=== PATIENT | female | born 1990 | race Caucasian/White ===

== ENCOUNTER 2017-08-19 15:44 | Emergency (ER) | payer OTHER, SELFPAY ==
[2017-08-19 15:45] VITALS: BP 157/90; PULSE 98; RESP 16; TEMP 37; O2SAT 98; BMI 24.7
--- NOTE | 2017-08-19 15:59 | ED.VISSUMM ---
- ER Visit Summary Date of Service: 08/19/17 Chief Complaint: Fatigue History of Present Illness: The patient is a 27 F no significant past medical history other than the depression. 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 She has had URI type symptoms are about 10 days. She just feels generally weak and fatigued and now feels somewhat dehydrated. Nonproductive cough. No fever but chills. Denies nausea, vomiting or diarrhea. Denies dysuria but thought she had some mild right flank pain the other day. Just came off her period which was irregular and lasted about 3 weeks. She does have a control implant. She denies any abdominal pain or chest pain. Physical Examination: Well-appearing young female. Vital signs are stable afebrile. Pulse ox 98% on room air no signs of hypoxia. H EENT exam unremarkable. Neck nontender no lymphadenopathy. Trachea midline. Lungs dry cough but no rales, rhonchi or wheezing. Equal symmetrical. Heart regular rate and rhythm no murmur. Abdomen is soft and nontender. Normal bowel sounds no peritoneal signs. She is moving all 4 extremities. Calves are nontender without edema or cords. Back exam is nontender. Skin is unremarkable. No rashes. No petechiae or purpura. Neurologic exam is normal with normal motor strength. Actually Test Results: Repeat exam at 1700 patient is doing well. I went over all test results with both her and her mother. CBC normal. BMP normal. No signs of dehydration. UA normal. Serum test negative. Her history and exam are consistent with a viral URI. Emergency Department Course and Treatment: IV fluids and screening labs. Treatment Plan: Treated as a viral syndrome. Disposition: Discharge Impression: Fatigue Acute viral URI This note was generated with [employer] dictation software. It may contain incorrect words, spelling, and punctuation that were not noted in review of the chart prior to signing ED Disposition - Plan for ED Patient: Chief Complaint: General Illness Referrals: Eugenia Low DO [Primary Care Provider] -
[2017-08-19 16:12] LABS: Bacteria 0 SEEN /hpf (None Seen)
[2017-08-19 16:14] LABS: Color, Urine Yellow (Yellow); Glucose, Dipstick Normal (Normal); Ketone-Dipstick 15 mg/dl (Negative); Leukocyte Esterase-Dipstick 25 /ul (Negative); Nitrite-Dipstick Negative (Negative); Occult Blood-Urine 25 /ul (Negative); Protein-Dipstick 15 mg/dl (Negative); Urine Bilirubin Dipstick Negative (Negative); Urine Urobilinogen Normal (Normal)
[2017-08-19] MEDS: 0.9% Normal Saline 1,000 ML 1000 ML IV (16:18)
[2017-08-19 16:20] LABS: Red Blood Cells-Urine 0-5 SEEN /hpf (0-5); Squamous Epithelial Cells - UA 5-10 SEEN /hpf (5-10); Urine Clarity Sl Cldy (Clear); White Blood Cells 0-5 SEEN /hpf (0-5)
[2017-08-19 16:21] LABS: Mucous, Urine 2+ /hpf (<or=2+)
[2017-08-19 16:28] LABS: Absolute Lymphocyte Count 1.77 X10^3/ul (0.83-4.51); Absolute Neutrophil Count 5.3 X10^3/uL (2.0-7.7); Basophil# 0.01 X10^3/uL; Basophil% 0.1 % (0-1); Eosinophil# 0.13 X10^3/uL; Eosinophils% 1.7 % (0-5); Hematocrit 41.8 % (37-47); Lymphocyte # 1.77 X10^3/ul (4.0); Lymphocyte % 22.8 % (19-41); Mean Corp Hgb Conc 33.5 g/gl (32-36); Mean Corpuscular Hgb 29.5 pg (27.0-32.0); Mean Corpuscular Volume 88.2 fL (81-99); Mean Platelet Vol. 8.6 fl (6.2-12.0); Monocyte# 0.57 X10^3/uL; Monocyte% 7.4 % (0-10); Neutrophil # 5.26 X10^3/uL (2.7-7.7); Neutrophil % 67.9 % (47-70); Platelet Count 285 K/mm3 (150-450); RBC Distribution Width CV 12.3 % (11.6-14.6); RBC Distribution Width SD 39.7 fl (35.1-43.9); Red Blood Count 4.74 M/mm3 (4.2-5.4); White Blood Count 7.8 K/mm3 (4.4-11.0)
[2017-08-19 16:29] LABS: POSITIVE COUNT NO; POSITIVE DIFFERENTIAL NO; POSITIVE MORPHOLOGY NO
[2017-08-19 16:38] LABS: Anion Gap 7 (5-15); BUN 13 mg/dL (7-18); BUN/Creat Ratio 14.7 RATIO (10-20); Calcium,Total 8.9 mg/dL (8.5-10.1); Chloride 105 mmol/L (98-107); Creatinine, Serum 0.88 mg/dL (0.55-1.02); EST Glomerular Filtration Rate 83 mL/min (>60); Est Glom Filt Rate - Afr Amer 100 mL/min (>60); Estimated Creatinine Clearance 84.39 ml/min; Glucose 84 mg/dL (74-106); Potassium 3.8 mmol/L (3.5-5.1); Sodium Level 138 mmol/L (136-145)
[2017-08-19 16:42] LABS: Pregnancy, Serum, hCG Quali. NEGATIVE Negative (0-9 Nonpreg)
--- NOTE | 2017-08-19 17:04 | ED.DEP ---
ED Disposition - Plan for ED Patient: Disposition: Home or Assisted Living Chief Complaint: General Illness Instructions: ED URI Viral Referrals: Eugenia Low DO [Primary Care Provider] - 10-14 Days if not better Additional Instructions: Plenty of fluids and rest. Tylenol Motrin for body aches and fever as needed. Follow-up your primary care physician if not improving in another week or 2.
== END 2017-08-19 17:22 | disposition home or self-care (01) ==
PROVIDERS: Emergency Provider Emergency Medicine; Family Provider Family Medicine; PCP Family Medicine
DX: R53.83 Other fatigue (principal); J06.9 Acute upper respiratory infection, unspecified; F32.9 Major depressive disorder, single episode, unspecified
CPT/HCPCS: 80048; 81001; 84703; 85025; 99283; J7030; A4216

== ENCOUNTER → 2017-08-28 18:23 | Outpatient (CLI) | payer OTHER, SELFPAY ==
[2017-08-28 20:12] LABS: Chlamydia Trachomatis by PCR Negative (Negative); Neisserai gonorrhoeae by PCR Negative (Negative); Probe Check PASS; Sample Adequacy Control PASS; Specimen Processing Control PASS
[2017-08-31 18:27] LABS: HPV Reflexed? NOT INDICATED
== END ==
PROVIDERS: Visit Provider Obstetrics & Gynecology
DX: Z12.4 Encounter for screening for malignant neoplasm of cervix (principal); Z11.3 Encounter for screening for infections with a predominantly sexual mode of transmission
CPT/HCPCS: 87491; 87591; 88175; G0145

== ENCOUNTER → 2019-04-21 14:01 | Outpatient (CLI) | payer BC, SELFPAY ==
[2019-04-21 10:46] VITALS: BMI 25.6
== END ==
PROVIDERS: Family Provider Family Medicine; PCP Family Medicine; Referring Provider Physician Assistant; Visit Provider Physician Assistant
DX: L02.91 Cutaneous abscess, unspecified (principal)
CPT/HCPCS: 87070; 87205

== ENCOUNTER → 2020-03-25 16:35 | Outpatient (CLI) | payer OTHER, SELFPAY ==
[2020-03-25 14:14] VITALS: BMI 25.6
[2020-03-25 17:54] LABS: Amphetamine Urine VISTA NEGATIVE (<1000 ng/mL); Barbiturate Urine VISTA NEGATIVE (< 200 ng/mL); Benzodiazepine Urine VISTA NEGATIVE (< 200 ng/mL); Cocaine Urine VISTA NEGATIVE (< 300 ng/mL); Ecstacy Urine VISTA NEGATIVE (< 500 ng/mL); Methadone Urine VISTA NEGATIVE (< 300 ng/mL); PCP Urine VISTA NEGATIVE (< 25 ng/mL); THC Urine VISTA NEGATIVE (< 50 ng/mL); Vista UDS pH Range 6
[2020-03-30 07:07] LABS: Chlamydia By Nucleic Acid AMP Negative (Negative)
[2020-03-30 07:59] LABS: Gonococcus By Nucleic Acid AMP Negative (Negative)
== END ==
PROVIDERS: PCP Family Medicine; Referring Provider Obstetrics & Gynecology; Visit Provider Obstetrics & Gynecology
DX: Z34.90 Encounter for supervision of normal pregnancy, unspecified, unspecified trimester (principal); Z11.3 Encounter for screening for infections with a predominantly sexual mode of transmission
CPT/HCPCS: 80307; 87086; 87088; 87491; 87591

== ENCOUNTER → 2020-04-01 14:32 | Outpatient (CLI) | payer OTHER, SELFPAY ==
[2020-03-25 14:14] VITALS: BMI 25.6
[2020-04-01 14:58] VITALS: BP 111/70; PULSE 84; RESP 16; TEMP 36.6; O2SAT 97; BMI 28.6
[2020-04-01] MEDS: 0.9% NaCl Peripheral Flush Adult/Peds IV (15:10)
[2020-04-01] MEDS: Dextrose 5%-Lactated Ringers 1,000 ML 999 ML IV (15:11)
[2020-04-01] MEDS: Ondansetron 4 MG/2 ML Vial IV (15:13)
== END ==
PROVIDERS: PCP Family Medicine; Referring Provider Obstetrics & Gynecology; Visit Provider Obstetrics & Gynecology
DX: E86.0 Dehydration (principal)
CPT/HCPCS: 96361; 96374; A4216; J2405

== ENCOUNTER → 2020-04-02 13:59 | Outpatient (CLI) | payer OTHER, SELFPAY ==
[2020-04-01 14:58] VITALS: BMI 28.6
[2020-04-02 14:56] LABS: Absolute Lymphocyte Count 2.17 X10^3/uL (0.83-4.51); Absolute Neutrophil Count 5.1 X10^3/uL (2.0-7.7); Basophil# 0.03 X10^3/uL; Basophil% 0.4 % (0-1); Eosinophil# 0.15 X10^3/uL; Eosinophils% 1.8 % (0-5); Hematocrit 38.8 % (37-47); Hemoglobin 12.7 g/dL (12.0-15.0); Lymphocyte # 2.17 X10^3/ul (4.0); Lymphocyte % 26.6 % (19-41); Mean Corp Hgb Conc 32.7 g/dL (32-36); Mean Corpuscular Hgb 29.5 pg (27.0-32.0); Mean Platelet Vol. 9.2 fl (6.2-12.0); Monocyte# 0.62 X10^3/uL; Monocyte% 7.6 % (0-10); NRBC Flagged by Analyzer 0 % (0-5); Neutrophil # 5.14 X10^3/uL (2.7-7.7); Neutrophil % 63.1 % (47-70); Platelet Count 301 K/mm3 (150-450); RBC Distribution Width CV 12.7 % (11.6-14.6); RBC Distribution Width SD 41.6 fl (35.1-43.9); Red Blood Count 4.31 M/mm3 (4.2-5.4); White Blood Count 8.2 K/mm3 (4.4-11.0)
[2020-04-02 15:05] LABS: NATERA MAILED SPECIMEN
[2020-04-02 16:23] LABS: HIV - WCH Non-Reactive (Nonreactive); Hepatitis B Surface Antigen Non-Reactive (Nonreactive); Hepatitis C Antibody Non-Reactive (Nonreactive); Rubella IgG 134.8 IU/mL
[2020-04-08 01:46] LABS: Rapid Plasmin Reagin (RPR) NONREACTIVE (NONREACTIVE)
== END ==
PROVIDERS: PCP Family Medicine; Referring Provider Obstetrics & Gynecology; Visit Provider Obstetrics & Gynecology
DX: Z34.90 Encounter for supervision of normal pregnancy, unspecified, unspecified trimester (principal)
CPT/HCPCS: 36415; 85025; 86592; 86703; 86762; 86803; 86850; 86900; 86901; 87340

== ENCOUNTER → 2020-05-21 11:13 | Outpatient (CLI) | payer OTHER, SELFPAY ==
[2020-05-21 10:38] VITALS: BMI 29.0
== END ==
PROVIDERS: PCP Family Medicine; Referring Provider Obstetrics & Gynecology; Visit Provider Obstetrics & Gynecology
DX: O09.90 Supervision of high risk pregnancy, unspecified, unspecified trimester (principal); Z3A.00 Weeks of gestation of pregnancy not specified
CPT/HCPCS: 36415

== ENCOUNTER → 2020-07-23 14:02 | Outpatient (CLI) | payer OTHER, SELFPAY ==
[2020-07-16 14:54] VITALS: BMI 30.2
--- NOTE | 2020-07-23 14:07 | ECHOD_ITS ---
Reason For Study: DEZ-DANLOS SYNDROME Procedure This was a 2D Doppler, Color Flow transthoracic echocardiogram. Exam performed in department. Left Ventricle Normal LV size. Left ventricular systolic function is normal. The estimated ejection fraction is 60 %. Normal diastology for age. No regional wall motion abnormalities noted. Right Ventricle Normal RV size. Normal systolic function. Atria Normal left atrium. Normal right atrium. Mitral Valve Normal mitral valve. Tricuspid Valve Normal tricuspid valve. Aortic Valve Normal aortic valve. Trisinus/trileaflet aortic valve. Pulmonic Valve Normal pulmonic valve. Great Vessels Normal aortic root. The pulmonary artery is normal size. Normal inferior vena cava. Pericardium/Pleural No pericardial effusion. MMode/2D Measurements & Calculations LVIDd: 3.9 cm IVSd: 0.88 cm Ao root diam: 2.5 cm LVIDs: 2.5 cm LVPWd: 0.90 cm RVDd: 3.2 cm FS: 35.7 % LAV(MOD-bp): 47.5 ml LA A4 area: 14.4 cm2 LA dimension(2D): 2.9 cm LAV(MOD-bp) Indexed: 28.4 ml/m2 LAV(MOD-sp2): 46.4 ml LAV(MOD-sp4): 39.1 ml RA A4 area: 10.3 cm2 Time Measurements MV dec time: 0.19 sec Doppler Measurements & Calculations MV E max trent: 105.4 cm/sec Lat Peak E' Trent: 17.9 cm/sec Med Peak E' Trent: 8.2 cm/sec MV A max trent: 66.9 cm/sec E/E' lat: 5.9 E/E' med: 12.9 MV E/A: 1.6 Ao V2 max: 132.9 cm/sec LV V1 max: 112.2 cm/sec PA V2 max: 99.5 cm/sec Ao max P.1 mmHg LV V1 max P.0 mmHg Interpretation Summary Normal LV size. Left ventricular systolic function is normal. The estimated ejection fraction is 60 %. Normal diastology for age. Structurally normal valves. Ordering Physician: Annie Grady Referring Physician: Eugenia Low Performed By: Beverly Davila RDCS, RVT
== END ==
PROVIDERS: PCP Family Medicine; Referring Provider Obstetrics & Gynecology; Visit Provider Obstetrics & Gynecology
DX: Q79.60 Ehlers-Danlos syndrome, unspecified (principal)
CPT/HCPCS: 93306

== ENCOUNTER → 2020-07-29 15:33 | Outpatient (CLI) | payer OTHER, SELFPAY ==
[2020-07-16 14:54] VITALS: BMI 30.2
[2020-07-29 17:17] LABS: Absolute Lymphocyte Count 1.31 X10^3/uL (0.83-4.51); Absolute Neutrophil Count 6.9 X10^3/uL (2.0-7.7); Basophil# 0.03 X10^3/uL; Basophil% 0.3 % (0-1); Eosinophil# 0.26 X10^3/uL; Eosinophils% 2.9 % (0-5); Hematocrit 33.4 % (37-47); Hemoglobin 10.9 g/dL (12.0-15.0); Lymphocyte # 1.31 X10^3/ul (4.0); Lymphocyte % 14.6 % (19-41); Mean Corp Hgb Conc 32.6 g/dL (32-36); Mean Corpuscular Hgb 29.5 pg (27.0-32.0); Mean Corpuscular Volume 90.3 fL (81-99); Mean Platelet Vol. 9.9 fl (6.2-12.0); Monocyte# 0.38 X10^3/uL; Monocyte% 4.2 % (0-10); NRBC Flagged by Analyzer 0 % (0-5); Neutrophil # 6.89 X10^3/uL (2.7-7.7); Platelet Count 259 K/mm3 (150-450); RBC Distribution Width CV 12.9 % (11.6-14.6); RBC Distribution Width SD 42.3 fl (35.1-43.9)
[2020-07-29 17:35] LABS: Glucose Challenge Gest 1H 50g 120 mg/dL (70-140)
== END ==
PROVIDERS: PCP Family Medicine; Referring Provider Obstetrics & Gynecology; Visit Provider Obstetrics & Gynecology
DX: Z13.1 Encounter for screening for diabetes mellitus (principal); Z34.90 Encounter for supervision of normal pregnancy, unspecified, unspecified trimester
CPT/HCPCS: 36415; 82950; 85025

== ENCOUNTER → 2020-09-21 08:57 | Outpatient (CLI) | payer OTHER, SELFPAY ==
[2020-06-16 15:45] VITALS: BMI 29.7
[2020-09-17 14:30] VITALS: BMI 31.6
--- NOTE | 2020-09-21 09:00 | US_ITS ---
STUDY: SECOND AND THIRD TRIMESTER OBSTETRICAL ULTRASOUND - LIMITED REASON FOR EXAM: Female, 30 years old growth LMP: 01/19/2020. PRIOR ULTRASOUND: None. TECHNIQUE: Transabdominal TECHNICAL QUALITY: Adequate. FINDINGS: There is a single intrauterine fetus. The fetus is in a cephalic presentation. There is demonstrated cardiac activity with a heart rate of 164 bpm. There is a normal amniotic fluid volume. The largest amniotic fluid pocket measures 5.2 cm x 5.8 cm. The amniotic fluid index (KALIA) is 3.1 cm. The placenta is posterior and fundal in location and is not low lying. There are Grade 1 placental changes. The cervix was not measured due to the fact that the patient bladder was not filled. BIOMETRY: BPD: 8.57 cm: 34 weeks, 3 days HC: 31.8 cm: 35 weeks, 5 days AC: 31.13 cm: 35 weeks, 0 days FL: 6.81 cm: 34 weeks, 6 days Age by LMP: 35 weeks, 1 days. DAISY by LMP: 10/25/2020. age by current US: 35 weeks, 0 days. DAISY by current US: 10/26/2020. Estimated weight: 2588 grams, +/- 388 grams, 45.6 percentile. US/OB Limited With Biometrics IMPRESSION: Single live intrauterine gestation with a mean gestational age of 35 weeks. Electronically Signed: Porfirio Cornejo MD at 14:21 EDT , Service support ,
== END ==
PROVIDERS: PCP Family Medicine; Referring Provider Obstetrics & Gynecology; Visit Provider Obstetrics & Gynecology
DX: O26.849 Uterine size-date discrepancy, unspecified trimester (principal); Z3A.35 35 weeks gestation of pregnancy
CPT/HCPCS: 76816

== ENCOUNTER → 2020-09-28 13:30 | Outpatient (CLI) | payer OTHER, SELFPAY ==
[2020-09-28 13:20] VITALS: BMI 32.1
== END ==
PROVIDERS: PCP Family Medicine; Referring Provider Nurse Practitioner Women's Health; Visit Provider Nurse Practitioner Women's Health
DX: O09.90 Supervision of high risk pregnancy, unspecified, unspecified trimester (principal); Z3A.00 Weeks of gestation of pregnancy not specified
CPT/HCPCS: 87081

== ENCOUNTER 2020-10-02 22:13 | Emergency (ER) | payer OTHER, SELFPAY ==
[2020-09-28 13:20] VITALS: BMI 32.1
[2020-10-02 22:14] VITALS: BP 152/90; PULSE 83; RESP 18; TEMP 36.4; O2SAT 99; BMI 32.1
--- NOTE | 2020-10-02 23:00 | ED.VISSUMM ---
- ER Visit Summary Date of Service: 10/02/20 Chief Complaint: [] Rash History of Present Illness: The patient is a 30 F [presents to the emergency department with a rash that started initially 2 weeks ago. Patient states that initially it started on her abdomen and in one of her stretch zhong. Patient did some research online and thought maybe she had PUPPS related to her . Patient was seen by her [employer] office 4 days ago and confirmed that that is what they thought she had. Patient was told to take Claritin. Patient took Claritin but had no improvement therefore she was called in a Medrol Dosepak and she is on day 4. Today patient noticed increased itching and rash to the upper extremities and her legs. Patient describes the pain as a burning and itching that makes it hard to sleep. Patient is G1, P0 and she is 36 weeks and 5 days. Patient's been feeling the baby move and she is not had any vaginal bleeding. Patient denies recent illness. She is not had a fever.] Physical Examination: [HEENT-PERRLA, EOMI. Cranial nerves II through XII grossly intact. TMs clear. Mucous membranes moist. No adenopathy. Cardiovascular-regular rate and rhythm without murmur or ectopy Lungs-clear to auscultation, chest wall stable without crepitus or subcu emphysema Abdomen-normoactive bowel sounds, soft, nontender, no rebound or rigidity, no peritoneal signs. Skin exam-patient does have erythematous papules on the upper and lower extremities that are pruritic. There are no vesicles noted. No petechiae noted and no purpura noted. The rash does not involve the hands or feet. No significant rash noted on her back. The rash on her abdomen is improved dramatically from what the patient states and does not seem to be significant at this time. Extremities-intact ?4, normal range of motion, normal pulses, atraumatic] Test Results: [None indicated] Emergency Department Course and Treatment: [Case was initially discussed with patient's [employer] Dr. Alexandro Lara and I was asked to give patient IV Solu-Medrol and IV Benadryl and she is to continue with her Claritin. Patient will follow up with their office.] Treatment Plan: [Patient to continue with Claritin at home and finish her Medrol Dosepak.] Disposition: [Discharged home in stable condition] Impression: [Dermatitis-suspect PUPPS] This note was generated with Ren[employer]dai dictation software. It may contain incorrect words, spelling, and punctuation that were not noted in review of the chart prior to signing ED Disposition - Plan for ED Patient: Referrals: Eugenia Low DO [Primary Care Provider] -
--- NOTE | 2020-10-02 23:03 | ED.DEP ---
ED Disposition - Plan for ED Patient: Instructions: Self-Care for Skin Rashes Referrals: Eugenia Low DO [Primary Care Provider] - Annie Grady MD [STAFF PHYSICIAN] - 3-5 Days
[2020-10-02] MEDS: DiphenhydrAMINE 50 MG/ML Syringe IV (23:26)
[2020-10-02] MEDS: MethylPREDNISolone 125 MG/2 ML Vial IV (23:26)
[2020-10-02 23:29] VITALS: BP 135/93; PULSE 94; RESP 18; O2SAT 100
== END 2020-10-02 23:58 | disposition home or self-care (01) ==
LOC: ED 22:56
PROVIDERS: Emergency Provider Emergency Medicine; PCP Family Medicine
DX: O99.713 Diseases of the skin and subcutaneous tissue complicating pregnancy, third trimester (principal); L30.9 Dermatitis, unspecified; Z3A.36 36 weeks gestation of pregnancy
CPT/HCPCS: 96374; 96375; 99281; 99282

== ENCOUNTER 2020-10-06 09:20 | Outpatient (CLI) | payer OTHER, SELFPAY ==
[2020-10-06] VITALS (9 sets, daily range): BP systolic 121–140; BP diastolic 73–88; PULSE 78–105; TEMP 36.8–37; BMI 31.9
[2020-10-06 10:01] LABS: Hematocrit 32.7 % (37-47); Hemoglobin 10.6 g/dL (12.0-15.0); Mean Corp Hgb Conc 32.4 g/dL (32-36); Mean Corpuscular Volume 86.5 fL (81-99); Mean Platelet Vol. 9.5 fl (6.2-12.0); Platelet Count 253 K/mm3 (150-450); RBC Distribution Width CV 13.1 % (11.6-14.6); RBC Distribution Width SD 41.1 fl (35.1-43.9); Red Blood Count 3.78 M/mm3 (4.2-5.4); White Blood Count 9.4 K/mm3 (4.4-11.0)
[2020-10-06 10:19] LABS: AST(SGOT) 16 U/L (15-37); Alanine Aminotransfer ALT/SGPT 17 U/L (13-56); Creatinine, Serum 0.44 mg/dL (0.55-1.02); EST Glomerular Filtration Rate 178 mL/min (>60); Est Glom Filt Rate - Afr Amer 216 mL/min (>60); Uric Acid 3.3 mg/dL (2.6-6.0)
[2020-10-06 10:55] LABS: Protein, Urine (Random) 21.9 mg/dL (<11.9); Protein:Creat Ratio 292 mg/g CRE (0-200)
--- NOTE | 2020-10-07 13:20 | OB.TRI.PN_ITS ---
Progress Notes Date of Service: 10/06/20 Progress Note: Patient presents for triage evaluation secondary to elevated blood pressure and rash with itching on arms, legs, hands, and feet. Blood pressure is normal while in triage. Prelabs were negative. FHT: Moderate variability reactive no decelerations category I tracing [place]: No Contractions Assessment and plan: Given that symptoms are not completely characteristic of pupps, will trial Actigall to alleviate symptoms. Recommend continued use of Benadryl. Reactive NST, reassuring maternal and status patient discharged to home to follow-up on Sunday. See problem list details for additional plan information. Laboratory Studies: Laboratory Tests 10/06/20 10/06/20 10/06/20 Range/Units 10:30 09:45 09:45 WBC 9.4 (4.4-11.0) K/mm3 RBC 3.78 L (4.2-5.4) M/mm3 Hgb 10.6 L (12.0-15.0) g/dL Hct 32.7 L (37-47) % MCV 86.5 (81-99) fL MCH 28.0 (27.0-32.0) pg MCHC 32.4 (32-36) g/dL RDW Std Deviation 41.1 (35.1-43.9) fl RDW Coeff of Aaron 13.1 (11.6-14.6) % Plt Count 253 (150-450) K/mm3 MPV 9.5 (6.2-12.0) fl Creatinine 0.44 L (0.55-1.02) mg/dL Est GFR (MDRD) Af Amer 216 (>60) mL/min Est GFR (MDRD) Non-Af 178 (>60) mL/min Uric Acid 3.3 (2.6-6.0) mg/dL AST 16 (15-37) U/L ALT 17 (13-56) U/L U Random Total Protein 21.9 H (<11.9) mg/dL Urine Creatinine 75.00 (NO RANGE EST.) mg/dL Protein/Creatinin Ratio 292 H (0-200) mg/g CRE - Problem List (1) Elevated blood pressure affecting in third trimester, antepartum Status: Acute Comment: Elevated BPs in the ER over the weekend and in office. Seen in triage on 10/06. Blood pressure is normal. Prelabs normal. Patient to monitor blood pressures at home. (2) PUPP (pruritic urticarial papules and plaques of ) Status: Acute Comment: Rash did not improve with steroid course. No symptoms on abdomen, only on arms, legs, hands, and feet. Bile acids pending. We will see if symptoms improve with Actigall Multi Select Codes - Urinary/Genital Urinary/Genital CPT Codes: 88034-46 non-stress test Interp
== END 2020-10-06 11:52 | disposition home or self-care (01) ==
LOC: WPOUT 09:29 → WP 09:29
PROVIDERS: PCP Family Medicine; Referring Provider Obstetrics & Gynecology; Visit Provider Obstetrics & Gynecology
DX: O26.86 Pruritic urticarial papules and plaques of pregnancy (PUPPP) (principal); R03.0 Elevated blood-pressure reading, without diagnosis of hypertension; Z3A.00 Weeks of gestation of pregnancy not specified
CPT/HCPCS: 36415; 59025; 59050; 82565; 82570; 84156; 84450; 84460; 84550; 85027; 99218; G0378

== ENCOUNTER 2020-10-08 18:55 | Inpatient (IN) | payer OTHER, SELFPAY ==
[2020-10-08 14:27] VITALS: BMI 31.7
[2020-10-08 19:14] VITALS: BMI 31.4
[2020-10-08 20:01] VITALS: BP 131/85
[2020-10-08 20:02] VITALS: PULSE 102; TEMP 37.2; O2SAT 97
[2020-10-08 20:33] LABS: Absolute Neutrophil Count 6.2 X10^3/uL (2.0-7.7); Basophil# 0.03 X10^3/uL; Basophil% 0.4 % (0-1); Eosinophil# 0.26 X10^3/uL; Eosinophils% 3.1 % (0-5); Hematocrit 31.3 % (37-47); Hemoglobin 10.5 g/dL (12.0-15.0); Lymphocyte % 16.7 % (19-41); Mean Corp Hgb Conc 33.5 g/dL (32-36); Mean Corpuscular Hgb 29.2 pg (27.0-32.0); Mean Corpuscular Volume 87.2 fL (81-99); Mean Platelet Vol. 10.4 fl (6.2-12.0); Monocyte# 0.48 X10^3/uL; Monocyte% 5.7 % (0-10); NRBC Flagged by Analyzer 0 % (0-5); Neutrophil # 6.15 X10^3/uL (2.7-7.7); Neutrophil % 73.5 % (47-70); Platelet Count 282 K/mm3 (150-450); RBC Distribution Width SD 40.7 fl (35.1-43.9); Red Blood Count 3.59 M/mm3 (4.2-5.4); White Blood Count 8.4 K/mm3 (4.4-11.0)
[2020-10-08 20:43] VITALS: PULSE 95; O2SAT 98
[2020-10-08 20:48] VITALS: PULSE 89; O2SAT 98
[2020-10-08] MEDS: miSOPROStol 25 MCG TABLET VAGINAL (20:50)
--- NOTE | 2020-10-08 21:45 | HP.PCM_ITS ---
- Problem List (1) Encounter for induction of labor Status: Acute (2) 36 weeks gestation of Status: Acute Comment: COVID test ordered 09/29/20 (sched 10/18 1:30pm) (3) Anemia affecting Status: Acute Qualifiers: Comment: iron added (4) Cholestasis during in third trimester Status: Acute Comment: Patient with itching concerning for cholestasis of . Improved significantly with actigall. Bile acids pending. Given severity of initial symptoms and response to treatment, plan IOL for suspected cholestasis of . 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 Mota. s/p mfm consult nl maternal echo, Anesthesia consult 09/06 @ 10. delivery based on obstetric indications; NL ECG (6) Elevated blood pressure affecting in third trimester, antepartum Status: Acute Comment: Elevated BPs in the ER over the weekend and in office. Seen in triage on 10/06. Blood pressure is normal. Prelabs normal. Patient to monitor blood pressures at home. (7) GBS negative Status: Acute (8) GERD (gastroesophageal reflux disease) Status: Acute Qualifiers: (9) PUPP (pruritic urticarial papules and plaques of ) Status: Acute Comment: Rash did not improve with steroid course. No symptoms on abdomen, only on arms, legs, hands, and feet. Bile acids pending. We will see if symptoms improve with Actigall (10) Status: Acute Qualifiers: Comment: declines carrier. afp screening- negative. genetic low risk; nl anatomy. nl growth @ 35 wks (11) Supervision of high risk , antepartum Status: Acute Comment: PRR DAISY 10/25/2020, girl Gloria, Spouse: Ameya (12) Exercise-induced asthma Status: Chronic Comment: dx in high school- no issues since (13) Mixed anxiety and depressive disorder Status: Chronic Comment: Prozac 20mg QD History and Physical Date of Admission: 10/08/20 Intake Vital Signs 10/08/20 Height 5 ft 4 in 10/08/20 Weight: 185 lb 2 oz 10/08/20 BMI 31.7 10/08/20 BP 122/86 H Intake Visit Reasons: follow up triage House Calls Nurse Practitioner Required: No Is patient in pain?: No Allergies No Known Allergies Allergy (Verified 10/06/20 09:46) Medications famotidine 20 mg tablet 20 mg PO DAILY #30 tablet 05/21/20 [Rx Confirmed 10/08/20] fluoxetine 20 mg capsule 20 mg PO DAILY #30 cap 08/06/20 [Rx Confirmed 10/08/20] Vits [Prenatabs FA] 1 tablet PO DAILY 09/06/20 [History Confirmed 10/08/20] methylprednisolone 4 mg tablets in a dose pack See Rx Instructions PO PER PKG DIR #21 tablet 09/29/20 [Rx Confirmed 10/08/20] DiphenhydrAMINE [Benadryl] 25 mg PO 10/06/20 [History Confirmed 10/08/20] blood pressure monitor See Rx Instructions .ROUTE .MEDSUPPLY #1 each 10/06/20 [Rx Confirmed 10/08/20] famotidine 20 mg tablet 20 mg PO BID #60 tablet 10/06/20 [Rx Confirmed 10/08/20] ursodiol 300 mg capsule 300 mg PO BID #60 cap 10/06/20 [Rx Confirmed 10/08/20] Last Menstral Period: 01/19/20 Zika: Zika virus screening: Negative : No PFSH PFSH Medical History Kayla-Danlos syndrome (Acute) Exercise-induced asthma (Chronic) Mixed anxiety and depressive disorder (Chronic) Hx of tonsillitis (Acute) Abnormal EKG (Resolved ~2014) Surgical History History of wisdom tooth extraction (Acute) Family History Mother Thyroid disorder Grandmother Thyroid disorder Cancer Maternal grandmother - kidney cancer Social History (Updated 10/08/20 @ 15:[address] 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 OB Visit DAISY Calculator Estimated Delivery Date Method Current WG Current Estimate 10/25/20 LMP (Certain) 37w 4d Other Estimates 10/26/20 Ultrasound #1 37w 3d Expected Delivery Route/Plan Labor Preferences- CB/BF classes: planning labor support person: Ameya labor intervention preferences: open to standard interventions, open to baby meds pain management options preferred: epidural cut cord/dad catch: no - VERY SQUEAMISH, patient wants to help if able : yes PP control planned: discuss at PP visit discussed possible routes of delivery and associated risks: discussed possible delivery modalities and possible indications for each including R/B/A of , VAVD, FAVD, and CS. questions answered. special requests: [] Specific Issue/Plans flu vaccine: given tdap vaccine: given rhogam: na LARC form signed: declined movement and labor precautions reviewed. Problem list reviewed and updated with the most current plan of care details and appropriate orders placed. Relevant counseling for the gestational age provided. Continue routine care and follow up unless otherwise noted in visit notes/problem list details Initial Weight: 165 lb Date EGA Weight BP Urine Prot Glucose FHR FuHt Pres Dilation Effaced St Visit Note 03/25/20 9w 3d 167 lb (+2 lb) 112/70 SM- CRL cons with LMP 04/23/20 13w 4d 167 lb 8 oz (+2 lb 8 oz) 110/80 Negative Negative 150 GP - no cramping or bleeding. Still having nausea - discussed risks/benefits of zofran. Script sent to pharmacy. Decided on Gloria for name. 05/21/20 17w 4d 169 lb 4 oz (+4 lb 4 oz) 100/60 Negative Negative 155 Sm- no vb cramping ordered pepcid. 06/16/20 21w 2d 173 lb (+8 lb) 116/80 Negative Negative 155 GP - no ctx, LOF, VB, DFM. 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 Restarted prozac. Discussed COVID vaccine in and provided references for ACOG and sMFM 07/16/20 25w 4d 176 lb (+11 lb) 116/70 Negative Negative 155 SM- no vb lof good fm no regular ctx discussed iron rich foods. 08/06/20 28w 4d 177 lb (+12 lb) 110/74 Negative Negative 150 SM- no vb lof good fm no regular ctx 08/20/20 30w 4d 180 lb 4 oz (+15 lb 4 oz) 118/82 Negative Negative 145 30 GP - no LOF, VB, DFM, ctx. Having occasional diarrhea. LARC form signed. 09/03/20 32w 4d 180 lb (+15 lb) 116/80 Negative Negative 140 31 SM- no vb lof good fm no regular ctx co lower swelling 09/17/20 34w 4d 184 lb 6 oz (+19 lb 6 oz) 120/78 Negative Negative 155 34 GP - no LOF, VB, DFM, ctx. Discussed labor preferences and routes of delivery. 09/28/20 36w 1d 187 lb 6 oz (+22 lb 6 oz) 132/86 Negative Negative 148 36 MH-itching rash in striae of abdomen, arms. OTC hydrocortisone not helpful. Benedryl to sleep but getting worse. Raised rash abdomen, arms, thighs. Claritan, ice packs, benedryl HS. GBS. 10/06/20 37w 2d 186 lb (+21 lb) 124/90 Negative Negative 140 37 GP - no ctx, LOF, VB, DFM. Had elevated BP in ER over the weekend. Having itching on entire body that has not improved with steroids. Sent to triage to r/o PreE and check bile acids. 10/08/20 37w 4d 185 lb 2 oz (+20 lb 2 oz) 122/86 Negative Negative 140 37 Cephalic 0 50 -3 GP - no LOF, VB, DFM, ctx . Patient had significant improvement in symptoms with Actigall. Bile acids still pending. Discussed with Dr. Grady and agrees with plan for IOL for suspected cholestasis of . ACOG First Trimester First Trimester: Desire for , Alcohol, Tobacco Cessation, Ill icit/Recreational Drug/Substance Use, Intimate Partner Violence, Barriers to care, Unstable Housing, Communication Barriers, Environmental/Work Hazards, Anticipated Course of Care, Toxoplasmosis Precations, Use of Any medications, Sexual activity, Exercise, Dental Care, Sauna/Hot tub use, Seat Belt use, Childbirth classes/Hospital facilities, , Travel, Indications for US and Screening for Aneuploidy Diagnostics Diagnostics Diagnostics Glucose 1 Hr 50 gm 120 mg/dL (70-140) 07/29/20 Hgb 10.6 g/dL (12.0-15.0) L 10/06/20 Hct 32.7 % (37-47) L 10/06/20 Details: HIV: Urine Culture: Sequential Screen: NIPT Screen: ROS Const Reports system reviewed and no additional complaints, except as docu Eyes Reports system reviewed and no additional complaints, except as docu ENT Reports system reviewed and no additional complaints, except as docu Card Reports system reviewed and no additional complaints, except as docu Resp Reports system reviewed and no additional complaints, except as docu GI Reports system reviewed and no additional complaints, except as docu Reports system reviewed and no additional complaints, except as docu, Denies abnormal vaginal bleeding, Denies painful urination, Denies pelvic pain, Denies vaginal discharge, Denies vaginal odor, Denies vaginal itching Musc Reports system reviewed and no additional complaints, except as docu Skin/Breast Reports system reviewed and no additional complaints, except as docu Neuro Yes system reviewed and no additional complaints, except as docu Psych Reports system reviewed and no additional complaints, except as docu Endo Reports system reviewed and no additional complaints, except as docu Exam Const General: cooperative, healthy appearing, comfortable, no acute distress, well developed, well groomed Nutritional Appearance: average body habitus, well nourished Orientation: alert, awake, oriented x3 [facility] Head: normal to inspection, normocephalic, atraumatic Eyes Pupils: PERRL, accommodation normal Resp Effort & Inspection: normal respiratory effort, able to speak in complete sentences, symmetric chest movement Cardio Rate: regular rate GI Palpation: soft, no guarding, no masses, nontender Skin General: no rashes or lesions noted, elasticity normal, turgor normal Neuro General: alert, awake, oriented x3 Cranial Nerves: CN's II-XI intact bilaterally, sense of smell intact, PERRL, accommodation normal, EOM intact bilaterally Speech: speech normal Gait: normal gait Psych Appearance: grossly normal, well kempt Mental Status: mental status grossly normal Mood: congruent mood Affect: normal affect Speech and Movement: speech and movement normal Attitude: cooperative Thought Process: normal Thought Content: normal Judgment: judgment good Results POC Urinalysis 2 Dip (Clinic) Office Urine Glucose Negative Last Edit by Kyra Bee on 10/08/20 14:40 Office Urine Protein Negative Last Edit by Kyra Bee on 10/08/20 14:40 Assessment & Plan Problems 1. Elevated blood pressure affecting in third trimester, antepartum O16.3 Elevated BPs in the ER over the weekend and in office. Seen in triage on 10/06. Blood pressure is normal. Prelabs normal. Patient to monitor blood pressures at home. 2. GBS negative 3. 36 weeks gestation of Z3A.36 COVID test ordered 09/29/20 (sched 10/18 1:30pm) 4. PUPP (pruritic urticarial papules and plaques of ) O26.86 Rash did not improve with steroid course. No symptoms on abdomen, only on arms, legs, hands, and feet. Bile acids pending. We will see if symptoms improve with Actigall 5. Gastroesophageal reflux disease without esophagitis K21.9 6. Anemia affecting in third trimester O99.013 iron added 7. Supervision of high risk , antepartum O09.90 PRR DAISY 10/25/2020, girl Gloria, Spouse: Ameya 8. 37 weeks gestation of Z3A.37 declines carrier. afp screening- negative. genetic low risk; nl anatomy. nl growth @ 35 wks 9. 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 Mota. s/p mfm consult nl maternal echo, Anesthesia consult 09/06 @ 10. delivery based on obstetric indications; NL ECG 10. Exercise-induced asthma J45.990 dx in high school- no issues since 11. Mixed anxiety and depressive disorder F41.8 Prozac 20mg QD 12. Cholestasis during in third trimester O26.613; K83.1 Patient with itching concerning for cholestasis of . Improved significantly with actigall. Bile acids pending. Given severity of initial symptoms and response to treatment, plan IOL for suspected cholestasis of . Patient presents IOL, plan management for with cytotec. Pain management: plans epidural. GBS negative. Management of any complications: Cholestasis of I have reviewed the [facility] and made any clinically relevant updates. UPDATE- I have seen the patient and performed any clinically relevant updates to the history and physical exam. Sana Molina MD
[2020-10-08] MEDS: Ursodiol 250 MG Tablet PO (22:27)
[2020-10-09] VITALS (84 sets, daily range): BP systolic 86–138; BP diastolic 49–87; PULSE 71–133; TEMP 36.7–37.3; O2SAT 96–100
[2020-10-09] MEDS: miSOPROStol 25 MCG TABLET VAGINAL (00:54)
[2020-10-09] MEDS: Lactated Ringers 1,000 ML 50 ML IV (03:25)
[2020-10-09] MEDS: Ondansetron 4 MG/2 ML Vial IV ×2 (05:01→09:24)
[2020-10-09] MEDS: Acetaminophen 500 MG Tablet PO (05:06)
[2020-10-09] MEDS: Lactated Ringers 500 ML 999 ML IV ×3 (05:14→10:33)
[2020-10-09] MEDS: 0.9% Normal Saline Single 100 ML IV.SOLN. INTRA-UTER (08:32)
--- NOTE | 2020-10-09 08:55 | PCM.PN.BLA ---
Progress Note Patient seen and examined this morning. Cervix 1cm. Tari q1-2 after 1am dose of cytotec. FHT Cat I aside from rare variable decel. Patel bulb placed. SROM occured during patel bulb placement. As long as continues to contract, no need to start further augmentation other than patel bulb at this time. Plan reviewed with patient and RN STROKE Vital Signs/Narrative: Vital Signs Temp Pulse BP Pulse Ox 10/09/20 07:21 99.1 F 75 132/77 H 97 10/09/20 06:45 83 98 10/09/20 06:15 74 98 10/09/20 05:15 84 98
[2020-10-09] MEDS: fentaNYL-bupivacaine (epidural) 100 ML BAG EPIDURAL ×3 (10:00→19:37)
[2020-10-09] MEDS: proCHLORPERazine 10 MG/2 ML Vial IV (10:33)
[2020-10-09] MEDS: Ursodiol 250 MG Tablet PO ×2 (11:54→21:55)
[2020-10-09] MEDS: Oxytocin 30 units/NS 500 ml 30 UNITS/500 ML IV.SOLN IV (13:30)
[2020-10-09] MEDS: Lactated Ringers 1,000 ML 200 ML IV ×2 (13:48→18:49)
[2020-10-09] MEDS: Methylergonovine 0.2 MG/ML Ampul IM (23:21)
[2020-10-09] MEDS: Oxytocin 30 units/NS 500 ml 30 UNITS/500 ML IV.SOLN 334 UNITS IV (23:31)
--- NOTE | 2020-10-09 23:52 | OP.PCM_ITS ---
Problem List (1) Encounter for induction of labor Status: Acute (2) 36 weeks gestation of Status: Acute Comment: COVID test ordered 09/29/20 (sched 10/18 1:30pm) (3) Anemia affecting Status: Acute Qualifiers: Comment: iron added (4) Cholestasis during in third trimester Status: Acute Comment: Patient with itching concerning for cholestasis of . Improved significantly with actigall. Bile acids pending. Given severity of initial symptoms and response to treatment, plan IOL for suspected cholestasis of . 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 Mota. s/p mfm consult nl maternal echo, Anesthesia consult 09/06 @ 10. delivery based on obstetric indications; NL ECG (6) Elevated blood pressure affecting in third trimester, antepartum Status: Acute Comment: Elevated BPs in the ER over the weekend and in office. Seen in triage on 10/06. Blood pressure is normal. Prelabs normal. Patient to monitor blood pressures at home. (7) GBS negative Status: Acute (8) GERD (gastroesophageal reflux disease) Status: Acute Qualifiers: (9) PUPP (pruritic urticarial papules and plaques of ) Status: Acute Comment: Rash did not improve with steroid course. No symptoms on abdomen, only on arms, legs, hands, and feet. Bile acids pending. We will see if symptoms improve with Actigall (10) Status: Acute Qualifiers: Comment: declines carrier. afp screening- negative. genetic low risk; nl anatomy. nl growth @ 35 wks (11) Supervision of high risk , antepartum Status: Acute Comment: PRR DAISY 10/25/2020, girl Gloria, Spouse: Ameya (12) Exercise-induced asthma Status: Chronic Comment: dx in high school- no issues since (13) Mixed anxiety and depressive disorder Status: Chronic Comment: Prozac 20mg QD Vaginal Delivery Maternal Presentation: Medically Indicated Induction 30-year-old G1, P0 at 37 weeks gestation admitted for induction of labor for suspected cholestasis of . Patient was induced with Cytotec and Carreon bulb followed by Pitocin. Medical Reason for Induction: Maternal Medical Condition: list: - Suspected cholestasis of Amniotic Membrane Rupture Type: Spontaneous Amniotic Fluid Description: Clear Final DAISY: 10/25/20 Gestational age: 37 Weeks and 5 Days Date of Procedure: 10/09/20 Pre-Operative Diagnosis: Term , suspected cholestasis Post-Operative Diagnosis: Same Surgery/ Procedure Performed: Spontaneous Vaginal Delivery Type of Anesthesia: Epidural Description of Procedure: Patient began pushing and delivered the head in the ESA presentation. The head was delivered atraumatically and no nuchal cord was noted. The anterior and posterior shoulders delivered without complication followed by the rest of the i nfant and the was placed on the maternal abdomen. Delayed cord clamping was employed for approximately 60 seconds. Cord was clamped and cut and gentle traction was applied to the cord and the placenta delivered spontaneously immediately following it was noted to be intact with three-vessel cord. The perineum and vagina were inspected and a midline second-degree laceration was noted and repaired in the standard fashion using 3-0 Vicryl repeat suture. EBL was 300 cc. Patient and infant tolerated delivery well. Presentation: Vertex, ESA Placental Delivery Description: Spontaneous Placenta Disposition: [facility] Cord Vessel Description: 3 Vessels Cord Entanglement: None Estimated Blood Loss: 300 Infant A gender: Female (1 minute): 8 (5 minute): 9 Episiotomy Description: None Laceration: Midline, Perineal Extension/lac, 2nd degree Medications given after delivery: IV Pitocin, IM Methergin Complications: None Multi Select Codes - Urinary/Genital Urinary/Genital CPT Codes: 05234 Vaginal Delivery [facility]
--- NOTE | 2020-10-09 23:55 | DCINST_ITS ---
Discharge Diet: No Restrictions Discharge Activity: Return to Normal Activity, May not drive while taking narcotic pain medications., May Shower May resume sexual activity in: 4-6 weeks Additional Activity Instructions:: Nothing in the vagina for 4-6 weeks. You may return to work/school in 6 weeks. Call your doctor if your incision/area has: Continuous Slow Oozing, Sudden Increased Bleeding, Increased Pain/ Swelling, Increased Redness, Foul Smelling Discharge Additional Instructions: If you experience any of the following, contact your healthcare provider. * Bleeding that soaks a pad every hour for 2 hours * Fever 100.4 or higher * Unrelieved incision or abdominal pain * Swelling, redness, discharge or bleeding from your incision or episiotomy site * Your incision begins to separate * Problems urinating (including inability to urinate or burning while urinating). * Visual changes * Severe headache * Flu-like symptoms * Pain or redness in one of both of your breasts * Pain, warmth, tenderness or swelling in your legs, especially the calf area * Frequent nausea and vomiting * Symptoms of depression or anxiety If you experience any of the following, call 911 or go to the nearest Emergency Room. * Chest pain * Problems breathing * Seizure activity * Partial or complete paralysis of a body part, slurred speech, weakness or drooping of the face, or a sudden inability to walk or hold your balance Allergies/Adverse Reactions: Allergies No Known Allergies Allergy (Verified 10/08/20 20:41) Medications to take at Discharge Vits [Prenatabs FA] 1 tablet PO DAILY 09/06/20 DiphenhydrAMINE [Benadryl] 25 mg PO PRN PRN 10/06/20 Blood Pressure Test Kit [Blood Pressure Monitor Manual] See Rx Instructions .ROUTE .MEDSUPPLY 10/08/20 Famotidine 20 mg PO BID 10/08/20 Fluoxetine HCl 20 mg PO DAILY 10/08/20 Loratadine/Pseudo 240/10 [Claritin-D 24 Hr] 1 tablet PO DAILY 10/08/20 Ursodiol 300 mg PO BID 10/08/20 When: Call to make an appointment with your doctor in 6 weeks. If you had elevated Blood Pressure or 4th degree laceration you will need to be seen in 2 weeks. Primary Care Physician: Eugenia Low DO [Primary Care Provider] - Test Results: Test results from this visit will be discussed in further detail at your follow- up appointment, if applicable.
[2020-10-10] VITALS (14 sets, daily range): BP systolic 114–136; BP diastolic 72–90; PULSE 63–113; RESP 16–20; TEMP 36.1–37.1; O2SAT 98–99
[2020-10-10] MEDS: Naproxen 250 MG Tablet 500 MG PO ×3 (02:22→18:55)
[2020-10-10] MEDS: Acetaminophen 500 MG Tablet 1000 MG PO ×2 (05:09→15:54)
--- NOTE | 2020-10-10 09:31 | PCM.PN.OB ---
Patient Problems: Active and Suspected Problems (Last Reviewed 10/08/20 @ 14:26 by Kyra Bee) Encounter for induction of labor (Acute) Cholestasis during in third trimester (Acute) Patient with itching concerning for cholestasis of . Improved significantly with actigall. Bile acids pending. Given severity of initial symptoms and response to treatment, plan IOL for suspected cholestasis of . Elevated blood pressure affecting in third trimester, antepartum (Acute) Elevated BPs in the ER over the weekend and in office. Seen in triage on 10/06. Blood pressure is normal. Prelabs normal. Patient to monitor blood pressures at home. GBS negative (Acute) 36 weeks gestation of (Acute) COVID test ordered 09/29/20 (sched 10/18 1:30pm) PUPP (pruritic urticarial papules and plaques of ) (Acute) Rash did not improve with steroid course. No symptoms on abdomen, only on arms, legs, hands, and feet. Bile acids pending. We will see if symptoms improve with Actigall GERD (gastroesophageal reflux disease) (Acute) Anemia affecting (Acute) iron added Supervision of high risk , antepartum (Acute) PRR DAISY 10/25/2020, girl Gloria, Spouse: Ameya (Acute) declines carrier. afp screening- negative. genetic low risk; nl anatomy. 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 Mota. s/p mfm consult nl maternal echo, Anesthesia consult 09/06 @ 10. delivery based on obstetric indications; NL ECG Subjective: Patient doing well without complaints. Tolerating PO. Ambulating and voiding without difficulty. Breast feeding well. Denies chest pain, shortness of breath, calf pain/swelling, fevers, chills, lightheadedness. - Physical Exam Vitals/I&O's: Vital Signs Temp Pulse Resp BP Pulse Ox 97.6 F L 88 17 121/77 H 98 10/10/20 04:37 10/10/20 04:37 10/10/20 04:37 10/10/20 04:37 10/10/20 01:34 Oxygen Delivery Method Room Air Weight: 183 lb 3.2 oz Body Mass Index (BMI) 31.4 Intake and Output for Last 24 Hours 10/08/20 10/09/20 10/10/20 23:59 23:59 23:59 Intake Total 5297.80 / 5297.80 500.00 / 500.00 Output Total 1350 / 1350 1750 / 1750 Balance 3947.80 / 3947.80 -1250.00 / -1250.00 General: Alert, Oriented x3, Cooperative, No apparent distress, Well developed, Well nourished HEENT: Atraumatic, PERRLA, EOMI, Normocephalic Neck: Supple, No JVD Lungs: Normal air movement Cardiovascular: Regular rate Abdomen: Soft, Non Tender, Non-Distended Extremities: No edema, No Calf Tenderness Neurological: Cranial nerves II-XII grossly intact, Neuro grossly intact Psych/Mental Status: Normal Affect, Appropriate Microbiology Past 72 Hours 10/08/20 20:05 Mucosa - Nose SARS-CoV-2 Antigen (Rapid) - Final Current Medications Acetaminophen (Acetaminophen 500 Mg Tablet) 1,000 mg PO Q8H PRN PRN PRN Reason: Pain Score 1-3 Last Admin: 10/10/20 05:09 Dose: 1,000 mg Documented by: Bisacodyl (Bisacodyl 10 Mg Suppository) 10 mg RC UD PRN PRN Reason: If no BM Dibucaine (Dibucaine 30 Gm Tube) 1 applic TOPICAL TID PRN PRN; Protocol PRN Reason: Discomfort Famotidine (Famotidine 20 Mg Tablet) 20 mg PO BID VINNIE Fluoxetine HCl (Fluoxetine 20 Mg Capsule) 20 mg PO DAILY VINNIE Hydrocortisone (Hydrocortisone 2.5% Crm) 1 applic TOPICAL TID PRN PRN; Protocol PRN Reason: Discomfort Loratadine (Loratadine 10 Mg Tablet) 10 mg PO DAILY VINNIE Methylergonovine Maleate (Methylergonovine 0.2 Mg/Ml Ampul) 0.2 mg IM X1 PRN PRN Reason: Excess bleeding/uterine atony Last Admin: 10/09/20 23:21 Dose: 0.2 mg Documented by: Naproxen (Naproxen 250 Mg Tablet) 500 mg PO Q8H PRN PRN PRN Reason: Pain Score 1-3 Last Admin: 10/10/20 02:22 Dose: 500 mg Documented by: Ondansetron HCl (Ondansetron 4 Mg/2 Ml Vial) 4 mg IV Q4H PRN PRN PRN Reason: Nausea Oxycodone HCl (Oxycodone 5 Mg Tablet) 5 - 10 mg PO Q4H PRN PRN PRN Reason: Pain Score 4-10 Pseudoephedrine HCl (Pseudoephedrine 60 Mg Tablet) 60 mg PO 4X/DAY VINNIE Senna/Docusate Sodium (Senna/Docusate Sodium 1 Tablet) 1 - 2 tablet PO DAILY PRN PRN PRN Reason: Constipation Simethicone (Simethicone 80 Mg Tablet) 80 mg PO PCHS PRN PRN Reason: Indigestion/Stomach pain Sodium Chloride (0.9% Saline Lock 10 Ml Syringe) 5 - 15 ml IV UD PRN PRN Reason: SALINE FLUSH Medical Necessity - Tobacco Use Smoking Status: Never smoker Assessment/Plan All Active Problems (Last Reviewed 10/08/20 @ 14:26 by Kyra Bee) Encounter for induction of labor (Acute) Cholestasis during in third trimester (Acute) Elevated blood pressure affecting in third trimester, antepartum (Acute) GBS negative (Acute) 36 weeks gestation of (Acute) PUPP (pruritic urticarial papules and plaques of ) (Acute) GERD (gastroesophageal reflux disease) (Acute) Anemia affecting (Acute) Supervision of high risk , antepartum (Acute) (Acute) Kayla-Danlos syndrome (Acute) Abnormal EKG (Resolved ~2014) Acute infective tonsillitis (Resolved) Breakthrough bleeding on Nexplanon (Resolved) Dysphagia (Resolved) Insomnia (Resolved) Supraventricular tachycardia (Resolved ~2014) s/p PPD #1 1. routine post delivery care 2. breast feeding- support given 3. rh positive 4. rubella immune
[2020-10-10] MEDS: Famotidine 20 MG Tablet PO ×2 (10:43→21:07)
[2020-10-10] MEDS: FLUoxetine 20 MG Capsule PO (10:43)
[2020-10-10] MEDS: Senna/Docusate Sodium 1 Tablet PO (10:44)
[2020-10-11] MEDS: Acetaminophen 500 MG Tablet 1000 MG PO (00:10)
[2020-10-11 04:05] VITALS: BP 125/82; PULSE 79; RESP 16; TEMP 36.6
[2020-10-11] MEDS: Naproxen 250 MG Tablet 500 MG PO (04:05)
[2020-10-11 08:00] VITALS: BP 123/79; PULSE 75; RESP 16; TEMP 36.4; O2SAT 99
--- NOTE | 2020-10-11 08:20 | PN.OBGYN_ITS ---
Patient Problems: Active and Suspected Problems (Last Reviewed 10/08/20 @ 14:26 by Kyra Bee) Encounter for induction of labor (Acute) Cholestasis during in third trimester (Acute) Patient with itching concerning for cholestasis of . Improved significantly with actigall. Bile acids pending. Given severity of initial symptoms and response to treatment, plan IOL for suspected cholestasis of . Elevated blood pressure affecting in third trimester, antepartum (Acute) Elevated BPs in the ER over the weekend and in office. Seen in triage on 10/06. Blood pressure is normal. Prelabs normal. Patient to monitor blood pressures at home. GBS negative (Acute) 36 weeks gestation of (Acute) COVID test ordered 09/29/20 (sched 10/18 1:30pm) PUPP (pruritic urticarial papules and plaques of ) (Acute) Rash did not improve with steroid course. No symptoms on abdomen, only on arms, legs, hands, and feet. Bile acids pending. We will see if symptoms improve with Actigall GERD (gastroesophageal reflux disease) (Acute) Anemia affecting (Acute) iron added Supervision of high risk , antepartum (Acute) PRR DAISY 10/25/2020, girl Gloria, Spouse: Ameya (Acute) declines carrier. afp screening- negative. genetic low risk; nl anatomy. 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 Mota. s/p mfm consult nl maternal echo, Anesthesia consult 09/06 @ 10. delivery based on obstetric indications; NL ECG Subjective: Patient doing well without complaints. Tolerating PO. Ambulating and voiding without difficulty. Breast feeding well. Denies chest pain, shortness of breath, calf pain/swelling, fevers, chills, lightheadedness. - Physical Exam Vitals/I&O's: Vital Signs Temp Pulse Resp BP Pulse Ox 97.8 F 79 16 125/82 H 98 10/11/20 04:05 10/11/20 04:05 10/11/20 04:05 10/11/20 04:05 10/10/20 20:14 Oxygen Delivery Method Room Air Weight: 183 lb 3.2 oz Body Mass Index (BMI) 31.4 Intake and Output for Last 24 Hours 10/09/20 10/10/20 10/11/20 23:59 23:59 23:59 Intake Total 5297.80 / 5297.80 500.00 / 500.00 Output Total 1350 / 1350 1750 / 1750 Balance 3947.80 / 3947.80 -1250.00 / -1250.00 General: Alert, Oriented x3, Cooperative, No apparent distress, Well developed, Well nourished HEENT: Atraumatic, PERRLA, EOMI, Normocephalic Oral: Moist Mucosa Neck: Supple, No JVD Lungs: Normal air movement Cardiovascular: Regular rate Abdomen: Soft, Non Tender, Non-Distended, - - fundus firm Extremities: No edema, No Calf Tenderness Neurological: Cranial nerves II-XII grossly intact, Neuro grossly intact Psych/Mental Status: Normal Affect, Appropriate Microbiology Past 72 Hours 10/08/20 20:05 Mucosa - Nose SARS-CoV-2 Antigen (Rapid) - Final Current Medications Acetaminophen (Acetaminophen 500 Mg Tablet) 1,000 mg PO Q8H PRN PRN PRN Reason: Pain Score 1-3 Last Admin: 10/11/20 00:10 Dose: 1,000 mg Documented by: Bisacodyl (Bisacodyl 10 Mg Suppository) 10 mg RC UD PRN PRN Reason: If no BM Dibucaine (Dibucaine 30 Gm Tube) 1 applic TOPICAL TID PRN PRN; Protocol PRN Reason: Discomfort Famotidine (Famotidine 20 Mg Tablet) 20 mg PO BID [facility] Last Admin: 10/10/20 21:07 Dose: 20 mg Documented by: Fluoxetine HCl (Fluoxetine 20 Mg Capsule) 20 mg PO DAILY [facility] Last Admin: 10/10/20 10:43 Dose: 20 mg Documented by: Hydrocortisone (Hydrocortisone 2.5% Crm) 1 applic TOPICAL TID PRN PRN; Protocol PRN Reason: Discomfort Loratadine (Loratadine 10 Mg Tablet) 10 mg PO DAILY [facility] Last Admin: 10/10/20 10:51 Dose: Not Given Documented by: Methylergonovine Maleate (Methylergonovine 0.2 Mg/Ml Ampul) 0.2 mg IM X1 PRN PRN Reason: Excess bleeding/uterine atony Last Admin: 10/09/20 23:21 Dose: 0.2 mg Documented by: Naproxen (Naproxen 250 Mg Tablet) 500 mg PO Q8H PRN PRN PRN Reason: Pain Score 1-3 Last Admin: 10/11/20 04:05 Dose: 500 mg Documented by: Ondansetron HCl (Ondansetron 4 Mg/2 Ml Vial) 4 mg IV Q4H PRN PRN PRN Reason: Nausea Oxycodone HCl (Oxycodone 5 Mg Tablet) 5 - 10 mg PO Q4H PRN PRN PRN Reason: Pain Score 4-10 Senna/Docusate Sodium (Senna/Docusate Sodium 1 Tablet) 1 - 2 tablet PO DAILY PRN PRN PRN Reason: Constipation Last Admin: 10/10/20 10:44 Dose: 2 tablet Documented by: Simethicone (Simethicone 80 Mg Tablet) 80 mg PO PCHS PRN PRN Reason: Indigestion/Stomach pain Sodium Chloride (0.9% Saline Lock 10 Ml Syringe) 5 - 15 ml IV UD PRN PRN Reason: SALINE FLUSH Medical Necessity - Tobacco Use Smoking Status: Never smoker Assessment/Plan All Active Problems (Last Reviewed 10/08/20 @ 14:26 by Kyra Bee) Encounter for induction of labor (Acute) Cholestasis during in third trimester (Acute) Elevated blood pressure affecting in third trimester, antepartum (Acute) GBS negative (Acute) 36 weeks gestation of (Acute) PUPP (pruritic urticarial papules and plaques of ) (Acute) GERD (gastroesophageal reflux disease) (Acute) Anemia affecting (Acute) Supervision of high risk , antepartum (Acute) (Acute) Kayla-Danlos syndrome (Acute) Abnormal EKG (Resolved ~2014) Acute infective tonsillitis (Resolved) Breakthrough bleeding on Nexplanon (Resolved) Dysphagia (Resolved) Insomnia (Resolved) Supraventricular tachycardia (Resolved ~2014) s/p PPD # 2 1. routine post delivery care 2. breast feeding- support given 3. rh positive 4. rubella immune
[2020-10-11] MEDS: Famotidine 20 MG Tablet PO (09:58)
[2020-10-11] MEDS: FLUoxetine 20 MG Capsule PO (09:58)
[2020-10-11] MEDS: Loratadine 10 MG Tablet PO (09:58)
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
== END 2020-10-11 12:20 | disposition home or self-care (01) | DRG 805 ==
PROVIDERS: Obstetrics & Gynecology; Admitting Provider Obstetrics & Gynecology; PCP Family Medicine; Visit Provider Obstetrics & Gynecology
DX: O26.86 Pruritic urticarial papules and plaques of pregnancy (PUPPP) (principal); K83.1 Obstruction of bile duct; Z37.0 Single live birth; Q79.60 Ehlers-Danlos syndrome, unspecified; O26.62 Liver and biliary tract disorders in childbirth; O76 Abnormality in fetal heart rate and rhythm complicating labor and delivery; O70.1 Second degree perineal laceration during delivery; Z3A.37 37 weeks gestation of pregnancy; F41.8 Other specified anxiety disorders; D64.9 Anemia, unspecified; O99.02 Anemia complicating childbirth; O99.344 Other mental disorders complicating childbirth
CPT/HCPCS: 59025; 59050; 85025; 86850; 86900; 86901; 87426; 99218; J7120; G0378; J2405

== ENCOUNTER → 2020-11-15 16:44 | Outpatient (CLI) | payer OTHER, SELFPAY ==
[2020-11-15 14:06] VITALS: BMI 31.4
[2020-11-18 16:30] LABS: HPV Reflexed? NOT INDICATED
== END ==
PROVIDERS: PCP Family Medicine; Visit Provider Obstetrics & Gynecology
DX: Z12.4 Encounter for screening for malignant neoplasm of cervix (principal)
CPT/HCPCS: 88175; G0145

== ENCOUNTER 2020-12-01 13:51 | Outpatient (RCR) | payer OTHER, SELFPAY ==
[2020-11-15 14:06] VITALS: BMI 31.4
== END 2021-01-14 23:59 ==
LOC: IMMUN 13:51
PROVIDERS: PCP Family Medicine; Visit Provider Family Medicine
DX: Z23 Encounter for immunization (principal)
CPT/HCPCS: 0001A; 91300

== ENCOUNTER → 2020-12-22 10:36 | Outpatient (CLI) | payer OTHER, SELFPAY ==
[2020-11-15 14:06] VITALS: BMI 31.4
--- NOTE | 2020-12-22 10:39 | US_ITS ---
STUDY: ABDOMINAL ULTRASOUND - RIGHT UPPER QUADRANT REASON FOR VISIT: Female, 30 years old RUQ PAIN, HX OF CHOLESTASIS IN TECHNIQUE: Ultrasound evaluation of the right upper quadrant was performed with real-time and static schafer-scale imaging. TECHNICAL QUALITY: Adequate. COMPARISON: None. FINDINGS: Liver: The liver is slightly enlarged and measures 18.7 cm. There is normal echogenicity of the liver. The bile ducts are within normal limits. There is hepatic color flow. The direction of portal flow is hepatopetal. There is no demonstrated mass lesion. Gallbladder: Normal distended gallbladder. The gallbladder wall measures 2 mm. There is a negative sonographic Harrison''s sign. There is no pericholecystic fluid. There are no gallstones. Common Bile Duct (C.B.D.): The common bile duct measures 4 mm. Pancreas: Normal size of the head, body and tail of the pancreas. There is normal echogenicity of the pancreas. There is no demonstrated pancreatic mass or cyst. Right Kidney: Normal size of the right kidney. The right kidney measures 10.3 cm x 5.6 cm x 4.2 cm. Normal renal cortex. The right cortex measures 1.1 cm. There is no demonstrated renal mass or cyst. There is no right hydronephrosis. US/Abdomen Limited IMPRESSION: Normal right upper quadrant ultrasound examination. Electronically Signed: Porfirio Cornejo MD at 15:50 EDT , Service support ,
== END ==
PROVIDERS: PCP Family Medicine; Referring Provider Family Medicine; Visit Provider Family Medicine
DX: R10.9 Unspecified abdominal pain (principal)
CPT/HCPCS: 76705

== ENCOUNTER 2021-03-26 06:19 | Emergency (ER) | payer OTHER, SELFPAY ==
[2021-03-26 06:22] VITALS: BP 119/94; PULSE 107; RESP 22; TEMP 35.7; O2SAT 96; BMI 29.9
[2021-03-26 06:25] VITALS: BP 119/94; PULSE 100; RESP 20; TEMP 35.7; O2SAT 97
--- NOTE | 2021-03-26 07:11 | RAD_ITS ---
STUDY: X-RAY CHEST REASON FOR EXAM: Female, 30 years old. cough TECHNIQUE: Single AP portable view of the chest. COMPARISON: None. FINDINGS: The lungs are clear and expanded. There is no demonstrated pleural abnormality. Normal size heart. Normal mediastinum and tanya. Normal visualized pulmonary arteries. Normal visualized aortic arch and descending thoracic aorta. Normal visualized thoracic spine. Normal visualized ribs, clavicles, and shoulders. There is no demonstrated abnormality of the visualized soft tissue structures of the upper abdomen. RAD/Chest 1 View (Portable) IMPRESSION: Normal x-ray examination of the chest. Electronically Signed: Shine Ramos MD at 8:03 EDT Tel , Service support ,
--- NOTE | 2021-03-26 07:12 | EDS_ITS ---
HPI History of Present Illness Chief Complaint: General Illness Detail of Chief Complaint: Cough and runny nose for about 2 weeks Informant: patient Narrative Narrative: Patient states that she was seen and diagnosed with a sinus infection 2 weeks ago. Patient was on Augmentin for 10 days. Patient thinks that maybe she got a little bit better but continues to cough and now her cough is become more productive. She denies any fevers. She had decreased sense of smell and taste but she is not sure if it is because she is having a hard time breathing through her nose. 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 Patient has had 2 - Covid tests when she was initially evaluated. She denies any chest pain. Prior similar symptoms: No PFSH PFS Medical History (Updated 03/26/21 @ 07:[address] Ondina Espino, DO) Abnormal EKG (~2014) Kayla-Danlos syndrome Exercise-induced asthma Hx of tonsillitis Mixed anxiety and depressive disorder Home Medications fluoxetine 40 mg PO DAILY 10/08/20 [History Last Taken 10/08/20] norelgestromin 150 mcg-e.estradiol 35 mcg/24 hr weekly transderm patch 1 patch TRANSDERMAL Q7D #3 ea 01/26/21 [Rx Last Taken Unknown] dextroamphetamine-amphetamine [Adderall XR] 10 mg PO DAILY 03/26/21 [History Last Taken Unknown] doxycycline monohydrate 100 mg PO BID #20 capsule 03/26/21 [Rx Last Taken Unknown] famotidine 40 mg PO DAILY 03/26/21 [History Last Taken Unknown] Allergy/AdvReac Type Severity Reaction Status Date / Time No Known Allergies Allergy Verified 03/26/21 06:20 Family History Mother Thyroid disorder Grandmother Thyroid disorder Cancer Maternal grandmother - kidney cancer Surgical History History of wisdom tooth extraction Social History 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[employer]) ROS ROS ED Constitutional Constitutional ED: Reports systems reviewed and no addt'l complaints, except as documented; Denies body ache(s), change in weight, chills or fever(s) Eyes Eyes: Denies acute decrease in peripheral vision, change in vision, double vis ion or loss of vision ENT ENT ED: Reports none and rhinorrhea; Denies ear pain, lip swelling, loss tast e/smell, neck pain, otalgia or sore throat Cardiovascular Cardiovascular: Reports none; Denies abdominal pain, chest pain with activity, leg edema, lightheadedness, palpitations, rapid heart rate or syncope Respiratory/Chest Respiratory/Chest: Reports none, cough and sputum; Denies change in mental status, dry cough, dyspnea, hemoptysis, shortness of breath at rest or shortness of breath with exertion Gastrointestinal Gastrointestinal: Reports none; Denies abdominal pain, change in stool character, diarrhea, hematemesis, hematochezia, melena, rectal bleeding or vomiting Genitourinary Genitourinary ED: Reports none; Denies abdominal discomfort, anuria, dysuria, genital pain or polyuria Musculoskeletal Musculoskeletal: Reports none; Denies arthralgias, back pain, difficulty walking, extremity pain, muscle weakness or myalgias Integumentary Reports none; Denies abscess or rash Neurologic Neurologic: Reports none; Denies abnormal gait, confusion, focal weakness, frequent falls, headache(s), loss of vision, numbness, paresthesias, radicular pain, vertigo or weakness Psychiatric Psychiatric: Reports systems reviewed and no addt'l complaints, except as documented and none; Denies behavioral changes, confusion, difficulty concentrating, hallucinations, suicidal ideation, tactile hallucinations or visual hallucinations Endocrine Endocrinology: Denies none, cold intolerance, excessive sweating, fatigue or heat intolerance Hematologic/Lymphatic Hematologic/Lymphatic: Reports none; Denies anemia, easy bleeding or easy bruising Allergic/Immunologic Allergic/Immunologic ED: Denies as per HPI, none, lip swelling, mouth swelling, throat swelling, tongue swelling or hives EXAM Physical Exam Const Vital Signs: 03/26/21 06:22 03/26/21 06:25 Temperature 96.3 F L 96.3 F L Temperature Source Temporal Temporal Pulse Rate 107 H 100 Respiratory Rate 22 H 20 H Respiratory Effort Normal Respiratory Pattern Normal Blood Pressure 119/94 H 119/94 H Blood Pressure Mean 102 102 Pulse Ox 96 97 Oxygen Delivery Method Room Air Room Air Positive well nourished and well developed General Appearance ED: well developed and NAD HEENT Reports TM's clear and moist mucous membranes normocephalic and atraumatic; Negative for trauma or tenderness Tympanic Membrane ED: Yes TM's clear Eyes PERRL and EOMs intact bilaterally General Eye ED: Negative for pale conjunctiva or scleral icterus Neck no lymphadenopathy, supple and no JVD General: Negative for tenderness Chest Wall inspection of chest normal and palpation of chest normal Chest: Negative for tenderness Resp normal respiratory effort and clear to auscultation bilaterally Effort and Inspection: Negative for respiratory distress or pain with movement Auscultation: Negative for rhonchi, wheezes or diminished lung sounds Cardio regular rate, regular rhythm, S1 normal heart sound, S2 normal heart sound and no murmurs Peripheral Pulses: pulses 2+ throughout GI normal to inspection, nondistended, normoactive bowel sounds, soft to palpation, non-tender, non-distended and no masses Back/Spine no CVA tenderness and no thoracic nor lumbar tenderness Extremity normal to inspection General Extremety ED: Negative for edema General Extremity: Negative for edema Neuro oriented x3, CN's II-XII intact bilaterally, no sensory deficits noted and gait normal Sensorium / Orientation: awake, alert, oriented to person, oriented to place and oriented to time Motor Exam: strength 5/5 throughout and strength abnormal Psych mental status grossly normal Skin no rashes or lesions noted and no wounds MDM MDM MDM Narrative Medical decision making narrative: Patient had a PCR Covid test ordered. Chest x-ray obtained was unremarkable. At this point will treat her with doxycycline for 10 days given that she has had increased sputum production. Patient to follow-up with her primary care physician 3 to 5 days. She is to return if increasing shortness of breath or condition should worsen anyway. Lab Data Attestation: I reviewed the patient's lab results. Radiography Chest X-Ray - ED: 1 View Diagnostic Testin view chest x-ray obtained interpreted by myself as no acute disease process. There is no evidence of infiltrate. Official report from radiology pending. Discharge Plan Triage Chief Complaint: General Illness ED Provider: Ondina Espino Dx/Rx/DC Orders Clinical Impression: Acute upper respiratory infection Instructions: ED Upper Resp Infec Abx Tx Prescriptions: New doxycycline monohydrate 100 MG capsule 100 mg PO BID Qty: 20 RF: 0 No Action fluoxetine 20 MG capsule 40 mg PO DAILY RF: 0 famotidine 20 mg tablet 40 mg PO DAILY RF: 0 dextroamphetamine-amphetamine [Adderall XR] 10 mg capsule,extended release 24hr 10 mg PO DAILY RF: 0 Xulane 150-35 mcg/24 hr patch weekly 1 patch transdermal Q7D Qty: 3 RF: 12 Primary Care Provider: Eugenia Low Referrals: Eugenia Low DO [Primary Care Provider] - Disposition Disposition: Home, Self Care
[2021-03-26 07:39] VITALS: BP 123/94; O2SAT 95
[2021-03-26 10:45] LABS: Probe Check PASS; Specimen Processing Control PASS
== END 2021-03-26 07:40 | disposition home or self-care (01) ==
PROVIDERS: Emergency Provider Emergency Medicine; PCP Family Medicine
DX: J06.9 Acute upper respiratory infection, unspecified (principal); F32.A Depression, unspecified; Z79.899 Other long term (current) drug therapy
CPT/HCPCS: 71045; 87635; 99282; U0005; U0003

== ENCOUNTER 2021-09-19 12:09 | Outpatient (CLI) | payer OTHER, SELFPAY ==
[2021-09-19 12:52] LABS: Absolute Lymphocyte Count 1.62 X10^3/uL (0.83-4.51); Absolute Neutrophil Count 3.6 X10^3/uL (2.0-7.7); Basophil# 0.03 X10^3/uL; Basophil% 0.5 % (0-1); Eosinophil# 0.34 X10^3/uL; Eosinophils% 5.9 % (0-5); Hematocrit 41.7 % (37-47); Hemoglobin 14.3 g/dL (12.0-15.0); Lymphocyte # 1.62 X10^3/ul (0.83-4.51); Lymphocyte % 27.9 % (19-41); Mean Corp Hgb Conc 34.3 g/dL (32-36); Mean Corpuscular Hgb 28.5 pg (27.0-32.0); Mean Corpuscular Volume 83.1 fL (81-99); Mean Platelet Vol. 9.2 fl (6.2-12.0); Monocyte# 0.25 X10^3/uL; Monocyte% 4.3 % (0-10); NRBC Flagged by Analyzer 0 % (0-5); Neutrophil # 3.55 X10^3/uL (2.7-7.7); Neutrophil % 61.1 % (47-70); POSITIVE MORPHOLOGY YES; Platelet Count 318 K/mm3 (150-450); RBC Distribution Width CV 13.1 % (11.6-14.6); RBC Distribution Width SD 39.5 fl (35.1-43.9); Red Blood Count 5.02 M/mm3 (4.2-5.4); White Blood Count 5.8 K/mm3 (4.4-11.0)
[2021-09-19 12:59] LABS: Differential Indicated SCAN CRITERIA MET
[2021-09-19 13:23] LABS: Platelet Estimate ADEQUATE (ADEQ); Reactive Lymphocyte 1+; Red Cell Morphology NORM C+C NORMAL (NORM C&C)
[2021-09-19 13:39] LABS: Vitamin B12 295 pg/mL (211-911); Vitamin D,25 Hydroxy 23.4 ng/mL
[2021-09-19 13:51] LABS: ALB/GLOB Ratio 0.8 RATIO (0.9-2.4); AST(SGOT) 21 U/L (15-37); Alanine Aminotransfer ALT/SGPT 25 U/L (13-56); Albumin, Serum 3.4 g/dL (3.2-5.0); Alkaline Phosphatase 88 U/L (45-117); Anion Gap 7 (5-15); BUN 7 mg/dL (7-18); BUN/Creat Ratio 9.4 RATIO (10-20); Calcium,Total 8.5 mg/dL (8.5-10.1); Chloride 101 mmol/L (98-107); Creatinine, Serum 0.74 mg/dL (0.55-1.02); EST Glomerular Filtration Rate 98 mL/min (>60); Est Glom Filt Rate - Afr Amer 118 mL/min (>60); Glucose 90 mg/dL (74-106); Potassium 3.5 mmol/L (3.5-5.1); Protein, Total 7.4 g/dL (6.4-8.2); Sodium Level 137 mmol/L (136-145); Thyroid Stim Hormone (TSH) 1.36 uIU/mL (0.358-3.74)
== END 2021-09-19 23:59 | disposition home or self-care (01) ==
LOC: LAB 12:12
PROVIDERS: PCP Family Medicine; Visit Provider Family Medicine
DX: R53.83 Other fatigue (principal)
CPT/HCPCS: 36415; 80053; 82306; 82607; 84443; 85025

== ENCOUNTER 2022-01-11 14:45 | Outpatient (RCR) | payer OTHER, SELFPAY | END 2022-01-22 23:59 | LOC: NS 14:45 | PROVIDERS: PCP Family Medicine; Visit Provider Family Medicine | DX: Z71.3 Dietary counseling and surveillance (principal); E66.9 Obesity, unspecified; Z68.30 Body mass index [BMI] 30.0-30.9, adult | CPT/HCPCS: 97802 ==

== ENCOUNTER 2022-01-26 22:28 | Emergency (ER) | payer OTHER, SELFPAY ==
[2022-01-26 22:28] VITALS: BP 135/95; PULSE 78; RESP 16; TEMP 36.4; O2SAT 98; BMI 30.9
--- NOTE | 2022-01-26 22:41 | ED.VIS.GI ---
HPI HPI - GI History of Present Illness Chief Complaint: Abd Pain Detail of Chief Complaint: Abdominal pain that started 5:45 PM Informant: patient Narrative Narrative: Present to the emergency department complaint of abdominal pain that started proximately 5:45 PM. Patient states the pain is epigastric and has been continuous since that time. She feels some discomfort into the right upper quadrant. She describes a lot of pressure. Patient took her famotidine at home without relief. Patient took 2 Tums and did not have any relief. Patient states that she has had pain like this intermittently over the last year or so. Patient states that when she was 6 weeks about 15 months ago she had a visit with her primary care physician for the same type pain and at that time had a gallbladder ultrasound that was normal and lab work that was normal. Patient states that this pain is the longest that is ever lasted at about 5 hours now. Prior similar symptoms: Yes [facility] Medical History (Updated 01/27/22 @ 00:[address] Ondina Espino, DO) Abnormal EKG (~2014) Kayla-Danlos syndrome Exercise-induced asthma Hx of tonsillitis Mixed anxiety and depressive disorder Home Medications fluoxetine 20 mg capsule 40 mg PO DAILY ANXIETY 10/08/20 [History Last Taken 10/08/20] norelgestromin 150 mcg-e.estradiol 35 mcg/24 hr weekly transderm patch (Xulane) 1 patch transdermal Q7D #3 ea 01/26/21 [Rx Last Taken Unknown] dextroamphetamine-amphetamine ER 10 mg 24hr capsule,extend release (Adderall XR) 10 mg PO DAILY 03/26/21 [History Last Taken Unknown] famotidine 20 mg tablet 40 mg PO DAILY 03/26/21 [History Last Taken Unknown] hydrocodone-acetaminophen 5-325mg 5mg-325mg 1 tab PO Q4H PRN PRN Pain 2 days #10 TABLETS 01/27/22 [Rx Last Taken Unknown] ondansetron 4 mg disintegrating tablet 4 mg PO Q8H PRN PRN Nausea #10 tabs 01/27/22 [Rx Last Taken Unknown] sucralfate 1 gram tablet (Carafate) 1 g PO BID PRN reflux #10 tabs 01/27/22 [Rx Last Taken Unknown] Allergy/AdvReac Type Severity Reaction Status Date / Time No Known Allergies Allergy Verified 01/26/22 22:30 Family History Mother Thyroid disorder Grandmother Thyroid disorder Cancer Maternal grandmother - kidney cancer Surgical History History of wisdom tooth extraction Social History 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) ROS ROS ED Review of Systems ROS Unobtainable: other Constitutional Constitutional ED: Reports systems reviewed and no addt'l complaints, except as documented; Denies body ache(s), change in weight, chills or fever(s) Eyes Eyes: Denies acute decrease in peripheral vision, change in vision, double vision or loss of vision ENT ENT ED: Reports none and rhinorrhea; Denies ear pain, lip swelling, loss taste/smell, neck pain, otalgia or sore throat Cardiovascular Cardiovascular: Reports none; Denies abdominal pain, chest pain with activity, leg edema, lightheadedness, palpitations, rapid heart rate or syncope Respiratory/Chest Respiratory/Chest: Reports none, cough and sputum; Denies change in mental status, dry cough, dyspnea, hemoptysis, shortness of breath at rest or shortness of breath with exertion Gastrointestinal Gastrointestinal: Reports none and abdominal pain; Denies change in stool character, diarrhea, hematemesis, hematochezia, melena, rectal bleeding or vomiting Genitourinary Genitourinary ED: Reports none; Denies abdominal discomfort, anuria, dysuria, genital pain or polyuria Musculoskeletal Musculoskeletal: Reports none; Denies arthralgias, back pain, difficulty walking, extremity pain, muscle weakness or myalgias Integumentary Reports none; Denies abscess or rash Neurologic Neurologic: Reports none; Denies abnormal gait, confusion, focal weakness, frequent falls, headache(s), loss of vision, numbness, paresthesias, radicular pain, vertigo or weakness Psychiatric Psychiatric: Reports systems reviewed and no addt'l complaints, except as documented and none; Denies behavioral changes, confusion, difficulty concentrating, hallucinations, suicidal ideation, tactile hallucinations or visual hallucinations Endocrine Endocrinology: Denies none, cold intolerance, excessive sweating, fatigue or heat intolerance Hematologic/Lymphatic Hematologic/Lymphatic: Reports none; Denies anemia, easy bleeding or easy bruising Allergic/Immunologic Allergic/Immunologic ED: Denies as per HPI, none, lip swelling, mouth swelling, throat swelling, tongue swelling or hives EXAM Physical Exam Const Vital Signs: 01/26/22 22:28 01/27/22 00:05 Temperature 97.6 F L Temperature Source Temporal Pulse Rate 78 71 Respiratory Rate 16 16 Blood Pressure 135/95 H 120/86 H Blood Pressure Mean 108 97 Pulse Ox 98 99 Oxygen Delivery Method Room Air Room Air Positive well nourished and well developed General Appearance ED: well developed and NAD HEENT Reports TM's clear and moist mucous membranes normocephalic and atraumatic; Negative for trauma or tenderness Tympanic Membrane ED: Yes TM's clear Eyes PERRL and EOMs intact bilaterally General Eye ED: Negative for pale conjunctiva or scleral icterus Neck no lymphadenopathy, supple and no JVD General: Negative for tenderness Chest Wall inspection of chest normal and palpation of chest normal Chest: Negative for tenderness Resp normal respiratory effort and clear to auscultation bilaterally Effort and Inspection: Negative for respiratory distress or pain with movement Auscultation: Negative for rhonchi, wheezes or diminished lung sounds Cardio regular rate, regular rhythm, S1 normal heart sound, S2 normal heart sound and no murmurs Peripheral Pulses: pulses 2+ throughout GI normal to inspection, nondistended, normoactive bowel sounds, soft to palpation, non-distended and no masses GI Narrative: Patient has tenderness palpation over the epigastric region and some mild discomfort over the right upper quadrant. There is no rebound, rigidity, or peritoneal signs. Back/Spine no CVA tenderness and no thoracic nor lumbar tenderness Extremity normal to inspection General Extremety ED: Negative for edema General Extremity: Negative for edema Neuro oriented x3, CN's II-XII intact bilaterally, no sensory deficits noted and gait normal Sensorium / Orientation: awake, alert, oriented to person, oriented to place and oriented to time Motor Exam: strength 5/5 throughout and strength abnormal Psych mental status grossly normal Skin no rashes or lesions noted and no wounds MDM MDM MDM Narrative Medical decision making narrative: IV line established on arrival. Lab work-up was unremarkable. Patient received a GI cocktail and had some pain relief with that. Patient had a CT scan of the abdomen pelvis with IV contrast that was normal. At this point etiology of her pain is unclear although I suspect possibly gastritis or peptic ulcer disease. Patient to continue with her Prevacid. I will write her prescription for a few [place] for pain. I will also write her for Carafate as needed. Patient will be given referral to GI for follow-up. I suspect she may require an EGD to evaluate further. Patient also describes at times feeling like food gets stuck in her throat. Lab Data Attestation: I reviewed the patient's lab results. Labs: Laboratory Results - last 24 hr 01/26/22 01/26/22 01/26/22 22:45 22:45 22:45 WBC 11.8 H RBC 4.82 Hgb 13.9 Hct 41.8 MCV 86.7 MCH 28.8 MCHC 33.3 RDW Std Deviation 39.5 RDW Coeff of Aaron 12.6 Plt Count 386 MPV 9.1 Immature Gran % (Auto) 0.300 Neut % (Auto) 64.5 Lymph % (Auto) 21.8 [place] % (Auto) 5.7 Eos % (Auto) 7.4 H Baso % (Auto) 0.3 Absolute Neuts (auto) 7.6 Absolute Lymphs (auto) 2.57 Nucleated RBC % 0 Sodium 137 Potassium 4.2 Chloride 104 Carbon Dioxide 27.0 Anion Gap 6 BUN 13 Creatinine 0.76 Estim Creat Clear Calc 90.35 Est GFR (MDRD) Af Amer 116 Est GFR (MDRD) Non-Af 96 BUN/Creatinine Ratio 17.2 Glucose 89 Lactic Acid Calcium 9.5 Total Bilirubin 0.40 AST 27 ALT 41 Alkaline Phosphatase 94 Total Protein 7.3 Albumin 3.7 Globulin 3.6 Albumin/Globulin Ratio 1.0 Lipase 118 Serum , Qual NEGATIVE 01/26/22 22:52 WBC RBC Hgb Hct MCV MCH MCHC RDW Std Deviation RDW Coeff of Aaron Plt Count MPV Immature Gran % (Auto) Neut % (Auto) Lymph % (Auto) [place] % (Auto) Eos % (Auto) Baso % (Auto) Absolute Neuts (auto) Absolute Lymphs (auto) Nucleated RBC % Sodium Potassium Chloride Carbon Dioxide Anion Gap BUN Creatinine Estim Creat Clear Calc Est GFR (MDRD) Af Amer Est GFR (MDRD) Non-Af BUN/Creatinine Ratio Glucose Lactic Acid 0.8 Calcium Total Bilirubin AST ALT Alkaline Phosphatase Total Protein Albumin Globulin Albumin/Globulin Ratio Lipase Serum , Qual Radiography Diagnostic Testing: Clinical Impression(s) from Imaging Studies Abdomen/Pelvis CT 01/26/22 22:47 IMPRESSION: Normal enhanced CT of the abdomen and pelvis. Electronically Signed: Dale Jansen DO at 23:49 EDT Reading Location ID and State: [facility] / [place] Tel , Service support , Discharge Plan Triage Chief Complaint: Abd Pain ED Provider: Ondina Espino Dx/Rx/DC Orders Clinical Impression: Abdominal pain, Gastritis Instructions: ED Abdominal Pain Unkn Cause Fem, ED Gastritis (Adult) Prescriptions: New hydrocodone-acetaminophen [hydrocodone-acetaminophen] 5-325 mg tablet 1 tab PO Q4H PRN PRN (Reason: Pain) 2 Days Qty: 10 0RF sucralfate [Carafate] 1 gram tablet 1 g PO BID PRN (Reason: reflux) Qty: 10 0RF ondansetron [ondansetron] 4 mg tablet,disintegrating 4 mg PO Q8H PRN PRN (Reason: Nausea) Qty: 10 0RF No Action fluoxetine 20 MG capsule 40 mg PO DAILY famotidine 20 mg tablet 40 mg PO DAILY Label Comments: TAKE 1 TABLET BY MOUTH EVERY DAY dextroamphetamine-amphetamine [Adderall XR] 10 mg capsule,extended release 24hr 10 mg PO DAILY Label Comments: TAKE 1 CAPSULE BY MOUTH ONCE DAILY IN THE MORNING Xulane 150-35 mcg/24 hr patch weekly 1 patch transdermal Q7D Qty: 3 12RF Rx Instructions: apply once weekly for 3 weeks of a 4-week cycle Primary Care Provider: Eugenia Low Referrals: Eugenia oLw DO [Primary Care Provider] - Friend,DO Tonio [Med Staff - Active Staff] - 3-5 Days Disposition Disposition: Home, Self Care
[2022-01-26] MEDS: Mag Hydrox/Al Hydrox/Simeth 30 ML UDC PO (22:45)
--- NOTE | 2022-01-26 22:47 | CT_ITS ---
STUDY: CT ABDOMEN AND PELVIS WITH CONTRAST REASON FOR EXAM: Female, 31 years old. abdominal pain RADIATION DOSAGE (If Supplied By Facility): CTDIvol = ( 15.29 ) mGy, DLP = ( 998.02 ) mGycm TECHNIQUE: Transaxial images were obtained from the dome of the diaphragm to the symphysis pubis without oral contrast. IV 100mL Isovue-300 was administered. Sagittal and coronal images were reconstructed. Individualized dose optimization techniques were used for this CT. COMPARISON: None. FINDINGS: The visualized lung bases are unremarkable. The visualized portions of the heart are within normal limits. Normal liver. Normal gallbladder and extrahepatic biliary system. There are multiple benign calcified granulomata of the spleen. Normal pancreas. Normal bilateral adrenal glands. Normal right kidney. Normal left kidney. Normal visualized stomach. Normal small intestine. There are multiple colonic diverticula consistent with diverticulosis. The appendix is visualized and appears normal. Normal abdominal aorta. Normal inferior vena cava. Normal retroperitoneum. Normal urinary bladder. Retroverted uterus. Normal abdominal wall. Normal osseous structures. CT/Abdomen/Pelvis W IV Cont ONLY IMPRESSION: Normal enhanced CT of the abdomen and pelvis. Electronically Signed: Dale Jansen DO at 23:49 EDT ,
[2022-01-26 22:52] LABS: Absolute Lymphocyte Count 2.57 X10^3/uL (0.83-4.51); Absolute Neutrophil Count 7.6 X10^3/uL (2.0-7.7); Basophil# 0.04 X10^3/uL; Basophil% 0.3 % (0-1); Eosinophil# 0.87 X10^3/uL; Eosinophils% 7.4 % (0-5); Hematocrit 41.8 % (37-47); Hemoglobin 13.9 g/dL (12.0-15.0); Lymphocyte # 2.57 X10^3/ul (0.83-4.51); Lymphocyte % 21.8 % (19-41); Mean Corp Hgb Conc 33.3 g/dL (32-36); Mean Corpuscular Hgb 28.8 pg (27.0-32.0); Mean Corpuscular Volume 86.7 fL (81-99); Mean Platelet Vol. 9.1 fl (6.2-12.0); Monocyte# 0.67 X10^3/uL; Monocyte% 5.7 % (0-10); NRBC Flagged by Analyzer 0 % (0-5); Neutrophil # 7.62 X10^3/uL (2.7-7.7); Neutrophil % 64.5 % (47-70); Platelet Count 386 K/mm3 (150-450); RBC Distribution Width CV 12.6 % (11.6-14.6); RBC Distribution Width SD 39.5 fl (35.1-43.9); Red Blood Count 4.82 M/mm3 (4.2-5.4); White Blood Count 11.8 K/mm3 (4.4-11.0)
[2022-01-26] MEDS: 0.9% Normal Saline 1,000 ML 125 ML IV (23:03)
[2022-01-26 23:04] LABS: Internal QC Validated? YES +Cl - CLEAR BKGD; Pregnancy, Serum, hCG Quali. NEGATIVE Negative
[2022-01-26 23:08] LABS: AST(SGOT) 27 U/L (15-37); Alanine Aminotransfer ALT/SGPT 41 U/L (13-56); Albumin, Serum 3.7 g/dL (3.2-5.0); Alkaline Phosphatase 94 U/L (45-117); Anion Gap 6 (5-15); BUN 13 mg/dL (7-18); BUN/Creat Ratio 17.2 RATIO (10-20); Calcium,Total 9.5 mg/dL (8.5-10.1); Chloride 104 mmol/L (98-107); Creatinine, Serum 0.76 mg/dL (0.55-1.02); EST Glomerular Filtration Rate 96 mL/min (>60); Est Glom Filt Rate - Afr Amer 116 mL/min (>60); Estimated Creatinine Clearance 90.35 ml/min; Globulin 3.6 g/dL (2.2-4.2); Glucose 89 mg/dL (74-106); Lipase 118 U/L (73-393); Potassium 4.2 mmol/L (3.5-5.1); Protein, Total 7.3 g/dL (6.4-8.2); Sodium Level 137 mmol/L (136-145)
[2022-01-26 23:28] LABS: Lactic Acid 0.8 mmol/L (0.4-1.9)
[2022-01-27 00:05] VITALS: BP 120/86; PULSE 71; RESP 16; O2SAT 99
== END 2022-01-27 00:28 | disposition home or self-care (01) ==
PROVIDERS: Emergency Provider Emergency Medicine; PCP Family Medicine; Visit Provider Emergency Medicine
DX: K29.70 Gastritis, unspecified, without bleeding (principal)
CPT/HCPCS: 74177; 80053; 83605; 83690; 84703; 85025; 96360; 96361; 99283; J7030; Q9967; A4216

== ENCOUNTER 2022-02-08 14:30 | Outpatient (RCR) | payer OTHER, SELFPAY | END 2022-02-22 23:59 | LOC: NS 14:30 | PROVIDERS: PCP Family Medicine; Referring Provider Family Medicine; Visit Provider Family Medicine | DX: Z71.3 Dietary counseling and surveillance (principal); E66.9 Obesity, unspecified; Z68.30 Body mass index [BMI] 30.0-30.9, adult | CPT/HCPCS: 97803 ==

== ENCOUNTER 2022-03-23 11:07 | Day surgery (SDC) | payer OTHER, SELFPAY ==
[2022-03-23] VITALS (7 sets, daily range): BP systolic 103–117; BP diastolic 69–87; PULSE 56–91; RESP 16–18; TEMP 36.3–36.7; O2SAT 98–100; BMI 31.5
[2022-03-23 11:48] LABS: Internal QC Validated? YES +Cl - CLEAR BKGD; Pregnancy, Urine Negative Negative
--- NOTE | 2022-03-23 12:00 | EGD_PTH ---
PATIENT: VALENTE BROWN LOC: EN U#:[id number] AGE/SX: 31/F ROOM: RE03/23/[address]: Dr. Tonio Hernandez DO : 1990 BED: DIS: 03/23/2022 SPEC #: [id number] RECD: 03/23/22 15:03 STATUS: YEIMI RELnea #: [id number] ANTHONY: 03/23/22 12:[address]: Tonio Hernandez DEPT: SURGICAL PATHOLOGY RECD BY: Melany Reardon ENTERED: 03/24/22 09:49 SP TYPE: EGD BIOPSY OT DR: Dr. Eugenia Low DO Tissues: A - Duodenum, NOS B - Gastric mucous membrane C - Esophagus, NOS Procedures: Special Stain Group II Surgery Specimen Level IV Alcian Blue/PAS (control) HEADER OPERATION: EGD ([facility]) PRE-OP DIAGNOSIS: Abdominal pain, dysphagia TISSUE SUBMITTED: A ? Duodenal biopsy, B ? Gastric antrum biopsy, C ? Distal esophagus biopsy MICROSCOPIC DIAGNOSIS A. Duodenal biopsy: Fragments of duodenal mucosa, no pathologic diagnosis. B. Gastric antrum, biopsy: Moderate gastritis. See microscopic description and comment. C. Distal esophagus, biopsy: Fragments of gastroesophageal mucosa with chronic inflammation. Intestinal metaplasia (goblet cell metaplasia) not identified. See comment. SJ:patricia 03/27/2022 COMMENT B. The results of immunohistochemistry for Helicobacter pylori will be reported separately ([id number]). C. Alcian blue/PAS stain with matched control is used in the evaluation of the specimen. Increased number of eosinophils (>20 per high power field) are also noted suggestive of eosinophilic esophagitis. MICROSCOPIC DESCRIPTION Slides are reviewed. B. The specimen shows fragments of gastric mucosa with chronic inflammatory cell infiltrates in the lamina propria consisting of lymphocytes and plasma cells, consistent with moderate chronic gastritis. GROSS DESCRIPTION A - Received in fixative is one container labeled with the patient's name and designated duodenal biopsy. The specimen consists of multiple irregular fragments of light goldstein soft tissue that in aggregate measure 1.2 x 0.4 x 0.1 cm. The specimen is totally submitted in one cassette. B - Received in fixative is one container labeled with the patient's name and designated gastric antrum biopsy. The specimen consists of two irregular fragments of light goldstein soft tissue that in aggregate measure 0.6 x 0.4 x 0.1 cm. The specimen is totally submitted in one cassette. C - Received in fixative is one container labeled with the patient's name and designated distal esophagus biopsy. The specimen consists of multiple irregular fragments of light goldstein soft tissue that in aggregate measure 0.6 x 0.6 x 0.1 cm. The specimen is totally submitted in one cassette. / SJ:rg 03/24/2022 TC:3 CPT: 47113 x3, 85076
--- NOTE | 2022-03-23 12:00 | IMM_PTH ---
PATIENT: VALENTE BROWN LOC: EN U#:[id number] AGE/SX: 31/F ROOM: RE03/23/[address]: Dr. Tonio Hernandez DO : 1990 BED: DIS: 03/23/2022 SPEC #: [id number] RECD: 03/24/22 12:38 STATUS: YEIMI REQ #: [id number] ANTHONY: 03/23/22 12:[address]: Tonio Hernandez DEPT: IMMUNOHISTOCHEMISTRY RECD BY: Tiny Michaels ENTERED: 03/24/22 12:39 SP TYPE: IMMUNO OTHR DR: Dr. Eugenia Low DO Tissues: B - Stomach, NOS Procedures: H Pylori (initial) PHYSICIAN & INSTITUTION [place] [id number] SPECIMEN INFORMATION: Tissue Source: B - Gastric antrum biopsy Clinical Info: Abdominal pain, dysphagia Specimen Number: [id number] CPT code: 55727 METHODOLOGY: Deparaffinized sections of prefer/formalin-fixed tissue or PAP/DQ stained slides are incubated with monoclonal/polyclonal antibodies/oligonucleotide probes. Localization is made via biotin free immunoperoxidase method. Appropriate controls are performed and reacted as expected. Results on target cell population are indicated in the following table: RESULTS: ANTIBODY / CLONE RESULT Block B H Pylori (polyclonal) negative These tests were developed and their performance characteristics determined by [facility]. They may not have been cleared or approved by the [place]. Food and Drug Administration. The FDA has determined that such clearance or approval is not necessary. The above immunohistochemical/dualISH markers are ordered and reviewed by the Pathologist. INTERPRETATION: B. Gastric antrum, biopsy: Negative for Helicobacter pylori organisms. AMANDO:patricia 03/27/2022
[2022-03-23] MEDS: Lactated Ringers 1,000 ML 15 ML IV (12:04)
--- NOTE | 2022-03-23 12:28 | HP.PCM_ITS ---
History and Physical Date of Admission: 03/23/22 NANCY BROWN, is a 31 F who presents to the office today for Initial consult. Nancy established with this clinic 02.01.22 following [facility] ED presentation 01.26.22. For the last 16 months (since of daughter) she has been having difficulty with abdominal and epigastric pain/pressure/squeezing, dysphagia and hiccups that present 1-2 times a month with no identifiable trigger. Presented to ED because pain presented and lasted up to 5 hours. ED discharged her with orders to continue prevacid, start norco (she did not take as opioids cause emesis) and Carafate (with some relief). ED performed biochemical workup and imaging without cause for alarm and she was given GI cocktail and discharged. Previously saw PCP for similar pain with reported normal biochemical workup and US. PCP increased prevacid which was helpful initially. No history of EGD. US RUQ 6.30.21 for pain found hepatomegaly 18.7 with normal echogenicity. No additional abnormality noted. Biochemical workup ED CBC (elevated Eosinophils 7.4), CMP, lipase, preg rajesh screen without pertinent abnormality. CT abd/pel ED 01.26.22 noting colonic diverticulosis; granulomata of the spleen; retroverted uterus. ROS Const Constitutional: Positive for other (6 system ROS) Exam Const General: cooperative, no acute distress and ill appearing acutely Nutritional Appearance: average body habitus Orientation: alert, awake and oriented x3 HENMT Head: normal to inspection and atraumatic Ears: hearing grossly normal bilaterally and TM's normal bilaterally Nose: external nose normal and nasal discharge clear Face and sinus: normal facial exam Mouth: oral mucosae normal Throat: posterior oropharynx abnormal erythema Eyes General: appearance normal, both eyes and all related structures Resp Effort & Inspection: normal respiratory effort Auscultation: Bilateral: Clear to Auscultation Cardio Palpation: normal PMI Rate: regular rate Rhythm: regular rhythm Heart Sounds: S1 normal, S2 normal, no gallops, no murmurs and no rubs GI Inspection: normal to inspection Auscultation: normal bowel sounds Palpation: soft, no hepatosplenomegaly and nontender Neuro General: patient alert, patient awake, patient oriented x3 and CN's II-XI intact bilaterally Quality Reporting Tobacco Screening (CMS 138) Smoking Status: Never smoker Assessment and Plan Assessment and Plan (1) Abdominal pain: ?Status:?Acute ?Plan: The differential diagnosis for her abdominal pain does include hiatal hernia, gastroparesis associated with Kayla-Danlos syndrome and chronic migraines, gastritis secondary to H. pylori, NSAIDs.? Also the differential diagnosis would be bile induced gastritis causing bile induced esophagitis.? She should undergo an upper endoscopy to evaluate upper GI tract.? Recommended for her to continue on current medical therapy with H2 receptor blockers.? She was explained altern atives, risk, benefits including understanding bleeding, infection, sepsis, perforation, need for urgent .? Have an ASA 1. (2) Dysphagia: ?Status:?Acute ?Plan: The diagnosis for esophageal dysphagia does include eosinophilic esophagitis, ineffective esophageal dysmotility, erosive esophagitis, hiatal hernia.? We will evaluate her upper GI tract and perform biopsies along with possible dilation of the esophagus.? She was explained alternatives, risk, benefits including outstanding bleeding, infection, sepsis, perforation, need for emergent .? Have an ASA of 1. I have re-examined the patient. There are no clinical changes since date of exam.
--- NOTE | 2022-03-23 13:21 | OP.CCLET_ITS ---
03/23/2022 Eugenia Low [address] [place] [address] Re : Upper GI endoscopy procedure for Nancy Rodriguez Dear Dr. Low This procedure was performed on February. My impressions and recommendations are as follows: Impressions : - LA Grade B reflux esophagitis. Biopsied. - Gastritis. Biopsied. - Duodenitis. Biopsied. Recommendations : - Discharge patient to home. - Resume previous diet. - Repeat upper endoscopy for surveillance based on pathology results. - Gastric emptying study and lab work for autoimmune disease that may be affecting upper GI tract along with Kayla-Danlos. - Continue present medications. My findings are described in the full procedure note, which is enclosed. If I can be of further assistance, please feel free to contact me at . Sincerely, Tonio Hernandez, 03/23/2022 1:21:04 PM This report has been signed electronically.
--- NOTE | 2022-03-23 13:21 | OP.EGD_ITS ---
Patient Name: Nancy Rodriguez Procedure Date: 03/23/2022 12:59 PM Date of : 1990 Age: 31 Procedure: Upper GI endoscopy Indications: Epigastric abdominal pain, Functional Dyspepsia, Heartburn Providers: Tonio Hernandez DO Medicines: Monitored Anesthesia Care Patient Profile: This is a 31 year old female. Refer to note in patient chart for documentation of history and physical. Patient has symptoms of chronic abdominal cramping and chronic abdominal distention. Complications: No immediate complications. Procedure: Pre-Anesthesia Assessment: - Prior to the procedure, a History and Physical was performed, and patient medications and allergies were reviewed. The risks and benefits of the procedure and the sedation options and risks were discussed with the patient. All questions were answered and informed consent was obtained. Patient identification and proposed procedure were verified by the physician in the pre-procedure area. Mental Status Examination: alert and oriented. Airway Examination: normal oropharyngeal airway and neck mobility. Respiratory Examination: clear to auscultation. CV Examination: normal. Prophylactic Antibiotics: The patient does not require prophylactic antibiotics. Prior Anticoagulants: The patient has taken no previous anticoagulant or antiplatelet agents. After reviewing the risks and benefits, the patient was deemed in satisfactory condition to undergo the procedure. The anesthesia plan was to use moderate sedation / analgesia (conscious sedation). Immediately prior to administration of medications, the patient was re-assessed for adequacy to receive sedatives. The heart rate, respiratory rate, oxygen saturations, blood pressure, adequacy of pulmonary ventilation, and response to care were monitored throughout the procedure. The physical status of the patient was re-assessed after the procedure. After obtaining informed consent, the endoscope was passed under direct vision. Throughout the procedure, the patient's blood pressure, pulse, and oxygen saturations were monitored continuously. The gastroscope was introduced through the mouth, and advanced to the second part of duodenum. The upper GI endoscopy was accomplished without difficulty. The patient tolerated the procedure well. Scope In: 1:07:22 PM Scope Out: 1:14:28 PM Total Procedure Duration Time 0 hours 7 minutes 6 seconds Findings: LA Grade B (one or more mucosal breaks greater than 5 mm, not extending between the tops of two mucosal folds) esophagitis with no bleeding was found 36 to 38 cm from the incisors. Biopsies were taken with a cold forceps for histology. Verification of patient identification for the specimen was done. Estimated blood loss was minimal. Localized moderate inflammation characterized by erosions and erythema was found in the gastric antrum. Biopsies were taken with a cold forceps for histology. Verification of patient identification for the specimen was done. Estimated blood loss was minimal. Patchy moderate inflammation characterized by granularity was found in the duodenal bulb, in the first portion of the duodenum, in the second portion of the duodenum and in the third portion of the duodenum. Biopsies were taken with a cold forceps for histology. Verification of patient identification for the specimen was done. Estimated blood loss was minimal. Impression: - LA Grade B reflux esophagitis. Biopsied. - Gastritis. Biopsied. - Duodenitis. Biopsied. Recommendation: - Discharge patient to home. - Resume previous diet. - Repeat upper endoscopy for surveillance based on pathology results. - Gastric emptying study and lab work for autoimmune disease that may be affecting upper GI tract along with Kayla-Danlos. - Continue present medications. Procedure Code(s): --- Professional --- 06547, Esophagogastroduodenoscopy, flexible, transoral; with biopsy, single or multiple CPT copyright 2017 [employer]. All rights reserved. The codes documented in this report are preliminary and upon pulmonary physical therapist review may be revised to meet current compliance requirements. Tonio Hernandez DO 03/23/2022 1:21:04 PM This report has been signed electronically. Number of Addenda: 0 Note Initiated On: 03/23/2022 12:59 PM
[2022-03-23 14:43] LABS: Erythrocyte Sedimentation Rate 5 mm/hr (0-30)
[2022-03-23 15:09] LABS: Hemoglobin A1c 5.2 % (3.8-5.6)
[2022-03-23 15:31] LABS: CRP < 2.90 mg/L (0.0-3.0); LDH 192 U/L (84-246); T4 Free Direct 0.75 ng/dL (0.76-1.46); Thyroid Stim Hormone (TSH) 2.27 uIU/mL (0.358-3.74)
[2022-03-25 18:07] LABS: Endomysial Antibody IgA Negative (Negative); Immunoglobulin A 71 mg/dL (87-352)
[2022-03-26 09:36] LABS: t-Transglutaminase IgA <2 U/mL (0-3)
[2022-03-27 13:07] LABS: Anti-Centromere B Ab <0.2 AI (0.0-0.9); Anti-Chromatin <0.2 AI (0.0-0.9); Anti-Jo <0.2 AI (0.0-0.9); Anti-Scleroderma-70 AB <0.2 AI (0.0-0.9); RNP Ab <0.2 AI (0.0-0.9); SJOGREN'S Anti-SS-A test < 0.2 AI (0.0-0.9); SJOGREN'S Anti-SS-B test < 0.2 AI (0.0-0.9); Smith Ab <0.2 AI (0.0-0.9)
[2022-03-27 14:44] LABS: Anti-dsDNA Ab 1 IU/mL (0-9)
[2022-03-30 10:37] LABS: Calprotectin, Stool <16 ug/g (0-120)
[2022-03-31 08:10] LABS: Albumin 3.6 g/dL (2.9-4.4); Alpha-1-Globulins 0.2 g/dL (0.0-0.4); Alpha-2-Globulins 0.9 g/dL (0.4-1.0); Cytoplasmic Ab (C-ANCA) <1:20 titer (Neg:<1:20); Gamma Globulin 0.9 g/dL (0.4-1.8); Immunoglobulin A 71 mg/dL (87-352); Immunoglobulin G 932 mg/dL (586-1602); Immunoglobulin M 88 mg/dL (26-217); PROEL- TOTAL PROTEIN 6.4 g/dL (6.0-8.5)
[2022-03-31 13:36] LABS: Gastrin, Serum 24 pg/mL (0-115); Immunoglobulin E 14 IU/mL (6-495); Perinuclear Ab (P-ANCA) <1:20 titer (Neg:<1:20)
== END 2022-03-23 14:24 | disposition home or self-care (01) ==
LOC: EN 11:08 → AC 11:18
PROVIDERS: Anesthesiology; PCP Family Medicine; Referring Provider Family Medicine; Visit Provider Internal Medicine Gastroenterology
PROC: 0DJ08ZZ Inspection of Upper Intestinal Tract, Via Natural or Artificial Opening Endoscopic (ICD-10-PCS; CPT 43235; principal; 2022-03-23 11:55)
DX: K21.00 Gastro-esophageal reflux disease with esophagitis, without bleeding (principal); K29.70 Gastritis, unspecified, without bleeding; K29.80 Duodenitis without bleeding; K30 Functional dyspepsia; Q79.60 Ehlers-Danlos syndrome, unspecified; Z79.899 Other long term (current) drug therapy; Z86.16 Personal history of COVID-19
CPT/HCPCS: 43239; 36415; 81025; 82784; 82785; 82941; 83036; 83516; 83615; 83993; 84165; 84439; 84443; 84481; 85652; 86140; 86225; 86235; 86255; 86256; 86334; 88305; 88313; 88342; J7120

== ENCOUNTER → 2022-04-19 | Outpatient (CLI) | payer OTHER, SELFPAY ==
[2022-04-27 15:08] LABS: Beef <0.10 kU/L (Class 0); Corn <0.10 kU/L (Class 0); Egg, Whole 0.25 kU/L (Class 0/I); Milk (Cow) 0.12 kU/L (Class 0/I); Peanut <0.10 kU/L (Class 0); Pork <0.10 kU/L (Class 0); Soybean <0.10 kU/L (Class 0); Wheat 0.85 kU/L (Class II)
[2022-04-27 15:59] LABS: Chocolate <0.10 kU/L (Class 0)
== END | disposition home or self-care (01) ==
LOC: LAB 11:23
PROVIDERS: PCP Family Medicine; Referring Provider Internal Medicine Gastroenterology; Visit Provider Internal Medicine Gastroenterology
DX: K21.9 Gastro-esophageal reflux disease without esophagitis (principal)
CPT/HCPCS: 36415; 86003; 86005

== ENCOUNTER → 2022-04-25 | Outpatient (CLI) | payer OTHER, SELFPAY ==
--- NOTE | 2022-04-25 12:03 | NM_ITS ---
CLINICAL: 28-year-old female with history of clinical gastroparesis. SEMI-SOLID PHASE 99m Tc SULFUR COLLOID GASTRIC EMPTYING STUDY COMPARISON: CT of the abdomen-pelvis report 01/26/2022 FINDINGS: The patient was administered 1.0 mCi of 99m Tc sulfur colloid mixed with oatmeal and consumed per os. Image acquisitions in the anterior-posterior projections were obtained for 60 minutes. There is prompt visualization of the stomach. There is no gastroesophageal reflux identified. First order kinetics are maintained throughout the duration of the acquisitions. The T ? emptying was extrapolated to be 83.35 minutes, (Normal: 12-56 minutes). NM/Gastric Emptying Study IMPRESSION: 1. ABNORMAL 99m Tc sulfur colloid semi-solid phase (oatmeal) gastric emptying imaging examination. A. There is delayed semi-solid phase gastric emptying compared to normal controls with maintained first order kinetics throughout all components of the examination. (Tahir et al, J Nucl Med Tech 38: 186, 2010). Electronically Signed: Shine Green, at 21:51 EDT ,
== END | disposition home or self-care (01) ==
LOC: NM 12:02
PROVIDERS: PCP Family Medicine; Referring Provider Internal Medicine Gastroenterology; Visit Provider Internal Medicine Gastroenterology
DX: K21.9 Gastro-esophageal reflux disease without esophagitis (principal); Q79.60 Ehlers-Danlos syndrome, unspecified
CPT/HCPCS: 78264; A9541

== ENCOUNTER → 2022-07-18 | Outpatient (CLI) | payer OTHER, SELFPAY | END | disposition home or self-care (01) | PROVIDERS: PCP Family Medicine; Referring Provider Internal Medicine Gastroenterology; Visit Provider Internal Medicine Gastroenterology | DX: I77.82 Antineutrophilic cytoplasmic antibody [ANCA] vasculitis (principal) | CPT/HCPCS: 36415 ==

== ENCOUNTER → 2022-08-24 | Outpatient (CLI) | payer OTHER, SELFPAY ==
[2022-08-28 21:07] LABS: Chlamydia By Nucleic Acid AMP Negative (Negative)
[2022-08-28 21:24] LABS: Gonococcus By Nucleic Acid AMP Negative (Negative)
== END | disposition home or self-care (01) ==
LOC: LABSPEC 16:05
PROVIDERS: PCP Family Medicine; Referring Provider Obstetrics & Gynecology; Visit Provider Obstetrics & Gynecology
DX: O09.90 Supervision of high risk pregnancy, unspecified, unspecified trimester (principal)
CPT/HCPCS: 87086; 87088; 87491; 87591

== ENCOUNTER → 2022-09-11 | Outpatient (CLI) | payer OTHER, SELFPAY ==
[2022-09-11 15:09] LABS: NATERA MAILED SPECIMEN
[2022-09-11 15:51] LABS: Absolute Lymphocyte Count 1.39 X10^3/uL (0.83-4.51); Absolute Neutrophil Count 4.9 X10^3/uL (2.0-7.7); Basophil# 0.02 X10^3/uL; Basophil% 0.3 % (0-1); Eosinophil# 0.05 X10^3/uL; Eosinophils% 0.7 % (0-5); Hematocrit 42.6 % (37-47); Lymphocyte # 1.39 X10^3/ul (0.83-4.51); Lymphocyte % 20.6 % (19-41); Mean Corp Hgb Conc 32.9 g/dL (32-36); Mean Corpuscular Hgb 28.7 pg (27.0-32.0); Mean Corpuscular Volume 87.3 fL (81-99); Mean Platelet Vol. 9.8 fl (6.2-12.0); Monocyte# 0.38 X10^3/uL; Monocyte% 5.6 % (0-10); NRBC Flagged by Analyzer 0 % (0-5); Neutrophil % 72.5 % (47-70); Platelet Count 305 K/mm3 (150-450); RBC Distribution Width CV 13.2 % (11.6-14.6); RBC Distribution Width SD 41.9 fl (35.1-43.9); Red Blood Count 4.88 M/mm3 (4.2-5.4); White Blood Count 6.8 K/mm3 (4.4-11.0)
[2022-09-11 16:07] LABS: Glucose Challenge Gest 1H 50g 130 mg/dL (70-140)
[2022-09-11 16:44] LABS: HIV - WCH Non-Reactive (Nonreactive); Rubella IgG Reactive (Nonreactive); Syphilis Antibodies Non-reactive
== END | disposition home or self-care (01) ==
LOC: LAB 14:06
PROVIDERS: PCP Family Medicine; Visit Provider Obstetrics & Gynecology
DX: O09.90 Supervision of high risk pregnancy, unspecified, unspecified trimester (principal); Z3A.00 Weeks of gestation of pregnancy not specified; Z13.1 Encounter for screening for diabetes mellitus
CPT/HCPCS: 82950; 85025; 86703; 86762; 86780; 86850; 86900; 86901

== ENCOUNTER → 2022-10-10 | Outpatient (CLI) | payer OTHER, SELFPAY ==
[2022-10-10 14:29] VITALS: BP 103/42; PULSE 80; RESP 16; TEMP 35.9; O2SAT 100
[2022-10-10] MEDS: 0.9% NaCl Peripheral Flush Adult/Peds IV (14:31)
[2022-10-10] MEDS: Ondansetron 4 MG/2 ML Vial IV (14:35)
[2022-10-10] MEDS: Dextrose 5%-Lactated Ringers 1,000 ML 999 ML IV (14:39)
[2022-10-10 15:49] VITALS: BP 108/70; PULSE 66; RESP 14; TEMP 36.2; O2SAT 98
== END | disposition home or self-care (01) ==
LOC: MEDOUTP 14:04
PROVIDERS: PCP Family Medicine; Referring Provider Nurse Practitioner Women's Health; Visit Provider Nurse Practitioner Women's Health
DX: E86.0 Dehydration (principal)
CPT/HCPCS: 96374; 96361; A4216; J2405

== ENCOUNTER → 2022-11-15 | Outpatient (CLI) | payer OTHER, SELFPAY ==
[2022-11-15 14:02] LABS: ALB/GLOB Ratio 0.8 RATIO (0.9-2.4); AST(SGOT) 14 U/L (15-37); Alanine Aminotransfer ALT/SGPT 12 U/L (13-56); Albumin, Serum 2.8 g/dL (3.2-5.0); Alkaline Phosphatase 81 U/L (45-117); Amylase 53 U/L (25-115); Anion Gap 8 (5-15); BUN 3 mg/dL (7-18); BUN/Creat Ratio 5.9 RATIO (10-20); Calcium,Total 8.6 mg/dL (8.5-10.1); Chloride 107 mmol/L (98-107); Creatinine, Serum 0.51 mg/dL (0.55-1.02); EST Glomerular Filtration Rate 151 mL/min (>60); Est Glom Filt Rate - Afr Amer 183 mL/min (>60); Globulin 3.6 g/dL (2.2-4.2); Glucose 91 mg/dL (74-106); Lipase 33 U/L (13-75); Potassium 3.5 mmol/L (3.5-5.1); Protein, Total 6.4 g/dL (6.4-8.2); Sodium Level 138 mmol/L (136-145)
== END | disposition home or self-care (01) ==
LOC: LAB 12:41
PROVIDERS: PCP Family Medicine; Referring Provider Internal Medicine Gastroenterology; Visit Provider Internal Medicine Gastroenterology
DX: K90.0 Celiac disease (principal); K21.9 Gastro-esophageal reflux disease without esophagitis
CPT/HCPCS: 36415; 80053; 82150; 83690

== ENCOUNTER 2022-12-14 16:46 | Emergency (ER) | payer OTHER, SELFPAY ==
[2022-12-14 16:47] VITALS: BP 125/71; PULSE 87; RESP 16; TEMP 35.7; O2SAT 100
--- NOTE | 2022-12-14 16:58 | EDS_ITS ---
HPI History of Present Illness Chief Complaint: Syncope [facility] Medical History (Updated 12/14/22 @ 21:[address] Earl Somers, DO) Abnormal EKG (~2014) Acute pharyngitis Celiac disease COVID-19 Difficulty swallowing Easy bruising Kayla-Danlos syndrome Exercise-induced asthma Gastric reflux History of echocardiogram Hyperemesis arising during Migraine headache Mixed anxiety and depressive disorder Non-smoker Wears glasses Home Medications linaclotide 145 mcg capsule (Linzess) 145 mcg PO DAILY #30 caps 04/19/22 [Rx Last Taken Unknown] ondansetron HCl 4 mg tablet 4 mg PO Q8H PRN nausea and vomiting #30 tabs 08/18 [Rx Last Taken Unknown] prenat.vits,anh,qpw-wdno-wohil 1 tab PO DAILY 08/18/22 [History Last Taken Unknown] metoclopramide HCl 5 mg tablet (Reglan) 5 mg PO .q 8 hrs PRN nausea and vomiting #60 tabs 09/20/22 [Rx Last Taken Unknown] pantoprazole 40 mg tablet,delayed release 40 mg PO DAILY #90 tabs 11/15/22 [Rx Last Taken Unknown] Allergy/AdvReac Type Severity Reaction Status Date / Time No Known Allergies Allergy Verified 12/14/22 16:47 Family History Mother Thyroid disorder Grandmother Thyroid disorder Cancer Maternal grandmother - kidney cancer Grandfather Cancer Bladder Surgical History History of wisdom tooth extraction Social History adopted: No household members: spouse, children and other details: brother in law housing: house number of children: 1 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 pets and animals: dog(s) history of recent travel: No sexually active: Yes Smoking Status: Never smoker Electronic Cigarette Use: not used second hand exposure: No alcohol intake: current alcohol intake frequency: holidays/special occasions only Alcohol type: wine details: not while substance use type: does not use diet: gluten free and lactose free well-balanced diet: daily or most days caffeine: Yes Type: carbonated beverages Number of servings: 1 what type of physical activity do you participate in: other details: cardio kickboxing frequency: 1-2 times per week duration: 45-60 minutes/day seatbelt use: always do you feel safe at home: Yes additional social history: Ameya- ([employer]) EXAM Physical Exam Const Vital Signs: 12/14/22 16:47 12/14/22 18:07 12/14/22 18:14 Temperature 96.3 F L Temperature Source Temporal Pulse Rate 87 81 Pulse Rate [Lying] Pulse Rate [Sitting (for 1 minute prior to obtaining)] Pulse Rate [Standing (for 1 minute prior to obtaining)] Respiratory Rate 16 16 Respiratory Effort Normal Non-Labored Respiratory Pattern Normal Blood Pressure 125/71 H 125/76 H Blood Pressure [Lying] Blood Pressure [Sitting (for 1 minute prior to obtaining)] Blood Pressure [Standing (for 1 minute prior to obtaining)] Blood Pressure Mean 89 92 Blood Pressure Mean [Lying] Blood Pressure Mean [Sitting (for 1 minute prior to obtaining)] Blood Pressure Mean [Standing (for 1 minute prior to obtaining)] Pulse Ox 100 100 Oxygen Delivery Method Room Air Room Air 12/14/22 19:36 12/14/22 19:37 12/14/22 21:00 Temperature Temperature Source Pulse Rate 93 78 Pulse Rate [Lying] 74 Pulse Rate [Sitting (for 1 minute prior to obtaining)] 70 Pulse Rate [Standing (for 1 minute prior to obtaining)] 76 Respiratory Rate 19 H 16 Respiratory Effort Respiratory Pattern Blood Pressure 104/70 113/85 H Blood Pressure [Lying] 111/70 Blood Pressure [Sitting (for 1 minute prior to obtaining)] 115/81 H Blood Pressure [Standing (for 1 minute prior to obtaining)] 120/73 Blood Pressure Mean 81 94 Blood Pressure Mean [Lying] 83 Blood Pressure Mean [Sitting (for 1 minute prior to obtaining)] 92 Blood Pressure Mean [Standing (for 1 minute prior to obtaining)] 88 Pulse Ox 100 98 Oxygen Delivery Method Room Air Room Air 12/14/22 21:54 Temperature Temperature Source Pulse Rate 80 Pulse Rate [Lying] Pulse Rate [Sitting (for 1 minute prior to obtaining)] Pulse Rate [Standing (for 1 minute prior to obtaining)] Respiratory Rate 16 Respiratory Effort Respiratory Pattern Blood Pressure 120/77 Blood Pressure [Lying] Blood Pressure [Sitting (for 1 minute prior to obtaining)] Blood Pressure [Standing (for 1 minute prior to obtaining)] Blood Pressure Mean Blood Pressure Mean [Lying] Blood Pressure Mean [Sitting (for 1 minute prior to obtaining)] Blood Pressure Mean [Standing (for 1 minute prior to obtaining)] Pulse Ox 99 Oxygen Delivery Method MDM MDM MDM Narrative Medical decision making narrative: HISTORY OF PRESENT ILLNESS: 32-year-old female here for feeling dizzy and nearly passing out. Patient further states this is happened approximate 4 times since being . She notes vomiting 2 weeks ago. Denies any symptoms currently. Denies any chest pain, focal weakness, numbness. States symptoms are worse when she rises from a seated position. Denies any family history of early cardiac . Denies any excessive urination or hematuria. Denies any bleeding diathesis. Patient denies sudden onset of pain, no tearing sensation, no migratory symptoms, no new numbness, weakness or loss of sensation. Patient denies family history or personal history of Marfan syndrome. The patient denies recent surgery in the last 4 weeks or immobilization in the last 3 days, denies previous diagnosis of DVT or PE, hemoptysis, unilateral leg swelling or malignancy with treatment the last 6 months. No estrogen use noted. She denies headache. She does endorse family history of POTS. She states she was told by her PRESS OPERATOR APPRENTICE to come to the ED to get a cardiac work-up REVIEW OF SYSTEMS: Pertinent positives: Dizziness, near syncope Pertinent negatives: focal weakness PHYSICAL EXAM: Nursing triage notes reviewed, Vital signs reviewed Constitutional: please see mdm HENT: MMM Eyes: Pupils equal round and reactive to light, Extraocular muscles intact Neck: No stridor, no JVD, full neck ROM Lungs: Clear to auscultation, No wheezing or rales. No increased work of breathing, no conversational dyspnea, no accessory muscle use, no nasal flaring. No respiratory distress noted Heart: Regular rate and rhythm, No murmurs, No rubs and No gallops, 2+ distal pulses (radial, femoral, posterior tibial) in all extremities Abdomen: Soft, there is no tenderness, rigidity, rebound or guarding, no obvious peritoneal signs, no palpable pulsatile abdominal masses, no auscultated abdominal bruit : No CVAT Extremities: No edema Neuro: No focal neurological deficits, cranial nerves II through XII intact, 5/5 strength in all extremities. Intact sensation to light touch in all extremities, 2+ reflexes bilateral patella tendons. Normal gait. No ataxia. Skin: No rash or lesions noted MEDICAL DECISION MAKING: Chief Complaint: near syncope External records reviewed: Ultrasound from 12/11/2022 shows heart rate 141. Noted at that time was 24 weeks and 1 day Factors affecting care: 24 weeks pregnanct Social determinants of health: none History obtained from others: none Consults: Cardiology (Dr. Brown) ALL IMAGES (IF OBTAINED) HAVE BEEN PERSONALLY REVIEWED AND INTERPRETED BY MYSELF. MDM Narrative: The patient was hemodynamically stable, afebrile, nontoxic-appearing. Initial exam had no murmurs, no pulse deficits, no focal neurodeficits. No stigmata of VTE. I considered the following differential diagnosis: Dehydration, hemodynamic changes associated , anemia, electrolyte maladies, arrhythmia, ACS, pneumonia, pneumothorax, PE, aortic dissection. I considered obtaining a CT scan of the patient's chest rule out PE or dissection however thought this was not indicated at this time given lack of risk factors for both PE and dissection. There is no stigmata on physical exam of either of these concerning diagnoses. I did obtain an EKG and place patient on telemetry gave her a liter of fluids and obtain blood work to rule out other differentials. Labs images were remarkable for no evidence of pneumonia, pneumothorax, significant dehydration, arrhythmia, anemia, loss. Etiology unclear likely secondary to hemodynamic changes associated with . Urine did show evidence of inflammation will send culture to further evaluate for asymptomatic bacteriuria. heart tones are reassuring. Ordered Holter monitor. Did consult cardiology to follow-up with the patient's Holter monitor report. The patient and/or family, caregivers express understanding. The patient and/or family, caregivers agrees with the plan. Total critical care time today provided was at least 0 minutes. This excludes separately billable procedures. Critical care time (if documented) is secondary to the patient having high probability of clinically significant/life threatening deterioration in the patient's condition which required my urgent intervention. Shared decision making: I will have a discussion with the patient and or visitors regarding risk/benefits of further testing or admission. They will be made aware of of the risk/benefits inherent in this decision they will be given the opportunity to voice understanding. Lab Data Attestation: I reviewed the patient's lab results. Lab results narrative: EKG is normal sinus rhythm, normal intervals, no STEMI Urine with evidence of inflammation will send for culture BMP without evidence of significant electrolyte abnormalities, no anion gap, no acute kidney injury. BNP within the limits LFTs show no evidence of hepatobiliary pathology. Troponin is negative, no evidence of myocardial ischemia heart rate reassured Labs: Laboratory Results - last 24 hr 12/14/22 12/14/22 12/14/22 18:00 18:00 18:00 WBC RBC Hgb Hct MCV MCH MCHC RDW Std Deviation RDW Coeff of Aaron Plt Count MPV Immature Gran % (Auto) Neut % (Auto) Lymph % (Auto) [place] % (Auto) Eos % (Auto) Baso % (Auto) Absolute Neuts (auto) Absolute Lymphs (auto) Nucleated RBC % Sodium 138 Potassium 3.8 Chloride 107 Carbon Dioxide 25.0 Anion Gap 6 BUN 5 L Creatinine 0.51 L Est GFR (MDRD) Af Amer 182 Est GFR (MDRD) Non-Af 150 BUN/Creatinine Ratio 9.8 L Glucose 81 Calcium 8.5 Total Bilirubin 0.20 AST 12 L ALT 12 L Alkaline Phosphatase 99 Troponin I High Sens B-Natriuretic Peptide 14.5 Total Protein 6.6 Albumin 2.8 L Globulin 3.8 Albumin/Globulin Ratio 0.7 L Urine Color Yellow Urine Clarity Sl. Cloudy Urine pH 6.5 Ur Specific [place] 1.010 Urine Protein 15 H Urine Glucose (UA) Normal Urine Ketones Negative Urine Occult Blood 10 H Urine Nitrite Negative Urine Bilirubin Negative Urine Urobilinogen Normal Ur Leukocyte Esterase 500 H Urine RBC 0 SEEN Urine WBC 5-10 SEEN Ur Squamous Epith Cells 0-5 SEEN Urine Bacteria RARE Urine Mucus 0 SEEN 12/14/22 12/14/22 18:00 19:55 WBC 11.1 H RBC 4.20 Hgb 11.3 L Hct 35.6 L MCV 84.8 MCH 26.9 L MCHC 31.7 L RDW Std Deviation 40.6 RDW Coeff of Aaron 13.2 Plt Count 260 MPV 9.8 Immature Gran % (Auto) 1.000 H Neut % (Auto) 73.9 H Lymph % (Auto) 20.0 [place] % (Auto) 4.6 Eos % (Auto) 0.3 Baso % (Auto) 0.2 Absolute Neuts (auto) 8.2 H Absolute Lymphs (auto) 2.22 Nucleated RBC % 0 Sodium Potassium Chloride Carbon Dioxide Anion Gap BUN Creatinine Est GFR (MDRD) Af Amer Est GFR (MDRD) Non-Af BUN/Creatinine Ratio Glucose Calcium Total Bilirubin AST ALT Alkaline Phosphatase Troponin I High Sens 6 B-Natriuretic Peptide Total Protein Albumin Globulin Albumin/Globulin Ratio Urine Color Urine Clarity Urine pH Ur Specific [place] Urine Protein Urine Glucose (UA) Urine Ketones Urine Occult Blood Urine Nitrite Urine Bilirubin Urine Urobilinogen Ur Leukocyte Esterase Urine RBC Urine WBC Ur Squamous Epith Cells Urine Bacteria Urine Mucus Radiography Diagnostic Testing: Clinical Impression(s) from Imaging Studies Chest X-Ray 12/14/22 17:30 IMPRESSION: Normal x-ray examination of the chest. Electronically Signed: Warren Redding MD at 17:47 EDT , I have personally reviewed the patient's chest x-ray. Chest x-ray is unremarkable for pulmonary edema, pneumothorax, pneumonia or focal cardiopulmonary abnormality. Discharge Plan Triage Chief Complaint: Syncope ED Provider: Earl Somers Dx/Rx/DC Orders Clinical Impression: Near syncope, Second trimester Instructions: ED Near-Fainting, Uncertain Cause Prescriptions: No Action Linzess 145 mcg capsule 145 mcg PO DAILY Qty: 30 2RF prenat.vits,anh,qjf-vnzr-nuyog Tablet 1 tab PO DAILY metoclopramide HCl [Reglan] 5 mg tablet 5 mg PO .q 8 hrs PRN (Reason: nausea and vomiting) Qty: 60 3RF ondansetron HCl 4 mg tablet 4 mg PO Q8H PRN (Reason: nausea and vomiting) Qty: 30 3RF pantoprazole 40 mg tablet,delayed release (DR/EC) 40 mg PO DAILY Qty: 90 0RF Primary Care Provider: Eugenia Low Referrals: Merecdes Brown MD [Med Staff - Active Staff] - Eugenia Low DO [Primary Care Provider] - Activity Restrictions/Additional Instructions: Thank you for trusting us with your care today! Please take Tylenol (2 pills, 650 mg) every 6 hours as needed for pain and fever control. Please drink plenty of fluids. Please follow with sound effects supervisor Dr. Brown hand for Holter monitor results Please return to the emergency department if your symptoms change or worsen. Please follow with your primary care physician for further outpatient evaluation and management. Disposition Disposition: Home, Self Care Discharge Date/Time: 12/14/22 22:14
--- NOTE | 2022-12-14 17:30 | RAD_ITS ---
STUDY: X-RAY CHEST REASON FOR EXAM: Female, 32 years old. syncope TECHNIQUE: Single AP portable view of the chest. COMPARISON: 03/26/2021. FINDINGS: The lungs are clear and expanded. There is no demonstrated pleural abnormality. Normal size heart. Normal mediastinum and tanya. Normal visualized pulmonary arteries. Normal visualized aortic arch and descending thoracic aorta. Normal visualized thoracic spine. Normal visualized ribs, clavicles, and shoulders. There is no demonstrated abnormality of the visualized soft tissue structures of the upper abdomen. RAD/Chest 1 View (Portable) IMPRESSION: Normal x-ray examination of the chest. Electronically Signed: Warren Redding MD at 17:47 EDT ,
[2022-12-14] MEDS: 0.9% Normal Saline 1,000 ML 1000 ML IV (17:58)
[2022-12-14 18:06] LABS: Mucous, Urine 0 SEEN /hpf (<or=2+); Red Blood Cells-Urine 0 SEEN /hpf (0-5)
[2022-12-14 18:14] VITALS: BP 125/76; PULSE 81; RESP 16; O2SAT 100
[2022-12-14 18:19] LABS: Color, Urine Yellow (Yellow); Glucose, Dipstick Normal (Normal); Ketone-Dipstick Negative (Negative); Leukocyte Esterase-Dipstick 500 /ul (Negative); Nitrite-Dipstick Negative (Negative); Occult Blood-Urine 10 /ul (Negative); Protein-Dipstick 15 mg/dl (Negative); Urine Bilirubin Dipstick Negative (Negative); Urine Clarity Sl. Cloudy (Clear); Urine Urobilinogen Normal (Normal); Urine pH 6.5 (5.0 - 8.0)
[2022-12-14 18:34] LABS: BNP,B-Type NATRIURETIC PEPTIDE 14.5 pg/mL (0-100); Bacteria RARE /hpf (None Seen); Squamous Epithelial Cells - UA 0-5 SEEN /hpf (5-10); White Blood Cells 5-10 SEEN /hpf (0-5)
[2022-12-14 18:37] LABS: ALB/GLOB Ratio 0.7 RATIO (0.9-2.4); AST(SGOT) 12 U/L (15-37); Alanine Aminotransfer ALT/SGPT 12 U/L (13-56); Albumin, Serum 2.8 g/dL (3.2-5.0); Alkaline Phosphatase 99 U/L (45-117); Anion Gap 6 (5-15); BUN 5 mg/dL (7-18); BUN/Creat Ratio 9.8 RATIO (10-20); Calcium,Total 8.5 mg/dL (8.5-10.1); Chloride 107 mmol/L (98-107); Creatinine, Serum 0.51 mg/dL (0.55-1.02); EST Glomerular Filtration Rate 150 mL/min (>60); Est Glom Filt Rate - Afr Amer 182 mL/min (>60); Globulin 3.8 g/dL (2.2-4.2); Glucose 81 mg/dL (74-106); Potassium 3.8 mmol/L (3.5-5.1); Protein, Total 6.6 g/dL (6.4-8.2); Sodium Level 138 mmol/L (136-145)
[2022-12-14 19:36] VITALS: BP 104/70; PULSE 93; RESP 19; O2SAT 100; BMI 33.3
[2022-12-14 19:37] VITALS: BP 111/70; BP 115/81; BP 120/73; PULSE 70; PULSE 74; PULSE 76
[2022-12-14 20:07] LABS: Troponin-I HS 6 pg/mL (3.0-54.0)
[2022-12-14 20:15] LABS: Absolute Lymphocyte Count 2.22 X10^3/uL (0.83-4.51); Absolute Neutrophil Count 8.2 X10^3/uL (2.0-7.7); Basophil# 0.02 X10^3/uL; Basophil% 0.2 % (0-1); Eosinophil# 0.03 X10^3/uL; Eosinophils% 0.3 % (0-5); Hematocrit 35.6 % (37-47); Hemoglobin 11.3 g/dL (12.0-15.0); Lymphocyte # 2.22 X10^3/ul (0.83-4.51); Mean Corp Hgb Conc 31.7 g/dL (32-36); Mean Corpuscular Hgb 26.9 pg (27.0-32.0); Mean Corpuscular Volume 84.8 fL (81-99); Mean Platelet Vol. 9.8 fl (6.2-12.0); Monocyte# 0.51 X10^3/uL; Monocyte% 4.6 % (0-10); NRBC Flagged by Analyzer 0 % (0-5); Neutrophil # 8.21 X10^3/uL (2.7-7.7); Neutrophil % 73.9 % (47-70); Platelet Count 260 K/mm3 (150-450); RBC Distribution Width CV 13.2 % (11.6-14.6); RBC Distribution Width SD 40.6 fl (35.1-43.9); White Blood Count 11.1 K/mm3 (4.4-11.0)
[2022-12-14 21:00] VITALS: BP 113/85; PULSE 78; RESP 16; O2SAT 98
[2022-12-14 21:54] VITALS: BP 120/77; PULSE 80; RESP 16; O2SAT 99
== END 2022-12-14 22:14 | disposition home or self-care (01) ==
PROVIDERS: Emergency Provider Emergency Medicine; PCP Family Medicine; Visit Provider Emergency Medicine
DX: O99.891 Other specified diseases and conditions complicating pregnancy (principal); R55 Syncope and collapse; Z3A.24 24 weeks gestation of pregnancy; O99.612 Diseases of the digestive system complicating pregnancy, second trimester; K21.9 Gastro-esophageal reflux disease without esophagitis; Z79.899 Other long term (current) drug therapy; Z86.16 Personal history of COVID-19
CPT/HCPCS: 71045; 80048; 80053; 81001; 83880; 84484; 85025; 87086; 87088; 93005; 96360; 96361; 99285; J7030; A4216

== ENCOUNTER → 2022-12-14 | Outpatient (CLI) | payer OTHER, SELFPAY | END | disposition home or self-care (01) | LOC: CVS 20:49 | PROVIDERS: PCP Family Medicine; Referring Provider Internal Medicine Cardiovascular Disease; Visit Provider Internal Medicine Cardiovascular Disease | DX: R55 Syncope and collapse (principal) | CPT/HCPCS: 93225; 93226 ==

== ENCOUNTER 2022-12-27 01:04 | Outpatient (CLI) | payer OTHER, SELFPAY ==
[2022-12-27] VITALS (12 sets, daily range): BP systolic 110–134; BP diastolic 62–84; PULSE 77–92; RESP 16–17; TEMP 36.7–37.1; O2SAT 84–98; BMI 32.4
--- NOTE | 2022-12-27 01:27 | US_ITS ---
INDICATION: Bilateral flank pain, greater on the left, 26 weeks EXAMINATION: US Kidney(s) complete (eg, kidneys and bladder) TECHNIQUE: Henry scale and color doppler images were obtained of the kidneys. COMPARISON: Contrast-enhanced CT abdomen and pelvis from 01/26/2022 FINDINGS: RIGHT KIDNEY: Right kidney measures 11.8 x 5.4 x 5.2 cm with cortical thickness measuring up to 2.1 cm. Slight prominence of right renal collecting system. No shadowing calculus, focal lesion or perinephric collection is demonstrated. LEFT KIDNEY: Left kidney measures 11.5 x 6.2 x 6.5 cm with cortical thickness up to 3 cm. Mildly dilated left renal collecting system. No shadowing calculus, focal lesion or perinephric collection is demonstrated. URINARY BLADDER: Under distended urinary bladder with volume of 20 mL. Ureteral jets are not visualized. OTHER: Gravid uterus partially imaged with intrauterine in vertex presentation. US/Kidney and Bladder IMPRESSION: Mild left hydronephrosis and minimal right hydronephrosis. Suspect secondary to enlarged gravid uterus. Electronically Signed: Alexandro Christiansen MD at 3:08 EDT ,
[2022-12-27] MEDS: Morphine 4 MG/ML Syringe IV ×2 (01:57→03:54)
[2022-12-27] MEDS: Lactated Ringers 1,000 ML 999 ML IV (01:57)
[2022-12-27] MEDS: Ondansetron 4 MG/2 ML Vial IV ×3 (01:57→18:15)
[2022-12-27 02:14] LABS: Hematocrit 33.6 % (37-47); Hemoglobin 10.5 g/dL (12.0-15.0); Mean Corp Hgb Conc 31.3 g/dL (32-36); Mean Corpuscular Hgb 26.3 pg (27.0-32.0); Mean Platelet Vol. 9.7 fl (6.2-12.0); Platelet Count 270 K/mm3 (150-450); RBC Distribution Width CV 13.3 % (11.6-14.6); White Blood Count 11.7 K/mm3 (4.4-11.0)
[2022-12-27 02:15] LABS: Color, Urine Yellow (Yellow); Glucose, Dipstick Normal (Normal); Ketone-Dipstick 5 mg/dl (Negative); Leukocyte Esterase-Dipstick 500 /ul (Negative); Nitrite-Dipstick Negative (Negative); Occult Blood-Urine 50 /ul (Negative); Protein-Dipstick 30 mg/dl (Negative); Specific Gravity, Urine 1.025 (1.002-1.030); Urine Bilirubin Dipstick Negative (Negative); Urine Clarity Sl. Cloudy (Clear); Urine Urobilinogen 1 mg/dl (Normal)
[2022-12-27 02:41] LABS: White Blood Cells 25-50 SEEN /hpf (0-5)
[2022-12-27 02:42] LABS: Bacteria 3+ /hpf (None Seen); Mucous, Urine 2+ /hpf (<or=2+); Red Blood Cells-Urine 0-5 SEEN /hpf (0-5); Squamous Epithelial Cells - UA 10-25 SEEN /hpf (5-10)
[2022-12-27 02:43] LABS: Calcium Oxalate Crystals Ur 1+ /hpf (<or=2+)
[2022-12-27] MEDS: 0.9% Normal Saline 1,000 ML 250 ML IV ×5 (03:53→21:54)
[2022-12-27] MEDS: proMETHazine 25 MG/ML Syringe 12.5 MG IM (04:01)
[2022-12-27] MEDS: Ceftriaxone 1 GM/50 ML BAG IV (04:21)
--- NOTE | 2022-12-27 08:01 | CT_ITS ---
STUDY: CT ABDOMEN AND PELVIS WITHOUT CONTRAST REASON FOR EXAM: Female, 32 years old. R/O kidney stones, 26 wks . Left flank pain. RADIATION DOSAGE (If Supplied By Facility): CTDIvol = ( 14.95 ) mGy, DLP = ( 743.46 ) mGycm TECHNIQUE: Transaxial images were obtained from the dome of the diaphragm to the symphysis pubis without oral contrast, and without intravenous contrast. Sagittal and coronal images were reconstructed. Individualized dose optimization techniques were used for this CT. COMPARISON: Comparison is made with prior examination January 26, 2022. FINDINGS: The visualized lung bases are unremarkable. The visualized portions of the heart are within normal limits. Normal liver. Normal gallbladder and extrahepatic biliary system. Normal spleen. Normal pancreas. Normal bilateral adrenal glands. Normal right kidney. Mild degree of left hydronephrosis and left hydroureter due to a 4 mm calculus at the left ureterovesical junction. Normal visualized stomach. Normal small intestine. Normal colon. The appendix is visualized and appears normal. Normal abdominal aorta. Normal inferior vena cava. Normal retroperitoneum. Normal urinary bladder. Fetus is seen within the uterus. Normal abdominal wall. There is straightening of the normal lumbar lordosis. CT/Abdomen/Pelvis without Cont IMPRESSION: Mild left hydronephrosis and left hydroureter due to a 4 mm calculus at the left ureterovesical junction. Electronically Signed: Porfirio Cornejo MD at 8:51 EDT ,
--- NOTE | 2022-12-27 09:56 | HP.PCM.OB_ITS ---
HPI - General HPI Narrative VALENTE BROWN, is a 32 y/o who presented to L&D late last night with the complaint of nausea, vomiting, and left lower quadrant and back pain and the sensation that she was not emptying bladder completely. She was started on IV fluids, antibiotics, and given morphine and zofran for support. Ultrasound showed mild left hydronephrosis without stones in the ureters or kidneys. She is currently laying in bed uncomfortably and states that pain is somewhat better than last night but still quite unbearable. Maternal Data Information DAISY Calculator Estimated Delivery Date Method Current WG Current Estimate 04/01/23 Ultrasound #1 26w 3d Other Estimates 03/26/23 LMP (Certain) 27w 2d PFSH PFSH Medical History Abnormal EKG (~2014) Acute pharyngitis Celiac disease COVID-19 Difficulty swallowing Easy bruising Kayla-Danlos syndrome Exercise-induced asthma Gastric reflux History of echocardiogram Hyperemesis arising during Migraine headache Mixed anxiety and depressive disorder Non-smoker Wears glasses Home Medications ondansetron HCl 4 mg tablet 4 mg PO Q8H PRN nausea and vomiting #30 tabs 08/18/22 [Rx Last Taken 12/26/22] prenat.vits,anh,uju-door-xezhc 1 tab PO DAILY 08/18/22 [History Last Taken 0 12/26/22] metoclopramide HCl 5 mg tablet (Reglan) 5 mg PO .q 8 hrs PRN nausea and vomiting #60 tabs 09/20/22 [Rx Last Taken 12/26/22] pantoprazole 40 mg tablet,delayed release 40 mg PO DAILY #90 tabs 11/15/22 [Rx Last Taken 12/26/22] linaclotide 145 mcg capsule (Linzess) 145 mcg PO Q OTHER DAY 12/25/22 [History Last Taken 12/26/22] Allergy/AdvReac Type Severity Reaction Status Date / Time No Known Allergies Allergy Verified 12/27/22 01:46 Family History Mother Thyroid disorder Grandmother Thyroid disorder Cancer Maternal grandmother - kidney cancer Grandfather Cancer Bladder Surgical History History of wisdom tooth extraction Social History adopted: No household members: spouse, children and other details: brother in law housing: house number of children: 1 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 pets and animals: dog(s) history of recent travel: No sexually active: Yes Smoking Status: Never smoker Electronic Cigarette Use: not used second hand exposure: No alcohol intake: current alcohol intake frequency: holidays/special occasions only Alcohol type: wine details: not while substance use type: does not use diet: gluten free and lactose free well-balanced diet: daily or most days caffeine: Yes Type: carbonated beverages Number of servings: 1 what type of physical activity do you participate in: other details: cardio kickboxing frequency: 1-2 times per week duration: 45-60 minutes/day seatbelt use: always do you feel safe at home: Yes additional social history: 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 Date Name GA/Weeks Outcome Route Bth Weight Infant Gen Labor Lgth Anesthesia Del Locatn Provider FOB 10/09/20 Gloria 38 live - full term 6lbs 5oz Female [facility] [place] Delivery Date: 10/09/20 Last Updated by: Antoinette Rubalcava IOl for cholestasis, uncomplicated delivery Visit Details Expected Delivery Route/Plan Labor Preferences- CB/BF classes: [] labor support person: [] labor intervention preferences: [] pain management options preferred: [] cut cord/dad catch: [] : [] PP control planned: [] discussed possible routes of delivery and associated risks: [] special requests: [] Plans Covid status: [] Flu vaccine: [] Tdap vaccine: [] Rhogam: [] LARC form signed: [] Problem list reviewed and updated with the most current plan of care details and appropriate orders placed. Relevant counseling for the gestational age provided. Continue routine care and follow up unless otherwise noted in visit notes/problem list details OB Flowsheet Initial Weight: Not Recorded Date -?-?-?-?-?-?-?-?-?-?-?-?- EGA Weight BP Urine Prot -?-?-?-?-?-?-?-?-?-?-?-?- Glucose FHR FuHt Pres Dilation -?-?-?-?-?-?-?-?-?-?-?-?- Effaced St Visit Note 08/24/22 -?-?-?-?-?-?-?-?-?-?-?-?- 8w 4d 183 lb 4 oz 183 lb 4 oz 102/71 -?-?-?-?-?-?-?-?-?-?-?-?- 170 -?-?-?-?-?-?-?-?-?-?-?-?- SM- CRL NOT cons with LMP 1.8 cm 09/20/22 -?-?-?-?-?-?-?-?-?-?-?-?- 12w 3d 177 lb 126/84 Negative -?-?-?-?-?-?-?-?-?-?-?-?- Negative 153 -?-?-?-?-?-?-?-?-?-?-?-?- JV- pt states th at she is still having nausea daily and vomiting occasionally. She has been treated with reglan in the past for gastroparesis and felt great. will try reglan again. rx sent to pharmacy. 10/18/22 -?-?-?-?-?-?-?-?-?-?-?-?- 16w 3d 174 lb 6 oz 121/80 Trac e -?-?-?-?-?-?-?-?-?-?-?-?- Negative 150 -?-?-?-?-?-?-?-?-?-?-?-?- KW-possible flut ters. no cramping. feeling more anxiety today. she is still vomiting 2-8 times a day. encouraged zofran use with the reglan. if not feeling better by early next week will call for home health visit/zofran pump. encouraged intake of whatever food she can tolerate. 11/15/22 -?-?-?-?-?-?-?-?-?-?-?-?- 20w 3d 179 lb 4 oz 101/65 Nega tive -?-?-?-?-?-?-?-?-?-?-?-?- Negative 147 -?-?-?-?-?-?-?-?-?-?-?-?- JV- feeling bett er with zofran and wants to continue for now. Getting CL q 2 weeks until 26 weeks due to EDS. 12/13/22 -?-?-?-?-?-?-?-?-?-?-?-?- 24w 3d 182 lb 6 oz 111/75 Nega tive -?-?-?-?-?-?-?-?-?-?-?-?- Negative 145 24 -?-?-?-?-?-?-?-?-?-?-?-?- KW- + FM, no vb/ lof/ctx. reports 4 episodes of palpitations and syncope-worse with heat and exacerbation. KW- + FM, no vb/lof/ctx. rep orts 4 episodes of palpitations and syncope-worse with heat and exacerbation. cardiology consult. discussed with STACY BARBOSA FHR Rate Baby A Baseline: 140 ROS Constitutional Constitutional: Denies change in weight, fatigue, fever(s), headache(s), poor appetite or weakness Cardiovascular Cardiovascular: Denies chest pain, dizziness, dyspnea, irregular heart rhythm, leg edema, palpitations or vomiting Respiratory/Chest Respiratory/Chest: Denies chest tightness, cough, dyspnea or breast pain Gastrointestinal Gastrointestinal: Denies abdominal pain, anorexia, constipation, cramping, diarrhea, hemorrhoids, vomiting or weight changes Genitourinary Genitourinary: Reports flank pain, low back pain and urinary urgency; Denies dysuria, genital lesions or urinary incontinence Musculoskeletal Musculoskeletal: Denies back pain, difficulty walking, joint pain, limited range of motion, muscle cramps or numbness Integumentary Integumentary: Denies lesions or unusual bruising Neurologic Neurologic: Denies abnormal movements, abnormal speech, dizziness, numbness or seizure-like activity Vital Signs Vital Signs Vital Signs: 12/27/22 01:12 12/27/22 01:12 12/27/22 01:12 Temperature Temperature Source Pulse Rate 92 Blood Pressure 131/77 H BP Systolic 131 BP Diastolic 77 Pulse Ox 98 12/27/22 01:19 12/27/22 01:19 12/27/22 01:12 Temperature Temperature Source Temporal Pulse Rate 85 Blood Pressure 128/84 H BP Systolic 128 BP Diastolic 84 Pulse Ox 12/27/22 01:12 12/27/22 02:55 12/27/22 02:55 Temperature 98.8 F Temperature Source Pulse Rate 85 Blood Pressure 118/79 BP Systolic 118 BP Diastolic 79 Pulse Ox 12/27/22 03:37 12/27/22 03:37 12/27/22 01:13 Temperature Temperature Source Temporal Pulse Rate 89 Blood Pressure BP Systolic BP Diastolic Pulse Ox 84 12/27/22 01:13 12/27/22 07:56 12/27/22 07:56 Temperature 98.8 F Temperature Source Pulse Rate 92 Blood Pressure 134/81 H BP Systolic 134 BP Diastolic 81 Pulse Ox 12/27/22 07:55 12/27/22 07:47 12/27/22 07:47 Temperature 98.8 F Temperature Source Temporal Pulse Rate Blood Pressure BP Systolic BP Diastolic Pulse Ox 97 Weight Weight: 183 lb Body Mass Index (BMI) 32.4 Physical Exam Const alert, oriented x3, no apparent distress and healthy appearing General Appearance: cooperative; Negative for anxious HEENT normocephalic Face and Sinus: normal facial exam Eyes EOMs intact bilaterally and no scleral icterus General Eye: normal appearance of both eyes Neck full ROM and supple Lymph Lymphatic: no lymphadenopathy noted Chest Chest: abnormal inspection of the chest Resp normal respiratory effort Effort and Inspection: able to speak in complete sentences Cardio regular rate GI soft to palpation and non-tender Inspection: gravid Palpation: soft; Negative for tender external exam normal Narrative: + CVA tenderness on left Amniotic Fluid: ROM+plus Back/Spine no CVA tenderness Extremity normal to inspection, full ROM and no clubbing, cyanosis or edema General Extremity: Negative for calf tenderness or edema Skin Lesions: no lesions Rashes: no rashes Psych mental status grossly normal Labs Labs Labs: Blood Type O POSITIVE Antibody Screen NEGATIVE Hct 33.6 % (37-47) L Hgb 10.5 g/dL (12.0-15.0) L Obstetrics US Syphilis Total Ab Non-reactive VZV IgG Antibody 2076 index (Immune >165) Rubella IgG Antibody Reactive (Nonreactive) Hep Bs Antigen Non-Reactive (Nonreactive) Chlamydia DNA (JUSTIN) Negative (Negative) Neisseria gonorrhoeae DNA (JUSTIN) Negative (Negative) HIV 1&2 Antibody Non-Reactive (Nonreactive) Glucose 1 Hr 50 gm 130 mg/dL (70-140) Rhogam given: No Miscellaneous Test Assessment & Plan (1) Syncope: QUALIFIERS: Syncope type: vasovagal syncope Qualified Code(s): R55 - Syncope and collapse COMMENT: Tunnel vision, things started to go black, ears ringing, then vomited. 5 episodes in 1 months time, Gets tachycardic with episode (2) Heart palpitations: (3) Hyperemesis affecting , antepartum: COMMENT: reglan and zofran. encouraged q 4 hour rotating dosing. if no better next week-referral for zofran pump (4) Obesity affecting : COMMENT: 1 TM GCT encouraged healthy weight gain (5) Needle stick injury: COMMENT: was stuck with needle. Hep + patient. 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 Mota. s/p mfm consult nl maternal echo, Anesthesia consult 09/06 @ 10. delivery based on obstetric indications; NL ECG CL q 2 weeks to 26 weeks -44.2mm. no further CL needed (13) Kidney stone complicating : COMMENT: left UVJ, Dr. Cárdenas consulted. Charges/Coding Visit Charges Inpatient E&M: 18255 Init Hosp L3
[2022-12-27] MEDS: Oxycodone/Apap 5/325 Tablet PO ×4 (10:09→22:39)
[2022-12-27] MEDS: Pantoprazole Sodium 40 MG Tablet PO (10:09)
--- NOTE | 2022-12-27 10:14 | NURSING ---
Dr. Julio consulted with Dr. Navarro with urology about results of CT scan. The POC is for Dr. Navarro to come after office hours today and talk with patient about stone removal tomorrow.
--- NOTE | 2022-12-27 22:58 | CON.PCM_ITS ---
Assessment & Plan Assessment/Plan (1) Kidney stone complicating : QUALIFIERS: Trimester: second trimester Qualified Code(s): O26.832 - related renal disease, second trimester; N20.0 - Calculus of kidney (2) Left ureteral stone: (3) Hydronephrosis: QUALIFIERS: Hydronephrosis type: with ureteral calculous obstruction Qualified Code(s): N13.2 - Hydronephrosis with renal and ureteral calculous obstruction (4) Bacteriuria: PLAN: Plan continue hydration and supportive care continue antibiotics and await culture results if stone has not passed and pain remains, will plan fo surgical intervention Sunday plan discussed with patient and HPI Consult Data Date of Consult: 12/27/22 HPI Narrative Reason for Consultation: left ureteral calculus HPI Narrative: VALENTE BROWN, is a 32 F who developed acute onset left flank pain that felt like a knife. She has never had a stone before, and was worried about the baby, so was evaluated. Blood was found in the urine along with left hydronephrosis and the decision was made to proceed with CT scan. This showed distal left ureteral calculus measured at 4mm. She is feeling more comfortable now with medications on board, but worried will not be able to handle this same pain at home. She has a toddler and cannot care for them while in this condition. [facility] Medical History (Updated 12/27/22 @ 23:[address] Prerna Cárdenas MD) Abnormal EKG (~2014) Acute pharyngitis Celiac disease COVID-19 Difficulty swallowing Easy bruising Kayla-Danlos syndrome Exercise-induced asthma Gastric reflux History of echocardiogram Hyperemesis arising during Left ureteral stone Migraine headache Mixed anxiety and depressive disorder Non-smoker Wears glasses Home Medications ondansetron HCl 4 mg tablet 4 mg PO Q8H PRN nausea and vomiting #30 tabs 08/18/22 [Rx Last Taken 12/26/22] prenat.vits,anh,mdd-sgpz-txccr 1 tab PO DAILY 08/18/22 [History Last Taken 12/26/22] metoclopramide HCl 5 mg tablet (Reglan) 5 mg PO .q 8 hrs PRN nausea and vomiting #60 tabs 09/20/22 [Rx Last Taken 12/26/22] pantoprazole 40 mg tablet,delayed release 40 mg PO DAILY #90 tabs 11/15/22 [Rx Last Taken 12/26/22] linaclotide 145 mcg capsule (Linzess) 145 mcg PO Q OTHER DAY 12/25/22 [History Last Taken 12/26/22] Allergy/AdvReac Type Severity Reaction Status Date / Time No Known Allergies Allergy Verified 12/27/22 01:46 Family History Mother Thyroid disorder Grandmother Thyroid disorder Cancer Maternal grandmother - kidney cancer Grandfather Cancer Bladder Surgical History History of wisdom tooth extraction Social History adopted: No household members: spouse, children and other details: brother in law housing: house number of children: 1 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 pets and animals: dog(s) history of recent travel: No sexually active: Yes Smoking Status: Never smoker Electronic Cigarette Use: not used second hand exposure: No alcohol intake: current alcohol intake frequency: holidays/special occasions only Alcohol type: wine details: not while substance use type: does not use diet: gluten free and lactose free well-balanced diet: daily or most days caffeine: Yes Type: carbonated beverages Number of servings: 1 what type of physical activity do you participate in: other details: cardio kickboxing frequency: 1-2 times per week duration: 45-60 minutes/day seatbelt use: always do you feel safe at home: Yes 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[employer]) ROS Constitutional Constitutional: Denies anorexia, chills, fever(s) or malaise Eyes Eyes: Reports systems reviewed and no addt'l complaints, except as documented ENT HEENT: Reports systems reviewed and no addt'l complaints, except as documented Cardiovascular Cardiovascular: Reports systems reviewed and no addt'l complaints, except as documented Respiratory/Chest Respiratory/Chest: Reports systems reviewed and no addt'l complaints, except as documented Gastrointestinal Gastrointestinal: Reports abdominal pain and nausea; Denies vomiting Genitourinary Genitourinary: Reports abdominal discomfort, flank pain, low back pain, polyuria and other Details: bladder pain at end of stream ; Denies burning urination or dysuria Musculoskeletal Musculoskeletal: Reports back pain Integumentary Integumentary: Reports systems reviewed and no addt'l complaints, except as documented Neurologic Neurologic: Reports systems reviewed and no addt'l complaints, except as documented Psychiatric Psychiatric: Reports systems reviewed and no addt'l complaints, except as documented Endocrine Endocrinology: Reports systems reviewed and no addt'l complaints, except as documented Hematologic/Lymphatic Hematologic/Lymphatic: Reports systems reviewed and no addt'l complaints, except as documented Allergic/Immunologic Allergic/Immunologic: Reports systems reviewed and no addt'l complaints, except as documented Physical Exam Const alert, oriented x3 and no apparent distress HEENT normocephalic, head/scalp atraumatic, hearing grossly normal bilaterally, external nose normal and moist oral mucous membranes Eyes General Eye: normal appearance of both eyes Neck supple General: trachea midline Chest inspection of chest normal Resp normal respiratory effort and normal air movement Cardio regular rate GI GI Narrative: gravid Bladder / Kidney Exam: No catheter in place and CVA tenderness left Extremity normal to inspection Skin no rashes or lesions noted Neuro oriented x3, CN's II-XII intact bilaterally and moves all extremities Psych mental status grossly normal Lab / Micro Data 12/27/22 01:55 Labs: Laboratory Results - last 24 hr 12/27/22 01:55: WBC 11.7 H, RBC 4.00 L, Hgb 10.5 L, Hct 33.6 L, MCV 84.0, MCH 26.3 L, MCHC 31.3 L, RDW Std Deviation 41.0, RDW Coeff of Aaron 13.3, Plt Count 270, MPV 9.7, Urine Color Yellow, Urine Clarity Sl. Cloudy, Urine pH 6.0, Ur Specific [place] 1.025, Urine Protein 30 H, Urine Glucose (UA) Normal, Urine Ketones 5 H, Urine Occult Blood 50 H, Urine Nitrite Negative, Urine Bilirubin Negative, Urine Urobilinogen 1 H, Ur Leukocyte Esterase 500 H, Urine RBC 0-5 SEEN, Urine WBC 25-50 SEEN, Ur Squamous Epith Cells 10-25 SEEN, Calcium Oxalate Crystal 1+, Urine Bacteria 3+, Urine Mucus 2+ Radiology Impression Renal Ultrasound 12/27/22 01:27 IMPRESSION: Mild left hydronephrosis and minimal right hydronephrosis. Suspect secondary to enlarged gravid uterus. Electronically Signed: Alexandro Christiansen MD at 3:08 EDT , Abdomen/Pelvis CT 12/27/22 08:01 IMPRESSION: Mild left hydronephrosis and left hydroureter due to a 4 mm calculus at the left ureterovesical junction. Electronically Signed: Porfirio Cornejo MD at 8:51 EDT ,
--- NOTE | 2022-12-28 01:17 | NURSING ---
Addendum entered by Melnaie Lea 12/28/22 02:22: Patient denies contractions or cramping. Abdomen palpates soft. No contractions noted. Original Note: FHT 140-150s with good movement reported by patient. Patient now pain free, urine strained, no stones noted.
[2022-12-28] MEDS: 0.9% Normal Saline 1,000 ML 250 ML IV ×4 (02:07→14:40)
--- NOTE | 2022-12-28 04:32 | NURSING ---
FHR 138 with good movement per patient report. Abdomen palpates soft. Patient denies contractions or cramping. Intermittent pressure to lower back. Patient utilizing kpad denies need for pain medication at this time.
[2022-12-28] MEDS: Oxycodone/Apap 5/325 Tablet PO (06:46)
[2022-12-28 07:33] VITALS: BP 99/58; PULSE 81
--- NOTE | 2022-12-28 07:55 | OB.TRI.NOTE ---
HPI - General General Date of Service: 12/28/22 HPI Narrative VALENTE BROWN, is a 32 F who presented to L&D 12/26/22 with the complaint of nausea, vomiting, and left lower quadrant and back pain and the sensation that she was not emptying bladder completely. She was started on IV fluids, antibiotics, and given morphine and zofran for support. She has a Mild degree of left hydronephrosis and left hydroureter due to a 4 mm calculus at the left ureterovesical junction per MRI. She is currently laying in bed doing better than the day prior. She is still using Percocet for pain control but now only using q 6-8 hours. Straining urine but has not yet passed the stone. Maternal Data Information DAISY Calculator Estimated Delivery Date Method Current WG Current Estimate 04/01/23 Ultrasound #1 26w 4d Other Estimates 03/26/23 LMP (Certain) 27w 3d Final DAISY: 04/01/23 Final DAISY Source: US >20 weeks Gestational age: 26.4 weeks [facility] Medical History (Updated 12/27/22 @ 23:[address] Prerna Cárdenas MD) Abnormal EKG (~2014) Acute pharyngitis Celiac disease COVID-19 Difficulty swallowing Easy bruising Kayla-Danlos syndrome Exercise-induced asthma Gastric reflux History of echocardiogram Hyperemesis arising during Left ureteral stone Migraine headache Mixed anxiety and depressive disorder Non-smoker Wears glasses Home Medications ondansetron HCl 4 mg tablet 4 mg PO Q8H PRN nausea and vomiting #30 tabs 08/18/22 [Rx Last Taken 12/26/22] prenat.vits,anh,xap-ilzx-tnsck 1 tab PO DAILY 08/18/22 [History Last Taken 12/26/22] metoclopramide HCl 5 mg tablet (Reglan) 5 mg PO .q 8 hrs PRN nausea and vomiting #60 tabs 09/20/22 [Rx Last Taken 12/26/22] pantoprazole 40 mg tablet,delayed release 40 mg PO DAILY #90 tabs 11/15/22 [Rx Last Taken 12/26/22] linaclotide 145 mcg capsule (Linzess) 145 mcg PO Q OTHER DAY 12/25/22 [History Last Taken 12/26/22] Allergy/AdvReac Type Severity Reaction Status Date / Time No Known Allergies Allergy Verified 12/27/22 01:46 Family History Mother Thyroid disorder Grandmother Thyroid disorder Cancer Maternal grandmother - kidney cancer Grandfather Cancer Bladder Surgical History History of wisdom tooth extraction Social History adopted: No household members: spouse, children and other details: brother in law housing: house number of children: 1 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 pets and animals: dog(s) history of recent travel: No sexually active: Yes Smoking Status: Never smoker Electronic Cigarette Use: not used second hand exposure: No alcohol intake: current alcohol intake frequency: holidays/special occasions only Alcohol type: wine details: not while substance use type: does not use diet: gluten free and lactose free well-balanced diet: daily or most days caffeine: Yes Type: carbonated beverages Number of servings: 1 what type of physical activity do you participate in: other details: cardio kickboxing frequency: 1-2 times per week duration: 45-60 minutes/day seatbelt use: always do you feel safe at home: Yes additional social history: Ameya- (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 Date Name GA/Weeks Outcome Route Bth Weight Gen Labor Lgth Anesthesia Del Locatn Provider FOB 10/09/20 Gloria 38 live - full term 6lbs 5oz Female [facility] [place] Delivery Date: 10/09/20 Last Updated by: Antoinette Beyer for cholestasis, uncomplicated delivery Visit Details Expected Delivery Route/Plan Labor Preferences- CB/BF classes: [] labor support person: [] labor intervention preferences: [] pain management options preferred: [] cut cord/dad catch: [] : [] PP control planned: [] discussed possible routes of delivery and associated risks: [] special requests: [] Plans Covid status: [] Flu vaccine: [] Tdap vaccine: [] Rhogam: [] LARC form signed: [] Problem list reviewed and updated with the most current plan of care details and appropriate orders placed. Relevant counseling for the gestational age provided. Continue routine care and follow up unless otherwise noted in visit notes/problem list details OB Flowsheet Initial Weight: Not Recorded Date <del>?</del> EGA Weight BP Urine Prot <del>?</del> Glucose FHR FuHt Pres Dilation <del>?</del> Effaced St Visit Note 08/24/22 <del>?</del> 8w 4d 183 lb 4 oz 183 lb 4 oz 102/71 <del>?</del> 170 <del>?</del> SM- CRL NOT cons with LMP 1.8 cm 09/20/22 <del>?</del> 12w 3d 177 lb 126/84 Negative <del>?</del> Negative 153 <del>?</del> JV- pt states that she is still having nausea daily and vomiting occasionally. She has been treated with reglan in the past for gastroparesis and felt great. will try reglan again. rx sent to pharmacy. 10/18/22 <del>?</del> 16w 3d 174 lb 6 oz 121/80 Trace <del>?</del> Negative 150 <del>?</del> KW-possible flutters. no cramping. feeling more anxiety today. she is still vomiting 2-8 times a day. encouraged zofran use with the reglan. if not feeling better by early next week will call for home health visit/zofran pump. encouraged intake of whatever food she can tolerate. 11/15/22 <del>?</del> 20w 3d 179 lb 4 oz 101/65 Negative <del>?</del> Negative 147 <del>?</del> JV- feeling better with zofran and wants to continue for now. Getting CL q 2 weeks until 26 weeks due to EDS. 12/13/22 <del>?</del> 24w 3d 182 lb 6 oz 111/75 Negative <del>?</del> Negative 145 24 <del>?</del> KW- + FM, no vb/lof/ctx. reports 4 episodes of palpitations and syncope-worse with heat and exacerbation. KW- + FM, no vb/lof/ctx. reports 4 episodes of palpitations and syncope-worse with heat and exacerbation. cardiology consult. discussed with STACY GONZALES Constitutional Constitutional: Reports systems reviewed and no addt'l complaints, except as documented Cardiovascular Cardiovascular: Reports systems reviewed and no addt'l complaints, except as documented Respiratory/Chest Respiratory/Chest: Reports systems reviewed and no addt'l complaints, except as documented Gastrointestinal Gastrointestinal: Reports systems reviewed and no addt'l complaints, except as documented Genitourinary Genitourinary: Reports systems reviewed and no addt'l complaints, except as documented, movement and flank pain Musculoskeletal Musculoskeletal: Reports systems reviewed and no addt'l complaints, except as documented Integumentary Integumentary: Reports systems reviewed and no addt'l complaints, except as documented Neurologic Neurologic: Reports systems reviewed and no addt'l complaints, except as documented Psychiatric Psychiatric: Reports systems reviewed and no addt'l complaints, except as documented Endocrine Endocrinology: Reports systems reviewed and no addt'l complaints, except as documented Physical Exam Const alert and oriented x3 Neck full ROM Resp normal respiratory effort, no retractions and no use of accessory muscles GI normal to inspection, nondistended, normoactive bowel sounds Inspection: gravid Back/Spine General Back: CVA tenderness bilateral Extremity normal to inspection and full ROM Neuro moves all extremities NST FHR Rate Baby B Baseline: 140 Variability:: Moderate Accelerations:: 10 x 10 Decelerations:: None NST Reactive:: Appropriate for gestational age Uterine Activity:: none Assessment & Plan (1) Bacteriuria: (2) Hydronephrosis: QUALIFIERS: Hydronephrosis type: with ureteral calculous obstruction Qualified Code(s): N13.2 - Hydronephrosis with renal and ureteral calculous obstruction (3) Left ureteral stone: PLAN: continue current plan of care of IV fluids, Percocet for pain control and atb as ordered. continue to strain urine Plan for surgical intervention with Dr Cárdenas tomorrow consulted with JV on plan of care. (4) Kidney stone complicating : QUALIFIERS: Trimester: second trimester Qualified Code(s): O26.832 - related renal disease, second trimester; N20.0 - Calculus of kidney COMMENT: left UVJ, Dr. Cárdenas consulted. (5) Hyperemesis affecting , antepartum: COMMENT: reglan and zofran. encouraged q 4 hour rotating dosing. 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 Mota. s/p mfm consult nl maternal echo, Anesthesia consult 09/06 @ 10. delivery based on obstetric indications; NL ECG CL q 2 weeks to 26 weeks -44.2mm. no further CL needed Charges/Coding Visit Charges Office Visits / Consults: [id number] OV L3 Est
[2022-12-28] MEDS: Senna/Docusate Sodium 1 Tablet PO (08:11)
[2022-12-28] MEDS: Pantoprazole Sodium 40 MG Tablet PO (10:51)
[2022-12-28 14:18] VITALS: BP 108/63; PULSE 96
[2022-12-28 14:22] VITALS: BP 108/63; PULSE 86; RESP 16; TEMP 37.2
[2022-12-28] MEDS: Acetaminophen 500 MG Tablet 1000 MG PO (15:09)
--- NOTE | 2022-12-28 16:33 | OB.TRI.PN ---
Progress Notes Date of Service: 12/28/22 Progress Note: Patient presents for triage evaluation secondary to back pain. FHT: 140 Moderate variability reactive no decelerations category I tracing [place]: none Contractions Assessment and plan: Per STACY/Melia, Plan for D/C, Keflex x 3 days and follow up US next week. See problem list and previous note for additional plan information. Laboratory Studies: Laboratory Tests 12/27/22 Range/Units 01:55 WBC 11.7 H (4.4-11.0) K/mm3 RBC 4.00 L (4.2-5.4) M/mm3 Hgb 10.5 L (12.0-15.0) g/dL Hct 33.6 L (37-47) % MCV 84.0 (81-99) fL MCH 26.3 L (27.0-32.0) pg MCHC 31.3 L (32-36) g/dL RDW Std Deviation 41.0 (35.1-43.9) fl RDW Coeff of Aaron 13.3 (11.6-14.6) % Plt Count 270 (150-450) K/mm3 MPV 9.7 (6.2-12.0) fl Urine Color Yellow (Yellow) Urine Clarity Sl. Cloudy (Clear) Urine pH 6.0 (5.0 - 8.0) Ur Specific Energy 1.025 (1.002-1.030) Urine Protein 30 H (Negative) mg/dl Urine Glucose (UA) Normal (Normal) mg/dl Urine Ketones 5 H (Negative) mg/dl Urine Occult Blood 50 H (Negative) /ul Urine Nitrite Negative (Negative) Urine Bilirubin Negative (Negative) mg/dL Urine Urobilinogen 1 H (Normal) mg/dl Ur Leukocyte Esterase 500 H (Negative) /ul Urine RBC 0-5 SEEN (0-5) /hpf Urine WBC 25-50 SEEN (0-5) /hpf Ur Squamous Epith Cells 10-25 SEEN (5-10) /hpf Calcium Oxalate Crystal 1+ (<or=2+) /hpf Urine Bacteria 3+ (None Seen) /hpf Urine Mucus 2+ (<or=2+) /hpf Assessment & Plan (1) Kidney stone complicating : QUALIFIERS: Trimester: second trimester Qualified Code(s): O26.832 - related renal disease, second trimester; N20.0 - Calculus of kidney COMMENT: left UVJ, Dr. Cárdenas consulted. 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 Mota. s/p mfm consult nl maternal echo, Anesthesia consult 09/06 @ 10. delivery based on obstetric indications; NL ECG CL q 2 weeks to 26 weeks -44.2mm. no further CL needed (6) Depression affecting : COMMENT: stable on Prozac 40mg, counseling encouraged (7) Hyperemesis affecting , antepartum: COMMENT: reglan and zofran. encouraged q 4 hour rotating dosing. if no better next week-referral for zofran pump (8) Left ureteral stone: (9) Hydronephrosis: QUALIFIERS: Hydronephrosis type: with ureteral calculous obstruction Qualified Code(s): N13.2 - Hydronephrosis with renal and ureteral calculous obstruction (10) Bacteriuria:
== END 2022-12-28 18:00 | disposition home or self-care (01) ==
LOC: WPOUT 01:11 → WP 01:12
PROVIDERS: PCP Family Medicine; Referring Provider Obstetrics & Gynecology; Visit Provider Obstetrics & Gynecology
DX: O99.891 Other specified diseases and conditions complicating pregnancy (principal); O99.212 Obesity complicating pregnancy, second trimester; O99.342 Other mental disorders complicating pregnancy, second trimester; Q79.60 Ehlers-Danlos syndrome, unspecified; F32.A Depression, unspecified; N13.2 Hydronephrosis with renal and ureteral calculous obstruction; R82.71 Bacteriuria; Z79.899 Other long term (current) drug therapy; Z3A.24 24 weeks gestation of pregnancy
CPT/HCPCS: 96365; 96366; 96376; 96372 ×2; 96375 ×2; 96367; 36415; 59025; 59050; 74176; 76770; 81001; 85027; 99221; J7030; J7120; G0378; J2405; J3490

== ENCOUNTER → 2023-01-01 | Outpatient (CLI) | payer OTHER, SELFPAY ==
--- NOTE | 2023-01-01 15:47 | US_ITS ---
EXAM: US RETROPERITONEAL LIMITED, RENAL CLINICAL INDICATION: follow up for known stone in left UVJ TECHNIQUE: Limited grayscale and color Doppler sonographic evaluation of the retroperitoneum was performed. COMPARISON: CT scan of the abdomen and pelvis 12/27/2022. FINDINGS: RIGHT KIDNEY: Unremarkable. No hydronephrosis. No shadowing calculus. No perinephric collection is demonstrated. The right kidney measures 12.7 cm in length. LEFT KIDNEY: Unremarkable. No hydronephrosis. No shadowing calculus. No perinephric collection is demonstrated. The left kidney measures 12.5 cm in length. BLADDER: Bladder is normal. US/Kidney and Bladder IMPRESSION: Normal kidneys. No hydronephrosis. Electronically Signed: King Spear MD at 0:11 EDT ,
== END | disposition home or self-care (01) ==
LOC: US 15:47
PROVIDERS: PCP Family Medicine; Referring Provider Advanced Practice Midwife; Visit Provider Advanced Practice Midwife
DX: O26.832 Pregnancy related renal disease, second trimester (principal); R82.71 Bacteriuria; N13.2 Hydronephrosis with renal and ureteral calculous obstruction; Z3A.00 Weeks of gestation of pregnancy not specified
CPT/HCPCS: 76770

== ENCOUNTER → 2023-01-05 | Outpatient (CLI) | payer OTHER, SELFPAY ==
[2023-01-05 17:15] LABS: Absolute Lymphocyte Count 1.43 X10^3/uL (0.83-4.51); Absolute Neutrophil Count 6.5 X10^3/uL (2.0-7.7); Basophil# 0.02 X10^3/uL; Basophil% 0.2 % (0-1); Eosinophil# 0.06 X10^3/uL; Eosinophils% 0.7 % (0-5); Hematocrit 30.5 % (37-47); Hemoglobin 9.6 g/dL (12.0-15.0); Lymphocyte # 1.43 X10^3/ul (0.83-4.51); Lymphocyte % 16.8 % (19-41); Mean Corp Hgb Conc 31.5 g/dL (32-36); Mean Corpuscular Hgb 25.8 pg (27.0-32.0); Mean Platelet Vol. 9.7 fl (6.2-12.0); Monocyte# 0.39 X10^3/uL; Monocyte% 4.6 % (0-10); NRBC Flagged by Analyzer 0 % (0-5); Neutrophil # 6.53 X10^3/uL (2.7-7.7); Neutrophil % 76.6 % (47-70); Platelet Count 282 K/mm3 (150-450); RBC Distribution Width CV 13.5 % (11.6-14.6); RBC Distribution Width SD 39.9 fl (35.1-43.9); Red Blood Count 3.72 M/mm3 (4.2-5.4); White Blood Count 8.5 K/mm3 (4.4-11.0)
[2023-01-05 18:11] LABS: Glucose Challenge Gest 1H 50g 151 mg/dL (70-140)
[2023-01-05 18:41] LABS: HIV - WCH Non-Reactive (Nonreactive); Syphilis Antibodies Non-reactive
== END | disposition home or self-care (01) ==
LOC: LAB 16:06
PROVIDERS: PCP Family Medicine; Referring Provider Advanced Practice Midwife; Visit Provider Advanced Practice Midwife
DX: O09.90 Supervision of high risk pregnancy, unspecified, unspecified trimester (principal); Z13.1 Encounter for screening for diabetes mellitus; Z3A.00 Weeks of gestation of pregnancy not specified
CPT/HCPCS: 36415; 82950; 85025; 86703; 86780

== ENCOUNTER → 2023-01-08 | Outpatient (CLI) | payer OTHER, SELFPAY ==
--- NOTE | 2023-01-08 14:02 | ECHOD_ITS ---
Reason For Study: Syncope Procedure This was a 2D Doppler, Color Flow transthoracic echocardiogram. Exam performed in department. Left Ventricle Normal LV size. Left ventricular systolic function is normal. The left ventricular ejection fraction is 55 %. Normal diastology for age. No regional wall motion abnormalities noted. Right Ventricle Normal RV size. Normal systolic function. Atria Normal left atrium. Normal right atrium. Mitral Valve Normal mitral valve. Tricuspid Valve Normal tricuspid valve. Aortic Valve Normal aortic valve. Trisinus/trileaflet aortic valve. Pulmonic Valve The pulmonic valve is not well visualized. Great Vessels Normal aortic root. The pulmonary artery is normal size. Normal inferior vena cava. Pericardium/Pleural No pericardial effusion. MMode/2D Measurements & Calculations LVIDd: 4.4 cm IVSd: 0.93 cm Ao root diam: 2.6 cm LVIDs: 2.6 cm LVPWd: 0.89 cm LA dimension: 3.5 cm RVDd: 3.0 cm FS: 39.6 % LAV(MOD-bp): 40.0 ml LA A4 area: 15.0 cm2 RA A4 area: 12.7 cm2 LAV(MOD-bp) Indexed: 21.5 ml/m2 LAV(MOD-sp2): 40.6 ml LAV(MOD-sp4): 33.2 ml Time Measurements MV dec time: 0.29 sec Doppler Measurements & Calculations MV E max trent: 84.6 cm/sec Lat Peak E' Trent: 21.0 cm/sec Med Peak E' Trent: 14.5 cm/sec MV A max trent: 64.3 cm/sec E/E' lat: 4.0 E/E' med: 5.8 MV E/A: 1.3 MV V2 max: 108.3 cm/sec MV P1/2t max trent: 108.3 cm/sec Ao V2 max: 117.3 cm/sec MV max P.7 mmHg MV P1/2t: 65.8 msec Ao max P.5 mmHg MV V2 mean: 64.2 cm/sec MV dec slope: 482.1 cm/sec2 Ao V2 mean: 72.1 cm/sec MV mean P.9 mmHg MVA(P1/2t): 3.3 cm2 Ao mean P.5 mmHg MV V2 VTI: 25.8 cm Ao V2 VTI: 19.3 cm AV (velocity ratio): 0.77 LV V1 max: 79.6 cm/sec PA V2 max: 95.3 cm/sec LV V1 max P.5 mmHg LV V1 mean P.3 mmHg LV V1 mean: 52.6 cm/sec LV V1 VTI: 14.8 cm ECHO/Echo Complete Interpretation Summary Normal LV size. Left ventricular systolic function is normal. The left ventricular ejection fraction is 55 %. Structurally normal valves. Ordering Physician: Kaleb Mcmahan Referring Physician: Eugenia Low Performed By: Fausto Carroll and Student
== END | disposition home or self-care (01) ==
LOC: CVS 14:00
PROVIDERS: PCP Family Medicine; Referring Provider Internal Medicine Cardiovascular Disease; Visit Provider Internal Medicine Cardiovascular Disease
DX: R55 Syncope and collapse (principal)
CPT/HCPCS: 93306

== ENCOUNTER → 2023-01-17 | Outpatient (CLI) | payer OTHER, SELFPAY ==
[2023-01-17 07:46] LABS: Glucose GTT-Gestation. Fasting 79 mg/dL (<105)
[2023-01-17 09:02] LABS: Glucose GTT-Gestational 1 Hr 139 mg/dL (<190)
[2023-01-17 10:14] LABS: Glucose GTT-Gestational 2 Hr 124 mg/dL (<165)
[2023-01-17 12:19] LABS: Glucose GTT-Gestational 3 Hr 99 L (<145)
== END | disposition home or self-care (01) ==
PROVIDERS: PCP Family Medicine; Referring Provider Advanced Practice Midwife; Visit Provider Advanced Practice Midwife
DX: Z13.1 Encounter for screening for diabetes mellitus (principal)
CPT/HCPCS: 36415; 82951; 82952

== ENCOUNTER → 2023-02-01 | Outpatient (CLI) | payer OTHER, SELFPAY ==
[2023-02-01 12:36] LABS: Erythrocyte Sedimentation Rate 17 mm/hr (0-30)
[2023-02-01 13:08] LABS: CRP 8.51 mg/L (0.0-3.0); Ferritin 3 ng/mL (8-252)
[2023-02-08 12:09] LABS: Albumin 2.9 g/dL (2.9-4.4); Alpha-1-Globulins 0.4 g/dL (0.0-0.4); Alpha-2-Globulins 0.8 g/dL (0.4-1.0); Gamma Globulin 0.7 g/dL (0.4-1.8); HLA B27 Negative (.); Immunoglobulin A 57 mg/dL (87-352); Immunoglobulin G 745 mg/dL (586-1602); Immunoglobulin M 73 mg/dL (26-217); PROEL- TOTAL PROTEIN 5.9 g/dL (6.0-8.5)
== END | disposition home or self-care (01) ==
LOC: LAB 11:32
PROVIDERS: PCP Family Medicine; Referring Provider Internal Medicine Gastroenterology; Visit Provider Internal Medicine Gastroenterology
DX: O99.419 Diseases of the circulatory system complicating pregnancy, unspecified trimester (principal); I77.82 Antineutrophilic cytoplasmic antibody [ANCA] vasculitis; O99.340 Other mental disorders complicating pregnancy, unspecified trimester; F32.A Depression, unspecified; O99.619 Diseases of the digestive system complicating pregnancy, unspecified trimester; K90.0 Celiac disease; Z3A.00 Weeks of gestation of pregnancy not specified
CPT/HCPCS: 36415; 81374; 82728; 82784; 84165; 85652; 86140; 86334

== ENCOUNTER → 2023-02-16 | Outpatient (CLI) | payer OTHER, SELFPAY ==
[2023-02-16 13:34] LABS: Absolute Lymphocyte Count 1.23 X10^3/uL (0.83-4.51); Absolute Neutrophil Count 6.1 X10^3/uL (2.0-7.7); Basophil# 0.02 X10^3/uL; Basophil% 0.2 % (0-1); Eosinophil# 0.15 X10^3/uL; Eosinophils% 1.9 % (0-5); Hematocrit 30.2 % (37-47); Hemoglobin 9.4 g/dL (12.0-15.0); Lymphocyte # 1.23 X10^3/ul (0.83-4.51); Lymphocyte % 15.3 % (19-41); Mean Corp Hgb Conc 31.1 g/dL (32-36); Mean Corpuscular Hgb 24.3 pg (27.0-32.0); Mean Platelet Vol. 9.8 fl (6.2-12.0); Monocyte# 0.49 X10^3/uL; Monocyte% 6.1 % (0-10); NRBC Flagged by Analyzer 0 % (0-5); Neutrophil # 6.09 X10^3/uL (2.7-7.7); Neutrophil % 75.5 % (47-70); Platelet Count 235 K/mm3 (150-450); RBC Distribution Width CV 14.8 % (11.6-14.6); RBC Distribution Width SD 41.4 fl (35.1-43.9); Red Blood Count 3.87 M/mm3 (4.2-5.4); White Blood Count 8.1 K/mm3 (4.4-11.0)
== END | disposition home or self-care (01) ==
LOC: LAB 12:40
PROVIDERS: PCP Family Medicine; Referring Provider Advanced Practice Midwife; Visit Provider Advanced Practice Midwife
DX: O99.019 Anemia complicating pregnancy, unspecified trimester (principal); Z3A.00 Weeks of gestation of pregnancy not specified
CPT/HCPCS: 36415; 85025

== ENCOUNTER → 2023-02-28 | Outpatient (CLI) | payer OTHER, SELFPAY ==
[2023-02-28 16:47] LABS: ROM Internal Control Test YES-OK TO RESULT pt. (Internal QC); ROM Patient Test Negative (Negative); Record Kit Lot#, ROM+ K1374
== END | disposition home or self-care (01) ==
LOC: LABSPEC 16:03
PROVIDERS: PCP Family Medicine; Referring Provider Obstetrics & Gynecology; Visit Provider Obstetrics & Gynecology
DX: O99.891 Other specified diseases and conditions complicating pregnancy (principal); N89.8 Other specified noninflammatory disorders of vagina; Z3A.00 Weeks of gestation of pregnancy not specified
CPT/HCPCS: 84112

== ENCOUNTER 2023-03-02 12:26 | Outpatient (CLI) | payer OTHER, SELFPAY ==
[2023-03-02] MEDS: 0.9% NaCl Peripheral Flush Adult/Peds IV (12:42)
[2023-03-02] MEDS: 0.9% NaCl IVPB Med Flush (250 mL) 15 ML IV (12:42)
[2023-03-02] MEDS: Iron Sucrose Complex 300 MG in 0.9% Normal Saline (250mL Bag) 250 ML 177 MG IV (12:50)
[2023-03-02 12:52] VITALS: BP 107/66; PULSE 86; RESP 16; TEMP 35.9; O2SAT 97; BMI 33.3
[2023-03-02 14:40] VITALS: BP 106/61; PULSE 82; RESP 16; TEMP 36.1; O2SAT 97
== END 2023-03-02 12:27 | disposition home or self-care (01) ==
LOC: MEDOUTP 12:26
PROVIDERS: PCP Family Medicine; Referring Provider Obstetrics & Gynecology; Visit Provider Obstetrics & Gynecology
DX: D64.9 Anemia, unspecified (principal)
CPT/HCPCS: 96365; 96366; J1756; J7050; A4216

== ENCOUNTER 2023-03-08 16:23 | Outpatient (CLI) | payer OTHER, SELFPAY ==
[2023-03-08] VITALS (9 sets, daily range): BP systolic 116–120; BP diastolic 67–71; PULSE 74–111; TEMP 36.9; O2SAT 98–99; BMI 33.0
[2023-03-08] MEDS: Lactated Ringers 1,000 ML 999 ML IV (17:49)
[2023-03-08 18:01] LABS: Absolute Neutrophil Count 7.6 X10^3/uL (2.0-7.7); Basophil# 0.05 X10^3/uL; Basophil% 0.5 % (0-1); Eosinophil# 0.07 X10^3/uL; Eosinophils% 0.7 % (0-5); Hematocrit 33.6 % (37-47); Hemoglobin 10.4 g/dL (12.0-15.0); Lymphocyte % 14.3 % (19-41); Mean Corpuscular Hgb 23.9 pg (27.0-32.0); Mean Corpuscular Volume 77.1 fL (81-99); Mean Platelet Vol. 9.9 fl (6.2-12.0); Monocyte% 5.1 % (0-10); NRBC Flagged by Analyzer 0 % (0-5); Neutrophil # 7.62 X10^3/uL (2.7-7.7); Neutrophil % 78.2 % (47-70); Platelet Count 249 K/mm3 (150-450); RBC Distribution Width CV 18.4 % (11.6-14.6); RBC Distribution Width SD 42.3 fl (35.1-43.9); Red Blood Count 4.36 M/mm3 (4.2-5.4); White Blood Count 9.8 K/mm3 (4.4-11.0)
[2023-03-08 18:12] LABS: Fibrinogen 530 mg/dl (203-444)
[2023-03-08 18:30] LABS: ALB/GLOB Ratio 0.7 RATIO (0.9-2.4); AST(SGOT) 14 U/L (15-37); Alanine Aminotransfer ALT/SGPT 13 U/L (13-56); Albumin, Serum 2.7 g/dL (3.2-5.0); Alkaline Phosphatase 147 U/L (45-117); Anion Gap 7 (5-15); BUN 4 mg/dL (7-18); BUN/Creat Ratio 7.2 RATIO (10-20); Calcium,Total 8.6 mg/dL (8.5-10.1); Chloride 105 mmol/L (98-107); Creatinine, Serum 0.55 mg/dL (0.55-1.02); EST Glomerular Filtration Rate 137 mL/min (>60); Est Glom Filt Rate - Afr Amer 165 mL/min (>60); Estimated Creatinine Clearance 123.72 ml/min; Glucose 87 mg/dL (74-106); Potassium 3.6 mmol/L (3.5-5.1); Protein, Total 6.7 g/dL (6.4-8.2); Sodium Level 135 mmol/L (136-145)
[2023-03-08 20:11] LABS: Group B Strep DNA By PCR Negative (Negative); Internal Control PASS; Probe Check PASS; Specimen Processing Control PASS
--- NOTE | 2023-03-10 00:52 | OB.TRI.PN_ITS ---
Progress Notes Date of Service: 03/08/23 Progress Note: Patient presents for triage evaluation secondary to tachycardia, materanl tchycardic episode FHT: intiial 170 now 140-150 Moderate variability reactive no decelerations category I tracing [place]: no regular Contractions Assessment and plan: tachycardia resolved after fluids, maternal hr WNL Reactive NST, reassuring maternal and status patient discharged to home to follow-up as scheduled. See problem list details for additional plan inf ormation. Laboratory Studies: Laboratory Tests 03/08/23 03/08/23 Range/Units 17:45 17:20 WBC 9.8 (4.4-11.0) K/mm3 RBC 4.36 (4.2-5.4) M/mm3 Hgb 10.4 L (12.0-15.0) g/dL Hct 33.6 L (37-47) % MCV 77.1 L (81-99) fL MCH 23.9 L (27.0-32.0) pg MCHC 31.0 L (32-36) g/dL RDW Std Deviation 42.3 (35.1-43.9) fl RDW Coeff of Aaron 18.4 H (11.6-14.6) % Plt Count 249 (150-450) K/mm3 MPV 9.9 (6.2-12.0) fl Immature Gran % (Auto) 1.200 H (0.0-0.9) % Neut % (Auto) 78.2 H (47-70) % Lymph % (Auto) 14.3 L (19-41) % [place] % (Auto) 5.1 (0-10) % Eos % (Auto) 0.7 (0-5) % Baso % (Auto) 0.5 (0-1) % Absolute Neuts (auto) 7.6 (2.0-7.7) X10^3/uL Absolute Lymphs (auto) 1.40 (0.83-4.51) X10^3/uL Nucleated RBC % 0 (0-5) % Fibrinogen 530 H (203-444) mg/dl Sodium 135 L (136-145) mmol/L Potassium 3.6 (3.5-5.1) mmol/L Chloride 105 (98-107) mmol/L Carbon Dioxide 23.0 (21.0-32.0) mmol/L Anion Gap 7 (5-15) BUN 4 L (7-18) mg/dL Creatinine 0.55 (0.55-1.02) mg/dL Estim Creat Clear Calc 123.72 ml/min Est GFR (MDRD) Af Amer 165 (>60) mL/min Est GFR (MDRD) Non-Af 137 (>60) mL/min BUN/Creatinine Ratio 7.2 L (10-20) RATIO Glucose 87 (74-106) mg/dL Calcium 8.6 (8.5-10.1) mg/dL Total Bilirubin 0.30 (0.20-1.00) mg/dL AST 14 L (15-37) U/L ALT 13 (13-56) U/L Alkaline Phosphatase 147 H (45-117) U/L Total Protein 6.7 (6.4-8.2) g/dL Albumin 2.7 L (3.2-5.0) g/dL Globulin 4.0 (2.2-4.2) g/dL Albumin/Globulin Ratio 0.7 L (0.9-2.4) RATIO Group B Strep DNA Negative (Negative) Specimen Comment Not Reportable Blood Type O POSITIVE Antibody Screen NEGATIVE Charges/Coding Procedures Urinary/Genital [id number]: [id number] non-stress test Interp
== END 2023-03-08 19:05 | disposition home or self-care (01) ==
LOC: WPOUT 16:29 → WP 16:30
PROVIDERS: Advanced Practice Midwife; PCP Family Medicine; Referring Provider Obstetrics & Gynecology; Visit Provider Obstetrics & Gynecology
DX: O36.8330 Maternal care for abnormalities of the fetal heart rate or rhythm, third trimester, not applicable or unspecified (principal); Z3A.37 37 weeks gestation of pregnancy; Z86.16 Personal history of COVID-19
CPT/HCPCS: 96365; 59025; 59050; 80053; 85025; 85384; 86850; 86900; 86901; 87081; 87653; 99221; J7120; G0378

== ENCOUNTER 2023-03-09 12:38 | Outpatient (CLI) | payer OTHER, SELFPAY ==
[2023-03-09 13:03] VITALS: BP 109/63; PULSE 85; RESP 16; TEMP 35.9; O2SAT 97
[2023-03-09] MEDS: 0.9% NaCl Peripheral Flush Adult/Peds IV (13:13)
[2023-03-09] MEDS: Iron Sucrose Complex 300 MG in 0.9% Normal Saline (250mL Bag) 250 ML 177 MG IV (13:14)
[2023-03-09] MEDS: 0.9% NaCl IVPB Med Flush (250 mL) 15 ML IV (13:14)
[2023-03-09 15:22] VITALS: BP 101/64; PULSE 73; RESP 16
== END 2023-03-09 12:39 | disposition home or self-care (01) ==
LOC: MEDOUTP 12:38
PROVIDERS: PCP Family Medicine; Referring Provider Obstetrics & Gynecology; Visit Provider Obstetrics & Gynecology
DX: D64.9 Anemia, unspecified (principal)
CPT/HCPCS: 96365; 96366; J1756; J7050; A4216

== ENCOUNTER 2023-03-16 12:30 | Outpatient (CLI) | payer OTHER, SELFPAY ==
[2023-03-16 12:48] VITALS: BP 110/67; PULSE 76; RESP 16; TEMP 36.1; O2SAT 97
[2023-03-16] MEDS: 0.9% NaCl Peripheral Flush Adult/Peds IV (12:53)
[2023-03-16] MEDS: 0.9% NaCl IVPB Med Flush (250 mL) 15 ML IV (12:58)
[2023-03-16] MEDS: Iron Sucrose Complex 300 MG in 0.9% Normal Saline (250mL Bag) 250 ML 177 MG IV (12:58)
[2023-03-16 15:07] VITALS: BP 108/66; PULSE 72; RESP 16; O2SAT 96
== END 2023-03-16 12:31 | disposition home or self-care (01) ==
LOC: MEDOUTP 12:30
PROVIDERS: PCP Family Medicine; Referring Provider Obstetrics & Gynecology; Visit Provider Obstetrics & Gynecology
DX: D64.9 Anemia, unspecified (principal)
CPT/HCPCS: 96365; 96366; J1756; J7050; A4216

== ENCOUNTER 2023-03-22 22:35 | Outpatient (CLI) | payer OTHER, SELFPAY ==
[2023-03-22 22:55] VITALS: TEMP 36.7
[2023-03-22 22:58] VITALS: BMI 33.5
[2023-03-22 23:07] VITALS: BP 122/74; PULSE 82
[2023-03-22 23:08] VITALS: PULSE 90; O2SAT 99
--- NOTE | 2023-04-01 10:00 | OB.TRI.PN_ITS ---
Progress Notes Date of Service: 03/22/23 Progress Note: Patient presents for triage evaluation secondary to contractions FHT: 150-170 moderate variability reactive no decelerations category I tracing [place]: Irregular contractions Assessment and plan: False labor, initial tachycardia which resolved reactive NST, reassuring maternal and status patient discharged to home to follow- up as scheduled. See problem list details for additional plan information. Charges/Coding Procedures Urinary/Genital 52xxx-59xxx: [id number] non-stress test Interp
== END 2023-03-23 02:25 | disposition home or self-care (01) ==
LOC: WPOUT 22:37 → WP 22:39
PROVIDERS: PCP Family Medicine; Visit Provider Obstetrics & Gynecology
DX: O47.9 False labor, unspecified (principal); Z3A.00 Weeks of gestation of pregnancy not specified; Z79.899 Other long term (current) drug therapy
CPT/HCPCS: 59025; 59050; 99221; G0378

== ENCOUNTER 2023-03-28 07:05 | Inpatient (IN) | payer OTHER, SELFPAY ==
[2023-03-28] VITALS (62 sets, daily range): BP systolic 99–144; BP diastolic 52–79; PULSE 64–104; TEMP 36.5–37.3; O2SAT 90–100; BMI 34.1
[2023-03-28] MEDS: LACTATED RINGERS 500 ML 999 ML IV ×2 (08:24→12:59)
[2023-03-28 08:41] LABS: Absolute Lymphocyte Count 1.43 X10^3/uL (0.83-4.51); Absolute Neutrophil Count 5.4 X10^3/uL (2.0-7.7); Basophil# 0.02 X10^3/uL; Basophil% 0.3 % (0-1); Eosinophil# 0.05 X10^3/uL; Eosinophils% 0.7 % (0-5); Hematocrit 35.2 % (37-47); Hemoglobin 11.4 g/dL (12.0-15.0); Lymphocyte # 1.43 X10^3/ul (0.83-4.51); Lymphocyte % 19.5 % (19-41); Mean Corp Hgb Conc 32.4 g/dL (32-36); Mean Corpuscular Volume 80.4 fL (81-99); Mean Platelet Vol. 9.2 fl (6.2-12.0); Monocyte% 5.5 % (0-10); NRBC Flagged by Analyzer 0 % (0-5); Neutrophil # 5.38 X10^3/uL (2.7-7.7); Neutrophil % 73.3 % (47-70); POSITIVE MORPHOLOGY YES; Platelet Count 221 K/mm3 (150-450); RBC Distribution Width CV 24.6 % (11.6-14.6); Red Blood Count 4.38 M/mm3 (4.2-5.4); White Blood Count 7.3 K/mm3 (4.4-11.0)
[2023-03-28] MEDS: 0.9% Normal Saline Single 100 ML IV.SOLN. INTRA-UTER (08:42)
[2023-03-28 08:45] LABS: Differential Indicated SCAN CRITERIA MET
[2023-03-28] MEDS: Lactated Ringers 1,000 ML 50 ML IV (08:54)
[2023-03-28 09:21] LABS: Anisocytosis 2+; Differential Comment SCANNED; Macrocytosis 1+; Microcytosis 1+
[2023-03-28 09:26] LABS: Syphilis Antibodies Non-reactive
--- NOTE | 2023-03-28 09:33 | HP.PCM.OB_ITS ---
HPI - General General Date of Admission: 03/28/23 HPI Narrative VALENTE BROWN, is a 32 F who presents for IOL elective but upon presentation there is was a late decel. not the tracing is cat I reassuring. Maternal Data Information DAISY Calculator Estimated Delivery Date Method Current WG Current Estimate 04/01/23 Ultrasound #1 39w 3d Other Estimates 03/26/23 LMP (Certain) 40w 2d PFSH PFSH Medical History (Updated 03/28/23 @ 09:03 by Elly Gregorio) Abnormal EKG (~2014) Acute pharyngitis Anxiety Celiac disease COVID-19 Depression Difficulty swallowing Easy bruising Kayla-Danlos syndrome Exercise-induced asthma Gastric reflux Headache Headache History of echocardiogram Hyperemesis arising during Left ureteral stone Migraine headache Mixed anxiety and depressive disorder Non-smoker Wears glasses Home Medications prenat.vits,anh,ndz-uziu-spmab 1 tab PO DAILY 08/18/22 [History Last Taken 03/27/23] linaclotide 145 mcg capsule (Linzess) 145 mcg PO Q OTHER DAY 12/25/22 [History Last Taken 12/26/22] fluoxetine 20 mg capsule (Prozac) 20 mg PO DAILY #30 caps 03/09/23 [Rx Last Taken 03/28/23 06:20] pantoprazole 40 mg tablet,delayed release 40 mg PO DAILY #90 tabs 03/16/23 [Rx Last Taken 03/28/23 06:20] Allergy/AdvReac Type Severity Reaction Status Date / Time No Known Allergies Allergy Verified 03/28/23 07:37 Family History Mother Thyroid disorder Grandmother Thyroid disorder Cancer Maternal grandmother - kidney cancer Grandfather Cancer Bladder Surgical History (Updated 03/28/23 @ 09:03 by Elly Gregorio) History of wisdom tooth extraction Social History adopted: No household members: spouse, children and other details: brother in law housing: house number of children: 1 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 pets and animals: dog(s) history of recent travel: No sexually active: Yes Smoking Status: Never smoker Electronic Cigarette Use: not used second hand exposure: No alcohol intake: current alcohol intake frequency: holidays/special occasions only Alcohol type: wine details: not while substance use type: does not use diet: gluten free and lactose free well-balanced diet: daily or most days caffeine: Yes Type: carbonated beverages Number of servings: 1 what type of physical activity do you participate in: other details: cardio kickboxing frequency: 1-2 times per week duration: 45-60 minutes/day seatbelt use: always do you feel safe at home: Yes additional social history: 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 Date Name GA/Weeks Outcome Route Bth Weight Gen Labor Lgth Anesthesia Del Locatn Provider FOB 10/09/20 Gloria 38 live - full term 6lbs 5oz Female [facility] [place] Delivery Date: 10/09/20 Last Updated by: Antoinette Rubalcava IOl for cholestasis, uncomplicated delivery Visit Details Expected Delivery Route/Plan Labor Preferences- CB/BF classes: no labor support person: Ameya labor intervention preferences: [] pain management options preferred: epidural cut cord/dad catch: no : yes PP control planned: discussed discussed possible routes of delivery and associated risks: [] special requests: [] Plans Covid status: 2 vaccines. Flu vaccine: yes Tdap vaccine: given Rhogam: NA LARC form signed: yes Problem list reviewed and updated with the most current plan of care details and appropriate orders placed. Relevant counseling for the gestational age provided. Continue routine care and follow up unless otherwise noted in visit notes/problem list details OB Flowsheet Initial Weight: 183 lb Date -?-?-?-?-?-?-?-?-?-?-?-?- EGA Weight BP Urine Prot -?-?-?-?-?-?-?-?-?--?-?-?- Glucose FHR FuHt Pres Dilation -?-?-?-?-?-?-?-?-?-?-?-?- Effaced St Visit Note 08/24/22 -?-?-?-?-?-?-?-?-?-?-?-?- 8w 4d 183 lb 4 oz (+4 oz) 183 lb 4 oz (+4 oz) 102/71 -?-?-?-?-?-?-?-?-?-?-?-?- 170 -?-?-?-?-?-?-?-?-?-?-?-?- SM- CRL NOT cons with LMP 1.8 cm 09/20/22 -?-?-?-?-?-?-?-?-?-?-?-?- 12w 3d 177 lb (-6 lb) 126/84 Negative -?-?-?-?-?-?-?-?-?-?-?-?- Negative 153 -?-?-?-?-?-?-?-?-?-?-?-?- JV- pt states th at she is still having nausea daily and vomiting occasionally. She has been treated with reglan in the past for gastroparesis and felt great. will try reglan again. rx sent to pharmacy. 10/18/22 -?-?-?-?-?-?-?-?-?-?-?-?- 16w 3d 174 lb 6 oz (-8 lb 10 oz) 121/80 Trace -?-?-?-?-?-?-?-?-?-?-?-?- Negative 150 -?-?-?-?-?-?-?-?-?-?-?-?- KW-possible flut ters. no cramping. feeling more anxiety today. she is still vomiting 2-8 times a day. encouraged zofran use with the reglan. if not feeling better by early next week will call for home health visit/zofran pump. encouraged intake of whatever food she can tolerate. 11/15/22 -?-?-?-?-?-?-?-?-?-?-?-?- 20w 3d 179 lb 4 oz (-3 lb 12 oz) 101/65 Negative -?-?-?-?-?-?-?-?-?-?-?-?- Negative 147 -?-?--?-?-?-?-?-?-?-?-?-?- JV- feeling bett er with zofran and wants to continue for now. Getting CL q 2 weeks until 26 weeks due to EDS. 12/13/22 -?-?-?-?-?-?-?-?-?-?-?-?- 24w 3d 182 lb 6 oz (-10 oz) 111/75 Negative -?-?-?-?-?-?-?-?-?-?-?-?- Negative 145 24 -?-?-?-?-?-?-?-?-?-?-?-?- KW- + FM, no vb/ lof/ctx. reports 4 episodes of palpitations and syncope-worse with heat and exacerbation. KW- + FM, no vb/lof/ctx. rep orts 4 episodes of palpitations and syncope-worse with heat and exacerbation. cardiology consult. discussed with JV 01/10/23 -?-?-?-?-?-?-?-?-?-?-?-?- 28w 3d 185 lb (+2 lb) 104/68 Negative -?-?-?-?-?-?-?-?-?-?-?-?- Negative 154 28 -?-?-?-?-?-?-?-?-?-?-?-?- -No VB, LOF. G ood FM. Nausea better, still taking reglan once a day. Has 3 hr GTT tomorrow. Larc 01/19/23 -?-?-?-?-?-?-?-?-?-?-?-?- 29w 5d 186 lb (+3 lb) 112/80 Negative -?-?-?-?-?-?-?-?-?-?-?-?- Negative 145 30 -?-?-?-?-?-?-?-?-?--?-?-?- KW-+ fm. no lof/ vb/ctx. passed 3 hour glucose. no concerns. 02/01/23 -?-?-?-?-?-?-?-?-?-?-?-?- 31w 4d 189 lb 2 oz (+6 lb 2 oz) 106/72 Negative -?-?-?-?-?-?-?-?-?-?-?-?- Negative 135 32 -?-?-?-?-?-?-?-?-?-?-?-?- JV- no lof, vagi nal bleeding, or dec fm. has some right round ligament pain. due for rpt cbc before her next visit. 02/16/23 -?-?-?-?-?-?-?-?-?-?-?-?- 33w 5d 188 lb 5 oz (+5 lb 5 oz) 93/64 Negative -?-?-?-?-?-?-?-?-?-?-?-?- Negative 140 34 -?-?-?-?-?-?-?-?-?-?-?-?- JV- pt's hg is t rending down [place]. She is requesting an iron infusion . ok to set this tup for next week. no lof, vaginal bleeding, or dec fm. 02/28/23 -?-?-?-?-?-?-?-?-?-?-?-?- 35w 3d 188 lb (+5 lb) 119/88 Negative -?-?-?-?-?-?-?-?-?-?-?-?- Negative 142 35 Cephalic 1 -?-?-?-?-?-?-?-?-?-?-?-?- 0 -4 JV- pt com [place] of leaking fluid but unsure just urinated or if mucous. amnisure collected however the q-tip scratched the vaginal mucosa and caused a slight amount of blood. will call with results. will get getting iron infusion soon. 03/08/23 -?-?-?-?-?-?-?-?-?-?-?-?- 36w 4d 189 lb (+6 lb) 127/79 Negative -?-?-?-?-?-?-?-?-?-?-?-?- Negative 170 36 Cephalic 1 -?-?-?-?-?-?-?-?-?-?-?-?- 10 -3 KW-no vb/l of. GBS today. not feeling well today. Had tachycardic episode while in office. sent to for evaluation 03/15/23 -?-?-?-?-?-?-?-?-?-?-?-?- 37w 4d 190 lb 6 oz (+7 lb 6 oz) 126/84 Negative -?-?-?-?-?-?-?-?-?-?-?-?- Negative 155 37 Cephalic 2 -?-?-?-?-?-?-?-?-?-?-?-?- 60 -2 KW- no vb/ lof/reg ctx. good fm. very uncomfortable today-requesting 39 week IOL. GBS neg. 03/21/23 -?-?-?-?-?-?-?-?-?-?-?-?- 38w 3d 191 lb 4 oz (+8 lb 4 oz) 118/79 Negative -?-?-?-?-?-?-?-?-?-?-?-?- Negative 150 38 Cephalic 0 -?-?-?-?-?-?-?-?-?-?-?-?- 30 -3 LC- no vb/ lof/ctx. good fm. very uncomfortable. not favorable for IOL, external os 2 cm, internal os closed. plan to reeval next week. NST FHR Rate Baby A Baseline: 130 Variability:: Moderate Accelerations:: 15 x 15 Decelerations:: None NST Reactive:: Yes FHR Category:: Category I Uterine Activity:: irregular ROS Constitutional Constitutional: Reports systems reviewed and no addt'l complaints, except as documented Eyes Eyes: Denies change in vision ENT HEENT: Reports systems reviewed and no addt'l complaints, except as documented; Denies headache(s) Cardiovascular Cardiovascular: Reports systems reviewed and no addt'l complaints, except as documented; Denies chest pain or dyspnea Respiratory/Chest Respiratory/Chest: Reports systems reviewed and no addt'l complaints, except as documented Gastrointestinal Gastrointestinal: Reports systems reviewed and no addt'l complaints, except as documented; Denies abdominal pain Genitourinary Genitourinary: Reports systems reviewed and no addt'l complaints, except as documented, contractions Details: present (irregular) and movement Details: present; Denies dysuria or genital lesions Musculoskeletal Musculoskeletal: Reports systems reviewed and no addt'l complaints, except as documented Neurologic Neurologic: Reports systems reviewed and no addt'l complaints, except as documented Endocrine Endocrinology: Reports systems reviewed and no addt'l complaints, except as documented Vital Signs Vital Signs Vital Signs: 03/28/23 08:29 03/28/23 08:29 03/28/23 08:29 Temperature Temperature Source Pulse Rate 81 Blood Pressure 117/71 BP Systolic 117 BP Diastolic 71 Pulse Ox 97 03/28/23 08:29 03/28/23 08:29 Temperature 98.6 F Temperature Source Temporal Pulse Rate Blood Pressure BP Systolic BP Diastolic Pulse Ox Weight Weight: 192 lb 12.8 oz Body Mass Index (BMI) 34.1 Physical Exam Const alert, oriented x3, no apparent distress and healthy appearing HEENT normocephalic and moist oral mucous membranes Head and Scalp: atraumatic Neck full ROM, no lymphadenopathy, supple and thyroid normal General: trachea midline Lymph Lymphatic: no lymphadenopathy noted Chest inspection of chest normal Resp normal respiratory effort Cardio regular rate GI normal to inspection, nondistended, normoactive bowel sounds, soft to palpation and non-tender Inspection: gravid external exam normal Manual OB Exam: estimated gestational size appropriate, presentation cephalic, dilated, effaced and station Extremity normal to inspection General Extremity: Negative for edema Skin no rashes or lesions noted Neuro no focal motor deficits and deep tendon reflexes 2+ bilaterally Motor Exam: strength 5/5 throughout and clonus absent Psych mental status grossly normal Labs Labs Labs: Blood Type O POSITIVE Antibody Screen NEGATIVE Hct 35.2 % (37-47) L Hgb 11.4 g/dL (12.0-15.0) L Obstetrics US Syphilis Total Ab Non-reactive VZV IgG Antibody 2075 index (Immune >165) Rubella IgG Antibody Reactive (Nonreactive) Hep Bs Antigen Non-Reactive (Nonreactive) Chlamydia DNA (JUSTIN) Negative (Negative) Neisseria gonorrhoeae DNA (JUSTIN) Negative (Negative) HIV 1&2 Antibody Non-Reactive (Nonreactive) Glucose 1 Hr 50 gm 151 mg/dL (70-140) H Group B Strep DNA Negative (Negative) Rhogam given: No Miscellaneous Test Assessment & Plan (1) Kidney stone complicating : QUALIFIERS: Trimester: second trimester Qualified Code(s): O26.832 - related renal disease, second trimester; N20.0 - Calculus of kidney COMMENT: left UVJ, Dr. Cárdenas consulted. D/C home with ATB, F/U US next week (2) Anemia affecting : QUALIFIERS: Trimester: third trimester Qualified Code(s): O99.013 - Anemia complicating , third trimester COMMENT: redraw in 4 weeks (3) Abnormal glucose affecting : COMMENT: 3 hour ordered (4) Syncope: QUALIFIERS: Syncope type: vasovagal syncope Qualified Code(s): R55 - Syncope and collapse COMMENT: Tunnel vision, things started to go black, ears ringing, then vomited. 5 episodes in 1 months time, Gets tachycardic with episode (5) Hyperemesis affecting , antepartum: COMMENT: reglan and zofran. encouraged q 4 hour rotating dosing. Taking reglan about once a day, improving (6) Obesity affecting : QUALIFIERS: Trimester: third trimester Obesity type affecting : unspecified obesity Qualified Code(s): O99.213 - Obesity complicating , third trimester COMMENT: 1 TM GCT encouraged healthy weight gain (7) Depression affecting : COMMENT: stopped Prozac 40mg since on reglan, counseling encouraged (8) Needle stick injury: COMMENT: was stuck with needle. Hep + patient. 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 Mota. s/p mfm consult nl maternal echo, Anesthesia consult 09/06 @ 10. delivery based on obstetric indications; NL ECG CL q 2 weeks to 26 weeks -44.2mm. no further CL needed (10) : QUALIFIERS: Weeks of gestation: 38 weeks Qualified Code(s): Z3A.38 - 38 weeks gestation of COMMENT: GBS neg, NIPT low risk, nl growth (11) Supervision of high risk , antepartum: COMMENT: PRR DAISY 04/01/23, PC Gloria, Spouse: Ameya PLAN: Plan Patient presents IOL, plan management for with pitocin/AROM. and fb Pain management: plans epidural. GBS negative. Management of any complications: palpitations- monitor FHT. late decel- IVFs given, ct I prior to IOL start I have reviewed the PFSH and made any clinically relevant updates.
[2023-03-28] MEDS: Oxytocin 15 Units/NS 250ml 15 UNITS/250 ML IV.SOLN 2 UNITS IV (09:52)
[2023-03-28 11:48] LABS: Hepatitis B Surface Antigen Non-Reactive (Nonreactive)
[2023-03-28 12:12] LABS: Hepatitis B Surface Antibody Reactive; Hepatitis C Antibody Non-Reactive (Nonreactive)
[2023-03-28] MEDS: fentaNYL-bupivacaine (epidural) 100 ML BAG EPIDURAL ×2 (13:57→19:40)
[2023-03-28] MEDS: Ondansetron 4 MG/2 ML Vial IV (15:10)
[2023-03-28] MEDS: Lactated Ringers 1,000 ML 200 ML IV (17:50)
--- NOTE | 2023-03-28 20:26 | OP.PCM_ITS ---
Assessment & Plan (1) Abnormal glucose affecting : COMMENT: 3 hour ordered (2) Kidney stone complicating : QUALIFIERS: Trimester: second trimester Qualified Code(s): O26.832 - related renal disease, second trimester; N20.0 - Calculus of kidney COMMENT: left UVJ, Dr. Cárdenas consulted. D/C home with ATB, F/U US next week (3) Supervision of high risk , antepartum: COMMENT: PRR DAISY 04/01/23, PC Gloria, Spouse: Ameya (4) GERD (gastroesophageal reflux disease): QUALIFIERS: Esophagitis presence: without esophagitis Qualified Code(s): K21.9 - Gastro-esophageal reflux disease without esophagitis (5) : QUALIFIERS: Weeks of gestation: 38 weeks Qualified Code(s): Z3A.38 - 38 weeks gestation of COMMENT: GBS neg, NIPT low risk, nl growth (6) Vaginal delivery: COMMENT: SM IOL girl [place] Maternal Data Information DAISY Calculator Estimated Delivery Date Method Current WG Current Estimate 04/01/23 Ultrasound #1 39w 3d Other Estimates 03/26/23 LMP (Certain) 40w 2d Vaginal Delivery Operative Information Date of Procedure: 03/28/23 Pre-Operative Diagnosis: see a/p diagnoses Post-Operative Diagnosis: same Surgery / Procedure Performed: Spontaneous Vaginal Delivery Type of Anesthesia: Epidural Special Medications: none Estimated Blood Loss: 200 Fluids Replaced: crystalloid Findings Description of Procedure: Patient began pushing and delivered the head in the ESA presentation. The head was delivered atraumatically and a loose nuchal cord ?1 was identified and the delivered through without complication. The anterior and posterior shoulders delivered without complication followed by the rest of the infant and the infant was placed on the maternal abdomen. Delayed cord clamping was employed for approximately 60 seconds. Cord was clamped and cut and gentle traction was applied to the cord and the placenta delivered spontaneously immediately following it was noted to be intact with three-vessel cord. The perineum and vagina were inspected and noted to have a first degree perineal laceration which was repaired in the usual fashion with 3-0 vicryl rapide. . EB L was 200 cc. Patient and infant tolerated delivery well. Amniotic Fluid Description: Clear Placental Delivery Description: Spontaneous Placenta Disposition: [facility] Cord Vessel Description: 3 Vessels Cord Entanglement: None Delayed Cord Clamping: Yes Post Vaginal Delivery Medications Given After Delivery: IV Pitocin Episiotomy Description: None Complication Complications: None Procedures Urinary/Genital [id number]: [id number] Vaginal Delivery [facility]
--- NOTE | 2023-03-28 20:28 | DCINST_ITS ---
Discharge Instructions Diet Discharge Diet: No restrictions Activity Discharge Activity: Return to Normal Activity, May Not Drive (while taking narcotic pain medications.) and May Shower May resume sexual activity in: 4-6 weeks Dressing / Incision Call your doctor if your incision/area has: Continuous Slow Oozing, Sudden Increased Bleeding, Increased Pain/ Swelling, Increased Redness and Foul Smelling Discharge Follow Up Care Please Follow Up With: Annie Grady MD When: Call [phone] to make an appointment with your doctor in 6 weeks. If you had elevated blood pressure or 4th degree laceration, you will need to be seen in 2 weeks. Test Results: Test results from this visit will be discussed in further detail at your follow- up appointment, if applicable. Discharge Plan Admission Admit Date/Time: 03/28/23 07:05 Attending Provider: Annie Grady Primary Care Provider: Eugenia Low Discharge Orders/Prescriptions Prescriptions: No Action prenat.vits,anh,xlx-fwha-jwxui Tablet 1 tab PO DAILY Linzess 145 mcg capsule 145 mcg PO Q OTHER DAY Hold Instructions: Order Changed fluoxetine [Prozac] 20 mg capsule 20 mg PO DAILY Qty: 30 12RF pantoprazole 40 mg tablet,delayed release (DR/EC) 40 mg PO DAILY Qty: 90 3RF Referrals / Follow Up: Eugenia Low DO [Primary Care Provider] - Disposition Disposition (needs filled in before D/C Order can be placed): Home, Self Care
[2023-03-28] MEDS: Oxytocin 15 Units/NS 250ml 15 UNITS/250 ML IV.SOLN 83 UNITS IV (20:38)
[2023-03-29] MEDS: Acetaminophen 500 MG Tablet 1000 MG PO ×3 (00:48→18:01)
[2023-03-29 00:54] VITALS: BP 116/60; PULSE 78; RESP 16; TEMP 36.2
[2023-03-29 04:15] VITALS: BP 109/68; PULSE 69; RESP 15; TEMP 36.6; O2SAT 97
[2023-03-29 08:00] VITALS: BP 108/66; PULSE 74; RESP 18; TEMP 36.6; O2SAT 96
[2023-03-29] MEDS: FLUoxetine 20 MG Capsule PO (11:18)
[2023-03-29] MEDS: Pantoprazole Sodium 40 MG Tablet PO (11:18)
[2023-03-29] MEDS: Prenatal Vits Tablet 1 TABLET PO (11:18)
[2023-03-29 11:21] VITALS: BP 113/61; PULSE 84; RESP 16; TEMP 36.7; O2SAT 97
[2023-03-29] MEDS: Naproxen 500 MG Tablet PO ×2 (13:30→21:11)
--- NOTE | 2023-03-29 13:30 | PCM.PN.OB ---
Subjective Subjective Patient doing well without complaints. Tolerating PO. Ambulating and voiding without difficulty. feeding well. Denies chest pain, shortness of breath, calf pain/swelling, fevers, chills, lightheadedness. Objective Data Objective Data Vital Signs: Vital Signs Temp Pulse Resp BP Pulse Ox O2 Del Method 98.1 F 84 16 113/61 97 Room Air 03/29/23 11:21 03/29/23 11:21 03/29/23 11:21 03/29/23 11:21 03/29/23 11:21 03/29/23 11:21 Oxygen Delivery Method Room Air Weight: 192 lb 12.8 oz Body Mass Index (BMI) 34.1 Intake & Output: Intake and Output for Last 24 Hours 03/27/23 03/28/23 03/29/23 23:59 23:59 23:59 Intake Total 2960.00 / 2960.00 Output Total 1000 / 1000 600 / 600 Balance 1960.00 / 1960.00 -600 / -600 Lab / Micro Data 03/28/23 08:20 ROS Constitutional Constitutional: Reports systems reviewed and no addt'l complaints, except as documented Cardiovascular Cardiovascular: Reports systems reviewed and no addt'l complaints, except as documented Respiratory/Chest Respiratory/Chest: Reports systems reviewed and no addt'l complaints, except as documented Gastrointestinal Gastrointestinal: Reports systems reviewed and no addt'l complaints, except as documented Physical Exam Const alert, oriented x3 and no apparent distress HEENT Head and Scalp: atraumatic Resp normal respiratory effort GI soft to palpation and non-tender Bimanual Exam - Vag & Uterus: uterus non-tender Uterus Palpation: uterus fundus firm (below Umbilicus) Assessment & Plan (1) Vaginal delivery: COMMENT: SM IOL girl Blanca (2) Depression affecting : COMMENT: stopped Prozac 40mg since on reglan, counseling encouraged (3) Heart palpitations: PLAN: Plan s/p PPD # 1 1. routine post delivery care 2. breast feeding- support given 3. rh positive 4. rubella immune
--- NOTE | 2023-03-29 14:50 | CASEMGMT ---
Social Work Assessment Labor and Delivery Unit Patient Address: [address] [place] [address] [place] [address] Phone number: [phone] Date of Referral: 03/29/23 Time of Referral:? 425 Referred By: Annie Grady Date of Intervention: ??03/29/23 Time of Intervention:? 1400 Reason for Referral:? History of anxiety and depression Sw completed chart review and acknowledges social work consult due to maternal history of depression and anxiety. Sw presented to bedside and introduced self to mother of baby (ROSA- Nancy) and father of baby (FOSrinivas- Ameya). Sw explained reason for sw involvement, completed assessment, provided support and information regarding local resources. History obtained from: medical records, MOB and FOB Household composition: Currently residing in the home is DEEP LEE, their first daughter (Gloria, 2 years old) and now baby girl. Patient's parent/guardian status:? ?Parents are , they have been together since 2015. No concerns of domestic violence or intimate partner violence. Medical History: ?ROSA is 4, para 1- now 2. ROSA received routine care during with [facility]. ROSA struggled throughout her with a lot of different health ailments. ROSA got admited for an induction of labor on 03/28/23, and delivered baby girl via vaginal delivery at 39 weeks gestation. Baby girl named, Blanca Rudd, was born weighing 7lb 11oz and had apgars of 7 and 9 at one and five minutes of life respectfully. ROSA states that she is breast feeding and it is going well. Baby will follow with Dr. Burkett for pediatrics. Educational Status:? Both parents graduated from high school and have college degrees. ROSA graduated from college with a degree in respiratory therapy. DEEP graduated from college and obtained a degree in general science. Parents deny any concerns with reading, learning or comprehension. Financial Status: Both parents are employed outside of the home. 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 ROSA is able to take 12 weeks off of work DEEP is able to take 5 weeks off of work. Infant Supplies:?? Parents report they have everything they need for baby including: car seat, safe sleep space, clothes, diapers, wipes and a breast pump. Childcare/Caregiver(s):? ROSA states that she works part time receptionist and tries to schedule her work days for days that DEEP may be off of work because he works 10's . When both parents are at work maternal grandma helps provide childcare. Transportation:?Both parents drive and have reliable transportation. No transportation barriers at this time. ? Programs/Agencies Involved: ???None at this time. DEEP states that he was in counseling in the past, but did not feel a connection to the counselor so he stopped going. DEEP stated that he feels as though he should get connected to another therapist. Sw provided parents with list of [facility] resources including counseling. Children Services/Legal Issues:??? No prior involvement, no issues or concerns warranting referral at this time. No legal history Behavioral Health Issues: ??Mental Health History:??FOSrinivas states that when he was in counseling he was diagnosed with anxiety and depression. DEEP states that he thinks he may also have PTSD due to experiencing a traumatic call at work. ROSA stated that she has been diagnosed with anxiety and depression. Both parents are prescribed medication to help manage symptoms. ROSA states that she feels as though she really struggled mentally during this due to the medical issues that were nonstop since November. ROSA stated that she is aware of signs and symptoms of baby blues and to look for. Substance Use History:?ROSA denies substance prior to and during . ? Family History: DEEP states that his mom may have been diagnosed with anxiety, parents deny any other mental health diagnoses in their family? Drug Screens: ??No urine screens observed in chart review. Family/Social Stressors:? No family stressors or concerns identified at this time. Support Systems: Parents state that they have a lot of family and friends who are supportive. Depression/Shaken Baby/Safe Sleeping: Sw provided education and literature on baby blues and depression. Parents expressed understanding. Sw educated parents on shaken baby prevention and ABCs of safe sleep. Parents expressed understanding and agreed to educate their 2 year old daughter as well on safe sleep. ? ASSESSMENT:? ROSA is currently admitted following the delivery of her baby. MOB and FOB observed to provide hands on care to baby in loving and tender way. Parents were talkative during assessment and talked freely. Parents were receptive to sw involvement and support. PLAN:? MOB and baby to be discharged when medically ready. ?No other services requested or indicated. Constance Miller, SOUND EFFECTS SUPERVISOR, SPECIAL POPULATION PARAPROFESSIONAL
[2023-03-29 15:19] VITALS: BP 114/89; PULSE 79; RESP 18; TEMP 36.8
[2023-03-29 20:45] VITALS: BP 112/61; PULSE 71; RESP 16; TEMP 36.6
[2023-03-30] MEDS: Acetaminophen 500 MG Tablet 1000 MG PO (00:07)
[2023-03-30 01:17] VITALS: BP 116/61; PULSE 70; RESP 16; TEMP 36.6
[2023-03-30] MEDS: Naproxen 500 MG Tablet PO (06:12)
[2023-03-30 08:27] VITALS: BP 111/70; PULSE 62; RESP 18; TEMP 36.1
--- NOTE | 2023-03-30 09:37 | PCM.PN.OB ---
Subjective Subjective Patient doing well without complaints. Tolerating PO. Ambulating and voiding without difficulty. Feeding well. Denies chest pain, shortness of breath, calf pain/swelling, fevers, chills, lightheadedness. Objective Data Objective Data Vital Signs: Vital Signs Temp Pulse Resp BP Pulse Ox O2 Del Method 97.0 F L 62 18 111/70 97 Room Air 03/30/23 08:27 03/30/23 08:27 03/30/23 08:27 03/30/23 08:27 03/29/23 11:21 03/30/23 01:17 Oxygen Delivery Method Room Air Weight: 192 lb 12.8 oz Body Mass Index (BMI) 34.1 Intake & Output: Intake and Output for Last 24 Hours 03/28/23 03/29/23 03/30/23 23:59 23:59 23:59 Intake Total 2960.00 / 2960.00 Output Total 1000 / 1000 600 / 600 Balance 1960.00 / 1960.00 -600 / -600 Lab / Micro Data 03/28/23 08:20 Physical Exam Const alert, oriented x3 and no apparent distress HEENT Head and Scalp: atraumatic Resp normal respiratory effort GI soft to palpation and non-tender Bimanual Exam - Vag & Uterus: uterus non-tender Uterus Palpation: uterus fundus firm (below Umbilicus) Assessment & Plan (1) Vaginal delivery: COMMENT: SM IOL girl [place] PLAN: s/p PPD # 1 1. routine post delivery care 2. breast feeding- support given 3. rh positive 4. rubella immune 5. d/c home today
[2023-03-30] MEDS: Influenza Virus Vac Quad 23-24 60 MCG/0.5 ML SYRINGE IM (11:01)
== END 2023-03-30 12:15 | disposition home or self-care (01) | DRG 806 ==
PROVIDERS: Admitting Provider Obstetrics & Gynecology; PCP Family Medicine; Referring Provider Obstetrics & Gynecology; Visit Provider Obstetrics & Gynecology
DX: O76 Abnormality in fetal heart rate and rhythm complicating labor and delivery (principal); Z37.0 Single live birth; Q79.60 Ehlers-Danlos syndrome, unspecified; N20.1 Calculus of ureter; F32.A Depression, unspecified; O99.214 Obesity complicating childbirth; O99.344 Other mental disorders complicating childbirth; O99.814 Abnormal glucose complicating childbirth; O69.81X0 Labor and delivery complicated by cord around neck, without compression, not applicable or unspecified; O70.0 First degree perineal laceration during delivery; O99.02 Anemia complicating childbirth; O99.892 Other specified diseases and conditions complicating childbirth; Z3A.38 38 weeks gestation of pregnancy; Z79.899 Other long term (current) drug therapy; Z86.16 Personal history of COVID-19; Z87.59 Personal history of other complications of pregnancy, childbirth and the puerperium; Z23 Encounter for immunization
CPT/HCPCS: 59025; 59050; 85025; 86706; 86780; 86803; 86850; 86900; 86901; 87340; 99221; J7120; 90686; G0378; J2405

== ENCOUNTER → 2023-07-30 | Outpatient (CLI) | payer OTHER, SELFPAY ==
[2023-07-30 12:17] LABS: Erythrocyte Sedimentation Rate 7 mm/hr (0-30)
[2023-07-30 12:59] LABS: Vitamin B12 364 pg/mL (211-911); Vitamin D,25 Hydroxy 24.6 ng/mL
[2023-07-30 13:09] LABS: Amylase 38 U/L (25-115); CRP < 2.90 mg/L (0.0-3.0); Lipase 32 U/L (13-75)
[2023-08-01 14:09] LABS: Vitamin D 1,25-Dihydroxy 56.5 pg/mL (24.8-81.5)
[2023-08-01 16:10] LABS: Anti-Parietal Cell AB, QN 25.8 Units (0.0-20.0); Gastrin, Serum 169 pg/mL (0-115); Intrinsic Factor Ab 1.1 AU/mL (0.0-1.1)
== END | disposition home or self-care (01) ==
LOC: LAB 11:09
PROVIDERS: PCP Family Medicine; Referring Provider Internal Medicine Gastroenterology; Visit Provider Internal Medicine Gastroenterology
DX: R13.10 Dysphagia, unspecified (principal); K90.41 Non-celiac gluten sensitivity
CPT/HCPCS: 36415; 82150; 82306; 82607; 82652; 82746; 82941; 83516; 83690; 85652; 86140; 86340

== ENCOUNTER 2023-09-11 13:32 | Day surgery (SDC) | payer OTHER, SELFPAY ==
[2023-09-11 13:55] VITALS: BP 117/79; PULSE 86; RESP 18; TEMP 36.9; O2SAT 98; BMI 29.5
[2023-09-11] MEDS: Lactated Ringers 1,000 ML 15 ML IV (14:05)
[2023-09-11 14:15] LABS: Internal QC Validated? YES +Cl - CLEAR BKGD; Pregnancy, Urine Negative Negative
--- NOTE | 2023-09-11 14:30 | IMM_PTH ---
PATIENT: VALENTE BROWN LOC: EN U#:[id number] AGE/SX: 33/F ROOM: RE09/11/[address]: Dr. Tonio Hernandez DO : 1990 BED: DIS: 09/11/2023 SPEC #: [id number] RECD: 09/12/23 13:35 STATUS: YEIMI REQ #: [id number] ANTHONY: 09/11/23 14:[address]: Tonio Hernandez DEPT: IMMUNOHISTOCHEMISTRY RECD BY: Daniel Hou ENTERED: 09/12/23 13:36 SP TYPE: IMMUNO OTHR DR: Dr. Eugenia Low DO Tissues: B - Stomach, NOS Procedures: H Pylori (initial) PHYSICIAN & INSTITUTION [place] [id number] SPECIMEN INFORMATION: Tissue Source: B. Gastric antrum, biopsy Clinical Info: Non-celiac gluten sensitivity, Difficulty swallowing, ANCA-positive vasculitis, GERD, Gastroparesis, Lower GI bleeding Specimen Number: [id number] CPT code: 20398 METHODOLOGY: Deparaffinized sections of prefer/formalin-fixed tissue or PAP/DQ stained slides are incubated with monoclonal/polyclonal antibodies/oligonucleotide probes. Localization is made via biotin free immunoperoxidase method. Appropriate controls are performed and reacted as expected. Results on target cell population are indicated in the following table: RESULTS: ANTIBODY / CLONE RESULT Block B H Pylori (polyclonal) negative These tests were developed and their performance characteristics determined by [facility]. They may not have been cleared or approved by the U.S. Food and Drug Administration. The FDA has determined that such clearance or approval is not necessary. The above immunohistochemical/dualISH markers are ordered and reviewed by the Pathologist. INTERPRETATION: B. Gastric antrum, biopsy: Negative for Helicobacter pylori organisms. AM:patricia 09/13/2023
--- NOTE | 2023-09-11 14:30 | EGD_PTH ---
PATIENT: VALENTE BROWN LOC: EN U#:[id number] AGE/SX: 33/F ROOM: RE09/11/[address]: Dr. Tonio Hernandez DO : 1990 BED: DIS: 09/11/2023 SPEC #: [id number] RECD: 09/12/23 08:40 STATUS: YEIMI POPPY #: [id number] ANTHONY: 09/11/23 14:[address]: Tonio Hernandez DEPT: SURGICAL PATHOLOGY RECD BY: Melany Reardon ENTERED: 09/12/23 10:01 SP TYPE: EGD BIOPSY OT DR: Dr. Eugenia Low DO Tissues: A - Duodenum, NOS B - Gastric mucous membrane C - Ileum, NOS D - COLON BIOPSY Procedures: Surgery Specimen Level IV HEADER OPERATION: Colonoscopy, EGD with biopsies PRE-OP DIAGNOSIS: Non-celiac gluten sensitivity, Difficulty swallowing, ANCA- positive vasculitis, GERD, Gastroparesis TISSUE SUBMITTED: A- Duodenum biopsy, B- Gastric antrum biopsy, C- Terminal ileum biopsy, D- Splenic flexure polyp biopsy MICROSCOPIC DIAGNOSIS A. Duodenum, biopsy; No pathologic change. B. Gastric antrum, biopsy; Minimal chronic inflammation. C. Terminal Ileum, biopsy; No pathologic change. D. Colonic polyp at splenic flexure, biopsy; Hyperplastic polyp. AM/ 09/13/2023 COMMENT B. The results of immunohistochemistry for Helicobacter pylori will be reported separately ([id number]). MICROSCOPIC DESCRIPTION Slides are reviewed. GROSS DESCRIPTION A. Received in fixative is one container labeled with the patient's name and designated Duodenum biopsy. The specimen consists of multiple irregular fragments of light goldstein soft tissue that in aggregate measure 1.0 x 0.4 x 0.1 cm. The specimen is totally submitted in one cassette. B. Received in fixative is one container labeled with the patient's name and designated Gastric antrum biopsy. The specimen consists of multiple irregular fragments of light goldstein soft tissue that in aggregate measure 0.6 x 0.4 x 0.1 cm. The specimen is totally submitted in one cassette. C. Received in fixative is one container labeled with the patient's name and designated Terminal Ileum biopsy. The specimen consists of multiple irregular fragments of light goldstein soft tissue that in aggregate measure 1.0 x 0.3 x 0.1 cm. The specimen is totally submitted in one cassette. D. Received in fixative is one container labeled with the patient's name and designated Splenic flexure polyp biopsy. The specimen consists of one irregular fragment of light goldstein soft tissue that measures 0.4 x 0.2 x 0.1 cm. The specimen is totally submitted in one cassette. AMANDO/ 09/12/2023 TC:5 CPT:
--- NOTE | 2023-09-11 16:26 | PCM.HP.BLA ---
History and Physical Date of Admission: 09/11/23 VALENTE BROWN, is a 33 F who presents to the office today for PCP OV with similar symptoms as ED presentation with reported normal biochemical workup and US. PCP increased prevacid which was helpful initially. [facility] [place] ED presentation 01.26.22 with abdominal and epigastric pain/pressure/squeezing, dysphagia and hiccups that present 1-2 times a month with no identifiable trigger. Onset since of daughter 16 months prior. Presented r/t increased pain. ED performed biochemical workup and imaging without cause for alarm and she was given GI cocktail and discharged with prevacid, start norco and Carafate (with some relief). Biochemical CBC (elevated Eosinophils 7.4), CMP, lipase, screen without pertinent abnormality. CT abd/pel noting colonic diverticulosis; granulomata of the spleen; retroverted uterus. *BGI established 02.01.[address] [facility] [place] ED. ED No history of EGD. ? Biochemical ESR, a1C, LDH, CRP, TSH, T3, ALLI comp, gastrin, IgGA(L71)ME, CHEL without pertinent abnormality. Thyroxine L0.75; p-ANCA H1:20. Celiac testing inconclusive r/t IgA level. Stool testing calprotectin WNL. ? EGD 03.23.22 LA Grade B reflux esophagitis; gastritis; duodenitis; villous atrophy of small bowel head. H.Pylori negative. OV 04.19.22 with ongoing heartburn despite Pepcid use; dysphagia and nausea. BM every three days. Stop famotidine, start protonix BIDx 1 month then QDx 1 month. Linzess 145mcg Biochemical IBD profile without pertinent abnormality.? RAST: cow?s milk equivocal 0.12; whole egg low 0.25; wheat Moderate 0.85 ? GET 11.1.22 prolonged at 83.35 minutes (12-56). Start reglan 5mg TID OV 07.18.22 with continued nausea/bloating. Reglan stopped r/t nightmares and fatigue; reglan helpful with appetite increase. Linzess QOD prompting QD BM with complete evacuation. Biochemical IBD profile without pertinent abnormality OV 4.13.23 Currently 15 weeks with worsening N/V and heartburn and some new onset constipation. Fluoxetine stopped and reglan, PPI continue. Biochemical 5. CMP, amylase, lipase without pertinent abnormality. OV 8.10.23 with ongoing occasional nausea that she feels is r/t to her . Linzess continues and is having regular movements. ? Biochemical ESR, GA(L57)M, CHEL, HLA B27 without pertinent abnormality. ? Ferritin L3, CRP H8.51 OV 2.5.24 feeling well without nausea and having regular BM, has not needed Linzess since of child 4 months ago. Had dental work with numbing medications that caused a sensation that made her feel that food was stuck; she has had similar episodes approximately four times in the last 18 months. ROS Const Constitutional: Positive for fatigue and weight change; No fever(s), frequent falls or headache(s) ENT ENT: No headache(s) or difficulty swallowing Cardio Cardiology: No leg pain with exertion Gastro GI: Positive for bloating, constipation, heartburn, nausea/dyspepsia and vomiting; No abdominal pain, change in bowel habits, diarrhea, difficulty swallowing, Vomiting blood/hematemesis or Blood in stool Musc Musculoskeletal: No abnormal gait, joint pain, back pain, joint swelling, muscle cramps, muscle weakness, numbness, stiffness, tingling, Arthritis, sciatica, leg pain at night or leg pain with exertion Skin Skin: No dry skin, lesions, itchy eyes or rash Neuro Neurology: No abnormal gait, dizziness, frequent falls, headache(s), numbness, tingling, tremor(s), Increased tone in limbs, paralysis or seizures Psych Psychiatric: Positive for anxiety, No depression, No paranoia, No Behavioral Problems, No Compulsive Behavior, No hyperactivity, No inattentiveness, No obsessions/compulsions, No Temper Tantrums and No suicidal ideation Endo Endocrine: Positive for fatigue and weight change Aller/Imm Allergy/Immunologic: No itchy eyes Danny/Lymp Hematologic/Lymphatic: Positive for easy bruising; No easy bleeding Exam Const General: cooperative, healthy appearing and no acute distress Orientation: alert, awake and oriented x3 [facility] Head: normal to inspection Ears: hearing grossly normal bilaterally, external ears normal, TM's normal bilaterally and EAC's normal Nose: external nose normal, nares normal, septum normal and no nasal discharge Face and sinus: normal facial exam, sinuses nontender and face symmetric Mouth: oral mucosae normal, lip normal, tongue normal and oropharynx normal Throat: posterior oropharynx normal, uvula midline, abnormal tonsil bilaterally erythema; no exudates and no hypertrophy and postnasal drainage (clear) Eyes General: appearance normal, both eyes and all related structures Neck Neck: normal visual inspection, full ROM, no lymphadenopathy, no meningeal signs and supple Neck mass: No Thyroid: thyroid normal Lymphatic: no lymphadenopathy noted Chest Chest palpation & inspection: normal inspection of the chest Resp Effort & Inspection: normal respiratory effort and able to speak in complete sentences Auscultation: Bilateral: Clear to Auscultation Cardio Palpation: normal PMI Rate: regular rate Rhythm: regular rhythm Heart Sounds: S1 normal, S2 normal, no gallops, no murmurs and no rubs Pulses: radial pulses present GI Inspection: normal to inspection Palpation: soft and no hepatosplenomegaly Skin General: no rashes or lesions noted Neuro General: patient alert, patient awake and patient oriented x3 Cognition: normal cognition Speech: speech normal Psych Appearance: grossly normal Mental Status: mental status grossly normal Mood: congruent mood Affect: normal affect Speech and Movement: speech and movement normal Attitude: cooperative Thought Process: normal Thought Content: normal Judgment: judgment good Quality Reporting Tobacco Screening ([facility]) Smoking Status: Never smoker Assessment and Plan Assessment and Plan (1) Non-celiac gluten sensitivity: Status: Chronic (2) Difficulty swallowing: Status: Chronic (3) ANCA-positive vasculitis: Status: Resolved Plan: She was brought as having low titer of ANCA. She is not exhibiting signs of ulcerative colitis, autoimmune hepatitis or microscopic polyangiitis. These are all associated with ANCA associated disease. This is something she will note. (4) Celiac disease: Status: Resolved Plan: Her friend show some inflammation in the esophagus stomach and small bowel. The biopsies of the small bowel head showed inflammation consistent with villous atrophy. She is IgA negative and therefore she can IgA believes antibody test for celiac disease. I will put her on a gluten-free diet for control of a lot of her symptoms. I think she does have celiac disease and is resulting in chronic idiopathic constipation. We will continue her on Linzess, 45 mcg once a day for constipation. (5) GERD (gastroesophageal reflux disease): Status: Resolved Qualifiers: Esophagitis presence: without esophagitis Qualified Code(s): K21.9 - Gastro-esophageal reflux disease without esophagitis Plan: Her gastroesophageal reflux disease is not controlled on famotidine based therapy. She is finished with PPI therapy twice a day for a month and is now on once a day for a month. It had gotten a little worse with her but now that she is coming out of first trimester she is doing a lot better. I suggested that she use peppermint gum and always try to keep some type of peppermint in her mouth. She has been doing carbonation as a way to belch. Her nausea is a lot better now that she is off of fluoxetine and only on Reglan therapy. She is taking scheduled as per her pit hand. I am okay with her doing that. I told her if it gets worse we can put a temporary Dobbhoff tube in the office for decompression. Also we encouraged fiber and other agents to help her constipation as that can indirectly help her gastroparesis. Continue protonix 40mg once a day. (6) Gastroparesis: Status: Acute Plan: We will do some blood for autoimmune gastritis and repeat gastric emptying study in the future. (7) Lower GI bleeding: Status: Acute Plan: She did have episodes of lower GI bleeding. Since she did have episodes she has not had any more lower GI bleeding contributed to hemorrhoidal bleeding. She also has a history of diverticular disease. We talked about doing a colonoscopy and upper endoscopy to see how her was looking because she does have nonsevere gluten sensitivity along looking for the etiology of her lower GI bleeding. Differential diagnosis does include anal fissure, hemorrhoidal bleeding, diverticular bleeding, ischemic colitis and less likely ulcerative colitis or malignancy. Orders: Orders Gastrin, Serum Today K90.41 - Non-celiac gluten sensitivity, R13.10 - Dysphagia, unspecified Intrinsic Factor Ab Today K90.41 - Non-celiac gluten sensitivity, R13.10 - Dysphagia, unspecified Anti-Parietal Cell AB, QN Today K90.41 - Non-celiac gluten sensitivity, R13.10 - Dysphagia, unspecified Vitamin B12 Today K90.41 - Non-celiac gluten sensitivity, R13.10 - Dysphagia, unspecified Folates, (Folic Acid) Today K90.41 - Non-celiac gluten sensitivity, R13.10 - Dysphagia, unspecified Vitamin D,25 Hydroxy Today K90.41 - Non-celiac gluten sensitivity, R13.10 - Dysphagia, unspecified Vitamin D 1,25-Dihydroxy Today K90.41 - Non-celiac gluten sensitivity, R13.10 - Dysphagia, unspecified Amylase Today K90.41 - Non-celiac gluten sensitivity, R13.10 - Dysphagia, unspecified Lipase Today K90.41 - Non-celiac gluten sensitivity, R13.10 - Dysphagia, unspecified CRP Today K90.41 - Non-celiac gluten sensitivity, R13.10 - Dysphagia, unspecified Erythrocyte Sed Rate Today K90.41 - Non-celiac gluten sensitivity, R13.10 - Dysphagia, unspecified Medications: Refilled pantoprazole 40 mg PO DAILY 90 tabs 6RF I have examined the patient and the H&P has been reviewed. There are no clinical changes since date of exam.
[2023-09-11 16:55] VITALS: BP 117/79; BP 90/66; PULSE 84; RESP 16; TEMP 37.8; O2SAT 100
--- NOTE | 2023-09-11 16:58 | OP.CCLET_ITS ---
09/11/2023 Eugenia Low [address] [place] [address] Re : Upper GI endoscopy procedure for Nancy Rodriguez Dear Dr. Low This procedure was performed on Monday, September 11, 2023. My impressions and recommendations are as follows: Impressions : - Normal esophagus. - Erythematous mucosa in the stomach. Biopsied. - Erythematous duodenopathy. Biopsied. Recommendations : - Discharge patient to home. - Resume previous diet. - Continue present medications. - Await pathology results. My findings are described in the full procedure note, which is enclosed. If I can be of further assistance, please feel free to contact me at . Sincerely, Tonio Hernandez, 09/11/2023 4:57:59 PM This report has been signed electronically.
--- NOTE | 2023-09-11 16:58 | OP.EGD_ITS ---
Patient Name: Nancy Rodriguez Procedure Date: 09/11/2023 4:23 PM Date of : 1990 Age: 33 Procedure: Upper GI endoscopy Indications: Epigastric abdominal pain Providers: Tonio Hernandez DO Medicines: Monitored Anesthesia Care Patient Profile: This is a 33 year old female. Refer to note in patient chart for documentation of history and physical. Patient has symptoms of chronic epigastric abdominal pain. Complications: No immediate complications. Procedure: Pre-Anesthesia Assessment: - Prior to the procedure, a History and Physical was performed, and patient medications and allergies were reviewed. The patient is competent. The risks and benefits of the procedure and the sedation options and risks were discussed with the patient. All questions were answered and informed consent was obtained. Patient identification and proposed procedure were verified by the physician in the pre-procedure area. Mental Status Examination: alert and oriented. Airway Examination: normal oropharyngeal airway and neck mobility. Prophylactic Antibiotics: The patient does not require prophylactic antibiotics. Prior Anticoagulants: The patient has taken no anticoagulant or antiplatelet agents. ASA Grade Assessment: II - A patient with mild systemic disease. After reviewing the risks and benefits, the patient was deemed in satisfactory condition to undergo the procedure. The anesthesia plan was to use monitored anesthesia care (MAC). Immediately prior to administration of medications, the patient was re-assessed for adequacy to receive sedatives. The heart rate, respiratory rate, oxygen saturations, blood pressure, adequacy of pulmonary ventilation, and response to care were monitored throughout the procedure. The physical status of the patient was re-assessed after the procedure. After obtaining informed consent, the endoscope was passed under direct vision. Throughout the procedure, the patient's blood pressure, pulse, and oxygen saturations were monitored continuously. The Colonoscope was introduced through the mouth, and advanced to the second part of duodenum. The upper GI endoscopy was accomplished without difficulty. The patient tolerated the procedure well. Scope In: 4:33:31 PM Scope Out: 4:36:51 PM Total Procedure Duration Time 0 hours 3 minutes 20 seconds Findings: The examined esophagus was normal. Patchy mildly erythematous mucosa without bleeding was found in the stomach. Biopsies were taken with a cold forceps for histology. Verification of patient identification for the specimen was done. Estimated blood loss was minimal. Biopsies were taken with a cold forceps for Helicobacter pylori testing. Verification of patient identification for the specimen was done. Estimated blood loss was minimal. Patchy mildly erythematous mucosa without active bleeding and with no stigmata of bleeding was found in the duodenal bulb, in the first portion of the duodenum and in the second portion of the duodenum. Biopsies for histology were taken with a cold forceps for evaluation of celiac disease. Verification of patient identification for the specimen was done. Estimated blood loss was minimal. Impression: - Normal esophagus. - Erythematous mucosa in the stomach. Biopsied. - Erythematous duodenopathy. Biopsied. Recommendation: - Discharge patient to home. - Resume previous diet. - Continue present medications. - Await pathology results. Procedure Code(s): --- Professional --- 16742, Esophagogastroduodenoscopy, flexible, transoral; with biopsy, single or multiple CPT copyright 2021 [employer]. All rights reserved. The codes documented in this report are preliminary and upon special certificate dictator review may be revised to meet current compliance requirements. Tonio Hernandez DO 09/11/2023 4:57:59 PM This report has been signed electronically. Number of Addenda: 0 Note Initiated On: 09/11/2023 4:23 PM
[2023-09-11 17:00] VITALS: BP 117/79; BP 93/78; PULSE 74; RESP 16; O2SAT 98
--- NOTE | 2023-09-11 17:01 | OP.COLON_ITS ---
Patient Name: Nancy Rodriguez Procedure Date: 09/11/2023 4:37 PM Date of : 1990 Age: 33 Procedure: Colonoscopy Indications: Hematochezia Providers: Tonio Hernandez DO Medicines: Monitored Anesthesia Care Patient Profile: This is a 33 year old female. Refer to note in patient chart for documentation of history and physical. Patient has symptoms of chronic epigastric abdominal pain. Last Colonoscopy: none. The patient's first colonoscopy is today. Complications: No immediate complications. Procedure: Pre-Anesthesia Assessment: - Prior to the procedure, a History and Physical was performed, and patient medications and allergies were reviewed. The patient is competent. The risks and benefits of the procedure and the sedation options and risks were discussed with the patient. All questions were answered and informed consent was obtained. Patient identification and proposed procedure were verified by the physician in the pre-procedure area. Mental Status Examination: alert and oriented. Airway Examination: normal oropharyngeal airway and neck mobility. Prophylactic Antibiotics: The patient does not require prophylactic antibiotics. Prior Anticoagulants: The patient has taken no anticoagulant or antiplatelet agents. ASA Grade Assessment: II - A patient with mild systemic disease. After reviewing the risks and benefits, the patient was deemed in satisfactory condition to undergo the procedure. The anesthesia plan was to use monitored anesthesia care (MAC). Immediately prior to administration of medications, the patient was re-assessed for adequacy to receive sedatives. The heart rate, respiratory rate, oxygen saturations, blood pressure, adequacy of pulmonary ventilation, and response to care were monitored throughout the procedure. The physical status of the patient was re-assessed after the procedure. After I obtained informed consent, the scope was passed under direct vision. Throughout the procedure, the patient's blood pressure, pulse, and oxygen saturations were monitored continuously. The Colonoscope was introduced through the anus and advanced to the terminal ileum. The colonoscopy was performed without difficulty. The patient tolerated the procedure well. The quality of the bowel preparation was adequate. The terminal ileum, ileocecal valve, appendiceal orifice, and rectum were photographed. Scope In: 4:38:56 PM Scope Withdrawal Time 0 hours 7 minutes 47 seconds Scope Out: 4:48:25 PM Total Procedure Duration Time 0 hours 9 minutes 29 seconds Findings: The perianal and digital rectal examinations were normal. A 6 mm polyp was found in the splenic flexure. The polyp was sessile. The polyp was removed with a cold snare. Resection and retrieval were complete. Verification of patient identification for the specimen was done. Estimated blood loss was minimal. Estimated blood loss was minimal. A 5 mm anal fissure was found in the anal canal. The exam was otherwise without abnormality. Patchy mild inflammation characterized by erythema, friability and granularity was found in the terminal ileum and in the ileocecal valve. Biopsies were taken with a cold forceps for histology. Verification of patient identification for the specimen was done. Estimated blood loss was minimal. Impression: - One 6 mm polyp at the splenic flexure, removed with a cold snare. Resected and retrieved. - Anal fissure. - The examination was otherwise normal. - Mild inflammation was found in the ileum secondary to ileitis. Biopsied. Recommendation: - Discharge patient to home. - Resume regular diet. - Continue present medications. - Await pathology results. - Repeat colonoscopy in 5 years for surveillance. Procedure Code(s): --- Professional --- 11443, Colonoscopy, flexible; with removal of tumor(s), polyp(s), or other lesion(s) by snare technique 96785, 59, Colonoscopy, flexible; with biopsy, single or multiple CPT copyright 2021 [employer]. All rights reserved. The codes documented in this report are preliminary and upon projection printer review may be revised to meet current compliance requirements. Tonio Hernandez DO 09/11/2023 5:01:13 PM This report has been signed electronically. Number of Addenda: 0 Note Initiated On: 09/11/2023 4:37 PM
--- NOTE | 2023-09-11 17:01 | OP.CCLET_ITS ---
09/11/2023 Eugenia Low [address] [place] [address] Re : Colonoscopy procedure for Nancy Rodriguez Dear Dr. Low This procedure was performed on Monday, September 11, 2023. My impressions and recommendations are as follows: Impressions : - One 6 mm polyp at the splenic flexure, removed with a cold snare. Resected and retrieved. - Anal fissure. - The examination was otherwise normal. - Mild inflammation was found in the ileum secondary to ileitis. Biopsied. Recommendations : - Discharge patient to home. - Resume regular diet. - Continue present medications. - Await pathology results. - Repeat colonoscopy in 5 years for surveillance. My findings are described in the full procedure note, which is enclosed. If I can be of further assistance, please feel free to contact me at . Sincerely, Tonio Friend, 09/11/2023 5:01:13 PM This report has been signed electronically.
[2023-09-11 17:05] VITALS: BP 117/79; BP 93/61; PULSE 75; RESP 16; O2SAT 97
[2023-09-11 17:10] VITALS: BP 117/79; BP 95/59; PULSE 84; RESP 16; TEMP 37; O2SAT 98
[2023-09-11 17:23] VITALS: BP 117/79
== END 2023-09-11 17:36 | disposition home or self-care (01) ==
LOC: EN 13:33 → AC 13:34
PROVIDERS: Anesthesiology; PCP Family Medicine; Referring Provider Family Medicine; Visit Provider Internal Medicine Gastroenterology
PROC: 0DJD8ZZ Inspection of Lower Intestinal Tract, Via Natural or Artificial Opening Endoscopic (ICD-10-PCS; CPT 45378; principal; 2023-09-11 14:25)
DX: K92.1 Melena (principal); K63.5 Polyp of colon; K60.2 Anal fissure, unspecified; K31.89 Other diseases of stomach and duodenum; K59.04 Chronic idiopathic constipation; K31.84 Gastroparesis; R13.10 Dysphagia, unspecified; Z79.899 Other long term (current) drug therapy
CPT/HCPCS: 45385; 45380; 43239; 81025; 88305; 88342; J7120; J2405

== ENCOUNTER → 2023-12-21 | Outpatient (CLI) | payer OTHER, SELFPAY ==
[2023-12-21 10:58] LABS: hCG Titer Quant., Serum < 1 mIU/mL (1-3)
== END | disposition home or self-care (01) ==
LOC: LAB 09:52
PROVIDERS: Obstetrics & Gynecology; PCP Family Medicine; Referring Provider Advanced Practice Midwife; Visit Provider Advanced Practice Midwife
DX: N91.2 Amenorrhea, unspecified (principal)
CPT/HCPCS: 36415; 84702

== ENCOUNTER 2023-12-30 05:11 | Emergency (ER) | payer OTHER, SELFPAY ==
[2023-12-30 05:11] VITALS: BP 129/95; PULSE 91; RESP 18; TEMP 36.3; O2SAT 99; BMI 29.8
--- NOTE | 2023-12-30 05:13 | EX.ED.DYSGE1 ---
HPI History of Present Illness Chief Complaint: Foreign Body [facility] Medical History (Updated 12/30/23 @ 06:[address] Earl Somers, DO) PONV (postoperative nausea and vomiting) History of Holter monitoring Cardiology follow-up encounter Headache Depression Anxiety Left ureteral stone Hyperemesis arising during Heart palpitations Wears glasses Easy bruising Migraine headache Gastric reflux Non-smoker History of echocardiogram COVID-19 Acute pharyngitis Kayla-Danlos syndrome Exercise-induced asthma Abnormal EKG (~2014) Mixed anxiety and depressive disorder Home Medications ?Medication ?Instructions ?Recorded ?Last Taken ?Type fluoxetine 20 mg capsule (Prozac) 20 mg PO DAILY #30 caps 03/09/23 09/11/23 Rx dextroamphetamine-amphetamine ER 5 1 cap PO BID 09/10/23 Unknown History mg 24hr capsule,extend release pantoprazole 20 mg tablet,delayed 20 mg PO DAILY #30 tabs 10/11/23 Unknown Rx release doxycycline hyclate 50 mg capsule 50 mg PO BID 14 days #28 caps 10/25/23 Unknown Rx baclofen 5 mg tablet 5 mg PO TID PRN esophageal spasm 3 12/30/23 Unknown Rx days #9 tabs Allergy/AdvReac Type Severity Reaction Status Date / Time No Known Allergies Allergy Verified 09/11/23 13:54 Family History Mother Thyroid disorder Grandmother Thyroid disorder Cancer Maternal grandmother - kidney cancer Grandfather Cancer Bladder Surgical History History of wisdom tooth extraction Social History adopted: No household members: spouse, children and other details: brother in law housing: house number of children: 1 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 pets and animals: dog(s) history of recent travel: No sexually active: Yes Smoking Status: Never smoker Electronic Cigarette Use: not used second hand exposure: No alcohol intake: current alcohol intake frequency: holidays/special occasions only Alcohol type: wine details: not while substance use type: does not use diet: gluten free and lactose free well-balanced diet: daily or most days caffeine: Yes Type: carbonated beverages Number of servings: 1 what type of physical activity do you participate in: other details: cardio kickboxing frequency: 1-2 times per week duration: 45-60 minutes/day seatbelt use: always do you feel safe at home: Yes 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 The patient was eating or swallowing any meats such as chicken or steak prior to this event. She notes last 5 hours she has had a spasm sensation along her posterior oropharynx going into her right neck. She states she has history of Kayla-Danlos as well as her mother and her mother had esophageal spasms. States typically she takes pantoprazole with improvement in symptoms. States he took an extra pantoprazole with no improvement. She denies chest pain, shortness of breath. Denies vomiting but notes she is nauseous. REVIEW OF SYSTEMS: Pertinent positives: Difficulty swallowing, esophageal spasm Pertinent negatives: Chest pain, shortness of breath PHYSICAL EXAM: Nursing triage notes reviewed, Vital signs reviewed Constitutional: please see mdm HENT: MMM, no trismus, posterior pharynx patent, no erythema Eyes: Pupils equal round and reactive to light, Extraocular muscles intact Neck: No stridor, no JVD, full neck ROM Lungs: Clear to auscultation, No wheezing or rales. No increased work of breathing, no conversational dyspnea, no accessory muscle use, no nasal flaring. No respiratory distress noted Heart: Regular rate and rhythm, No murmurs, No rubs and No gallops, 2+ distal pulses (radial, femoral, posterior tibial) in all extremities Abdomen: Soft, there is no tenderness, rigidity, rebound or guarding, no obvious peritoneal signs, no palpable pulsatile abdominal masses, no auscultated abdominal bruit : No CVAT Extremities: No edema Neuro: No focal neurological deficits, cranial nerves II through XII intact, 5/5 strength in all extremities. Intact sensation to light touch in all extremities, 2+ reflexes bilateral patella tendons. Normal gait. No ataxia. Skin: No rash or lesions noted MEDICAL DECISION MAKING: Chief Complaint: Esophageal spasm External records reviewed: Reviewed prior ED records Factors affecting care: GERD, anxiety Social determinants of health: none History obtained from others: none Consults: none MDM Narrative: The patient was initially hemodynamically stable, afebrile and nontoxic-appearing. Patient present here airway, controlling secretions. She is in no acute distress. There is no drooling. Lungs are clear. Posterior oropharynx patent. I considered the following differential diagnosis: Esophageal spasm, reflux, esophageal foreign body I attempted several therapeutic interventions to improve the patient's symptoms including nitroglycerin, pantoprazole, and Zofran. Upon reassessment patient was still symptomatic so we tried oral baclofen as well as GI cocktail. Patient was discharged stable condition with prescription for baclofen and close GI follow-up. The patient and/or family, caregivers express understanding. The patient and/or family, caregivers agrees with the plan. Shared decision making: I will have a discussion with the patient and or visitors regarding risk/benefits of further testing or admission. They will be made aware of of the risk/benefits inherent in this decision they will be given the opportunity to voice understanding. Total critical care time today provided was at least 0 minutes. This excludes separately billable procedures. Critical care time (if documented) is secondary to the patient having high probability of clinically significant/life threatening deterioration in the patient's condition which required my urgent intervention. Impression: 1. Esophageal spasm 2. Globus sensation Dispo: Discharge home This note was generated with [employer] dictation software. It may contain incorrect words, spelling, and punctuation that were not noted in review of the chart prior to signing. Discharge Plan Triage Chief Complaint: Foreign Body ED Provider: Earl Somers Dx/Rx/DC Orders Clinical Impression: Esophageal spasm Instructions: ED Esophageal Spasm Prescriptions: New baclofen 5 mg tablet 5 mg PO TID PRN (Reason: esophageal spasm) 3 Days Qty: 9 0RF No Action doxycycline hyclate 50 mg capsule 50 mg PO BID 14 Days Qty: 28 1RF dextroamphetamine-amphetamine 5 mg capsule,extended release 24hr 1 cap PO BID fluoxetine [Prozac] 20 mg capsule 20 mg PO DAILY Qty: 30 12RF pantoprazole 20 mg tablet,delayed release (DR/EC) 20 mg PO DAILY Qty: 30 6RF Primary Care Provider: Eugenia Low Referrals: Eugenia Low DO [Primary Care Provider] - Friend,DO Tonio [Med Staff - Active Staff] - Activity Restrictions/Additional Instructions: Thank you for trusting us with your care today! Please continue take pantoprazole. Take baclofen as needed Please return to the emergency department if your symptoms change or worsen. Specifically if you start drooling, cannot tolerate food or drink by mouth. Please follow with your primary care physician for further outpatient evaluation and management. Print Language: Congolese Disposition Disposition: Home, Self Care
[2023-12-30] MEDS: Pantoprazole Sodium 40 MG in 0.9% Normal Saline (100mL MB+) 100 ML 330 MG IV (05:50)
[2023-12-30] MEDS: Ondansetron 4 MG/2 ML Vial IV (05:50)
[2023-12-30] MEDS: 0.9% Normal Saline (1000mL) 1,000 ML 999 ML IV (05:50)
[2023-12-30 06:11] VITALS: BP 133/92; PULSE 91
[2023-12-30] MEDS: Nitroglycerin (INPATIENT USE) 0.4 MG TAB.SUBL SL (06:11)
[2023-12-30] MEDS: Lidocaine 2% Viscous15 ML UDC 15 ML PO (06:47)
[2023-12-30] MEDS: Mag Hydrox/Al Hydrox/Simeth 30 ML UDC PO (06:47)
[2023-12-30 07:11] VITALS: BP 122/80; PULSE 91; RESP 18; TEMP 36.1; O2SAT 98
[2023-12-30] MEDS: Baclofen 10 MG Tablet 5 MG PO (07:14)
== END 2023-12-30 07:22 | disposition home or self-care (01) ==
PROVIDERS: Emergency Provider Emergency Medicine; PCP Family Medicine; Visit Provider Emergency Medicine
DX: K22.4 Dyskinesia of esophagus (principal); F41.8 Other specified anxiety disorders; K21.9 Gastro-esophageal reflux disease without esophagitis; Z79.899 Other long term (current) drug therapy; F45.8 Other somatoform disorders
CPT/HCPCS: 96365; 96375; 99283; J7030; J2405

== ENCOUNTER → 2024-05-13 | Outpatient (CLI) | payer OTHER, SELFPAY ==
[2024-05-21 09:09] LABS: HPV APTIMA, High Risk Negative (Negative)
== END | disposition home or self-care (01) ==
LOC: LABSPEC 16:41
PROVIDERS: PCP Family Medicine; Referring Provider Nurse Practitioner Women's Health; Visit Provider Nurse Practitioner Women's Health
DX: N93.0 Postcoital and contact bleeding (principal); Z12.4 Encounter for screening for malignant neoplasm of cervix
CPT/HCPCS: 87070; 87205; 87624; 88175; G0145

== ENCOUNTER → 2024-05-27 | Outpatient (CLI) | payer OTHER, SELFPAY ==
--- NOTE | 2024-05-27 15:25 | US_ITS ---
STUDY: ULTRASOUND OF THE FEMALE PELVIS - COMPLETE REASON FOR EXAM: Female, 33 years old. Pain LMP: May 26, 2024. TECHNIQUE: Transabdominal and Transvaginal TECHNICAL QUALITY: Adequate. COMPARISON: Comparison is made with prior study dated August 07, 2016. FINDINGS: The uterus is retroflexed and is in a midline position. The uterus measures 7.4 cm x 6.6 cm x 5.6 cm. Normal uterine cervix. The endometrium measures 11 mm in thickness, and is hyperechoic. There is no demonstrated endometrial mass. There is no demonstrated myometrial mass. I.U.D. - The patient does not have an I.U.D. The right ovary is visualized. The right ovary measures 4.7 cm x 2.8 cm x 3.6 cm. There is a 2.1 cm x 2.2 cm by 2 cm right ovarian cyst. There is no visualized right adnexal mass or complex lesion. There is normal arterial and normal venous vascularity. The left ovary is visualized. The left ovary measures 3.1 cm x 2.3 cm x 1.8 cm. There is no left ovarian cyst or ovarian mass. There is no visualized left adnexal mass or complex lesion. There is normal arterial and normal venous vascularity. There is no fluid in the cul-de-sac. The pre void volume of the bladder was 207 ml. US/Pelvic w/ Transvaginal IMPRESSION: 2.1 cm x 2.2 cm x 2 cm right ovarian cyst. Electronically Signed: Porfirio Cornejo MD at 15:25 EST ,
== END | disposition home or self-care (01) ==
LOC: US 15:24
PROVIDERS: PCP Family Medicine; Referring Provider Nurse Practitioner Women's Health; Visit Provider Nurse Practitioner Women's Health
DX: R10.2 Pelvic and perineal pain (principal); N88.8 Other specified noninflammatory disorders of cervix uteri; N93.0 Postcoital and contact bleeding
CPT/HCPCS: 76830; 76856

== ENCOUNTER → 2024-07-10 | Outpatient (CLI) | payer OTHER, SELFPAY | END | disposition home or self-care (01) | LOC: PSN 06:23 | PROVIDERS: PCP Family Medicine; Referring Provider Obstetrics & Gynecology; Visit Provider Obstetrics & Gynecology | DX: R00.2 Palpitations (principal) | CPT/HCPCS: 93005 ==

== ENCOUNTER 2024-08-12 09:48 | Day surgery (SDC) | payer OTHER, SELFPAY ==
--- NOTE | 2024-07-29 18:02 | PAT.ANESEVAL ---
Pre-Assessment Diagnosis/Proposed Procedure Planned Operative Procedure(s): Dilation and Curettage, LEEP Anesthesia History Anesthesia History - inbound sales consultant: Anesthesia History - inbound sales consultant Hx Hospitalization No 07/29/24 14:05 Any Problems With Anesthesia No 07/29/24 14:05 Cholinesterase deficiency No 07/29/24 14:05 You/Your Family Experience No 07/29/24 14:05 fever (hyperthermia) with Relationship Recent Exposure to Contagious No 05/18/24 08:24 Disease Does patient have nerve No 07/29/24 14:05 stimulator Patient instructed to have device shut off --Does patient have Pacemaker or ICD? When Was Last Pacemaker Check QUESTION #4 FULL TEXT: You/Your Family Experience fever (hyperthermia) with Anesthesia Last Oral Intake Last Oral intake: Last Oral Intake NPO since Meds taken in AM with sips of water? Meds patient instructed to take am of surgery PONV PONV - inbound sales consultant: PONV - inbound sales consultant Female Yes 07/29/24 14:05 HX of Motion Sickness Yes 07/29/24 14:05 HX of N/V After Surgery No 07/29/24 14:05 Non-Smoker Yes 07/29/24 14:05 Duration of Surgery greater No 07/29/24 14:05 than 60 minutes Number of Risk Factors 3 07/29/24 14:05 PONV Score Moderate Risk 07/29/24 14:05 Height & Weight Height & Weight: Anesthesia: Height & Weight Height 5 ft 4 in 07/04/24 14:30 Respiratory Assessment Respiratory Assessment - inbound sales consultant: Respiratory Tract Infection Hx - inbound sales consultant Hx Respiratory Tract Infection No 07/29/24 14:05 STOP Sleep Apnea STOP Sleep Apnea - inbound sales consultant: STOP Sleep Apnea - inbound sales consultant Hx Hypertension No 07/29/24 14:05 Hx Sleep Apnea No 07/29/24 14:05 CPAP BIPAP Do you snore loudly (louder No 07/29/24 14:05 than talking or can be heard Do you often feel tired/ No 07/29/24 14:05 fatigued/ sleepy during daytime? Has anyone observed you stop No 07/29/24 14:05 breathing during sleep? STOP Results Negative 07/29/24 14:05 QUESTION #5 FULL TEXT : Do you snore loudly (louder than talking or can be heard through closed doors)? 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 Specify any problems Hx of Preganancy in last 3 N/A 07/29/24 14:05 Months Nurse Filling Out Transfusion NBUCHER 07/29/24 14:05 & Questions: Date: 07/29/24 07/29/24 14:05 Time: 14:06 07/29/24 14:05 Patient unable to answer at this time (ie. confused, unrespo /Reproduction History /Reproductive History - inbound sales consultant: /Reproductive Hx- inbound sales consultant Hx Now No 07/29/24 14:05 Gestational Age (in weeks): EDC: Hx Hx Para Hx Section SAB No 07/29/24 14:05 PFSH Medical History (Updated 07/29/24 @ 14:12 by Silvina Villalobos) ADHD Anemia Shortness of breath on exertion PONV (postoperative nausea and vomiting) History of Holter monitoring Cardiology follow-up encounter Vaginal delivery Headache Depression Anxiety Left ureteral stone Hyperemesis arising during Heart palpitations Wears glasses Easy bruising Migraine headache Gastric reflux Non-smoker History of echocardiogram COVID-19 Acute pharyngitis Kayla-Danlos syndrome Exercise-induced asthma Abnormal EKG (~2014) Mixed anxiety and depressive disorder Home Medications ?Medication ?Instructions ?Recorded ?Last Taken ?Type fluoxetine 20 mg capsule (Prozac) 20 mg PO DAILY #30 caps 03/09/23 09/11/23 Rx dextroamphetamine-amphetamine ER 5 1 cap PO BID 09/10/23 Unknown History mg 24hr capsule,extend release hyoscyamine sulfate 0.125 mg 0.125 mg sublingual BID-QID PRN 02/12/24 Unknown Rx sublingual tablet dyspepsia #30 tabs pantoprazole 20 mg tablet,delayed 20 mg PO DAILY #30 tabs 06/12/24 Unknown Rx release cholecalciferol (vitamin D3) 1,250 1,250 mcg PO MO 07/29/24 Unknown History mcg (50,000 unit) capsule Allergy/AdvReac Type Severity Reaction Status Date / Time No Known Allergies Allergy Verified 07/29/24 14:02 Family History Mother Thyroid disorder Grandmother Thyroid disorder Cancer Maternal grandmother - kidney cancer Grandfather Cancer Bladder Surgical History (Updated 07/29/24 @ 14:12 by Silvina Villalobos) History of esophagogastroduodenoscopy (EGD) History of colonoscopy History of wisdom tooth extraction Social History adopted: No household members: spouse, children and other details: brother in law housing: house number of children: 1 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 pets and animals: dog(s) history of recent travel: No sexually active: Yes Smoking Status: Never smoker Electronic Cigarette Use: not used second hand exposure: No alcohol intake: current alcohol intake frequency: holidays/special occasions only Alcohol type: wine details: not while substance use type: does not use diet: gluten free and lactose free well-balanced diet: daily or most days caffeine: Yes Type: carbonated beverages Number of servings: 1 what type of physical activity do you participate in: other details: cardio kickboxing frequency: 1-2 times per week duration: 45-60 minutes/day seatbelt use: always do you feel safe at home: Yes 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 Sinus rhythm with sinus arrhythmia and short OR interval. Nonspecific ST and T wave abnormality. Prolonged QT. Echo (EF%) pertinent findings: January 08, 2023. Ejection fraction is 55%. No aortic stenosis is noted. Consult pertinent findings: December 25, 2022. Dr. Mcmahan. 1. Syncope-patient has had 5 episodes in the past month. Gets tachycardic with each episode. She appears to have vasodepressor syncope. Patient is to keep up with her fluid intake. No medication at this time. 2. Because of her history of Kayla-Danlos we will get a echocardiogram. See above. Additional pertinent findings: Holter monitor. December 14, 2022. Normal sinus rhythm. No ventricular ectopic beats noted. No atrial fibrillation noted. Patient's diary noted tachycardia, fatigue, heart pounding, palpitations and dizziness which correlated with normal sinus rhythm and sinus tachycardia. Recommendation Anesthesia Recommendation Anesthesia recommendation: OPTIMIZED for anesthesia
[2024-07-31 07:09] LABS: Hematocrit 37.9 % (37-47); Hemoglobin 12.2 g/dL (12.0-15.0); Mean Corp Hgb Conc 32.2 g/dL (32-36); Mean Corpuscular Hgb 26.6 pg (27.0-32.0); Mean Corpuscular Volume 82.8 fL (81-99); Mean Platelet Vol. 9.1 fl (6.2-12.0); Platelet Count 365 K/mm3 (150-450); RBC Distribution Width CV 14.1 % (11.6-14.6); RBC Distribution Width SD 42.6 fl (35.1-43.9); Red Blood Count 4.58 M/mm3 (4.2-5.4); White Blood Count 10.2 K/mm3 (4.4-11.0)
--- NOTE | 2024-08-11 17:28 | PCM.HP.BLA ---
History and Physical Date of Admission: 08/12/[address] Annie Grady MD on 07/06/24 at 1221 Assessment and Plan Assessment and Plan (1) Friable cervix: Status: Acute Comment: long history. Neg pap, hpv and culture. recommend d and c hysteroscopy leep (2) Postcoital bleeding: Status: Acute (3) Heart palpitations: Status: Acute Comment: ekg ordered (4) UTI (urinary tract infection): Status: Acute Qualifiers: Urinary tract infection type: acute cystitis Hematuria presence: without hematuria Qualified Code(s): N30.00 - Acute cystitis without hematuria Orders: Orders 12 Lead EKG 07/04/24 R00.2 - Palpitations Plan After discussing the patient's diagnosis and treatment plan options, patient wishes to proceed with surgical management. I have discussed with the patient the risks, benefits, and alternatives of the procedure which include but are not limited to risks of anesthesia, bleeding, infection, possible damage to bowel, bladder, or surrounding vasculature which could lead to additional surgery to evaluate any complications. Patient agrees to procedure and wishes to proceed. ACOG/uptodate references given for additional information regarding procedure. 07/06/24 1221 <Electronically signed by Annie Grady MD> Date Annie Grady MD cc: ~* Signed Intake Vital Signs 05/18/2409:00 07/04/2513:30 Height 5 ft 4 in 5 ft 4 in Weight: 178 lb 4 oz 174 lb 8 oz BMI 30.6 29.9 BP 120/78 118/82 H Blood Pressure Location Lt brachial Position Sitting Respiration 12 Pulse 81 Pulse Source NIBP Temp 98.3 F Pulse Oximetry (%) 99 Oxygen Delivery Method room air Intake Visit Reasons: consultation friable cervix Publicity Agent Required: No Is patient in pain?: No Allergies No Known Allergies Allergy (Verified 07/04/24 14:31) Medications ?Medication ?Instructions ?Recorded ?Confirmed ?Type fluoxetine 20 mg capsule (Prozac) 20 mg PO DAILY #30 caps 03/09/23 07/04/24 Rx dextroamphetamine-amphetamine ER 5 1 cap PO BID 03/18/24 01/10/25 History mg 24hr capsule,extend release hyoscyamine sulfate 0.125 mg 0.125 mg sublingual BID-QID PRN 02/12/24 07/04/24 Rx sublingual tablet dyspepsia #30 tabs phenazopyridine 100 mg tablet 100 mg PO TID PRN pain #7 tabs 05/18/24 07/04/24 Rx (Pyridium) pantoprazole 20 mg tablet,delayed 20 mg PO DAILY #30 tabs 06/12/24 07/04/24 Rx release Is last menstrual period known: Yes Last Menstrual Period: 06/21/24 Post menopausal: No Patient : No : No PFSH Medical History (Updated 07/06/24 @ 12:[address] Annie Grady MD) Heart palpitations Vaginal delivery PONV (postoperative nausea and vomiting) History of Holter monitoring Cardiology follow-up encounter Headache Depression Anxiety Left ureteral stone Hyperemesis arising during Wears glasses Easy bruising Migraine headache Gastric reflux Non-smoker History of echocardiogram COVID-19 Acute pharyngitis Kayla-Danlos syndrome Exercise-induced asthma Abnormal EKG (~2014) Mixed anxiety and depressive disorder Surgical History History of wisdom tooth extraction Family History Mother Thyroid disorderGrandmother Thyroid disorder Cancer Maternal grandmother - kidney cancerGrandfather Cancer Bladder Social History adopted: No household members: spouse, children and other details: brother in law housing: house number of children: 1 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 pets and animals: dog(s) history of recent travel: No sexually active: Yes Smoking Status: Never smoker Electronic Cigarette Use: not used second hand exposure: No alcohol intake: current alcohol intake frequency: holidays/special occasions only Alcohol type: wine details: not while substance use type: does not use diet: gluten free and lactose free well-balanced diet: daily or most days caffeine: Yes Type: carbonated beverages Number of servings: 1 what type of physical activity do you participate in: other details: cardio kickboxing frequency: 1-2 times per week duration: 45-60 minutes/day seatbelt use: always do you feel safe at home: Yes 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 Patient has a history of a friable cervix, has had negative cultures and negative Pap smear and HPV. Normal pelvic ultrasound. Patient states that for the last year most the time after intercourse she will have bleeding either immediately or within a day that lasts and interferes with quality of life. She has been treated with silver nitrate for the areas of friability on the cervix but this did not change her symptoms. She is ready for intervention. Female Reproductive History Last Menstrual Period: 06/21/24 Menopausal Symptoms: No night sweats History 2 Elective abortions Hx Para 2 Spontaneous abortions Hx # Term Pregnancies Ectopic pregnancies Hx # Pregnancies Multiple births # of living children 2 Past Pregnancies Del. Date Name GA/Weeks Outcome Route Bth Weight Infant Gen Labor Lgth Anesthesia Del Locatn Provider FOB 10/09/20 [place] 38 live - full term 6lbs 5oz Female [facility] Tracy 03/28/23 [place] 39 live - full term Female [facility] Dr. Grady Delivery Date: 10/09/20 Last Updated by: Antoinette Rubalcava IOl for cholestasis, uncomplicated delivery Delivery Date: 03/28/23 Last Updated by: Kyra Bee IOL elective ROS Const Constitutional: Denies fatigue, night sweats, weight gain or weight loss ENT ENT: Reports system reviewed and no additional complaints, except as documented Cardio Card: Reports other (palpitations); Denies chest pain Resp Resp: Denies cough or dyspnea GI GI: Reports as per HPI; Denies abdominal pain, constipation, nausea or vomiting : Denies nipple discharge, urinary frequency, urinary incontinence, urinary hesitancy, urinary urgency, vaginal discharge, vaginal dryness, vaginal odor or vaginal pruritus Musc Musc: Denies arthralgias, back pain or muscle weakness Skin Skin/Breast: Denies alopecia, change in hair, dry skin, breast mass, breast pain, breast skin changes or nipple discharge Neuro Neuro: Reports system reviewed and no additional complaints, except as documented Psych Psych: Reports system reviewed and no additional complaints, except as documented Endo Endo: Denies cold intolerance, excessive sweating, heat intolerance or polydipsia Danny/Lymph Hematologic/Lymphatic: Denies easy bleeding, Denies easy bruising and Denies lymphadenopathy Exam Const General: cooperative, healthy appearing, comfortable, no acute distress and well developed Orientation: alert [facility] Head: normal to inspection and normocephalic Ears: hearing grossly normal bilaterally and external ears normal Nose: external nose normal and nares normal Face and sinus: normal facial exam Neck Neck: normal visual inspection and no lymphadenopathy Thyroid: thyroid normal Chest Chest palpation & inspection: normal inspection of the chest Resp Effort & Inspection: normal respiratory effort Auscultation: clear to auscultation bilaterally Cardio Rate: regular rate Rhythm: regular rhythm Heart Sounds: S1 normal and S2 normal GI Inspection: normal to inspection and non-distended Palpation: soft and no hepatosplenomegaly General: bladder normal to palpation External Female Exam: normal external appearance and normal appearance of the urethra Urethra: normal appearance of the urethra, normal palpation and no discharge Speculum Exam - Vagina: normal appearance of the vagina and normal vaginal discharge Speculum Exam - Cervix: normal appearance of the cervix and nontender Bimanual Exam- Vagina & Uterus: normal bimanual exam, uterine size normal, bladder normal to palpation, uterine shape normal, No tender, uterine mobility normal, consistency normal, normal palpation and non-tender Bimanual Exam- Adnexa, other: normal adnexae, adnexae mobile, no masses and normal Pelvic Support: normal Musc Other: gross motor intact no deficits, full bilateral strength Skin General: no rashes or lesions noted Neuro General: patient alert, patient awake, moves all extremities and no focal motor deficits Motor: muscle tone normal throughout Extrem General: normal to inspection and no pedal edema Psych Appearance: grossly normal Mental Status: mental status grossly normal Affect: normal affect Speech and Movement: speech and movement normal Coding Level of Care Code Off vis,est,level 4 Diagnoses Friable cervix N88.8 Postcoital bleeding N93.0 Heart palpitations R00.2 Acute cystitis without hematuria N30.00 Hematuria presence: without hematuria Urinary tract infection type: acute cystitis Assessment and Plan Assessment and Plan (1) Friable cervix: Status: Acute Comment: long history. Neg pap, hpv and culture. recommend d and c hysteroscopy leep (2) Postcoital bleeding: Status: Acute (3) Heart palpitations: Status: Acute Comment: ekg ordered (4) UTI (urinary tract infection): Status: Acute Qualifiers: Hematuria presence: without hematuria Urinary tract infection type: acute cystitis Qualified Code(s): N30.00 - Acute cystitis without hematuria Orders: Orders 12 Lead EKG 07/04/24 R00.2 - Palpitations
[2024-08-12] VITALS (7 sets, daily range): BP systolic 110–118; BP diastolic 67–88; PULSE 68–87; RESP 16–18; TEMP 36.3–36.6; O2SAT 96–100; BMI 30.9
[2024-08-12 10:13] LABS: Internal QC Validated? YES +Cl - CLEAR BKGD; Pregnancy, Urine Negative Negative
--- NOTE | 2024-08-12 11:00 | PRE.ANES_ITS ---
ASA Classification* ASA Classification ASA Classification: 3 Assessment & Plan Anesthesia* Anesthesia Assessment Anesthesia Assessment: Discussed sedation and/or anesthesia options, risks, benefits, and alternatives with patient/parents/legal guardian/POA. Questions invited. The patient/parents/legal guardian/POA seems to understand and agrees to proceed with anesthesia plan. Reviewed the physical assessment, medical history, allergy history and patient home medications list prior to surgery/procedure/anesthetic and documented any changes. Performed airway and anesthesia risk assessments. Anesthesia Type Anesthesia Type: MAC History Source History Obtained from:: Patient and Chart Anesthesia Focused Assessment* Temperature: 97.8 F Pulse Rate: 69 Blood Pressure: 115/67 Respiratory Rate: 16 Pulse Ox: 100 Oxygen Delivery Method: Room Air Airway Assessment Mouth opens: >3 cm Mallampati Score: I Teeth Condition: Caps/Crowns (Patient has a crown. It is tight.) Neck Range of motion (ROM): Full ROM Focused Labs Anesthesia Preop lab: CBC WBC 10.2 K/mm3 (4.4-11.0) 07/31/24 06:53 07/31/24 RBC 4.58 M/mm3 (4.2-5.4) 07/31/24 06:53 07/31/24 Hgb 12.2 g/dL (12.0-15.0) 07/31/24 06:53 07/31/24 Hct 37.9 % (37-47) 07/31/24 06:53 07/31/24 Plt Count 365 K/mm3 (150-450) 07/31/24 06:53 07/31/24 CHEMISTRY Potassium 3.6 mmol/L (3.5-5.1) 03/08/23 17:45 03/08/23 Sodium 135 mmol/L (136-145) L 03/08/23 17:45 03/08/23 Magnesium 2.2 mg/dL (1.8-2.4) 06/10/15 13:34 06/10/15 BUN 4 mg/dL (7-18) L 03/08/23 17:45 03/08/23 Creatinine 0.55 mg/dL (0.55-1.02) 03/08/23 17:45 03/08/23 Glucose 87 mg/dL (74-106) 03/08/23 17:45 03/08/23 TSH 2.27 uIU/mL (0.358-3.74) 03/23/22 14:23 COAG HCG, Quant < 1 mIU/mL (1-3) 12/21/23 09:59 12/21/23 Urine Test Negative Negative 08/12/24 10:00 08/12/24 Pre-Assessment Diagnosis/Proposed Procedure Planned Operative Procedure(s): Dilation and Curettage, LEEP Anesthesia History 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 When Was Last Pacemaker Check QUESTION #4 FULL TEXT: You/Your Family Experience fever (hyperthermia) with Anesthesia Last Oral Intake Last Oral intake: Last Oral Intake NPO since 02:00 08/12/24 10:18 Meds taken in AM with sips of water? Meds patient instructed to take am of surgery PONV PONV - casing running machine tender: PONV - casing running machine tender Female Yes 07/29/24 14:05 HX of Motion Sickness Yes 07/29/24 14:05 HX of N/V After Surgery No 07/29/24 14:05 Non-Smoker Yes 07/29/24 14:05 Duration of Surgery greater No 07/29/24 14:05 than 60 minutes Number of Risk Factors 3 07/29/24 14:05 PONV Score Moderate Risk 07/29/24 14:05 Height & Weight Height & Weight: Anesthesia: Height & Weight Height 5 ft 4 in 08/12/24 10:18 Weight: 81.7 kg 08/12/24 10:18 Body Mass Index (BMI) 30.9 08/12/24 10:18 Respiratory Assessment Respiratory Assessment - casing running machine tender: Respiratory Tract Infection Hx - casing running machine tender Hx Respiratory Tract Infection No 07/29/24 14:05 STOP Sleep Apnea STOP Sleep Apnea - casing running machine tender: STOP Sleep Apnea - casing running machine tender Hx Hypertension No 07/29/24 14:05 Hx Sleep Apnea No 07/29/24 14:05 CPAP BIPAP Do you snore loudly (louder No 07/29/24 14:05 than talking or can be heard Do you often feel tired/ No 07/29/24 14:05 fatigued/ sleepy during daytime? Has anyone observed you stop No 07/29/24 14:05 breathing during sleep? STOP Results Negative 07/29/24 14:05 QUESTION #5 FULL TEXT : Do you snore loudly (louder than talking or can be heard through closed doors)? Tobacco Use History Tobacco Use History - casing running machine tender: Tobacco Use History - casing running machine tender Tobacco Use Smoking Status Never smoker 07/29/24 14:05 Hx Tobacco Use No 07/29/24 14:05 Years Smoking Packs Smoked per Day Smoking Cessation Date was within the last 15 years Hx Smoking Cessation Date Hx Smoking Cessation Counseling Hematologic Medial History Hematologic Hx - casing running machine tender: Hematologic Medical Hx - documentation spec Hx of Blood Transfusion No 07/29/24 14:05 Hx of Transfusion in last 3 No 07/29/24 14:05 Months Date of Last Transfusion (if within last 3 months) Ever experience any problems No 07/29/24 14:05 with transfusion(s)? Specify any problems Hx of Preganancy in last 3 N/A 07/29/24 14:05 Months Nurse Filling Out Transfusion NBUCHER 07/29/24 14:05 & Questions: Date: 07/29/24 07/29/24 14:05 Time: 14:06 07/29/24 14:05 Patient unable to answer at this time (ie. confused, unrespo /Reproduction History /Reproductive History - casing running machine tender: /Reproductive Hx- casing running machine tender Hx Now No 07/29/24 14:05 Gestational Age (in weeks): EDC: Hx Hx Para Hx Section SAB No 07/29/24 14:05 PFSH Medical History (Updated 07/29/24 @ 14:12 by Silvina Villalobos) ADHD Anemia Shortness of breath on exertion PONV (postoperative nausea and vomiting) History of Holter monitoring Cardiology follow-up encounter Vaginal delivery Headache Depression Anxiety Left ureteral stone Hyperemesis arising during Heart palpitations Wears glasses Easy bruising Migraine headache Gastric reflux Non-smoker History of echocardiogram COVID-19 Acute pharyngitis Kayla-Danlos syndrome Exercise-induced asthma Abnormal EKG (~2014) Mixed anxiety and depressive disorder Home Medications ?Medication ?Instructions ?Recorded ?Last Taken ?Type fluoxetine 20 mg capsule (Prozac) 20 mg PO DAILY pregn helena #30 caps 03/09/23 08/11/24 Rx dextroamphetamine-amphetamine ER 5 1 cap PO BID Unknown History mg 24hr capsule,extend release hyoscyamine sulfate 0.125 mg 0.125 mg sublingual BID-Q ID PRN 02/12/24 Unknown Rx sublingual tablet dyspepsia #30 tabs pantoprazole 20 mg tablet,delayed 20 mg PO DAILY #30 t abs 06/12/24 08/11/24 Rx release cholecalciferol (vitamin D3) 1,250 1,250 mcg PO MO 10/17 Unknown History mcg (50,000 unit) capsule Allergy/AdvReac Type Severity Reaction Status Date / Time No Known Allergies Allergy Verified 08/12/24 10:16 Family History Mother Thyroid disorder Grandmother Thyroid disorder Cancer Maternal grandmother - kidney cancer Grandfather Cancer Bladder Surgical History (Updated 07/29/24 @ 14:12 by Silvina Villalobos) History of esophagogastroduodenoscopy (EGD) History of colonoscopy History of wisdom tooth extraction Social History adopted: No household members: spouse, children and other details: brother in law housing: house number of children: 1 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 pets and animals: dog(s) history of recent travel: No sexually active: Yes Smoking Status: Never smoker Electronic Cigarette Use: not used second hand exposure: No alcohol intake: current alcohol intake frequency: holidays/special occasions only Alcohol type: wine details: not while substance use type: does not use diet: gluten free and lactose free well-balanced diet: daily or most days caffeine: Yes Type: carbonated beverages Number of servings: 1 what type of physical activity do you participate in: other details: cardio kickboxing frequency: 1-2 times per week duration: 45-60 minutes/day seatbelt use: always do you feel safe at home: Yes 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
--- NOTE | 2024-08-12 11:10 | CONE_PTH ---
PATIENT: VALENTE BROWN LOC: [facility] [place] U#:[id number] AGE/SX: 34/F ROOM: RE08/12/[address]: Dr. Annie Grady MD : 1990 BED: DIS: 08/12/2024 SPEC #: [id number] RECD: 08/12/24 13:05 STATUS: YEIMI RELena #: [id number] ANTHONY: 08/12/24 11:[address]: Annie Grady DEPT: SURGICAL PATHOLOGY RECD BY: Melany Reardon ENTERED: 08/12/24 13:30 SP TYPE: Leep Cone DORETHA DR: Dr. Eugenia Low DO Tissues: A - Endometrium, NOS B - UTERINE CERVIX LEEP Procedures: Surgery Specimen Level IV HEADER OPERATION: D&C, LEEP, hysteroscopy PRE-OP DIAGNOSIS: Friable cervix, postcoital bleeding TISSUE SUBMITTED: A- Endometrial curettings, B- Leep of cervix MICROSCOPIC DIAGNOSIS A. Endometrial curettings: Secretory endometrium. B. Cervix, leep colonization: Chronic inflammation. Negative for dysplasia. See comment. 08/13/2024 COMMENT Clinical correlation and appropriate follow up are necessary. MICROSCOPIC DESCRIPTION Slides are reviewed. GROSS DESCRIPTION A. Received in fixative is one container labeled with the patient's name and designated Endometrial curettings. The specimen consists of multiple irregular fragments of goldstein-pink soft tissue mixed with polypoid tissue and blood clot that in aggregate measure 5 x 3 x 0.2 cm. The specimen is totally submitted in two cassettes. B. Received in fixative is one container labeled with the patient's name and designated Leep of cervix. The specimen consists of three variable size pieces of goldstein indurated tissue measuring 2 x 1 x 0.7cm, 1.2 x 0.5 x 0.2cm and 1.2 x 0.5 x 0.3cm. No mucosal lesion is identified. Non-mucosal surface of the largest piece is inked black. The entire specimen is submitted in three cassettes as follows: 1- two smaller pieces, 2&3- largest piece. 08/12/2024 TC:3 CPT:14329,37598
[2024-08-12] MEDS: Iodine/Potassium Iodide 14ML Bottle 1 DRP TOPICAL (11:23)
[2024-08-12] MEDS: Lidocaine 1% (20 ml mdv) 20 ML Vial (11:23)
[2024-08-12] MEDS: FERRIC SUBSULFATE 8 GM SOLN (11:34)
--- NOTE | 2024-08-12 12:32 | PCM.OPRPT ---
Problems Associated Problem List Diagnoses (1) Friable cervix: (2) Postcoital bleeding: Operative Report (Standard) Operative Information Date of Procedure: 08/12/24 Pre-Operative Diagnosis: see problem list Post-Operative Diagnosis: same Surgery/Procedure Performed: d and c hysterosocpy leep corporate meeting planner: No Type of Anesthesia: Local and MAC RN Documented Start/Stop Times: Operation Date: 08/12/24 11:10 Case Time Into Pre-Op 08/12/24 09:54 Out of Pre-Op 08/12/24 11:08 Anesthesia Start 08/12/24 11:11 Into Room 08/12/24 11:11 Procedure Start 08/12/24 11:27 Procedure End 08/12/24 11:42 Anesthesia End 08/12/24 11:47 Out of Room 08/12/24 11:47 Into Recovery 08/12/24 11:50 Into Phase II Recovery 08/12/24 12:01 Out of Recovery 08/12/24 12:01 Out of Phase II 08/12/24 12:59 Procedure Start Time: 11:27 Procedure Stop Time: 11:42 Select all DRAINS/GRAFTS/IMPLANTS that apply: None Estimated Blood Loss: 50 Specimen collected: Yes Description of specimen(s) removed: [facility] [place] cervix Description of surgery: Patient was taken to the operating room and placed under IV anesthesia.. Patient was prepped and draped in normal sterile fashion in the dorsolithotomy position. Cervix was dilated to allow passage of a 5 mm hysteroscope uterine lining was well-visualized and noted within normal limits without any lesions. Curettage was performed and tissue sent to pathology for analysis. Cervix was evaluated and loop electrode was used to remove the outer portion of the friable area without complication and the base was cauterized for excellent hemostasis. Monsel's paste applied Surgical Findings: friable cervix Complications Complications: No
--- NOTE | 2024-08-12 12:32 | PCM.DC ---
Discharge Instructions Diet Discharge Diet: No restrictions DC O2, CPAP, BIPAP needs Home O2 Discharge instructions: No Dressing / Incision Discharge Activity: Return to Normal Activity and May Not Drive (while taking narcotic pain medications.) May resume sexual activity in: 4 weeks (Nothing in the vagina for 4 weeks.) Dressing / Incision Call your doctor if you observe: Fever of 101 or Higher and Using more than 1 pad per hour Follow Up Care Please Follow Up With: Annie Grady MD When: Call [phone] for follow-up appointment. Test Results: Test results from this visit will be discussed in further detail at your follow-up appointment, if applicable. Discharge Plan Admission Attending Provider: Annie Grady Primary Care Provider: Eugenia Low Instructions Print Language: [place] Discharge Orders/Prescriptions Prescriptions: No Action hyoscyamine sulfate 0.125 mg tablet, sublingual 0.125 mg sublingual BID-QID PRN (Reason: dyspepsia) Qty: 30 1RF dextroamphetamine-amphetamine 5 mg capsule,extended release 24hr 1 cap PO BID cholecalciferol (vitamin D3) 1,250 mcg (50,000 unit) capsule 1,250 mcg PO MO fluoxetine [Prozac] 20 mg capsule 20 mg PO DAILY Qty: 30 12RF pantoprazole 20 mg tablet,delayed release (DR/EC) 20 mg PO DAILY Qty: 30 6RF Referrals / Follow Up: Eugenia Low DO [Primary Care Provider] - Disposition Disposition (needs filled in before D/C Order can be placed): Home, Self Care
--- NOTE | 2024-08-12 12:59 | PCM.POST.ANE ---
Anesthesia: Postop Eval I Current Vital Signs Temperature: 97.4 F Pulse Rate: 68 Blood Pressure: 110/74 Respiratory Rate: 16 Pulse Ox: 96 Oxygen Delivery Method: Room Air Assessment Airway patent: Yes Spontaneous unlabored respirations: Yes Mental status: Awake and Calm nausea: No Vomiting: No Anesthesia Complication: No Fluid Hydration Crystalloid volume administer (ml): 10 Total IV fluid infused: 10 Progress Note Anesthesia document: Postop Eval 1 completed: Yes
--- NOTE | 2024-08-12 18:19 | POSTOPAN2_ITS ---
Anesthesia Postop Eval I Sum Postop Eval Completion status Anesthesia document: Postop Eval 1 completed: Yes Anesthesia Postop Eval I Summary Anesthesia Postop Eval I Summary: Anesthesia Postop Eval I: Assessment Summary Airway patent Yes 08/12/24 13:00 KETTLE OPERATOR [email or web address] Spontaneous unlabored Yes 08/12/24 13:00 KETTLE OPERATOR [email or web address] respirations Mental status Awake,Calm 08/12/24 13:00 KETTLE OPERATOR [email or web address] nausea No 08/12/24 13:00 KETTLE OPERATOR [email or web address] Vomiting No 08/12/24 13:00 KETTLE OPERATOR [email or web address] Anesthesia Postop Eval I: Fluid Summary Crystalloid volume administer 10 08/12/24 13:00 KETTLE OPERATOR [email or web address] (ml) Colloids volume administered ( ml) Blood Product volume administered (ml) Total IV fluid infused 10 08/12/24 13:00 KETTLE OPERATOR [email or web address] Anesthesia Postop Eval I: Summary Notes Anesthesia Complication No 08/12/24 13:00 KETTLE OPERATOR [email or web address] Anesthesia Complication Comment: Post-operative progress note Anesthesia: Postop Eval II Evaluation Mental status: Awake and Calm Pain Level: 1 nausea: No Vomiting: No Complications Anesthesia Complication: No
--- NOTE | 2024-08-12 18:19 | PCM.POSTANE2 ---
Anesthesia Postop Eval I Sum Postop Eval Completion status Anesthesia document: Postop Eval 1 completed: Yes Anesthesia Postop Eval I Summary Anesthesia Postop Eval I Summary: Anesthesia Postop Eval I: Assessment Summary Airway patent Yes 08/12/24 13:00 [email or web address] Spontaneous unlabored Yes 08/12/24 13:00 [email or web address] respirations Mental status Awake,Calm 08/12/24 13:00 [email or web address] nausea No 08/12/24 13:00 [email or web address] Vomiting No 08/12/24 13:00 [email or web address] Anesthesia Postop Eval I: Fluid Summary Crystalloid volume administer 10 08/12/24 13:00 [email or web address] (ml) Colloids volume administered ( ml) Blood Product volume administered (ml) Total IV fluid infused 10 08/12/24 13:00 [email or web address] Anesthesia Postop Eval I: Summary Notes Anesthesia Complication No 08/12/24 13:00 [email or web address] Anesthesia Complication Comment: Post-operative progress note Anesthesia: Postop Eval II Evaluation Mental status: Awake and Calm Pain Level: 1 nausea: No Vomiting: No Complications Anesthesia Complication: No
== END 2024-08-12 12:59 | disposition home or self-care (01) ==
LOC: SDC 09:49 → AC 09:50
PROVIDERS: PCP Family Medicine; Referring Provider Obstetrics & Gynecology; Visit Provider Obstetrics & Gynecology
PROC: (CPT 58120; principal; 2024-08-12 10:55)
PROC: 0UBC7ZZ Excision of Cervix, Via Natural or Artificial Opening (ICD-10-PCS; CPT 57522; 2024-08-12 10:55)
DX: N72 Inflammatory disease of cervix uteri (principal); N30.00 Acute cystitis without hematuria; Z79.899 Other long term (current) drug therapy; Z86.16 Personal history of COVID-19
CPT/HCPCS: 58558; 57522; 00952; 36415; 81025; 85027; 86850; 86900; 86901; 88305; A4216; J2405

== ENCOUNTER → 2025-05-19 | Outpatient (CLI) | payer OTHER, SELFPAY ==
[2025-05-19 18:12] LABS: Free T3 2.8 pg/mL (2.18-3.98); T4 Total, Thyroxin 6.3 ug/dL (4.8-13.9)
--- OUTSIDE RECORDS SUMMARY | 2025-05-19 18:44 | XMS RPT_ITS | CCD ---
Author Organization [facility] Care Team Providers Care Reimbursement Consultant Name Role Phone Eugenia Low Unavailable Unavailable Dr. Eugenia Low Primary Care Provider Dr. Eugenia Low Referring Provider BRIDGER Rodriguez Attending Provider Dr. Eugenia Low Primary Care Provider Dr. Eugenia Low Referring Provider Friend, Dr. Elizalde Attending Provider BRIDGER Bruno Attending Provider [phone] [address] Elizalde Other Provider Dr. Eugenia Low Primary Care Provider [phone] Dr. Eugenia Low Referring Provider Dr. Tonio Hernandez Attending Provider BRIDGER Bruno Attending Provider FriendDr. Elizalde Other Provider Unavailable Primary Care Provider Dr. Eugenia Elise Primary Care Provider Dr. Eugenia Low Referring Provider [phone] Tonio Hernandez Attending Provider Dr. Eugenia Low Primary Care Provider Dr. Eugenia Low Referring Provider FriendDr. Elizalde Attending Provider [phone] Dr. Annie Grady Attending Provider [phone] Maranda, Dr. Bello Primary Care Provider [phone] Maranda, Dr. Bello Referring Provider Mary, Dr. Elizalde Attending Provider [phone] Dr. Annie Grady Attending Provider [phone] Maranda, Dr. Bello Primary Care Provider Maranda, Dr. Bello Referring Provider [phone] Suyapa Israel Attending Provider [phone] Mary, Dr. Elizalde Attending Provider [phone] BRIDGER Lozada Attending Provider BRIAN Thomas Attending Provider [phone] SUYAPA JULIO Referring Unavailab WILFRED Jorge Attending Unavailable MARANDA, EUGENIA A Primary Care Unavailable SUYAPA JULIO Referring Unavailab WILFRED Jorge Attending Unavailable MALLILIANE, EUGENIA A Primary Care Unavailable SUYAPA JULIO Referring Unavailab YUSRA Roberts Attending Unavailable MARANDA, EUGENIA A Primary Care Unavailable VANDSUYAPA GRAY Referring Unavailab YUSAR Roberts Attending Unavailable MALYS, EUGENIA A Primary Care Unavailable MARANDA, EUGENIA A Primary Care Unavailable SUYAPA JULIO Referring Unavailab SONAL Davis Attending Unavailable Dr. Eugenia Low Primary Care Provider Maranda, Dr. Bello Referring Provider [phone] Kaleb Mcmahan Attending Provider [phone] Suyapa Israel Referring Provider [phone] Dr. Suyapa Israel Other Provider Dr. Prerna Cárdenas Other Provider [phone] Anthony LAST IRONER, LAST IRONER-C Inna Attending Provider Kaleb LAST IRONER, LAST IRONER-C Daksha Attending Provider [phone] Maranda, Dr. Bello Primary Care Provider Maranda, Dr. Bello Referring Provider Dr. Suyapa Israel Attending Provider [phone] Maranda, Dr. Bello Primary Care Provider Maranda, Dr. Bello Referring Provider [phone] Friend, Dr. Elizalde Attending Provider [phone] Maranda, Dr. Bello Primary Care Provider Maranda, Dr. Bello Referring Provider BRIAN Thomas Attending Provider [phone] Maranda, Dr. Bello Primary Care Provider Maranda, Dr. Bello Referring Provider Dr. Suyapa Israel Attending Provider [phone] Dr. Annie Grady Attending Provider [phone] Dr. Annie Grady Referring Provider [phone] Dr. Annie Grady Other Provider [phone])[phone] BRIAN Thomas Other Provider [phone] Unavailable Primary Care Provider Fabian Low, Dr. Bello Primary Care Provider Maranda, Dr. Bello Referring Provider BRIAN Thomas Attending Provider [phone] Dr. Tonio Hernandez Attending Provider [phone] Maranda, Dr. Bello Primary Care Provider Maranda, Dr. Bello Referring Provider [phone] Dr. Tonio Hernandez Attending Provider [phone] Dr. Tonio Hernandez Other Provider [phone] Maranda DO, Dr. Bello Primary Care Provider [phone] Miguel A KYLE, Dr. Valencia Attending Provider Miguel A KYLE, Dr. Valencia Referring Provider Miguel A KYLE, Dr. Valencia Other Provider [phone] Dr. Eugenia Low DO Referring Provider Flaquito Lozada Attending Provider Malys, Eugenia Primary Care Unavailable Marcanthony, Annie Referring Unavailable Marcanthony, Annie Attending Unavailable Earl Somers Attending Unavailable Malys, Eugenia Primary Care Unavailable Malys, Eugenia Primary Care Unavailable Marcanthony, Annie Referring Unavailable Marcanthony, Annie Attending Unavailable Malys, Eugenia Primary Care Unavailable Marcanthony, Annie Consulting Unavailable Marcanthony, Annie Referring Unavailable Marcanthony, Annie Attending Unavailable Malys, Eugenia Primary Care Unavailable Marcanthony, Annie Attending Unavailable Marcanthony, Annie Consulting Unavailable Marcanthony, Annie Referring Unavailable Malys, Eugenia Primary Care Unavailable Malys, Eugenia Referring Unavailable Marcanthony, Annie Attending Unavailable Malys, Eugenia Primary Care Unavailable Malys, Eugenia Referring Unavailable Flaquito Lozada Attending Unavailable Malys, Eugenia Referring Unavailable Tonio Hernandez Attending Unavailable Malys, Eugenia Primary Care Unavailable Malys, Eugenia Referring Unavailable Kaleb LAST IRONER, Daksha Attending Unavailable Malys, Eugenia Primary Care Unavailable Malys, Eugenia Primary Care Unavailable Malys, Eugenia Referring Unavailable Jimmy Dennison NP Attending Unavailable Malys, Eugenia Referring Unavailable Bob Lloyd Attending Unavailable Malys, Eugenia Primary Care Unavailable Malys, Eugenia Primary Care Unavailable Malys, Eugenia Referring Unavailable Marcanthony, Annie Attending Unavailable Malys, Eugenia Primary Care Unavailable Mercedes Brown Attending Unavailable Marcanthony, Annie Referring Unavailable Malys, Eugenia Primary Care Unavailable Inna Thomas Referring Unavailable Inna Thomas Attending Unavailable Kaleb LAST IRONER, Daksha Referring Unavailable [place] LAST IRONER, Daksha Attending Unavailable Malys, Eugenia Primary Care Unavailable Malys, Eugenia Primary Care Unavailable [place] LAST IRONER, Daksha Referring Unavailable Kaleb LAST IRONER, Daksha Attending Unavailable Medications Current Medications Medication Drug Class(es) Dates Sig (Normalized) Sig (Original) acetaminophen 325 mg / HYDROcodone bitartrate 5 mg oral tablet (2 sources) Opioid Agonist Start: 01-27-2022 take 1 tablet by mouth every four hours as needed Hydrocodone-Acet aminophen Active 1 TABLET PO EVERY 4 HOURS NEEDED 03 26January 27, 2022 amoxicillin 875 mg oral tablet (1 source) Penicillin-class Antibacterial Start: 11-10-2024 take 1 tablet by mouth twice daily Amoxicillin 875 mg tablet Active 875 mg PO TWICE A DAY November 10, 2024 12:00am 24 hr amphetamine aspartate 1.25 mg / amphetamine sulfate 1.25 mg / dextroamphetamine saccharate 1.25 mg / dextroamphetamine sulfate 1.25 mg extended release oral capsule (20 sources) Central Nervous System Stimulant Start: 09-10-2023 Dextroamphetamin e-Amphetamine 5 mg capsule,extended release 24hr Active 1 NMA PO TWICE A DAY September 10, 2023 12:00am Start: 03-26-2021 End: 07-24-2022 take 1 capsule by mouth once daily, then take 1 capsule by mouth every twenty-four hours Dextroamphetamine-Amphetamine (Adderall Xr) 10 mg capsule,extended release 24hr Discontinued 10 mg PO DAILY March 26, 2021 12:00am July 24, 2022 3:53pm cholecalciferol 1.25 mg oral capsule (1 source) Vitamin D Start: 07-29-2024 take 1 capsule by mouth once Cholecalciferol (Vitamin D3) 1,250 mcg (50,000 unit) capsule Active 1250 ug PO July 29, 2024 1:00am dexamethasone 6 mg oral tablet (2 sources) Corticosteroid Start: 06-23-2021 take 1 tablet by mouth once daily Dexamethasone (Decadron) 6 mg tablet Active 6 MG PO DAILY June 23, 2021 8:44am FLUoxetine 20 mg oral capsule (20 sources) Serotonin Reuptake Inhibitor Start: 03-02-2023 End: 03-09-2023 take 1 capsule by mouth once daily Fluoxetine (Prozac) 20 mg capsule Active 20 mg PO DAILY March 09, 2023 2:16pm Start: 10-08-2020 End: 10-05-2022 take 2 capsules by mouth once daily Fluoxetine 20 MG capsule Discontinued 40 mg PO DAILY October 08, 2020 8:41pm October 05, 2022 9:07am Start: 10-08-2020 End: 04-13-2023 take 40 mg by mouth once daily Fluoxetine Discontinued 40 MG PO DAILY October 08, 2020 8:41pm October 05, 2022 9:07am Start: 08-06-2020 End: 10-08-2020 take 1 capsule by mouth once daily Fluoxetine 20 mg capsule Discontinued 20 mg PO DAILY August 06, 2020 4:28pm October 08, 2020 8:41pm Start: 03-19-2020 End: 08-06-2020 take 1 capsule by mouth once daily Fluoxetine (Prozac) 10 mg capsule Discontinued 10 mg PO DAILY June 16, 2020 4:44pm August 06, 2020 4:28pm Start: 12-25-2019 FLUoxetine HCl - 10 MG Oral Capsule Quantity: 60 Refills: 0 DO Start : 25-Dec-2019 Active hyoscyamine sulfate 0.125 mg sublingual tablet (1 source) Start: 02-12-2024 Hyoscyamine Gabriel lfate 0.125 mg tablet, sublingual Active 0.125 mg SL 2 to 4 times per day as needed for dyspepsia February 12, 2024 12:00am pantoprazole 20 mg delayed release oral tablet (20 sources) Proton Pump Inhibitor Start: 10-11-2023 End: 06-12-2024 take 1 tablet by mouth once daily Pantoprazole 20 mg tablet,delayed release (DR/EC) Active 20 mg PO DAILY June 12, 2024 1:54pm Start: 09-10-2023 End: 10-11-2023 Pantoprazole 40 mg tablet,de layed release (DR/EC) Discontinued 20 mg PO DAILY September 10, 2023 12:00am October 11, 2023 9:22am Start: 09-10-2023 take 20 mg by mouth once daily Pantoprazole Active 20 MG PO DAILY September 10, 2023 12:00am Start: 11-15-2022 End: 09-10-2023 take 1 tablet by mouth once daily Pantoprazole 40 mg tablet,delayed release (DR/EC) Discontinued 40 mg PO DAILY March 16, 2023 4:33pm July 30, 2023 11:57am Start: 04-19-2022 End: 11-15-2022 take 1 tablet by mouth twice daily Pantoprazole 40 mg tablet,delayed release (DR/EC) Discontinued 40 mg PO TWICE A DAY April 19, 2022 12:00am November 15, 2022 7:22am 24 hr propranolol hydrochloride 60 mg extended release oral capsule (20 sources) beta-Adrenergic Yumiko Start: 09-05-2024 take 1 capsule by mouth once daily Propranolol 60 mg capsule,extended release 24 hr Active 60 mg PO daily September 05, 2024 12:00am Start: 03-20-2022 End: 08-18-2022 take 1 capsule by mouth once daily Propranolol 60 mg Capsule,Extended Release 24 Hr Discontinued 60 mg PO DAILY March 20, 2022 12:00am August 18, 2022 12:39pm Completed/Discontinued Medications Medication Drug Class(es) Dates Sig (Normalized) Sig (Original) [id number] actuat albuterol 0.09 mg/actuat metered dose inhaler (1 source) beta2-Adrenergic Agonist Start: 03-28-2024 End: 05-13-2024 Albuterol Sulfate 90 mcg/actuation HFA aerosol inhaler Discontinued 2 NMA INHALATION EVERY 4-6 HOURS as needed for shortness of breath or wheezing 8.March 28, 2024 12:00am May 13, 2024 3:52pm amoxicillin 875 mg / clavulanate 125 mg oral tablet (20 sources) Penicillin-class Antibacterial Start: 03-08-2021 End: 03-18-2021 Amoxicillin-Pot Clavulanate (Augmentin) 875-125 mg tablet Discontinued 1 {tbl} PO Q12H 20 March 08, 2021 12:00am March 17, 2021 12:00am March 18, 2021 12:01am azithromycin 250 mg oral tablet (1 source) Macrolide Antimicrobial Start: 03-28-2024 End: 05-13-2024 take 2-5 tablets by mouth once daily Azithromycin 250 mg tablet Discontinued 0 PO .COMPLEX 6 March 28, 2024 12:00am May 13, 2024 3:52pm take 500 mg today (day 1), then 250 mg for 4 days (days 2-5) PO baclofen 5 mg oral tablet (1 source) gamma-Aminobutyric Acid-ergic Agonist Start: 12-30-2023 End: 02-12-2024 take 1 tablet by mouth three times daily as needed for muscle spasms Baclofen 5 mg tablet Discontinued 5 mg PO THREE TIMES A DAY as needed for esophageal spasm 9 3 December 30, 2023 6:22am February 12, 2024 8:38am Blood Pressure Monitor (20 sources) Start: 10-08-2020 End: 11-15-2020 Blood Pressure Monitor Discontinued 0 .Route .MEDSUPPLY October 08, 2020 7:41pm November 15, 2020 1:02pm As directed Start: 10-08-2020 End: 11-15-2020 Blood Pressure Monitor Disco ntinued 0 .Route .MEDSUPPLY October 08, 2020 8:41pm November 15, 2020 2:02pm As directed Start: 10-06-2020 End: 10-08-2020 Blood Pressure Monitor Disco ntinued 0 .ROUTE .MEDSUPPLY 1 October 06, 2020 11:58am October 08, 2020 8:41pm As directed Start: 10-06-2020 End: 10-08-2020 Blood Pressure Monitor Disco ntinued 0 .ROUTE .MEDSUPPLY 1 October 05, 2020 11:00pm October 08, 2020 7:41pm As directed Start: 10-06-2020 End: 10-08-2020 Blood Pressure Monitor Disco ntinued 0 .ROUTE .MEDSUPPLY 1 October 06, 2020 12:00am October 08, 2020 8:41pm As directed Blood Pressure Monitor 1 EACH kit (1 source) Start: 10-08-2020 End: 11-15-2020 Blood Pressure Monitor 1 EACH kit Discontinued 0 .Route .MEDSUPPLY October 08, 2020 8:41pm November 15, 2020 2:02pm As directed Blood Pressure Monitor kit (1 source) Start: 10-06-2020 End: 10-08-2020 Blood Pressure Monitor kit Discontinued 0 .ROUTE .MEDSUPPLY 1 October 06, 2020 12:00am October 08, 2020 8:41pm As directed 12 hr buPROPion hydrochloride 200 mg extended release oral tablet (20 sources) Aminoketone Start: 08-19-2017 End: 04-21-2019 take 1 tablet by mouth twice daily Bupropion Hcl 200 MG tablet sustained-release 12 hr Discontinued 200 mg PO TWICE A DAY August 19, 2017 1:00am April 21, 2019 10:45am cephalexin 500 mg oral capsule (14 sources) Cephalosporin Antibacterial Start: 12-28-2022 End: 01-19-2023 take 1 capsule by mouth twice daily Cephalexin 500 mg capsule Discontinued 500 mg PO TWICE A DAY December 28, 2022 12:00am January 19, 2023 3:14pm ciprofloxacin 500 mg oral tablet (20 sources) Quinolone Antimicrobial Start: 04-21-2019 End: 03-19-2020 take 1 tablet by mouth twice daily Ciprofloxacin Hcl 500 mg tablet Discontinued 500 mg PO TWICE A DAY April 21, 2019 12:00am March 19, 2020 12:59pm diphenhydrAMINE hydrochloride 25 mg oral capsule (20 sources) Histamine-1 Receptor Antagonist Start: 10-06-2020 End: 11-15-2020 Diphenhydramine Hcl 25 MG capsule Discontinued 25 mg PO NEEDED as needed for Itching October 06, 2020 12:00am November 15, 2020 2:02pm doxycycline hyclate 50 mg oral capsule (3 sources) Tetracycline-class Drug Start: 10-25-2023 End: 02-12-2024 take 1 capsule by mouth twice daily Doxycycline Hyclate 50 mg capsule Discontinued 50 mg PO TWICE A DAY October 25, 2023 12:00am February 12, 2024 8:39am Start: 03-26-2021 take 100 mg by mouth twice daily Doxycycline Monohydrate Active 100 MG PO TWICE A DAY March 26, 2021 7:27am estradiol 1 mg oral tablet (20 sources) Estrogen Start: 08-28-2017 End: 09-18-2017 take 1 tablet by mouth once daily Estradiol (Estrace) 1 mg tablet Discontinued 1 mg PO daily August 28, 2017 1:00am September 17, 2017 12:00am September 18, 2017 12:06am off 1 week; repeat cycle 168 hr ethinyl estradiol 0.36606 mg/hr / norelgestromin 0.83412 mg/hr transdermal system (20 sources) Progestin, Estrogen Start: 11-15-2020 End: 01-26-2021 Norelgestromin-Ethi n.Estradiol (Xulane) 150-35 mcg/24 hr patch weekly Discontinued 1 NMA TD Q7D November 15, 2020 12:00am January 26, 2021 3:36pm apply once weekly for 3 weeks of a 4-week cycle Start: 11-15-2020 End: 01-26-2021 Norelgestromin-Ethin.Estradi ol (Xulane) 150-35 mcg/24 hr patch weekly Discontinued 1 PATCH TD Q7D 3 November 15, 2020 12:00am January 26, 2021 3:36pm apply once weekly for 3 weeks of a 4-week cycle etonogestrel 68 mg drug implant (20 sources) Progestin Start: 08-28-2017 End: 04-21-2019 Etonogestrel (Nexplanon) 68 mg implant Discontinued 1 NMA Subdermal ONCE August 28, 2017 1:00am April 21, 2019 10:45am famotidine 20 mg oral tablet (20 sources) Histamine-2 Receptor Antagonist Start: 03-26-2021 End: 07-24-2022 take 2 tablets by mouth once daily Famotidine 20 mg tablet Discontinued 40 mg PO DAILY March 26, 2021 12:00am July 24, 2022 3:53pm Start: 03-26-2021 End: 07-24-2022 take 40 mg by mouth once daily Famotidine Discontinued 40 MG PO DAILY March 26, 2021 12:00am July 24, 2022 3:53pm Start: 10-06-2020 End: 11-15-2020 take 1 tablet by mouth twice daily Famotidine 20 MG tablet Discontinued 20 mg PO TWICE A DAY October 08, 2020 8:41pm November 15, 2020 2:02pm linaclotide 0.145 mg oral capsule (20 sources) Guanylate Cyclase-C Agonist Start: 12-25-2022 End: 07-30-2023 take 1 capsule by mouth every other day Linaclotide (Linzess) 145 mcg capsule Discontinued 145 ug PO every other day December 25, 2022 3:07pm July 30, 2023 11:39am On Hold: Order Changed Start: 04-19-2022 End: 12-25-2022 take 1 capsule by mouth once daily Linaclotide (Linzess) 145 mcg capsule Discontinued 145 ug PO DAILY April 19, 2022 12:00am December 25, 2022 3:08pm 24 hr loratadine 10 mg / pseudoephedrine sulfate 240 mg extended release oral tablet (20 sources) alpha-Adrenergic Agonist Start: 10-08-2020 End: 11-15-2020 take 1 tablet by mouth once daily Loratadine-Pseudoephedrine 1 TABLET tablet Discontinued 1 {tbl} PO DAILY October 08, 2020 12:00am November 15, 2020 2:02pm Start: 10-08-2020 End: 11-15-2020 take 1 tablet by mouth once daily Loratadine-Pseudoephedrine Discontinued 1 TABLET PO DAILY October 08, 2020 12:00am November 15, 2020 2:02pm methylPREDNISolone 4 mg oral tablet (1 source) Corticosteroid Start: 03-28-2024 End: 04-03-2024 take 1 tablet by mouth once Methylprednisolone (Medrol ([place])) 4 mg tablets,dose pack Discontinued 4 mg PO per package directions 21 March 28, 2024 12:00am April 02, 2024 12:00am April 03, 2024 12:08am metoclopramide 5 mg oral tablet (20 sources) Dopamine-2 Receptor Antagonist Start: 09-20-2022 End: 03-22-2023 take 1 tablet by mouth every eight hours as needed for nausea and vomiting Metoclopramide Hcl (Reglan) 5 mg tablet Discontinued 5 mg PO .q 8 hrs as needed for nausea and vomiting 60 September 20, 2022 12:00am March 22, 2023 11:03pm Start: 05-01-2022 End: 07-24-2022 take 1 tablet by mouth 30 minutes before mealtime Metoclopramide Hcl (Reglan) 5 mg tablet Discontinued 5 mg PO before meals May 01, 2022 1:00am July 24, 2022 3:53pm administer 30 minutes before meals naproxen 250 mg oral tablet (20 sources) Nonsteroidal Anti-inflammatory Drug Start: 10-11-2020 End: 11-15-2020 take 250-500 mg by mouth every eight hours as needed for pain Naproxen 250 MG tablet Discontinued 250 - 500 mg PO EVERY 8 HOURS NEEDED as needed for MILD PAIN October 11, 2020 12:00am November 15, 2020 2:02pm nitrofurantoin, macrocrystals 25 mg / nitrofurantoin, monohydrate 75 mg oral capsule (1 source) Nitrofuran Antibacterial Start: 05-18-2024 End: 05-25-2024 take 1 capsule by mouth every twelve hours at mealtime Nitrofurantoin Monohyd/M-Cryst (Macrobid) 100 mg capsule Discontinued 100 mg PO Q12H 14 May 18, 2024 1:00am May 24, 2024 1:00am May 25, 2024 1:10am must administer with a meal/food ondansetron 4 mg oral tablet (20 sources) Serotonin-3 Receptor Antagonist Start: 08-18-2022 End: 03-22-2023 take 1 tablet by mouth every eight hours as needed for nausea and vomiting Ondansetron Hcl 4 mg tablet Discontinued 4 mg PO Q8H as needed for nausea and vomiting August 18, 2022 1:00am August 18, 2022 2:21pm Start: 01-27-2022 take 4 mg by mouth e very eight hours as needed Ondansetron Active 4 MG PO EVERY 8 HOURS NEEDED January 27, 2022 12:00am phenazopyridine hydrochloride 100 mg oral tablet (1 source) Start: 05-18-2024 End: 07-29-2024 take 1 tablet by mouth three times daily as needed for pain Phenazopyridine (Pyridium) 100 mg tablet Discontinued 100 mg PO THREE TIMES A DAY as needed for pain May 18, 2024 1:00am July 29, 2024 3:04pm predniSONE 20 mg oral tablet (20 sources) Start: 04-21-2019 End: 03-19-2020 take 3 tablets by mouth once daily, then take 2 tablets by mouth once daily, then take 1 tablet by mouth once daily Prednisone 20 mg tablet Discontinued 20 mg PO DAILY April 21, 2019 12:00am March 19, 2020 12:59pm 3 tablets daily for 3 days, then 2 tablets daily for 3 days, then 1 tablet daily for 3 days Prenat.Vits,Anh,Min-Iron- Folic (18 sources) Start: 08-18-2022 End: 09-10-2023 take 1 tablet by mouth once daily Prenat.Vits,Anh,Min-Iron -Folic Discontinued 1 TABLET PO DAILY August 18, 2022 1:00am September 10, 2023 11:22am Start: 08-18-2022 take 1 tablet by eke once daily Prenat.Vits,Anh,Iho-Nzcm-Zzcfg Active 1 TABLET PO DAILY August 18, 2022 1:00am Start: 08-18-2022 take 1 tablet by kee th once daily Prenat.Vits,Anh,Ipe-Evrp-Dzukq Active 1 TABLET PO DAILY August 18, 2022 12:00am Prenat.Vits,Anh,Ggs-Xlxu-Ggd ic tablet (1 source) Start: 08-18-2022 End: 09-10-2023 Prenat.Vits,Anh,Hye-Bfhc-Yrs ic tablet Discontinued 1 {tbl} PO DAILY August 18, 2022 1:00am September 10, 2023 11:22am TABS (1 source) TABS Re fills: 0 DO Active sucralfate 1000 mg oral tabl et (20 sources) Alumin um Comple x Start: 01-27-2022 End: 07-24-2022 take 1 tablet by mouth twice daily as needed for gastro esopha geal reflux diseas e Sucralfate (Carafate) 1 gram tablet Discontinued 1 g PO TWICE A DAY as needed for reflux January 27, 2022 12:01am July 24, 2022 3:54pm ursodiol 300 mg oral capsule (20 sources) Bile Acid Start: 10-06-2020 End: 11-15-2020 take 1 capsul e by mouth twice daily Ursodiol 300 MG capsule Discontinued 300 mg PO TWICE A DAY October 08, 2020 8:41pm November 15, 2020 2:02pm Problems Active Problems Problem Classification Problem Date Documented Da te Episodic/Chronic Acute and chronic tonsillitis (20 sources) Acute tonsillitis; Translations: [Acute tonsillitis, unspecified] 10-07-2020 Episodic Allergic reactions (5 sources) Non-celiac gluten sensitivity; Translations: [Non-celiac gluten sensitivity] 07-30-2023 Chronic Anxiety disorders (20 sources) Anxiety; Translations: [Mixed anxiety and depressive disorder] 10-07-2020 Chronic Comment on above: Prozac DAILY Asthma (20 sources) Exercise-induced asthma; Translations: [Exercise induced bronchospasm] Onset: 10-07-2020 Chronic Comment on above: dx in high school- n o issues since Calculus of urinary tract (20 sources) Ureteric stone; Translations: [Calculus of ureter] 12-27-2022 Episodic Cardiac dysrhythmias (20 sources) Supraventricular tachycardia; Translations: [Supraventricular tachycardia] 10-07-2020 Chronic Comment on above: has been having epis odically Diabetes or abnormal glucose tolerance complicating ; childbirth; or the puerperium (20 sources) Abnormal glucose level; Translations: [Abnormal glucose complicating ] 01-09-2023 Episodic Comment on above: 3 hour ordered Esophageal disorders (20 sources) Gastroesophageal reflux disease; Translations: [Gastro-esophageal reflux disease without esophagitis] Onset: 4 Chronic Gastritis and duodenitis (20 sources) Gastritis; Translations: [Gastritis, unspecified, without bleeding] 02-04-2022 Episodic Gastrointestinal hemorrhage (5 sources) Lower gastrointestinal hemorrhage; Translations: [Gastrointestinal hemorrhage, unspecified] 07-30-2023 Episodic Genitourinary symptoms and ill-defined conditions (20 sources) Bacteriuria; Translations: [Bacteriuria] 12-27-2022 Episodic Headache; including migraine (1 source) Chronic headache disorder; Translations: [Chronic headache] Episodic Hypertension complicating ; childbirth and the puerperium (20 sources) Elevated blood pressure; Translations: [Unspecified maternal hypertension, third trimester] 10-11-2020 Chronic Comment on above: Elevated BPs in the ER over the weekend and in office. Seen in triage on 10/06. Blood pressure is normal. Prelabs normal. Patient to monitor blood pressures at home. 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 Other complications of (19 sources) Maternal obesity complicating , childbirth and the puerperium, antepartum; Translations: [Obesity complicating , unspecified trimester] 08-24-2022 Chronic Comment on above: 1 TM GCT encouraged healthy weight gain Other complications of (20 sources) Obesity complicating , unspecified trimester; Translations: [Obesity complicating , childbirth, or the puerperium, unspecified as to episode of care or not applicable] 08-24-2022 Chronic Other complications of (12 sources) Anemia of ; Translations: [Anemia complicating , unspecified trimester] 01-09-2023 Chronic Comment on above: redraw in 4 weeks Other complications of (20 sources) Anemia complicating , unspecified trimester; Translations: [Anemia of mother, unspecified as to episode of care or not applicable] 01-10-2023 Chronic Other complications of (10 sources) Pruritic urticarial papules and plaques of ; Translations: [Pruritic urticarial papules and plaques of (PUPPP)] 10-11-2020 Episodic Other complications of (20 sources) High risk ; Translations: [Supervision of high risk , unspecified, unspecified trimester] 10-11-2020 Episodic Comment on above: PRR DAISY 04/01/23 , PC Gloria, Spouse: Ameya Other complications of (20 sources) Cholestasis of ; Translations: [Liver and biliary tract disorders in , third trimester] 10-11-2020 Episodic Comment on above: Patient with itching concerning for cholestasis of . Improved significantly with actigall. Bile acids pending. Given severity of initial symptoms and response to treatment, plan IOL for suspected cholestasis of . Other complications of (19 sources) Depressive disorder in mother complicating ; Translations: [Other mental disorders complicating , unspecified trimester] 08-18-2022 Episodic Comment on above: stopped Prozac 40mg since on reglan, counseling encouraged Other complications of (20 sources) Other mental disorders complicating , unspecified trimester; Translations: [Mental disorders of mother, unspecified as to episode of care or not applicable] 08-24-2022 Episodic Other complications of (20 sources) Supervision of high risk , unspecified, unspecified trimester; Translations: [Supervision of unspecified high-risk ] 08-24-2022 Episodic Other complications of (17 sources) Pruritic urticarial papules and plaques of (PUPPP); Translations: [Pruritic urticarial papules and plaques of ] 10-11-2020 Episodic Comment on above: Rash did not improve with steroid course. No symptoms on abdomen, only on arms, legs, hands, and feet. Bile acids pending. We will see if symptoms improve with Actigall Other complications of (17 sources) Hyperemesis gravidarum; Translations: [Mild hyperemesis gravidarum] 10-18-2022 Episodic Comment on above: reglan and zofran. e ncouraged q 4 hour rotating dosing. Taking reglan about once a day, improving Other complications of (20 sources) Mild hyperemesis gravidarum; Translations: [Mild hyperemesis gravidarum, antepartum condition or complication] 10-18-2022 Episodic Other complications of (14 sources) Kidney stone; Translations: [ related renal disease, unspecified trimester] 12-28-2022 Episodic Comment on above: left UVJ, Dr. French i consulted. 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 Mota. s/p mfm consult nl maternal echo, Anesthesia consult 09/06 @ 10. delivery based on obstetric indications; NL ECGCL q 2 weeks to 26 weeks -44.2mm. no further CL needed Other congenital anomalies (20 sources) Shawn-Danlos syndrome, unspecified; Translations: [Shawn-Danlos syndrome] 08-24-2022 Chronic Other diseases of kidney and ureters (14 sources) Hydronephrosis; Translations: [Unspecified hydronephrosis] 12-27-2022 Episodic Other diseases of kidney and ureters (20 sources) Unspecified hydronephrosis; Translations: [Hydronephrosis] 12-28-2022 Episodic Other disorders of stomach and duodenum (3 sources) Gastroparesis syndrome; Translations: [Gastroparesis] 07-30-2023 Episodic Other disorders of stomach and duodenum (2 sources) Gastroparesis; Translations: [Gastroparesis] 07-30-2023 Episodic Other endocrine disorders (1 source) Menarche; Translations: [History of Menarche] Chronic Other female genital disorders (2 sources) Postcoital bleeding; Translations: [Postcoital and contact bleeding] 05-13-2024 Chronic Other female genital disorders (2 sources) Postcoital and contact bleeding; Translations: [Postcoital and contact bleeding] Onset: 4 Chronic Other female genital disorders (3 sources) Disorder of uterine cervix; Translations: [Other specified noninflammatory disorders of cervix uteri] Onset: 5 09-05-2024 Episodic Comment on above: long history. Neg pa p, hpv and culture. s/p d and c hysteroscopy leep Other female genital disorders (2 sources) Other specified noninflammatory disorders of cervix uteri; Translations: [Other specified noninflammatory disorders of cervix uteri] Onset: 5 Episodic Other gastrointestinal disorders (20 sources) Celiac disease; Translations: [Celiac disease] 07-18-2022 Chronic Other gastrointestinal disorders (20 sources) Celiac disease; Translations: [Celiac disease] Chronic Other gastrointestinal disorders (20 sources) Dysphagia; Translations: [Dysphagia, unspecified] 02-01-2022 Episodic Comment on above: due to sore throat Other gastrointestinal disorders (6 sources) Dysphagia, unspecified; Translations: [Dysphagia, unspecified] Episodic Other injuries and conditions due to external causes (1 source) Sharps injury 03-28-2023 Episodic Comment on above: was stuck wi th needle. Hep + patient. Please do Hep panel for patient with new OB labs per her request Other nervous system disorders (19 sources) H/O: migraine; Translations: [Personal history of other diseases of the nervous system and sense organs] 08-24-2022 Episodic Comment on above: was using Propranolo l prior to . D/C by PCP. encouraged magnesium if headaches with , currently stable Other and delivery including normal (20 sources) Patient encounter status; Translations: [Encounter for supervision of normal , unspecified, unspecified trimester] 10-11-2020 Episodic Comment on above: SM IOL girl Tatu m GBS neg, NIPT low ri sk, nl growth Other upper respiratory infections (20 sources) Acute upper respiratory infection; Translations: [Acute upper respiratory infection, unspecified] Episodic Residual codes; unclassified (20 sources) Insomnia; Translations: [Insomnia, unspecified] 10-07-2020 Episodic Residual codes; unclassified (20 sources) Gestation period, 36 weeks; Translations: [36 weeks gestation of ] 10-11-2020 Episodic Comment on above: COVID test ordered (sched 10/18 1:30pm) Syncope (20 sources) Near syncope; Translations: [Syncope and collapse] Onset: 12-14-2022 Episodic Comment on above: Tunnel vision, thing s started to go black, ears ringing, then vomited. 5 episodes in 1 months time, Gets tachycardic with episode Unclassified (5 sources) Patient encounter status; Translations: [Women's annual routine gynecological examination] Viral infection (20 sources) Disease caused by 2019-nCoV; Translations: [COVID-19] Episodic Past or Other Problems Problem Classification Problem Date Documented Date Episodic/Chronic Abdominal pain (20 sources) Abdominal pain; Translations: [Unspecified abdominal pain] Onset: 06-26-2024 02-04-2022 Episodic Cardiac dysrhythmias (20 sources) Palpitations; Translations: [Palpitations] Onset: 07-29-2024 12-13-2022 Episodic Comment on above: ekg ordered Contraceptive and procreative management (2 sources) Subcutaneous contraceptive implant present; Translations: [Encounter for Nexplanon removal] Other screening for suspected conditions (not mental disorders or infectious disease) (20 sources) Electrocardiogram abnormal; Translations: [Abnormal electrocardiogram [ECG] [EKG]] Onset: 05-13-2024 10-07-2020 Episodic Comment on above: Admitted for tonsill itis EKG read SVT, 2015 Unclassified (1 source) Cancer cervix screening status; Translations: [Screening for cervical cancer] Unclassified (20 sources) Sharps injury; Translations: [Needle stick injury] 08-18-2022 Urinary tract infections (3 sources) Urinary tract infectious disease; Translations: [Urinary tract infection, site not specified] Onset: 05-18-2024 05-18-2024 Episodic NEGATED: Highlighted row has not occurred!Residual codes; unclassified (3 sources) Disease Episodic Results Test Name Value Interpretation Reference Range Facility Urgent Care Visit Reporton 0 11-10-2024 Urgent Care Visit Report [facility] [address], [address] [place] [address] OFFICE VISIT Date of Service: 11/10/24 MR#: [id number] Acct: [id number] Name: NANCY BROWN Rep #: [id number] : 1990 Provider: BRIDGER Artis Age/Sex: 34/F Location: [facility] [place] Status: Signed Intake Vital Signs 09/05/24 08:54 11/10/24 10:22 Height 5 ft 4 in Weight: 184 lb 4 oz BMI 31.6 BP 109/73 102/60 Position Sitting Pulse 68 Temp 98.8 F Temp Source Oral Pulse Oximetry (%) 98 Oxygen Delivery Method room air Intake Visit Reasons: SINUS INFECTION CONCERN Accompanied by: Self Allergies No Known Allergies Allergy (Verified 11/10/24 10:26) Medications ???Medication ???Instructions ???Recorded ???Confirmed ???Type fluoxetine 20 mg capsule (Prozac) 20 mg PO DAILY #30 caps 03/09/23 11/10/24 Rx dextroamphetamine-amphet amine ER 5 1 cap PO BID 09/10/23 11/10/24 H istory mg 24hr capsule,extend release hyoscyamine sulfate 0.125 mg 0.125 mg sublingual BID-QID PRN 11/10/24 Rx sublingual tablet dyspepsia #30 tabs pantoprazole 20 mg tablet,delayed 20 mg PO DAILY #30 tabs 06/12/24 11/10/24 Rx release cholecalciferol (vitamin D3) 1,250 1,250 mcg PO MO 07/29/24 5 History mcg (50,000 unit) capsule propranolol 60 mg capsule,24 60 mg PO QDAY 09/05/24 11/10/24 Hi story hr,extended release amoxicillin 875 mg tablet 875 mg PO BID #20 tabs 11/10/24 Rx Nurse's Note: Patient has cough,ST loss of voice that has been going on for about 10 days. Patient at first thought it was a viral. Her symptoms went away but then came back. Patient felt run down yesterday. [facility] Medical History ADHD Anemia Shortness of breath on exertion PONV (postoperative nausea and vomiting) History of Holter monitoring Cardiology follow-up encounter Vaginal delivery Headache Depression Anxiety Left ureteral stone Hyperemesis arising during Heart palpitations Wears glasses Easy bruising Migraine headache Gastric reflux Non-smoker History of echocardiogram COVID-19 Acute pharyngitis Shawn-Danlos syndrome Exercise-induced asthma Abnormal EKG ( 2015) Mixed anxiety and depressive disorder Surgical History History of esophagogastroduodenosco py (EGD) History of colonoscopy History of wisdom tooth extraction Family History Mother Thyroid disorder Grandmother Thyroid disorder Cancer Maternal grandmother - kidney cancer Grandfather Cancer Bladder Social History adopted: No household members: spouse, children and other details: brother in law housing: house number of children: 1 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 pets and animals: dog(s) history of recent travel: No sexually active: Yes Smoking Status: Never smoker Electronic Cigarette Use: not used second hand exposure: No alcohol intake: current alcohol intake frequency: holidays/special occasions only Alcohol type: wine details: not while substance use type: does not use diet: gluten free and lactose free well-balanced diet: daily or most days caffeine: Yes Type: carbonated beverages Number of servings: 1 what type of physical activity do you participate in: other details: cardio kickboxing frequency: 1-2 times per week duration: 45-60 minutes/day seatbelt use: always do you feel safe at home: Yes additional social history: 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 No complaints of fever, chills, myalgias, fatigue, runny nose, or nausea/vomiting/diarrhea . No complaints of chest pain/shortness of breath/dyspnea on exertion. No close contacts with similar complaints. No ulre-wzz-ptsmcpo medications taken to assist. Non-smoker. No other associated symptoms and no other alleviating/aggravating factors. ROS Const Constitutional: No other (as above) Exam Const General: cooperative, healthy appearing and no acute distress Nutritional Appearance: average body habitus Orientation: alert, awake and oriented x3 HENMT Head: normal to inspection Ears: hearing grossly normal bilaterally, external ears normal, TM's normal bilaterally and EAC's normal Nose: external nose normal, nares normal, septum normal and no nasal discharge Face and sinus: normal faci (more content not included)... Normal [facility] Poultry Buyer Office Visit Reporton 09-05-2024 Poultry Buyer Office Visit Report [facility] [address], [address] [place] [address] OFFICE VISIT Date of Service: 09/05/24 MR#: [id number] Acct: [id number] Name: NANCY BROWN Rep #: [id number] : 1990 Provider: Dr. 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: No Is patient in pain?: No Allergies No Known Allergies Allergy (Verified 09/05/24 08:54) Medications ???Medication ???Instructions ???Recorded ???Confirmed ???Type fluoxetine 20 mg capsule (Prozac) 20 mg PO DAILY #30 caps 03/09/23 08/12/24 Rx dextroamphetamine-amphet amine ER 5 1 cap PO BID 09/10/23 07/29/24 H istory mg 24hr capsule,extend release hyoscyamine sulfate 0.125 mg 0.125 mg sublingual BID-QID PRN 07/29/24 Rx sublingual tablet dyspepsia #30 tabs pantoprazole 20 mg tablet,delayed 20 mg PO DAILY #30 tabs 06/12/24 08/12/24 Rx release cholecalciferol (vitamin D3) 1,250 1,250 mcg PO MO 07/29/24 5 History mcg (50,000 unit) capsule propranolol 60 mg capsule,24 60 mg PO QDAY 09/05/24 09/05/24 Hi story hr,extended release Post menopausal: No Patient : No : No PFSH Medical History ADHD Anemia Shortness of breath on exertion PONV (postoperative nausea and vomiting) History of Holter monitoring Cardiology follow-up encounter Vaginal delivery Headache Depression Anxiety Left ureteral stone Hyperemesis arising during Heart palpitations Wears glasses Easy bruising Migraine headache Gastric reflux Non-smoker History of echocardiogram COVID-19 Acute pharyngitis Shawn-Danlos syndrome Exercise-induced asthma Abnormal EKG ( 2014) Mixed anxiety and depressive disorder Surgical History History of esophagogastroduodenosco py (EGD) History of colonoscopy History of wisdom tooth extraction Family History Mother Thyroid disorder Grandmother Thyroid disorder Cancer Maternal grandmother - kidney cancer Grandfather Cancer Bladder Social History adopted: No household members: spouse, children and other details: brother in law housing: house number of children: 1 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 pets and animals: dog(s) history of recent travel: No sexually active: Yes Smoking Status: Never smoker Electronic Cigarette Use: not used second hand exposure: No alcohol intake: current alcohol intake frequency: holidays/special occasions only Alcohol type: wine details: not while substance use type: does not use diet: gluten free and lactose free well-balanced diet: daily or most days caffeine: Yes Type: carbonated beverages Number of servings: 1 what type of physical activity do you participate in: other details: cardio kickboxing frequency: 1-2 times per week duration: 45-60 minutes/day seatbelt use: always do you feel safe at home: Yes additional social history: Ameya- (special service officer [employer]) HPI D C FU Details: NANCY BROWN is a 34 year old who presents for postop visit still having irregualr bleeding now finally stopping History 2 Elective abortions Hx Para 2 Spontaneous abortions Hx # Term Pregnancies Ectopic pregnancies Hx # Pregnancies Multiple births # of living children 2 Past Pregnancies Del. Date Name GA/Weeks Outcome Route Bth Weight Infant Gen Labor Lgth Anesthesia Del Locatn Provider FOB 10/09/20 Gloria 38 live - full term 6lbs 5oz Female [facility] Pro kop 03/28/23 Blanca 39 live - full term Female [facility] Dr. Girish verduzco Delivery Date: 10/09/20 Last Updated by: Antoinette Rubalcava IOl for cholestasis, uncomplicated delivery Delivery Date: 03/28/23 Last Updated by: Kyra Bee IOL elective ROS Const Constitutional: Reports system reviewed and no additional complaints, except as documented Cardio Card: Reports other (palpitations) Resp Resp: Denies cough or dyspnea GI GI: Denies abdominal pain, cramping, nausea or vomiting : Denies nipple discharge, pelvic pain, urinary frequency, urinary incontinence, urinary urgency, vaginal discharge, vaginal dryness or vaginal odor Skin Skin/Breast: Denies change in hair, breast mass, breast pain, breast skin changes or nipple discharge Exam Const General: cooperative, healthy appearing, comfortable (more content not included)... Normal [facility] Discharge Instructionon 07-26 Discharge Instruction [facility] Medical Records Department [address] [place] [address] Instructions for Home/Discharge Instructions 08/12/24 1232 MR#: [id number] Acct: [id number] Name: NANCY BROWN Rep #: [id number] : 1990 34 From: Annie Grady MD PCP: Dr. Eugenia Low, DO Status:REG SDC Discharge Instructions Diet Discharge Diet: No restrictions DC O2, CPAP, BIPAP needs Home O2 Discharge instructions: No Dressing / Incision Discharge Activity: Return to Normal Activity and May Not Drive (while taking narcotic pain medications.) May resume sexual activity in: 4 weeks (Nothing in the vagina for 4 weeks.) Dressing / Incision Call your doctor if you observe: Fever of 101 or Higher and Using more than 1 pad per hour Follow Up Care Please Follow Up With: Annie Grady MD When: Call [phone] for follow-up appointment. Test Results: Test results from this visit will be discussed in further detail at your follow-up appointment, if applicable. Discharge Plan Admission Attending Provider: Annie Grady Primary Care Provider: Eugenia Low Instructions Print Language: Macedonian Discharge Orders/Prescriptions Prescriptions: No Action hyoscyamine sulfate 0.125 mg tablet, sublingual 0.125 mg sublingual BID-QID PRN (Reason: dyspepsia) Qty: 30 1RF dextroamphetamine-amphet amine 5 mg capsule,extended release 24hr 1 cap PO BID cholecalciferol (vitamin D3) 1,250 mcg (50,000 unit) capsule 1,250 mcg PO MO fluoxetine [Prozac] 20 mg capsule 20 mg PO DAILY Qty: 30 12RF pantoprazole 20 mg tablet,delayed release (DR/EC) 20 mg PO DAILY Qty: 30 6RF Referrals / Follow Up: Eugenia Low DO [Primary Care Provider] - Disposition Disposition (needs filled in before D/C Order can be placed): Home, Self Care 08/12/24 1232 Annie Grady MD CC: Dr. Eugenia Low DO Signed [facility]-12-[facility]24 MR/POSTOP.[facility] Medical Records Department [address] [place] [address] Anesthesia Postop Eval I 08/12/24 1259 MR#: [id number] Acct: [id number] Name: NANCY BROWN Rep #: [id number] : 1990 34 From: Nick Myers CRNA PCP: Dr. Eugenia Low DO Status:[facility] [place] Y Race: C Location: [facility] [place] Anesthesia: Postop Eval I Current Vital Signs Temperature: 97.4 F Pulse Rate: 68 Blood Pressure: 110/74 Respiratory Rate: 16 Pulse Ox: 96 Oxygen Delivery Method: Room Air Assessment Airway patent: Yes Spontaneous unlabored respirations: Yes Mental status: Awake and Calm nausea: No Vomiting: No Anesthesia Complication: No Fluid Hydration Crystalloid volume administer (ml): 10 Total IV fluid infused: 10 Progress Note Anesthesia document: Postop Eval 1 completed: Yes 08/12/24 1300 Date Nick Myers ORTHOPAEDIC DOCTOR Cosigner Signature: Date CC: Signed Normal [facility] MR/[id number] 08-12-2024 MR/POSTOPAN2 [facility] Medical Records Department [address] [place] [address] Anesthesia Postop Eval II 08/12/24 1819 MR#: [id number] Acct: [id number] Name: NANCY BROWN Rep #: [id number] : 1990 34 From: Blair Harp MD PCP: Dr. Eugenia oLw, DO Status:[facility] [place] Y Race: C Location: [facility] [place] Anesthesia Postop Eval I Sum Postop Eval Completion status Anesthesia document: Postop Eval 1 completed: Yes Anesthesia Postop Eval I Summary Anesthesia Postop Eval I Summary: Anesthesia Postop Eval I: Assessment Summary Airway patent Yes 08/12/24 13:00 ORTHOPAEDIC [email or web address] Spontaneous unlabored Yes 08/12/24 13:00 ORTHOPAEDIC DOCTOR.RWOO respirations Mental status Awake,Calm 08/12/24 13:00 ORTHOPAEDIC DOCTOR.RWOO nausea No 08/12/24 13:00 ORTHOPAEDIC DOCTOR.RWOO Vomiting No 08/12/24 13:00 ORTHOPAEDIC DOCTOR.RWOO Anesthesia Postop Eval I: Fluid Summary Crystalloid volume administer 10 08/12/24 13:00 ORTHOPAEDIC DOCTOR.RWOO (ml) Colloids volume administered ( ml) Blood Product volume administered (ml) Total IV fluid infused 10 08/12/24 13:00 ORTHOPAEDIC DOCTOR.RWOO Anesthesia Postop Eval I: Summary Notes Anesthesia Complication No 08/12/24 13:00 ORTHOPAEDIC DOCTOR.RWOO Anesthesia Complication Comment: Post-operative progress note Anesthesia: Postop Eval II Evaluation Mental status: Awake and Calm Pain Level: 1 nausea: No Vomiting: No Complications Anesthesia Complication: No 08/12/24 1820 Date Blair Morley Signature: Date CC: Signed Normal [facility] Operative Reporton 5 Operative Report [facility] Medical Records Department [address] [place] [address] Operative Report 08/12/24 1232 MR#: [id number] Acct: [id number] Name: NANCY BROWN Rep #: [id number] : 1990 34 From: Annie Grady MD PCP: Dr. Eugenia Low, DO Status:[facility] [place] Location: [facility] [place] Problems Associated Problem List Diagnoses (1) Friable cervix: (2) Postcoital bleeding: Operative Report (Standard) Operative Information Date of Procedure: 08/12/24 Pre-Operative Diagnosis: see problem list Post-Operative Diagnosis: same Surgery/Procedure Performed: d and c hysterosocpy leep toll operator: No Type of Anesthesia: Local and MAC RN Documented Start/Stop Times: Operation Date: 08/12/24 11:10 Case Time Into Pre-Op 08/12/24 09:54 Out of Pre-Op 08/12/24 11:08 Anesthesia Start 08/12/24 11:11 Into Room 08/12/24 11:11 Procedure Start 08/12/24 11:27 Procedure End 08/12/24 11:42 Anesthesia End 08/12/24 11:47 Out of Room 08/12/24 11:47 Into Recovery 08/12/24 11:50 Into Phase II Recovery 08/12/24 12:01 Out of Recovery 08/12/24 12:01 Out of Phase II 08/12/24 12:59 Procedure Start Time: 11:27 Procedure Stop Time: 11:42 Select all DRAINS/GRAFTS/IMPLANTS that apply: None Estimated Blood Loss: 50 Specimen collected: Yes Description of specimen(s) removed: emc cervix Description of surgery: Patient was taken to the operating room and placed under IV anesthesia.. Patient was prepped and draped in normal sterile fashion in the dorsolithotomy position. Cervix was dilated to allow passage of a 5 mm hysteroscope uterine lining was well-visualized and noted within normal limits without any lesions. Curettage was performed and tissue sent to pathology for analysis. Cervix was evaluated and loop electrode was used to remove the outer portion of the friable area without complication and the base was cauterized for excellent hemostasis. Monsel's paste applied Surgical Findings: friable cervix Complications Complications: No 08/12/241719 Cosigner Signature (if applicable): CC: Dr. Eugenia Low DO; Dr. Annie Grady MD Signed ADDENDUM by Dr. Annie Grady MD on 08/12/24 at 1721 Multi Select Codes Urinary/Genital Urinary/Genital CPT Codes: 08026 LEEP [place] [address]172 Hysteroscopy, diagnostic 08/12/241720 Cosigner Signature (if applicable): cc: Dr. Eugenia Low DO; Dr. Annie Grady MD * Signed Normal [facility] ,Urineon 08-12-2024 Beta HCG ( test) Ql (U) Negative Normal [facility] Comment on above: Result Comment: Very dilute urine specimens, as indicated by a low specific gravity, may not contain chain sales representative levels of hCG. If is still suspected, a first morning urine specimen should be collected 48 hours later and tested. Performed By: #### L 400.7600 #### [facility] [address] [place], [place], [address] Surgery Specimen Level Tee 08-12-2024 Surgery Specimen Level IV Patient Age/Sex Location Account Attending Physician NANCY BROWN 34/F [facility] [id number] Dr. Annie Grady MD Specimen: [id number] Received: 08/12/244658 Status: YEIMI Syed Num: [id number] Spec Type: Leep Cone Subm Dr: Dr. Annie Grady MD HEADER OPERATION: OSMAR Avila, hysteroscopy PRE-OP DIAGNOSIS: Friable cervix, postcoital bleeding TISSUE SUBMITTED: A- Endometrial curettings, B- Leep of cervix MICROSCOPIC DIAGNOSIS A. Endometrial curettings: Secretory endometrium. B. Cervix, leep colonization: Chronic inflammation. Negative for dysplasia. See comment. SJ.mr 08/13/2024 COMMENT Clinical correlation and appropriate follow up are necessary. MICROSCOPIC DESCRIPTION Slides are reviewed. GROSS DESCRIPTION A. Received in fixative is one container labeled with the patient's name and designated Endometrial curettings. The specimen consists of multiple irregular fragments of goldstein-pink soft tissue mixed with polypoid tissue and blood clot that in aggregate measure 5 x 3 x 0.2 cm. The specimen is totally submitted in two cassettes. B. Received in fixative is one container labeled with the patient's name and designated Leep of cervix. The specimen consists of three variable size pieces of goldstein indurated tissue measuring 2 x 1 x 0.7cm, 1.2 x 0.5 x 0.2cm and 1.2 x 0.5 x 0.3cm. No mucosal lesion is identified. Non-mucosal surface of the largest piece is inked black. The entire specimen is submitted in three cassettes as follows: 1- two smaller pieces, 2 3- largest piece. SJUbaldo 08/12/2024 TC:3 [facility]:[id number] Patient Age/Sex Location Account Attending Physician NANCY BROWN 34/F [facility] [id number] Dr. Annie Grady MD Signed (signature on file) Dr. Suman Bailey MD 08/13/24 1158 Normal [facility] Comment on above: Performed By: #### P SUIV ####[facility] [address] [place], [address] Urine testOrdered By: Annie Grady on 08-12-2024 HCG ( test) Ql (U) Negative [facility] Comment on above: Very dilute urine sp ecimens, as indicated by a low specificgravity, may not contain chain sales representative levels of hCG. If is still suspected, a first morning urinespecimen should be collected 48 hours later and tested. CBC-Complete Blood Cnt No Di ffon 07-31-2024 Erythrocyte distribution width (RBC) [Ratio] 14.1 % Normal 11.6-14.6 [facility] Comment on above: Performed By: #### B TSPAT, L100.0500 #### [facility] [address] [place], [address] Hematocrit (Bld) [Volume fraction] 37.9 % Normal 37-47 [facility] Comment on above: Performed By: #### B TSPAT, L100.0500 #### [facility] [address] [place], [address] Hemoglobin (Bld) [Mass/Vol] 12.2 g/dL Normal 12.0-15.0 [facility] Comment on above: Performed By: #### B TSPAT, L100.0500 #### [facility] [address] [place], [address] MCH (RBC) [Entitic mass] 26.6 pg Low 27.0-32.0 [facility] Comment on above: Performed By: #### B TSPAT, L100.0500 #### [facility] [address] [place], [address] MCHC (RBC) [Mass/Vol] 32.2 g/dL Normal 32-36 [facility] Comment on above: Performed By: #### B TSPAT, L100.0500 #### [facility] [address] [place], [address] MCV (RBC) [Entitic vol] 82.8 fL Normal 81-99 [facility] Comment on above: Performed By: #### B TSPAT, L100.0500 #### [facility] [address] [place], [address] Platelet mean volume (Bld) [Entitic vol] 9.1 fL Normal 6.2-12.0 [facility] Comment on above: Performed By: #### B TSPAT, L100.0500 #### [facility] [address] [place], [address] Platelets (Bld) [#/Vol] 365 10*3/uL Normal 150-450 [facility] Comment on above: Performed By: #### Srinivas TSPAT, L100.0500 #### [facility] [address] [place], [address] RBC (Bld) [#/Vol] 4.58 10*6/uL Normal 4.2-5.4 [facility] Comment on above: Performed By: #### B TSPAT, L100.0500 #### [facility] [address] [place], [address] RDW SD 42.6 fl Normal 35.1-43.9 [facility] Comment on above: Performed By: #### B TSPAT, L100.0500 #### [facility] [address] [place], [address] WBC (Bld) [#/Vol] 10.2 10*3/uL Normal 4.4-11.0 [facility] Comment on above: Performed By: #### B TSPAT, L100.0500 #### [facility] [address] [place], [address] Erythrocyte distribution wid th ratioOrdered By: Annie Grady on 07-31-2024 Erythrocyte distribution width (RBC) [Ratio] 14.1 % 11.6-14.6 [facility] Erythrocyte distribution wid th standard deviationOrdered By: Annie Grady on 07-31-2024 Erythrocyte distribution width (RBC) [Ratio] 42.6 fl 35.1-43.9 [facility] Hematocrit Auto (Bld) [Volum e fraction]Ordered By: Annie Grady on 07-31-2024 Hematocrit (Bld) [Volume fraction] 37.9 % 37-47 [facility] Hemoglobin measurementOrdere d By: Annie Grady on 07-31-2024 Hemoglobin (Bld) [Mass/Vol] 12.2 g/dL 12.0-15.0 [facility] MCV (mean corpuscular volume ) determinationOrdered By: Annie Grady on 07-31-2024 MCV (RBC) [Entitic vol] 82.8 fL 81-99 [facility] Mean corpuscular hemoglobin (MCH) determinationOrdered By: Annie Grady on 07-31-2024 MCH (RBC) [Entitic mass] 26.6 pg Low 27.0-32.0 [facility] Mean corpuscular hemoglobin concentration (MCHC) determinationOrdered By: Annie Grady on 07-31-2024 MCHC (RBC) [Mass/Vol] 32.2 g/dL 32-36 [facility] Mean platelet volume determi nationOrdered By: Annie Grady on 07-31-2024 Platelet mean volume (Bld) [Entitic vol] 9.1 fL 6.2-12.0 [facility] Platelet countOrdered By: Jayjay Grady on 07-31-2024 Platelets (Bld) [#/Vol] 365 10*3/uL 150-450 [facility] RBC Auto (Bld) [#/Vol]Ordere d By: Annie Grady on 07-31-2024 RBC (Bld) [#/Vol] 4.58 10*6/uL 4.2-5.4 [facility] Type AND Screen - PAT ONLYon 07-31-2024 ABO and Rh group Nom (Bld) Blood group O Rh(D) positive Normal [facility] Comment on above: Order Comment: Reaso n for Laboratory Test PREOP [id number] No N N S 0600 HYSTERSCOPY D C Performed By: #### B TSPAT, L100.0500 #### [facility] [address] [facility] [place], [address] White blood cell (WBC) count Ordered By: Annie Grady on 07-31-2024 WBC (Bld) [#/Vol] 10.2 10*3/uL 4.4-11.0 [facility] MR/PAT.ANEon 07-29-2024 MR/PAT.ANE [facility] Medical Records Department [address] [place] [address] PAT - Anesthesia 07/29/24 1802 MR#: [id number] Acct: [id number] Name: NANCY BROWN Rep #: [id number] : 1990 34 From: Blair Harp MD PCP: Dr. Eugenia Low, DO Status:PRE [facility] Y Race: C Location: [facility] Pre-Assessment Diagnosis/Proposed Procedure Planned Operative Procedure(s): Dilation and Curettage, LEEP Anesthesia History Anesthesia History - chef de partie: Anesthesia History - chef de partie Hx Hospitalization No 07/29/24 14:05 Any Problems With Anesthesia No 07/29/24 14:05 Cholinesterase deficiency No 07/29/24 14:05 You/Your Family Experience No 07/29/24 14:05 fever (hyperthermia) with Relationship Recent Exposure to Contagious No 05/18/24 08:24 Disease Does patient have nerve No 07/29/24 14:05 stimulator Patient instructed to have device shut off --Does patient have Pacemaker or ICD? When Was Last Pacemaker Check QUESTION #4 FULL TEXT: You/Your Family Experience fever (hyperthermia) with Anesthesia Last Oral Intake Last Oral intake: Last Oral Intake NPO since Meds taken in AM with sips of water? Meds patient instructed to take am of surgery PONV PONV - chef de partie: PONV - chef de partie Female Yes 07/29/24 14:05 HX of Motion Sickness Yes 07/29/24 14:05 HX of N/V After Surgery No 07/29/24 14:05 Non-Smoker Yes 07/29/24 14:05 Duration of Surgery greater No 07/29/24 14:05 than 60 minutes Number of Risk Factors 3 07/29/24 14:05 PONV Score Moderate Risk 07/29/24 14:05 Height Weight Height Weight: Anesthesia: Height Weight Height 5 ft 4 in 07/04/24 14:30 Respiratory Assessment Respiratory Assessment - chef de partie: Respiratory Tract Infection Hx - chef de partie Hx Respiratory Tract Infection No 07/29/24 14:05 STOP Sleep Apnea STOP Sleep Apnea - chef de partie: STOP Sleep Apnea - chef de partie Hx Hypertension No 07/29/24 14:05 Hx Sleep Apnea No 07/29/24 14:05 CPAP BIPAP Do you snore loudly (louder No 07/29/24 14:05 than talking or can be heard Do you often feel tired/ No 07/29/24 14:05 fatigued/ sleepy during daytime? Has anyone observed you stop No 07/29/24 14:05 breathing during sleep? STOP Results Negative 07/29/24 14:05 QUESTION #5 FULL TEXT : Do you snore loudly (louder than talking or can be heard through closed doors)? 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 Specify any problems Hx of Preganancy in last 3 N/A 07/29/24 14:05 Months Nurse Filling Out Transfusion NBUCHER 07/29/24 14:05 Questions: Date: 07/29/24 07/29/24 14:05 Time: 14:06 07/29/24 14:05 Patient unable to answer at this time (ie. confused, unrespo /Reproduction History /Reproductive History - chef de partie: /Reproductive Hx- chef de partie Hx Now No 07/29/24 14:05 Gestational Age (in weeks): EDC: Hx Hx Para Hx Section SAB No 07/29/24 14:05 [facility] Medical History (Updated 07/29/24 @ 14:12 by Silvina Villalobos) ADHD Anemia Shortness of breath on exertion PONV (postoperative nausea and vomiting) History of Holter monitoring Cardiology follow-up encounter Vaginal delivery Headache Depression Anxiety Left ureteral stone Hyperemesis arising during Heart palpitations Wears glasses Easy bruising Migraine headache Gastric reflux Non-smoker History of echocardiogram COVID-19 Acute pharyngitis Shawn-Danlos syndrome Exercise-induced asthma Abnormal EKG ( 2015) Mixed anxiety and depressive disorder Home Medications ???Medication ???Instructions ???Recorded ???Last Taken ???Type fluoxetine 20 mg capsule (Prozac) 20 mg PO DAILY #30 caps 03/09/23 09/11/23 Rx dextroamphetamine-amphet amine ER 5 1 cap PO BID 09/10/23 Unknown Hi story mg 24hr capsule,extend release hyoscyamine sulfate 0.125 mg 0.125 mg sublingual BID-QID PRN Unknown (more content not included)... Normal [facility] Poultry Buyer Office Visit Reporton 07-04-2024 Poultry Buyer Office Visit Report [facility] [address], [address] [place] [address] OFFICE VISIT Date of Service: 07/04/24 MR#: [id number] Acct: [id number] Name: NANCY BROWN Rep #: [id number] : 1990 Provider: Dr. Annie henry MD Age/Sex: 33/F [place] [facility] Annie Grady MD on 07/06/24 at 1221 Assessment and Plan Assessment and Plan (1) Friable cervix: Status: Acute Comment: long history. Neg pap, hpv and culture. recommend d and c hysteroscopy leep (2) Postcoital bleeding: Status: Acute (3) Heart palpitations: Status: Acute Comment: ekg ordered (4) UTI (urinary tract infection): Status: Acute Qualifiers: Urinary tract infection type: acute cystitis Hematuria presence: without hematuria Qualified Code(s): N30.00 - Acute cystitis without hematuria Orders: Orders 12 Lead EKG 07/04/24 R00.2 - Palpitations Plan After discussing the patient's diagnosis and treatment plan options, patient wishes to proceed with surgical management. I have discussed with the patient the risks, benefits, and alternatives of the procedure which include but are not limited to risks of anesthesia, bleeding, infection, possible damage to bowel, bladder, or surrounding vasculature which could lead to additional surgery to evaluate any complications. Patient agrees to procedure and wishes to proceed. ACOG/uptodate references given for additional information regarding procedure. 07/06/24 1221 Date Annie Grady MD cc: * Signed Intake Vital Signs 05/18/24 09:00 07/04/24 14:30 Height 5 ft 4 in 5 ft 4 in Weight: 178 lb 4 oz 174 lb 8 oz BMI 30.6 29.9 BP 120/78 118/82 H Blood Pressure Location Lt brachial Position Sitting Respiration 12 Pulse 81 Pulse Source NIBP Temp 98.3 F Pulse Oximetry (%) 99 Oxygen Delivery Method room air Intake Visit Reasons: consultation friable cervix Tyre Finisher And Examiner Required: No Is patient in pain?: No Allergies No Known Allergies Allergy (Verified 07/04/24 14:31) Medications ???Medication ???Instructions ???Recorded ???Confirmed ???Type fluoxetine 20 mg capsule (Prozac) 20 mg PO DAILY #30 caps 03/09/23 07/04/24 Rx dextroamphetamine-amphet amine ER 5 1 cap PO BID 09/10/23 07/04/24 History mg 24hr capsule,extend release hyoscyamine sulfate 0.125 mg 0.125 mg sublingual BID-QID PRN 02/12/24 07/04/24 Rx sublingual tablet dyspepsia #30 tabs phenazopyridine 100 mg tablet 100 mg PO TID PRN pain #7 tabs 05/18/24 07/04/24 Rx (Pyridium) pantoprazole 20 mg tablet,delayed 20 mg PO DAILY #30 tabs 06/12/24 07/04/24 Rx release Is last menstrual period known: Yes Last Menstrual Period: 06/21/24 Post menopausal: No Patient : No : No PFSH Medical History (Updated 07/06/24 @ 12:[address] Annie Grady MD) Heart palpitations Vaginal delivery PONV (postoperative nausea and vomiting) History of Holter monitoring Cardiology follow-up encounter Headache Depression Anxiety Left ureteral stone Hyperemesis arising during Wears glasses Easy bruising Migraine headache Gastric reflux Non-smoker History of echocardiogram COVID-19 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 pets and animals: dog(s) history of recent travel: No sexually active: Yes Smoking Status: Never smoker Electronic Cigarette Use: not used second hand exposure: No alcohol intake: current alcohol intake frequency: holidays/special occasions only Alcohol type: wine details: not while substance use type: does not use diet: gluten free and lactose free well-balanced diet: daily or most days caffeine: Yes Type: carbonated beverages Number of servings: 1 what type of physical activity do you participate in: other details: cardio kickboxing frequency: 1-2 times per week duration: 45-60 minutes/day seatbelt use: always do you feel safe at home: Yes 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 Normal [facility] Pelvic w/ Transvaginalon Pelvic w/ Transvaginal [facility] Imaging Services [address] [place] [address] Pelvic w/ Transvaginal MR#: [id number] Acct: [id number] Name: NANCY BROWN Rep #: [id number] : 1990 F 33 From: Porfirio pike MD PCP: Dr. Eugenia Low, DO Status: REG CLI Study: Pelvic w/ Transvaginal Date of Exam: 05/27/24 Exam# [id number] Ordering Dr: Daksha Manuel LAST IRONER LAST IRONER -C [id number] STUDY: ULTRASOUND OF THE FEMALE PELVIS - COMPLETE REASON FOR EXAM: Female, 33 years old. Pain LMP: May 26, 2024. TECHNIQUE: Transabdominal and Transvaginal TECHNICAL QUALITY: Adequate. COMPARISON: Comparison is made with prior study dated August 07, 2016. FINDINGS: The uterus is retroflexed and is in a midline position. The uterus measures 7.4 cm x 6.6 cm x 5.6 cm. Normal uterine cervix. The endometrium measures 11 mm in thickness, and is hyperechoic. There is no demonstrated endometrial mass. There is no demonstrated myometrial mass. I.U.D. - The patient does not have an I.U.D. The right ovary is visualized. The right ovary measures 4.7 cm x 2.8 cm x 3.6 cm. There is a 2.1 cm x 2.2 cm by 2 cm right ovarian cyst. There is no visualized right adnexal mass or complex lesion. There is normal arterial and normal venous vascularity. The left ovary is visualized. The left ovary measures 3.1 cm x 2.3 cm x 1.8 cm. There is no left ovarian cyst or ovarian mass. There is no visualized left adnexal mass or complex lesion. There is normal arterial and normal venous vascularity. There is no fluid in the cul-de-sac. The pre void volume of the bladder was 207 ml. US/Pelvic w/ Transvaginal IMPRESSION: 2.1 cm x 2.2 cm x 2 cm right ovarian cyst. Electronically Signed: Porfirio Cornejo MD at 15:25 EST , CC: DOMENIC Manuel; Dr. Eugenia Low DO Garage Hand: Signed Normal [facility] PAP IG HPV APTIMA 16/18,45on 05-21-2024 ADEQ Comment Normal . [facility] Comment on above: Order Comment: Speci men Comment: [id number] Comment: Source.............CervixSpecimen Comment: LMP / Prev Treat...[id number] Comment: No. of containers..01 ThinPrep Vial Result Comment: Sati sfactory for evaluation. No endocervical component is identified. Performed By: #### M 100.3200, L7400.0280, M1 ####[facility] [address] [place], [place], [address] COMM . Normal . [facility] Comment on above: Order Comment: Speci men Comment: [id number] Comment: Source.............CervixSpecimen Comment: LMP / Prev Treat...[id number] Comment: No. of containers..01 ThinPrep Vial Performed By: #### M 100.3200, L7400.0280, M100 ####[facility] [address] [place], [place], [address] COMMENT Comment Normal . [facility] Comment on above: Order Comment: Speci men Comment: [id number] Comment: Source.............CervixSpecimen Comment: LMP / Prev Treat...[id number] Comment: No. of containers..01 ThinPrep Vial Result Comment: This liquid based ThinPrep(R) pap test was screened with the use of an image guided system. Performed By: #### M 100.3200, L7400.0280, M100.1999 ####[facility] [address] [place], [place], [address] DIAG Comment Normal . [facility] Comment on above: Order Comment: Speci men Comment: [id number] Comment: Source.............CervixSpecimen Comment: LMP / Prev Treat...[id number] Comment: No. of containers..01 ThinPrep Vial Result Comment: NEGA TIVE FOR INTRAEPITHELIAL LESION OR MALIGNANCY. Performed By: #### M 100.3200, L7400.0280, M100.1999 ####[facility] [address] [place], [place], [address] HPV APTIMA, HR Negative Normal Negative [facility] Comment on above: Order Comment: Speci men Comment: [id number] Comment: Source.............CervixSpecimen Comment: LMP / Prev Treat...[id number] Comment: No. of containers..01 ThinPrep Vial Result Comment: This nucleic acid amplification test detects fourteen high- risk HPV types (16,18,31,33,35,39,45,51,52,56,58,59,66,68) without differentiation. Performed By: #### M 100.3200, L7400.0280, M100.1999 ####[facility] [address] [place], [place], [address] HPV Carolina Rfx Comment Normal . [facility] Comment on above: Order Comment: Speci men Comment: [id number] Comment: Source.............CervixSpecimen Comment: LMP / Prev Treat...[id number] Comment: No. of containers..01 ThinPrep Vial Result Comment: Crit eria not met, HPV Genotype not performed. Performed at: [facility] [address] [place], [place] [id number] Manufacturing Engineer Automotive: Stella Rubin PhD, Phone: [phone] Performed at: [address] [id number] Manufacturing Engineer Automotive: Leida Cordoba MD, Phone: [phone] Performed at: =[address] [id number] Manufacturing Engineer Automotive: Leida Cordoba MD, Phone: [phone] Performed By: #### M 100.3200, L7400.0280, ####[facility] [address] [place], [place], [address] PAPSMR Comment Normal . [facility] Comment on above: Order Comment: Speci men Comment: [id number] Comment: Source.............CervixSpecimen Comment: LMP / Prev Treat...[id number] Comment: No. of containers..01 ThinPrep Vial Result Comment: The Pap smear is a screening test designed to aid in the detection of premalignant and malignant conditions of the uterine cervix. It is not a diagnostic procedure and should not be used as the sole means of detecting cervical cancer. Both false-positive and false-negative reports do occur. Performed By: #### M 100.3200, L7400.0280, ####[facility] [address] [place], [address] PERFORM Comment Normal . [facility] Comment on above: Order Comment: Speci men Comment: [id number] Comment: Source.............CervixSpecimen Comment: LMP / Prev Treat...[id number] Comment: No. of containers..01 ThinPrep Vial Result Comment: Leah Strickland, Web Programmer (ASCP) Performed By: #### M 100.3200, L7400.0280, M100.2000 ####[facility] [address] [place], [address] Urgent Care Visit Reporton 1 07-18-2023 Urgent Care Visit Report [facility] [address], [address] [place] [address] OFFICE VISIT Date of Service: 05/18/24 MR#: [id number] Acct: [id number] Name: NANCY BROWN Rep #: [id number] : 1990 Provider: DOMENIC marroquin Age/Sex: 33/F Location: [facility] [place] [facility] Status: Signed Intake Vital Signs 05/13/24 14:52 05/18/24 09:00 Height 5 ft 4 in 5 ft 4 in Weight: 178 lb 4 oz BMI 30.6 BP 120/78 Blood Pressure Location Lt brachial Position Sitting Respiration 12 Pulse 81 Pulse Source NIBP Temp 98.3 F Temp Source Oral Pulse Oximetry (%) 99 Oxygen Delivery Method room air Intake Visit Reasons: UTI SYMPTOMS Tyre Finisher And Examiner Required: No Is patient in pain?: No Allergies No Known Allergies Allergy (Verified 05/13/24 14:45) Is last menstrual period known: No Post menopausal: No Patient : No Have you fallen in the past year?: No PFSH Medical History Vaginal delivery PONV (postoperative nausea and vomiting) History of Holter monitoring Cardiology follow-up encounter Headache Depression Anxiety Left ureteral stone Hyperemesis arising during Heart palpitations Wears glasses Easy bruising Migraine headache Gastric reflux Non-smoker History of echocardiogram COVID-19 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 pets and animals: dog(s) history of recent travel: No sexually active: Yes Smoking Status: Never smoker Electronic Cigarette Use: not used second hand exposure: No alcohol intake: current alcohol intake frequency: holidays/special occasions only Alcohol type: wine details: not while substance use type: does not use diet: gluten free and lactose free well-balanced diet: daily or most days caffeine: Yes Type: carbonated beverages Number of servings: 1 what type of physical activity do you participate in: other details: cardio kickboxing frequency: 1-2 times per week duration: 45-60 minutes/day seatbelt use: always do you feel safe at home: Yes 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 She took Pyridium for some relieve. Her symptoms have continued. She is concern due to continual bladder pressure and bladder cramping. ROS Const Constitutional: No body ache, chills, fatigue, fever(s) (no fever greater than 99.9 F), malaise, night sweats or other (rigors) Resp Respiratory: No shortness of breath Cardio Cardiology: No chest pain at rest or chest pain with exertion Gastro GI: No abdominal pain Genitourinary-Female: Positive for urinary urgency and suprapubic fullness; No burning urination, painful urination, urinary frequency, blood in urine or side pain Endo Endocrine: No fatigue Exam Const General: cooperative, healthy appearing, comfortable and no acute distress Orientation: alert, awake and oriented x3 Chest Chest palpation inspection: normal inspection of the chest Resp Effort Inspection: normal respiratory effort Auscultation: Bilateral: Clear to Auscultation Cardio Rhythm: other (Normal) Heart Sounds: S1 normal, S2 normal and no murmurs GI Inspection: normal to inspection and non-distended Auscultation: normal bowel sounds Palpation: soft and nontender General: No CVA tenderness Skin General: no rashes or lesions noted Results POC Urinalysis Dip (Clinic) Office Urine Color DARK YELLOW Last Edit by Prerna Kahn on 05/18/24 09:06 Office Urine Clarity Cloudy Last Edit by Prerna Kahn on 05/18/24 09:06 Office Urine Glucose Negative Last Edit by Prerna Kahn on 05/18/24 09:06 Office Urine Ketones Trace (5) Last Edit by Prerna Kahn on 05/18/24 09:06 Off Ur Spec Harrison 1.005 Last Edit by Prerna Kahn on 05/18/24 09:06 Office Urine pH 7.0 Last Edit by Prerna Kahn on 05/18/24 09:06 Office Urine Bilirubin Moderate (2+) Last Edit by Prerna Kahn (more content not included)... Normal [facility] Genital Culture Comprehensiv violette 05-16-2024 VAC Reason for Exam: pos t coital bleeding Normal vaginal ck isolated. No yeast, Gardnerella, Neisseria or beta-hemolytic Streptococcus isolated. Normal [facility] Comment on above: Performed By: #### M 100.3200, [id number], ####[facility] [id number] [place], [place], [address] Gram Stainon 05-13-2024 Reason for Exam: pos t coital bleeding Gram Stain 2+ Gram positive rods No White Blood Cells No Gram negative diplococci Score = 2 Interpretation: 0-3 Normal, 4-6 Intermediate, 7-10 Positive BV Normal [facility] Comment on above: Performed By: #### M 100.3200, [id number], ####[facility] [id number] 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: No Is patient in pain?: No Allergies No Known Allergies Allergy (Verified 05/13/24 14:45) Medications ???Medication ???Instructions ???Recorded ???Confirmed ???Type fluoxetine 20 mg capsule (Prozac) 20 mg PO DAILY #30 caps 03/09/23 05/13/24 Rx dextroamphetamine-amphet amine ER 5 1 cap PO BID 09/10/23 05/13/24 History mg 24hr capsule,extend release hyoscyamine sulfate 0.125 mg 0.125 mg sublingual BID-QID PRN 02/12/24 05/13/24 Rx sublingual tablet dyspepsia #30 tabs pantoprazole 20 mg tablet,delayed 20 mg PO DAILY #30 tabs 05/12/24 05/13/24 Rx release Is last menstrual period known: Yes Last Menstrual Period: 04/30/24 Post menopausal: No Patient : No : No PFSH Medical History Vaginal delivery PONV (postoperative nausea and vomiting) History of Holter monitoring Cardiology follow-up encounter Headache Depression Anxiety Left ureteral stone Hyperemesis arising during Heart palpitations Wears glasses Easy bruising Migraine headache Gastric reflux Non-smoker History of echocardiogram COVID-19 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 pets and animals: dog(s) history of recent travel: No sexually active: Yes Smoking Status: Never smoker Electronic Cigarette Use: not used second hand exposure: No alcohol intake: current alcohol intake frequency: holidays/special occasions only Alcohol type: wine details: not while substance use type: does not use diet: gluten free and lactose free well-balanced diet: daily or most days caffeine: Yes Type: carbonated beverages Number of servings: 1 what type of physical activity do you participate in: other details: cardio kickboxing frequency: 1-2 times per week duration: 45-60 minutes/day seatbelt use: always do you feel safe at home: Yes additional social history: Ameya- (special service officer [employer]) History 2 Elective abortions Hx Para 2 Spontaneous abortions Hx # Term Pregnancies Ectopic pregnancies Hx # Pregnancies Multiple births # of living children 2 Past Pregnancies Del. Date Name GA/Weeks Outcome Route Bth Weight Infant Gen Labor Lgth Anesthesia Del Locatn Provider FOB 10/09/20 Gloria 38 live - full term 6lbs 5oz Female [facility] Pro kop 03/28/23 [place] 39 live - full term Female [facility] Dr. Girish verduzco Delivery Date: 10/09/20 Last Updated by: Antoinette Rubalcava IOl for cholestasis, uncomplicated delivery Delivery Date: 03/28/23 Last Updated by: Kyra Bee IOL elective HPI Encounter for routine gynecological examination Details: NANCY BROWN is a 33 year old who presents for annual exam. Bleeding after intercourse every time. Sometimes will have pain. Has been told in past that she has friable cervix and has always had off and on postcoital bleeding but is worse now. She is also having pain off and on lower left pelvis. . Denies STD concerns. Spouse with vasectomy Last PAP: 2020 History of abnormal PAP: no Last mammogram: age 42 Other preventative health care screenings: Maranda Female Reproductive History Last Menstrual Period: 04/30/24 Cycle Length: 21-35 Questions: metorrhagia: No, sexually active: Yes, dyspareunia: No and PCB: No ROS Const Constitutional: Denies fatigue, weight gain or weight loss Cardio Card: Denies chest pain Resp Resp: Denies cough or dyspnea on exertion GI GI: Denies abdominal pain, bloating, change in stool character, const (more content not included)... Normal [facility] Urgent Care Visit Reporton 1 Urgent Care Visit Report [facility] [address], [address] [place] [address] OFFICE VISIT Date of Service: 03/28/24 MR#: [id number] Acct: [id number] Name: NANCY BROWN Rep #: [id number] : 1990 Provider: BRIDGER Majano Age/Sex: 33/F Location: [facility] [place] Status: Signed Intake Vital Signs 12/30/23 05:11 03/28/24 11:01 Height 5 ft 4 in Weight: 174 lb BMI 29.8 BP 129/95 H 116/76 Blood Pressure Location Lt brachial Position Sitting Respiration 18 12 Pulse 91 81 Pulse Source Monitor Temp 97.3 F L 98.9 F Temp Source Temporal Temporal Pulse Oximetry (%) 99 97 Oxygen Delivery Method room air Intake Visit Reasons: Cough Allergies No Known Allergies Allergy (Verified 03/28/24 11:02) [facility] Medical History (Updated 03/28/24 @ 11:10 by Bob SPARKS, PA) PONV (postoperative nausea and vomiting) History of Holter monitoring Cardiology follow-up encounter Headache Depression Anxiety Left ureteral stone Hyperemesis arising during Heart palpitations Wears glasses Easy bruising Migraine headache Gastric reflux Non-smoker History of echocardiogram COVID-19 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 pets and animals: dog(s) history of recent travel: No sexually active: Yes Smoking Status: Never smoker Electronic Cigarette Use: not used second hand exposure: No alcohol intake: current alcohol intake frequency: holidays/special occasions only Alcohol type: wine details: not while substance use type: does not use diet: gluten free and lactose free well-balanced diet: daily or most days caffeine: Yes Type: carbonated beverages Number of servings: 1 what type of physical activity do you participate in: other details: cardio kickboxing frequency: 1-2 times per week duration: 45-60 minutes/day seatbelt use: always do you feel safe at home: Yes additional social history: Ameya- (special service officer [employer]) HPI HPI Details: NANCY BROWN, is a 33 F who presents to the office today for complaint of cough, congestion and worsening shortness of breath at night. Patient does state having history of exercise-induced asthma as a teen however has not had issues with this recently. Patient denies hemoptysis, shortness of breath or difficulty breathing. No fever, chills, sweats. No nausea, vomiting, diarrhea. No loss of taste or smell. No other associated symptoms or alleviating/aggravating factors. ROS Const Constitutional: Positive for other (as above) Exam Const General: cooperative and well developed HENMT Head: normal to inspection and atraumatic Ears: hearing grossly normal bilaterally Nose: nasal discharge clear Face and sinus: normal facial exam Mouth: oral mucosae normal Throat: abnormal tonsil bilaterally hypertrophy 1+ Resp Effort Inspection: normal respiratory effort and no audible wheezes Auscultation: Bilateral: Clear to Auscultation Cardio Palpation: normal PMI Rate: regular rate Rhythm: regular rhythm Neuro General: patient alert and CN's II-XI intact bilaterally Psych Appearance: grossly normal Mental Status: mental status grossly normal Coding Level of Care Code Off vis,est,level 3 Diagnoses Asthmatic bronchitis with acute exacerbation J45.901 Assessment and Plan Assessment and Plan (1) Asthmatic bronchitis with acute exacerbation: Status: Acute Plan: Albuterol, azithromycin and Medrol Dosepak as prescribed today. Encouraged to get plenty of rest, drink lots of clear liquids, and use Tylenol or Ibuprofen (unless contraindicated) for fever and comfort. Patient also educated on other symptomatic management techniques. To be seen in 7-10 days if no improvement; sooner if worsening of symptoms. Patient advised of potential red flags and when appropriate to report to the ED. Patient verbalized understanding and agreement with all the above. Medications: New azithromycin take 500 mg today (day 1), then 250 mg for 4 days (days 2-5) PO 6 tabs 0RF methylprednisolone (Medrol (Victor Hugo)) 4 mg PO PER PKG DIR 6 days 21 tabs 0RF albuterol sulfate 90 mcg/actuat (more content not included)... Normal [facility] Gastroenterology Visit Repor ton 02-12-2024 Gastroenterology Visit Report [facility] [address] [place] [address] OFFICE VISIT Date of Service: 02/12/24 MR#: [id number] Acct: [id number] Name: NANCY BROWN Rep #: [id number] : 1990 Provider: Tonio Hernandez DO Age/Sex: 33/F [place] [facility] [place]: Signed Intake Vital Signs 09/11/23 13:55 12/30/23 05:11 Height 5 ft 4 in 5 ft 4 in Intake Visit Reasons: 6 M FU Allergies No Known Allergies Allergy (Verified 09/11/23 13:54) Medications ???Medication ???Instructions ???Recorded ???Confirmed ???Type fluoxetine 20 mg capsule (Prozac) 20 mg PO DAILY #30 caps 03/09/23 02/12/24 Rx dextroamphetamine-amphet amine ER 5 1 cap PO BID 09/10/23 02/12/24 History mg 24hr capsule,extend release pantoprazole 20 mg tablet,delayed 20 mg PO DAILY #30 tabs 10/11/23 02/12/24 Rx release hyoscyamine sulfate 0.125 mg 0.125 mg sublingual BID-QID PRN 02/12/24 02/12/24 Rx sublingual tablet dyspepsia #30 tabs PFSH Medical History (Updated 01/07/24 @ 00:02 by Julio Cesar Ansari) PONV (postoperative nausea and vomiting) History of Holter monitoring Cardiology follow-up encounter Headache Depression Anxiety Left ureteral stone Hyperemesis arising during Heart palpitations Wears glasses Easy bruising Migraine headache Gastric reflux Non-smoker History of echocardiogram COVID-19 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 pets and animals: dog(s) history of recent travel: No sexually active: Yes Smoking Status: Never smoker Electronic Cigarette Use: not used second hand exposure: No alcohol intake: current alcohol intake frequency: holidays/special occasions only Alcohol type: wine details: not while substance use type: does not use diet: gluten free and lactose free well-balanced diet: daily or most days caffeine: Yes Type: carbonated beverages Number of servings: 1 what type of physical activity do you participate in: other details: cardio kickboxing frequency: 1-2 times per week duration: 45-60 minutes/day seatbelt use: always do you feel safe at home: Yes additional social history: Ameya- (special service officer [employer]) HPI HPI Details: NANCY BROWN, is a 33 F who presents to the office today for follow up. GET 11.. abnormal 83.35 minutes abd/pelvis CT 7..23 Mild left hydronephrosis and left hydroureter due to a 4 mm calculus at the left ureterovesical junction. OV 5.2.24 Pt reports that she is feeling well overall, still occasionally has difficulty swallowing where it feels like food is getting caught on something, pt reports this is happening once or twice a month. Pt reports that she is still following a GF diet. Pt reports that she is still experiencing nausea a few times a week that is relieved by belching. Pt continues with Linzess as needed and daily Pantoprazole. [facility] ED 7.7.24 esophageal spasms OV 8.20.24 pt reports that in December she had a food impaction and was able to dislodge it herself, but is concerned it could happen in the future. Pt reports increased bloating as well. ROS Const Constitutional: Positive for headache(s); No fatigue, fever(s) or weight change ENT ENT: Positive for headache(s); No difficulty swallowing Gastro GI: Positive for bloating, excessive flatus and nausea/dyspepsia; No abdominal pain, belching, change in bowel habits, change in stool character, coffee ground emesis, constipation, cramping, diarrhea, heartburn, difficulty swallowing, feeling full early, incontinent of stools, Vomiting blood/hematemesis, Blood in stool, loose stools, Black,tarry stools, pain with swallowing, vomiting or other Musc Musculoskeletal: No joint pain Skin Skin: No yellowing of the eye or itchy eyes Neuro Neurology: Positive for headache(s) Psych Psychiatric: No anxiety and No depression Endo Endocrine: No fatigue or weight change Aller/Imm Allergy/Immunologic: No itchy eyes Danny/Lymp Hematologic/Lymphatic: No easy bleeding or easy bruising Exam Const General: cooperative, healthy appearing and no acute distress Orientation: alert, awake and oriente (more content not included)... Normal [facility] Emergency Department Summary on 12-30-2023 Emergency Department Summary [facility] Medical Records Department [address] [place] [address] Emergency Department Summary 12/30/23 MR#: [id number] Acct: [id number] Name: NANCY BROWN Rep #: [id number] : 1990 33 From: Earl Somers DO PCP: Dr. Eugenia Low DO Status:REG ER Location: ED HPI History of Present Illness Chief Complaint: Foreign Body [facility] Medical History (Updated 12/30/23 @ 06:[address] 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 Abnormal EKG ( 2015) Mixed anxiety and depressive disorder Home Medications ???Medication ???Instructions ???Recorded ???Last Taken ???Type fluoxetine 20 mg capsule (Prozac) 20 mg PO DAILY #30 caps 03/09/23 09/11/23 Rx dextroamphetamine-amphet amine ER 5 1 cap PO BID 09/10/23 Unknown History mg 24hr capsule,extend release pantoprazole 20 mg tablet,delayed 20 mg PO DAILY #30 tabs 10/11/23 Unknown Rx release doxycycline hyclate 50 mg capsule 50 mg PO BID 14 days #28 caps 10/25/23 Unknown Rx baclofen 5 mg tablet 5 mg PO TID PRN esophageal spasm 3 12/30/23 Unknown Rx days #9 tabs Allergy/AdvReac Type Severity Reaction Status Date / Time No Known Allergies Allergy Verified 09/11/23 13:54 Family History Mother Thyroid disorder Grandmother Thyroid disorder Cancer Maternal grandmother - kidney cancer Grandfather Cancer Bladder Surgical History History of wisdom tooth extraction Social History adopted: No household members: spouse, children and other details: brother in law housing: house number of children: 1 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 pets and animals: dog(s) history of recent travel: No sexually active: Yes Smoking Status: Never smoker Electronic Cigarette Use: not used second hand exposure: No alcohol intake: current alcohol intake frequency: holidays/special occasions only Alcohol type: wine details: not while substance use type: does not use diet: gluten free and lactose free well-balanced diet: daily or most days caffeine: Yes Type: carbonated beverages Number of servings: 1 what type of physical activity do you participate in: other details: cardio kickboxing frequency: 1-2 times per week duration: 45-60 minutes/day seatbelt use: always do you feel safe at home: Yes additional social history: Ameya- (special service officer [employer]) EXAM Physical Exam Const Vital Signs: 12/30/23 05:11 12/30/23 05:17 12/30/23 06:11 Temperature 97.3 F L Temperature Source Temporal Pulse Rate 91 91 Respiratory Rate 18 Respiratory Pattern Normal Blood Pressure 129/95 H 133/92 H Blood Pressure Mean 106 Pulse Ox 99 Oxygen Delivery Method Room Air MDM MDM MDM Narrative Medical decision making narrative: HISTORY OF PRESENT ILLNESS: 33-year-old female presents with concern for esophageal spasms. The patient was eating or swallowing any meats such as chicken or steak prior to this event. She notes last 5 hours she has had a spasm sensation along her posterior oropharynx going into her right neck. She states she has history of Shawn-Danlos as well as her mother and her mother had esophageal spasms. States typically she takes pantoprazole with improvement in symptoms. States he took an extra pantoprazole with no improvement. She denies chest pain, shortness of breath. Denies vomiting but notes she is nauseous. REVIEW OF SYSTEMS: Pertinent positives: Difficulty swallowing, esophageal spasm Pertinent negatives: Chest pain, shortness of breath PHYSICAL EXAM: Nursing triage notes reviewed, Vital signs reviewed Constitutional: please see mdm HENT: MMM, no trismus, posterior pharynx patent, no erythema Eyes: Pupils equal round and reactive to light, Extraocular muscles intact Neck: No stridor, no JVD, full neck ROM Lungs: Clear to auscultation, No wheezing or rales. No increased work of breathing, no conversational dyspnea, no accessory muscle use, no nasal flaring. No respiratory distress noted Heart: Regular rate and rhythm, No murmurs, No rubs and No gallops, 2+ distal pulses (radial, femoral, posterior tibial) in all extremities Abdomen: Soft, there is no tenderness, rigidity, rebound or guarding, no obvious peritoneal sign (more content not included)... Normal [facility] hCG Titer Quant., Serumon HCG QUANT. < 1 Normal 1-3 [facility] Comment on above: Result Comment: hCG levels with Gestational Age Gestational Age hCG mIU/mL (IU/L) 0.2 - 1 week 5 - 50 1-2 weeks 50 - 500 2-3 weeks 100 - 5000 3-4 weeks 500 - 63883 4-5 weeks 1000 - 19092 5-6 weeks 31193 - 100,000 6-8 weeks 82175 - 200,000 2-3 months 05075 - 100,000 Performed By: #### L 700.8000 ####[facility] [id number] [place], [address] Laboratory - Chemistry and C hemistry - challengeOrdered By: Juan Blanco on 09-11-2023 HCG ( test) Ql (U) Negative [facility] Comment on above: Very dilute urine sp ecimens, as indicated by a low specificgravity, may not contain chain sales representative levels of hCG. If is still suspected, a first morning urinespecimen should be collected 48 hours later and tested. Basophil percentageOrdered B y: Tonio Hernandez on 07-30-2023 Amylase [Catalytic activity/Vol] 38 U/L 25-115 [facility] Erythrocyte sedimentation ra teOrdered By: Tonio Hernandez on 07-30-2023 ESR (Bld) [Velocity] 7 mm/h 0-30 [facility] Laboratory - Chemistry and C hemistry - challengeOrdered By: Tonio Hernandez on 07-30-2023 Cobalamin (Vitamin B12) [Mass/Vol] 364 pg/mL 211-911 [facility] Lipase [Catalytic activity/Vol] 32 U/L 13-75 [facility] [facility] Comment on above: Please note:LIPASE r evised reference range effective 22. New Lipase methodology. Expected to produce lower values than the previous assay method. NEW Reference Range: 13 - 75 U/L No Panel InformationOrdered By: Tonio Hernandez on 07-30-2023 C-Reactive Protein Extended Range < 2.90 mg/L 0.0-3.0 [facility] Comment on above: C-Reactive Protein ( CRP) provides useful information for thediagnosis, therapy and monitoring of inflammatory processesand associated diseases. For the evaluation of Relative Riskfor Cardiovascular Disease, a High Sensitivity CRP (HSCRP)should be ordered. Folate 8.50 ng/mL 3.1-55.4 [facility] Intrinsic Factor Antibody 1.1 AU/mL 0.0-1.1 [facility] Comment on above: Performed at: [facility] [address] [id number] Director: Terese Virk MD, Phone: [phone] at: [facility] [id number] Director: Bob Grant PhD, Phone: [phone] Vitamin D 25-Hydroxy 24.6 ng/mL [facility] Comment on above: Vitamin D 25(OH) Sta tus Range Deficiency <20 ng/mL (50nmol/L) Insufficiency 20 - 30 ng/mL (50 - 75 nmol/L) Sufficiency 30 - 100 ng/mL (75 - 250 nmol/L) Toxicity >100 ng/mL (>250 nmol/L) Serum or plasma calcitriol m easurement (mass/volume)Ordered By: Tonio Hernandez on 07-30-2023 1,25-dihydroxyvitamin D3 [Mass/Vol] 56.5 pg/mL 24.8-81.5 [facility] Comment on above: Performed at: [facility] [address] [id number] Director: Terese Virk MD, Phone: [phone] Serum or plasma gastrin kathia urement (mass/volume)Ordered By: Tonio Hernandez on 07-30-2023 Gastrin [Mass/Vol] 169 pg/mL 0-115 [facility] Comment on above: Siemens Immulite 200 0 Immunochemiluminometric assay (ICMA)Values obtained with different assay methods or kits cannotbe used interchangeably. Results cannot be interpreted asabsolute evidence of the presence or absence of malignantdisease. Serum parietal cell antibody assay (units/volume)Ordered By: Tonio Hernandez on 07-30-2023 Parietal cell Ab Qn (S) 25.8 Units 0.0-20.0 [facility] Comment on above: Negative 0.0 - 20.0 Equivocal 20.1 - 24.9 Positive >24.9Parietal Cell Antibodies are found in 90% of patientswith pernicious anemia and 30% of first degreerelatives with pernicious anemia. Absolute lymphocyte countOrd ered By: Annie Grady on 03-08-2023 Lymphocytes Auto (Unsp spec) [#/Vol] 1.40 10*3/uL 0.83-4.51 [facility] Basophil percentageOrdered B y: Annie Grady on 03-08-2023 Basophils/100 WBC (Bld) 0.5 % 0-1 [facility] Bilirubin [Mass/Vol] 0.30 mg/dL 0.20-1.00 [facility] Comment on above: For patients on eltr ombopag therapy, use of Dimension [place] TBIL is not recommended. Chloride [Moles/Vol] 105 mmol/L 98-107 [facility] Eosinophils/100 WBC (Bld) 0.7 % 0-5 [facility] Glucose [Mass/Vol] 87 mg/dL 74-106 [facility] Neutrophils (Bld) [#/Vol] 7.6 10*3/uL 2.0-7.7 [facility] Neutrophils/100 WBC (Bld) 78.2 % 47-70 [facility] Potassium [Moles/Vol] 3.6 mmol/L 3.5-5.1 [facility] Protein [Mass/Vol] 6.7 g/dL 6.4-8.2 [facility] Sodium [Moles/Vol] 135 mmol/L 136-145 [facility] WBC (Bld) [#/Vol] 9.8 10*3/uL 4.4-11.0 [facility] Blood erythrocytes count (nu mber/volume)Ordered By: Annie Grady on 03-08-2023 RBC (Bld) [#/Vol] 4.36 10*6/uL 4.2-5.4 [facility] Blood hemoglobin measurement (mass/volume)Ordered By: Annie Grady on 03-08-2023 Hemoglobin (Bld) [Mass/Vol] 10.4 g/dL 12.0-15.0 [facility] Blood lymphocytes/100 leukoc ytesOrdered By: Annie Grady on 03-08-2023 Lymphocytes/100 WBC (Bld) 14.3 % 19-41 [facility] Blood monocytes/100 leukocyt esOrdered By: Annie Grady on 03-08-2023 Monocytes/100 WBC (Bld) 5.1 % 0-10 [facility] Blood platelet mean volumeOr dered By: Annie Grady on 03-08-2023 Platelet mean volume (Bld) [Entitic vol] 9.9 fL 6.2-12.0 [facility] Determination of erythrocyte mean corpuscular volume (MCV)Ordered By: Annie Grady on 03-08-2023 MCV (RBC) [Entitic vol] 77.1 fL 81-99 [facility] Hematocrit Auto (Bld) [Volum e fraction]Ordered By: Annie Grady on 03-08-2023 Hematocrit (Bld) [Volume fraction] 33.6 % 37-47 [facility] Laboratory - Chemistry and C hemistry - challengeOrdered By: Annie Grady on 03-08-2023 ALP [Catalytic activity/Vol] 147 U/L 45-117 [facility] ALT [Catalytic activity/Vol] 13 U/L 13-56 [facility] CO2 [Moles/Vol] 23.0 mmol/L 21.0-32.0 [facility] Globulin (S) [Mass/Vol] 4.0 g/dL 2.2-4.2 [facility] Urea nitrogen/Creatinine [Mass ratio] 7.2 mg/mg 10-20 [facility] Laboratory - Chemistry and C hemistry - challengeon 03-08-2023 Glucose Ql (U) Negative [facility] Laboratory - Hematology and Cell countsOrdered By: Annie Grady on 03-08-2023 Erythrocyte distribution width (RBC) [Entitic vol] 42.3 fL 35.1-43.9 [facility] Erythrocyte distribution width (RBC) [Ratio] 18.4 % 11.6-14.6 [facility] Immature granulocytes/100 WBC (Bld) 1.200 % 0.0-0.9 [facility] Comment on above: IG% - Immature Granu locytes (promyelocytes, myelocytes and metamyelocytes) > 1% indicates that a LEFT SHIFT is Present. MCH (RBC) [Entitic mass] 23.9 pg 27.0-32.0 [facility] Nucleated RBC/100 WBC (Bld) [Ratio] 0 % 0-5 [facility] Laboratory - Urinalysison Protein Ql (U) Negative [facility] MCHC Auto (RBC) [Mass/Vol]Or dered By: Annie Grady on 03-08-2023 MCHC (RBC) [Mass/Vol] 31.0 g/dL 32-36 [facility] No Panel InformationOrdered By: Inna Thomas on 03-08-2023 Group B Streptococcus Culture Group B Beta Streptococcus is not isolated. [facility] Specimen Comment (Misc) Not Reportable [facility] No Panel InformationOrdered By: Annie Grady on 03-08-2023 Estimated Creatinine Clearance Calc 123.72 ml/min [facility] Estimated GFR (MDRD) Amer 165 mL/min >60 [facility] Comment on above: GFR Calc Estimated GFR (MDRD) Non-Af Amer 137 mL/min >60 [facility] Comment on above: Non- GFR Calc Fibrinogen 530 mg/dl 203-444 [facility] Platelets bldOrdered By: Blaine Grady on 03-08-2023 Platelets (Bld) [#/Vol] 249 10*3/uL 150-450 [facility] Serum or plasma albumin kathia urement (mass/volume)Ordered By: Annie Grady on 03-08-2023 Albumin [Mass/Vol] 2.7 g/dL 3.2-5.0 [facility] Serum or plasma albumin/glob ulin mass ratioOrdered By: Annie Grady on 03-08-2023 Albumin/Globulin [Mass ratio] 0.7 {ratio} 0.9-2.4 [facility] Serum or plasma calcium kathia urement (mass/volume)Ordered By: Annie Grady on 03-08-2023 Calcium [Mass/Vol] 8.6 mg/dL 8.5-10.1 [facility] Serum or plasma creatinine m easurement (mass/volume)Ordered By: Annie Grady on 03-08-2023 Creatinine [Mass/Vol] 0.55 mg/dL 0.55-1.02 [facility] Comment on above: The validity of the calculated GFR & GFRAA in patients over 70 years has not been determined. Clinical correlation is essential. Serum or plasma urea nitroge n measurement (mass/volume)Ordered By: Annie Grady on 03-08-2023 Urea nitrogen [Mass/Vol] 4 mg/dL 7-18 [facility] Thin prep Papanicolaou smear with manual screeningOrdered By: Annie Grady on 03-08-2023 Thin prep Papanicolaou smear with manual screening 14 U/L 15-37 [facility] Thin prep Papanicolaou smear with manual screening 7 5-15 [facility] Thin prep Papanicolaou smear with manual screeningOrdered By: Inna Thomas on 03-08-2023 Thin prep Papanicolaou smear with manual screening Negative Negative [facility] Laboratory - Chemistry and C hemistry - challengeon 02-28-2023 Glucose Ql (U) Negative [facility] Laboratory - Urinalysison Protein Ql (U) Negative [facility] No Panel InformationOrdered By: Suyapa Scruggs on 02-28-2023 Vaginal Amniotic Fluid Detection Negative Negative [facility] Comment on above: Amniotic fluid not p resent indicates No Rupture of FetalMembranes at time of specimen collection. Absolute lymphocyte countOrd ered By: Inna Thomas on 02-16-2023 Lymphocytes Auto (Unsp spec) [#/Vol] 1.23 10*3/uL 0.83-4.51 [facility] Basophil percentageOrdered B y: Inna Thomas on 02-16-2023 Basophils/100 WBC (Bld) 0.2 % 0-1 [facility] Eosinophils/100 WBC (Bld) 1.9 % 0-5 [facility] Neutrophils (Bld) [#/Vol] 6.1 10*3/uL 2.0-7.7 [facility] Neutrophils/100 WBC (Bld) 75.5 % 47-70 [facility] WBC (Bld) [#/Vol] 8.1 10*3/uL 4.4-11.0 [facility] Blood erythrocytes count (nu mber/volume)Ordered By: Inna Thomas on 02-16-2023 RBC (Bld) [#/Vol] 3.87 10*6/uL 4.2-5.4 [facility] Blood hemoglobin measurement (mass/volume)Ordered By: Inna Thomas on 02-16-2023 Hemoglobin (Bld) [Mass/Vol] 9.4 g/dL 12.0-15.0 [facility] Blood lymphocytes/100 leukoc ytesOrdered By: Inna Thomas on 02-16-2023 Lymphocytes/100 WBC (Bld) 15.3 % 19-41 [facility] Blood monocytes/100 leukocyt esOrdered By: Inna Thomas on 02-16-2023 Monocytes/100 WBC (Bld) 6.1 % 0-10 [facility] Blood platelet mean volumeOr dered By: Inna Thomas on 02-16-2023 Platelet mean volume (Bld) [Entitic vol] 9.8 fL 6.2-12.0 [facility] Determination of erythrocyte mean corpuscular volume (MCV)Ordered By: Inna Thomas on 02-16-2023 MCV (RBC) [Entitic vol] 78.0 fL 81-99 [facility] Hematocrit Auto (Bld) [Volum e fraction]Ordered By: Inna Thomas on 02-16-2023 Hematocrit (Bld) [Volume fraction] 30.2 % 37-47 [facility] Laboratory - Chemistry and C hemistry - challengeon 02-16-2023 Glucose Ql (U) Negative [facility] Laboratory - Hematology and Cell countsOrdered By: Inna Thomas on 02-16-2023 Erythrocyte distribution width (RBC) [Entitic vol] 41.4 fL 35.1-43.9 [facility] Erythrocyte distribution width (RBC) [Ratio] 14.8 % 11.6-14.6 [facility] Immature granulocytes/100 WBC (Bld) 1.000 % 0.0-0.9 [facility] Comment on above: IG% - Immature Granu locytes (promyelocytes, myelocytes and metamyelocytes) > 1% indicates that a LEFT SHIFT is Present. MCH (RBC) [Entitic mass] 24.3 pg 27.0-32.0 [facility] Nucleated RBC/100 WBC (Bld) [Ratio] 0 % 0-5 [facility] Laboratory - Urinalysison Protein Ql (U) Negative [facility] MCHC Auto (RBC) [Mass/Vol]Or dered By: Inna Thomas on 02-16-2023 MCHC (RBC) [Mass/Vol] 31.1 g/dL 32-36 [facility] Platelets bldOrdered By: Abelardo Thomas on 02-16-2023 Platelets (Bld) [#/Vol] 235 10*3/uL 150-450 [facility] Albumin Elph [Mass/Vol]Order ed By: Tonio Hernandez on 02-01-2023 Albumin [Mass/Vol] 2.9 g/dL 2.9-4.4 [facility] Erythrocyte sedimentation ra teOrdered By: Tonio Hernandez on 02-01-2023 ESR (Bld) [Velocity] 17 mm/h 0-30 [facility] Interpretation of serum or p lasma protein pattern by immunofixation (narrative resultOrdered By: Tonio Hernandez on 02-01-2023 Protein Fractions Immunofixation Sung [Interp] See comment [facility] Comment on above: Result: Not Observed Laboratory - Chemistry and C hemistry - challengeon 02-01-2023 Glucose Ql (U) Negative [facility] Laboratory - Urinalysison Protein Ql (U) Negative [facility] No Panel InformationOrdered By: Tonio Hernandez on 02-01-2023 Addendum Document Comment . [facility] Comment on above: Protein electrophore sis scan will follow via computer,mail, or nurse discharge planner delivery. Serum [id number] measu rement by electrophoresisOrdered By: Tonio Hernandez on 02-01-2023 Alpha 1 globulin Elph [Mass/Vol] 0.4 g/dL 0.0-0.4 [facility] Alpha 1 globulin Elph [Mass/Vol] 0.8 g/dL 0.4-1.0 [facility] Serum globulin measurement ( mass/volume)Ordered By: Tonio Hernandez on 02-01-2023 Globulin (S) [Mass/Vol] 3.0 g/dL 2.2-3.9 [facility] Serum or plasma C reactive p rotein measurement (mass/volume)Ordered By: Tonio Hernandez on 02-01-2023 CRP [Mass/Vol] 8.51 mg/L 0.0-3.0 [facility] Comment on above: C-Reactive Protein ( CRP) provides useful information for thediagnosis, therapy and monitoring of inflammatory processesand associated diseases. For the evaluation of Relative Riskfor Cardiovascular Disease, a High Sensitivity CRP (HSCRP)should be ordered. Serum or plasma IgA measurem ent (mass/volume)Ordered By: Tonio Hernandez on 02-01-2023 IgA [Mass/Vol] 57 mg/dL 87-352 [facility] Serum or plasma IgG measurem ent (mass/volume)Ordered By: Tonio Hernandez on 02-01-2023 IgG [Mass/Vol] 745 mg/dL 586-1602 [facility] Serum or plasma IgM measurem ent (mass/volume)Ordered By: Tonio Hernandez on 02-01-2023 IgM [Mass/Vol] 73 mg/dL 26-217 [facility] Serum or plasma beta globuli n measurement by electrophoresis (mass/volume)Ordered By: Tonio Hernandez on 02-01-2023 Beta globulin Elph [Mass/Vol] 1.2 g/dL 0.7-1.3 [facility] Serum or plasma ferritin claudy surement (mass/volume)Ordered By: Tonio Hernandez on 02-01-2023 Ferritin [Mass/Vol] 3 ng/mL 8-252 [facility] Serum or plasma gamma globul in measurement by electrophoresis (mass/volume)Ordered By: Tonio Hernandez on 02-01-2023 Gamma globulin Elph [Mass/Vol] 0.7 g/dL 0.4-1.8 [facility] Serum or plasma immunoelectr ophoresis interpretation (nominal result)Ordered By: Tonio Hernandez on 02-01-2023 Interpretation IEP [Interp] Comment . [facility] Comment on above: No monoclonality det ected. Thin prep Papanicolaou smear with manual screeningOrdered By: Tonio Hernandez on 02-01-2023 Thin prep Papanicolaou smear with manual screening 1.0 0.7-1.7 [facility] Thin prep Papanicolaou smear with manual screening Negative . [facility] Comment on above: HLA-B*27 [id number] allele interpretation for all loci based on IMGT/HLAdatabase version 3.44This test was developed and its performance characteristicsdetermined by [employer]. It has not been cleared or approvedby the Food and Drug Administration.[facility] CLIA ID Number [id number] test was performed using Polymerase Chain Reaction(PCR) and Sequence Specific Oligonucleotide Probes (SSOP)technique. Sequence Based Typing (SBT) may be used as asupplemental method when necessary.If you have questions, please call [employer] customer serviceat or email at [email or web address].Performed at: [address] [id number] Director: Bob Grant PhD, Phone: [phone] at: [address] [place] [id number] Director: Mariah Katz PhD, Phone: [phone] Total protein bloodOrdered B y: Tonioshawnee Hernandez on 02-01-2023 Protein [Mass/Vol] 5.9 g/dL 6.0-8.5 [facility] Laboratory - Chemistry and C hemistry - challengeon 01-19-2023 Glucose Ql (U) Negative [facility] Laboratory - Urinalysison Protein Ql (U) Negative [facility] Quantitative serum or plasma 3 hour gestational glucose tolerance panelOrdered By: Inna Thomas on 01-17-2023 Glucose tolerance 3 hours gestational panel See comment [facility] Comment on above: FASTING 79 Col: 12/24 12/15 0710GLUCOSE TOLERANCE TEST FOR Reference Interval GESTATIONAL DIABETES Fasting <105 mg/dL 1 hour <190 mg/dl 2 hour <165 mg/dl 3 hour <145 mg/dl 1 HR GLU 139 Col: 01/17/23 0816 2 HR GLU 124 Col: 01/17/23 0916 3 HR GLU 99 Col: 01/17/23 1016 Laboratory - Chemistry and C hemistry - challengeon 01-10-2023 Glucose Ql (U) Negative [facility] Laboratory - Urinalysison Protein Ql (U) Negative [facility] Absolute lymphocyte countOrd ered By: Inna Thomas on 01-05-2023 Lymphocytes Auto (Unsp spec) [#/Vol] 1.43 10*3/uL 0.83-4.51 [facility] Basophil percentageOrdered B y: Inna Thomas on 01-05-2023 Basophils/100 WBC (Bld) 0.2 % 0-1 [facility] Eosinophils/100 WBC (Bld) 0.7 % 0-5 [facility] Neutrophils (Bld) [#/Vol] 6.5 10*3/uL 2.0-7.7 [facility] Neutrophils/100 WBC (Bld) 76.6 % 47-70 [facility] WBC (Bld) [#/Vol] 8.5 10*3/uL 4.4-11.0 [facility] Blood erythrocytes count (nu mber/volume)Ordered By: Inna Thomas on 01-05-2023 RBC (Bld) [#/Vol] 3.72 10*6/uL 4.2-5.4 [facility] Blood hemoglobin measurement (mass/volume)Ordered By: Inna Thomas on 01-05-2023 Hemoglobin (Bld) [Mass/Vol] 9.6 g/dL 12.0-15.0 [facility] Blood lymphocytes/100 leukoc ytesOrdered By: Inna Thomas on 01-05-2023 Lymphocytes/100 WBC (Bld) 16.8 % 19-41 [facility] Blood monocytes/100 leukocyt esOrdered By: Inna Thomas on 01-05-2023 Monocytes/100 WBC (Bld) 4.6 % 0-10 [facility] Blood platelet mean volumeOr dered By: Inna Thomas on 01-05-2023 Platelet mean volume (Bld) [Entitic vol] 9.7 fL 6.2-12.0 [facility] Determination of erythrocyte mean corpuscular volume (MCV)Ordered By: Inna Thomas on 01-05-2023 MCV (RBC) [Entitic vol] 82.0 fL 81-99 [facility] Gestational diabetes screen 1-hour screen with 50g oral glucose loadOrdered By: Inna Thomas on 01-05-2023 Glucose 1 Hr post 50 g glucose PO [Mass/Vol] 151 mg/dL 70-140 [facility] HIV 1 and HIV-2 antibody ass ay with HIV-1 p24 antigen detectionOrdered By: Inna Thomas on 01-05-2023 HIV 1+2 Ab+HIV1 p24 Ag IA Ql Non-Reactive Nonreactive [facility] Hematocrit Auto (Bld) [Volum e fraction]Ordered By: Inna Thomas on 01-05-2023 Hematocrit (Bld) [Volume fraction] 30.5 % 37-47 [facility] Laboratory - Hematology and Cell countsOrdered By: Inna Thomas on 01-05-2023 Erythrocyte distribution width (RBC) [Entitic vol] 39.9 fL 35.1-43.9 [facility] Erythrocyte distribution width (RBC) [Ratio] 13.5 % 11.6-14.6 [facility] Immature granulocytes/100 WBC (Bld) 1.100 % 0.0-0.9 [facility] Comment on above: IG% - Immature Granu locytes (promyelocytes, myelocytes and metamyelocytes) > 1% indicates that a LEFT SHIFT is Present. MCH (RBC) [Entitic mass] 25.8 pg 27.0-32.0 [facility] Nucleated RBC/100 WBC (Bld) [Ratio] 0 % 0-5 [facility] MCHC Auto (RBC) [Mass/Vol]Or dered By: Inna Thomas on 01-05-2023 MCHC (RBC) [Mass/Vol] 31.5 g/dL 32-36 [facility] Platelets bldOrdered By: Abelardo Thomas on 01-05-2023 Platelets (Bld) [#/Vol] 282 10*3/uL 150-450 [facility] Serum Treponema species anti body detectionOrdered By: Inna Thomas on 01-05-2023 Treponema sp Ab Ql (S) Non-Reactive [facility] Basophil percentageOrdered B y: Suyapa Scruggs on 12-27-2022 Basophil percentage 25-50 SEEN /hpf 0-5 [facility] WBC (Bld) [#/Vol] 11.7 10*3/uL 4.4-11.0 [facility] Bilirubin Test strip Ql (U)O rdered By: Suyapa Scruggs on 12-27-2022 Bilirubin Ql (U) Negative Negative [facility] Blood erythrocytes count (nu mber/volume)Ordered By: Suyapa Scruggs on 12-27-2022 RBC (Bld) [#/Vol] 4.00 10*6/uL 4.2-5.4 [facility] Blood hemoglobin measurement (mass/volume)Ordered By: Suyapa Scruggs on 12-27-2022 Hemoglobin (Bld) [Mass/Vol] 10.5 g/dL 12.0-15.0 [facility] Blood platelet mean volumeOr dered By: Suyapa Scruggs on 12-27-2022 Platelet mean volume (Bld) [Entitic vol] 9.7 fL 6.2-12.0 [facility] Calcium oxalate crystals det ection in urine sediment by light microscopyOrdered By: Suyapa Scruggs on 12-27-2022 Calcium oxalate crystals LM Ql (Urine sed) 1+ /hpf [facility] Determination of erythrocyte mean corpuscular volume (MCV)Ordered By: Suyapa Scruggs on 12-27-2022 MCV (RBC) [Entitic vol] 84.0 fL 81-99 [facility] Hematocrit Auto (Bld) [Volum e fraction]Ordered By: Suyapa Scruggs on 12-27-2022 Hematocrit (Bld) [Volume fraction] 33.6 % 37-47 [facility] Ketones Test strip Ql (U)Ord ered By: Suyapa Scruggs on 12-27-2022 Ketones Ql (U) 5 mg/dl Negative [facility] Laboratory - Hematology and Cell countsOrdered By: Suyapa Scruggs on 12-27-2022 Erythrocyte distribution width (RBC) [Entitic vol] 41.0 fL 35.1-43.9 [facility] Erythrocyte distribution width (RBC) [Ratio] 13.3 % 11.6-14.6 [facility] MCH (RBC) [Entitic mass] 26.3 pg 27.0-32.0 [facility] MCHC Auto (RBC) [Mass/Vol]Or dered By: Suyapa Scruggs on 12-27-2022 MCHC (RBC) [Mass/Vol] 31.3 g/dL 32-36 [facility] Mucus LM Ql (Urine sed)Order ed By: Suyapa Scruggs on 12-27-2022 Mucus Ql (Urine sed) 2+ /hpf [facility] Nitrite Test strip Ql (U)Ord ered By: Suyapa Scruggs on 12-27-2022 Nitrite Ql (U) Negative Negative [facility] Platelets bldOrdered By: Kate Scruggs on 12-27-2022 Platelets (Bld) [#/Vol] 270 10*3/uL 150-450 [facility] Protein Test strip Ql (U)Ord ered By: Suyapa Scruggs on 12-27-2022 Protein Ql (U) 30 mg/dl Negative [facility] Squamous epithelial cells de tection in urine sediment by light microscopyOrdered By: Suyapa Scruggs on 12-27-2022 Epithelial cells.squamous LM Ql (Urine sed) 10-25 SEEN /hpf 5-10 [facility] Urine blood detectionOrdered By: Suyapa Scruggs on 12-27-2022 RBC Ql (U) 50 /ul Negative [facility] RBC Ql (U) 0-5 SEEN /hpf 0-5 [facility] Urine clarityOrdered By: Kate Scruggs on 12-27-2022 Clarity (U) Sl. Cloudy Clear [facility] Urine color determinationOrd ered By: Suyapa Scruggs on 12-27-2022 Color (U) Yellow Yellow [facility] Urine glucose detectionOrder ed By: Suyapa Scruggs on 12-27-2022 Glucose Ql (U) Normal mg/dl Normal [facility] Urine leukocyte esterase det ection by dipstickOrdered By: Suyapa Scruggs on 12-27-2022 Leukocyte esterase Test strip Ql (U) 500 /ul Negative [facility] Urine pHOrdered By: Suyapa Scruggs on 12-27-2022 pH (U) 6.0 [pH] 5.0 - 8.0 [facility] Urine sediment bacteria coun t by microscopy (number/high power field)Ordered By: Suyapa Scruggs on 12-27-2022 Bacteria LM.HPF (Urine sed) [#/Area] 3 /[HPF] None Seen [facility] Urine specific gravity measu rementOrdered By: Suyapa Scruggs on 12-27-2022 Specific gravity (U) [Rel density] 1.025 1.002-1.030 [facility] Urobilinogen Auto test strip Ql (U)Ordered By: Suyapa Scruggs on 12-27-2022 Urobilinogen Ql (U) 1 mg/dl Normal [facility] Culture, urineOrdered By: Dr Ubaldo Somers on 12-16-2022 Bacteria identified Cx Nom (U) Positive [facility] Absolute lymphocyte countOrd ered By: Dr. Somers on 12-14-2022 Lymphocytes Auto (Unsp spec) [#/Vol] 2.22 10*3/uL 0.83-4.51 [facility] Basophil percentageOrdered B y: Dr. Somers on 12-14-2022 Basophils/100 WBC (Bld) 0.2 % 0-1 [facility] Eosinophils/100 WBC (Bld) 0.3 % 0-5 [facility] Neutrophils (Bld) [#/Vol] 8.2 10*3/uL 2.0-7.7 [facility] Neutrophils/100 WBC (Bld) 73.9 % 47-70 [facility] WBC (Bld) [#/Vol] 11.1 10*3/uL 4.4-11.0 [facility] System Basophil percentage 5-10 SEEN /hpf 0-5 [facility] Bilirubin [Mass/Vol] 0.20 mg/dL 0.20-1.00 [facility] Comment on above: For patients on eltr ombopag therapy, use of Dimension [place] TBIL is not recommended. Chloride [Moles/Vol] 107 mmol/L 98-107 [facility] Glucose [Mass/Vol] 81 mg/dL 74-106 [facility] Potassium [Moles/Vol] 3.8 mmol/L 3.5-5.1 [facility] Protein [Mass/Vol] 6.6 g/dL 6.4-8.2 [facility] Sodium [Moles/Vol] 138 mmol/L 136-145 [facility] Bilirubin Test strip Ql (U)O rdered By: Dr. Somers on 12-14-2022 Bilirubin Ql (U) Negative Negative [facility] Blood erythrocytes count (nu mber/volume)Ordered By: Dr. Somers on 12-14-2022 RBC (Bld) [#/Vol] 4.20 10*6/uL 4.2-5.4 [facility] Blood hemoglobin measurement (mass/volume)Ordered By: Dr. Somers on 12-14-2022 Hemoglobin (Bld) [Mass/Vol] 11.3 g/dL 12.0-15.0 [facility] Blood lymphocytes/100 leukoc ytesOrdered By: Dr. Somers on 12-14-2022 Lymphocytes/100 WBC (Bld) 20.0 % 19-41 [facility] Blood monocytes/100 leukocyt esOrdered By: Dr. Somers on 12-14-2022 Monocytes/100 WBC (Bld) 4.6 % 0-10 [facility] Blood platelet mean volumeOr dered By: Dr. Somers on 12-14-2022 Platelet mean volume (Bld) [Entitic vol] 9.8 fL 6.2-12.0 [facility] Culture, urineOrdered By: [place] Somers on 12-14-2022 Bacteria identified Cx Nom (U) Positive [facility] Determination of erythrocyte mean corpuscular volume (MCV)Ordered By: Dr. Somers on 12-14-2022 MCV (RBC) [Entitic vol] 84.8 fL 81-99 [facility] Hematocrit Auto (Bld) [Volum e fraction]Ordered By: Dr. Somers on 12-14-2022 Hematocrit (Bld) [Volume fraction] 35.6 % 37-47 [facility] Ketones Test strip Ql (U)Ord ered By: Dr. Somers on 12-14-2022 Ketones Ql (U) Negative Negative [facility] Laboratory - Chemistry and C hemistry - challengeOrdered By: Dr. Somers on 12-14-2022 ALP [Catalytic activity/Vol] 99 U/L 45-117 [facility] ALT [Catalytic activity/Vol] 12 U/L 13-56 [facility] CO2 [Moles/Vol] 25.0 mmol/L 21.0-32.0 [facility] Globulin (S) [Mass/Vol] 3.8 g/dL 2.2-4.2 [facility] Natriuretic peptide B (Bld) [Mass/Vol] 14.5 pg/mL 0-100 [facility] Urea nitrogen/Creatinine [Mass ratio] 9.8 mg/mg 10-20 [facility] Laboratory - Hematology and Cell countsOrdered By: Dr. Somers on 12-14-2022 Erythrocyte distribution width (RBC) [Entitic vol] 40.6 fL 35.1-43.9 [facility] Erythrocyte distribution width (RBC) [Ratio] 13.2 % 11.6-14.6 [facility] Immature granulocytes/100 WBC (Bld) 1.000 % 0.0-0.9 [facility] Comment on above: IG% - Immature Granu locytes (promyelocytes, myelocytes and metamyelocytes) > 1% indicates that a LEFT SHIFT is Present. MCH (RBC) [Entitic mass] 26.9 pg 27.0-32.0 [facility] Nucleated RBC/100 WBC (Bld) [Ratio] 0 % 0-5 [facility] MCHC Auto (RBC) [Mass/Vol]Or dered By: Dr. Somers on 12-14-2022 MCHC (RBC) [Mass/Vol] 31.7 g/dL 32-36 [facility] Mucus LM Ql (Urine sed)Order ed By: Dr. Somers on 12-14-2022 Mucus Ql (Urine sed) 0 SEEN /hpf [facility] Nitrite Test strip Ql (U)Ord ered By: Dr. Somers on 12-14-2022 Nitrite Ql (U) Negative Negative [facility] No Panel InformationOrdered By: Dr. Somers on 12-14-2022 Estimated GFR (MDRD) Amer 182 mL/min >60 [facility] Comment on above: GFR Calc Estimated GFR (MDRD) Non-Af Amer 150 mL/min >60 [facility] Comment on above: Non- GFR Calc Troponin I High Sensitivity 6 pg/mL 3.0-54.0 [facility] Comment on above: Please Note: New Ana t Units and Gender Specific Reference Ranges. For more information see Policy Stat Procedure [place] High Sensitivity Troponin (TNIH) and attachments. Platelets bldOrdered By: Dr. Somers on 12-14-2022 Platelets (Bld) [#/Vol] 260 10*3/uL 150-450 [facility] Protein Test strip Ql (U)Ord ered By: Dr. Somers on 12-14-2022 Protein Ql (U) 15 mg/dl Negative [facility] Serum or plasma albumin kathia urement (mass/volume)Ordered By: Dr. Somers on 12-14-2022 Albumin [Mass/Vol] 2.8 g/dL 3.2-5.0 [facility] Serum or plasma albumin/glob ulin mass ratioOrdered By: Dr. Somers on 12-14-2022 Albumin/Globulin [Mass ratio] 0.7 {ratio} 0.9-2.4 [facility] Serum or plasma calcium kathia urement (mass/volume)Ordered By: Dr. Somers on 12-14-2022 Calcium [Mass/Vol] 8.5 mg/dL 8.5-10.1 [facility] Serum or plasma creatinine m easurement (mass/volume)Ordered By: Dr. Somers on 12-14-2022 Creatinine [Mass/Vol] 0.51 mg/dL 0.55-1.02 [facility] Comment on above: The validity of the calculated GFR & GFRAA in patients over 70 years has not been determined. Clinical correlation is essential. Serum or plasma urea nitroge n measurement (mass/volume)Ordered By: Dr. Somers on 12-14-2022 Urea nitrogen [Mass/Vol] 5 mg/dL 7-18 [facility] Squamous epithelial cells de tection in urine sediment by light microscopyOrdered By: Dr. Somers on 12-14-2022 Epithelial cells.squamous LM Ql (Urine sed) 0-5 SEEN /hpf 5-10 [facility] Thin prep Papanicolaou smear with manual screeningOrdered By: Dr. Somers on 12-14-2022 Thin prep Papanicolaou smear with manual screening 12 U/L 15-37 [facility] Thin prep Papanicolaou smear with manual screening 6 5-15 [facility] Urine blood detectionOrdered By: Dr. Somers on 12-14-2022 RBC Ql (U) 10 /ul Negative [facility] RBC Ql (U) 0 SEEN /hpf 0-5 [facility] Urine clarityOrdered By: Dr. Somers on 12-14-2022 Clarity (U) Sl. Cloudy Clear [facility] Urine color determinationOrd ered By: Dr. Somers on 12-14-2022 Color (U) Yellow Yellow [facility] Urine glucose detectionOrder ed By: Dr. Somers on 12-14-2022 Glucose Ql (U) Normal mg/dl Normal [facility] Urine leukocyte esterase det ection by dipstickOrdered By: Dr. Somers on 12-14-2022 Leukocyte esterase Test strip Ql (U) 500 /ul Negative [facility] Urine pHOrdered By: Dr. Jesenia cantu on 12-14-2022 pH (U) 6.5 [pH] 5.0 - 8.0 [facility] Urine sediment bacteria coun t by microscopy (number/high power field)Ordered By: Dr. Somers on 12-14-2022 Bacteria LM.HPF (Urine sed) [#/Area] RARE /hpf None Seen [facility] Urine specific gravity measu rementOrdered By: Dr. Somers on 12-14-2022 Specific gravity (U) [Rel density] 1.010 1.002-1.030 [facility] Urobilinogen Auto test strip Ql (U)Ordered By: Dr. Somers on 12-14-2022 Urobilinogen Ql (U) Normal mg/dl Normal [facility] Laboratory - Chemistry and C hemistry - challengeon 12-13-2022 Glucose Ql (U) Negative [facility] Laboratory - Urinalysison Protein Ql (U) Negative [facility] Basophil percentageOrdered B y: Tonio Friend on 11-15-2022 Amylase [Catalytic activity/Vol] 53 U/L 25-115 [facility] Bilirubin [Mass/Vol] 0.20 mg/dL 0.20-1.00 [facility] Comment on above: For patients on eltr ombopag therapy, use of Dimension [place] TBIL is not recommended. Chloride [Moles/Vol] 107 mmol/L 98-107 [facility] Glucose [Mass/Vol] 91 mg/dL 74-106 [facility] Potassium [Moles/Vol] 3.5 mmol/L 3.5-5.1 [facility] Protein [Mass/Vol] 6.4 g/dL 6.4-8.2 [facility] Sodium [Moles/Vol] 138 mmol/L 136-145 [facility] Laboratory - Chemistry and C hemistry - challengeOrdered By: Tonio Hernandez on 11-15-2022 ALP [Catalytic activity/Vol] 81 U/L 45-117 [facility] ALT [Catalytic activity/Vol] 12 U/L 13-56 [facility] CO2 [Moles/Vol] 23.0 mmol/L 21.0-32.0 [facility] Globulin (S) [Mass/Vol] 3.6 g/dL 2.2-4.2 [facility] Lipase [Catalytic activity/Vol] 33 U/L 13-75 [facility] Comment on above: Please note:LIPASE r evised reference range effective 22. New Lipase methodology. Expected to produce lower values than the previous assay method. NEW Reference Range: 13 - 75 U/L Urea nitrogen/Creatinine [Mass ratio] 5.9 mg/mg 10-20 [facility] Laboratory - Chemistry and C hemistry - challengeon 11-15-2022 Glucose Ql (U) Negative [facility] Laboratory - Urinalysison Protein Ql (U) Negative [facility] No Panel InformationOrdered By: Tonio Hernandez on 11-15-2022 Estimated GFR (MDRD) Amer 183 mL/min >60 [facility] Comment on above: GFR Calc Estimated GFR (MDRD) Non-Af Amer 151 mL/min >60 [facility] Comment on above: Non- GFR Calc Serum or plasma albumin kathia urement (mass/volume)Ordered By: Tonio Hernandez on 11-15-2022 Albumin [Mass/Vol] 2.8 g/dL 3.2-5.0 [facility] Serum or plasma albumin/glob ulin mass ratioOrdered By: Tonio Hernandez on 11-15-2022 Albumin/Globulin [Mass ratio] 0.8 {ratio} 0.9-2.4 [facility] Serum or plasma calcium kathia urement (mass/volume)Ordered By: Tonio Hernandez on 11-15-2022 Calcium [Mass/Vol] 8.6 mg/dL 8.5-10.1 [facility] Serum or plasma creatinine m easurement (mass/volume)Ordered By: Tonio Hernandez on 11-15-2022 Creatinine [Mass/Vol] 0.51 mg/dL 0.55-1.02 [facility] Comment on above: The validity of the calculated GFR & GFRAA in patients over 70 years has not been determined. Clinical correlation is essential. Serum or plasma urea nitroge n measurement (mass/volume)Ordered By: Tonio Hernandez on 11-15-2022 Urea nitrogen [Mass/Vol] 3 mg/dL 7-18 [facility] Thin prep Papanicolaou smear with manual screeningOrdered By: Tonio Hernandez on 11-15-2022 Thin prep Papanicolaou smear with manual screening 14 U/L 15-37 [facility] Thin prep Papanicolaou smear with manual screening 8 5-15 [facility] Progress Noteon 11-08-2022 Demographic Analyst Authentication Interface Message Text Maternal Medicine Consult Date of Service: 11/08/2022 Referring Provider: Suyapa Julio Primary Care Provider: Eugenia Low DO Reason for Consult: Dr. Suyapa Julio requests that Nancy be evaluated due to probable hypermobility EDS. History of Presenting Problem: Nancy is a 32 y.o. 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 Dr Mota, her PCP diagnosed (tentatively) her. Although there is no direct genetic test for hEDS, Nancy has had multiple dislocations (shoulder, mandible, ribs) with some chronic pain. She has hyperlaxity of the skin, and her joints are hyperextensible in general. She has a very strong family history. Her mother, her sister, her maternal uncles (x2) and maternal grandfather all have symptoms considered c/w hEDS. Her sister apparently was tested per patient (she thinks) for vascular EDS, as she had some symptoms (?) consistent with that diagnosis. Given the AD pattern in her family and symptoms of hEDS are consistent, this is most likely the diagnosis. Ultrasound Findings: Transvaginal ultrasound to screen for asymptomatic cervical shortening and risk of premature delivery was performed. The maternal cervix measured 39.7 mm which suggests lower risk for premature . See Progress Notes below for full consult and recommendations. 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 Past Surgical History: Procedure Laterality Date WISDOM TOOTH EXTRACTION No Known Allergies Social History Socioeconomic History Marital status: Spouse name: None Number of children: None Years of education: None Highest education level: None Tobacco Use Smoking status: Never Smokeless tobacco: Never Substance and Sexual Activity Alcohol use: Not Currently Comment: occasional social use prior to Drug use: Never Infections Live with someone with or exposed to TB 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 History of STI's Rash or viral illness since last menstruation No 2nd STI GBS 3rd STI Hx of Chicken Pox Yes had as a child Other infections No Partner has hx of genital herpes No Genetics Age is > than 35y as of estimated date No Thalassemia No Neural Tube Defect No Congenital Heart Defect No Down Syndrome No [place]s No Kiana Disease No Sickle Cell Disease or Trait No Hemophilia, Thrombophilia No Muscular Dystrophy No Cystic Fibrosis No Paulette's Chorea No Intellectual Disability/Autism No Metabolic Disorder No Recurrent Loss, or a Stillbirth No Inherited Genetic or Chromosomal Disorder Yes suspect shawn danlos Illicit; Rec.drugs; Alcohol since last menses No Family History Problem Relation Age of Onset Thyroid Disease Mother Kidney Stones Mother High Blood Pressure Mother Kidney Stones Father Thyroid Disease Maternal Grandmother Cancer Maternal Grandmother kidney Heart Disease Maternal Grandmother Cancer Maternal Grandfather bladder Stroke Paternal Grandfather Outpatient Encounter Medications as of 11/08/2022 Medication Sig Dispense Refill LINZESS 145 MCG CAPS Take 1 Capsule (145 mcg) by mouth every other day metoclopramide (REGLAN) 5 MG tablet Take 1 Tablet (5 mg) by mouth daily as needed ondansetron (ZOFRAN) 4 MG tablet Take 1 Tablet (4 mg) by mouth daily as needed pantoprazole (PROTONIX) 40 MG EC tablet Take 1 Tablet (40 mg) by mouth daily [DISCONTINUED] Ikmgfrok-Oie-Oe-FA (PRE- FORMULA PO) Take by mouth [id number]-[id number] ( GUMMIES/DHA & FA PO) Take 2 Tablets by mouth daily famotidine (PEPCID) 20 MG tablet Take 1 Tablet by mouth daily loratadine (CLARITIN) 10 MG tablet Take 10 mg by mouth daily as needed [DISCONTINUED] ondansetron (ZOFRAN-ODT) 4 MG disintegrating tablet Take 4 mg by mouth every 8 hours as needed No facility-administered encounter medications on file as of 11/08/2022. Review of Systems Physical Exam FHT: Positive Presentation: N/A Laboratory Test Results: No visits with results within 1 Year(s) from this visit. Latest known visit with results is: No results found for any previous visit. Assessment/Plan: Nancy Brown is a 32 y.o. at 19w3d with: Active Non-Hospital Problems Diagnosis Date Noted Shawn-Danlos syndrome, unspecified 05/11/2020 11/08/2022: Dr Mota PCP diagnosed (tentatively) There is no genetic test for hEDS, but Nancy has had multiple dislocat (more content not included)... Normal [facility] Laboratory - Chemistry and C hemistry - challengeon 10-18-2022 Glucose Ql (U) Negative [facility] Laboratory - Microbiology an d Antimicrobial susceptibilityon 10-18-2022 S. pyogenes Ag IA Ql (Unsp spec) Negative [facility] Laboratory - Urinalysison Protein Ql (U) Trace [facility] Laboratory - Chemistry and C hemistry - challengeon 09-20-2022 Glucose Ql (U) Negative [facility] Laboratory - Urinalysison Protein Ql (U) Negative [facility] Absolute lymphocyte countOrd ered By: Dr. Grady on 09-11-2022 Lymphocytes Auto (Unsp spec) [#/Vol] 1.39 10*3/uL 0.83-4.51 [facility] Basophil percentageOrdered B y: Dr. Grady on 09-11-2022 Basophils/100 WBC (Bld) 0.3 % 0-1 [facility] Eosinophils/100 WBC (Bld) 0.7 % 0-5 [facility] Neutrophils (Bld) [#/Vol] 4.9 10*3/uL 2.0-7.7 [facility] Neutrophils/100 WBC (Bld) 72.5 % 47-70 [facility] WBC (Bld) [#/Vol] 6.8 10*3/uL 4.4-11.0 [facility] Blood erythrocytes count (nu mber/volume)Ordered By: Dr. Grady on 09-11-2022 RBC (Bld) [#/Vol] 4.88 10*6/uL 4.2-5.4 [facility] Blood hemoglobin measurement (mass/volume)Ordered By: Dr. Grady on 09-11-2022 Hemoglobin (Bld) [Mass/Vol] 14.0 g/dL 12.0-15.0 [facility] Blood lymphocytes/100 leukoc ytesOrdered By: Dr. Grady on 09-11-2022 Lymphocytes/100 WBC (Bld) 20.6 % 19-41 [facility] Blood monocytes/100 leukocyt esOrdered By: Dr. Grady on 09-11-2022 Monocytes/100 WBC (Bld) 5.6 % 0-10 [facility] Blood platelet mean volumeOr dered By: Dr. Grady on 09-11-2022 Platelet mean volume (Bld) [Entitic vol] 9.8 fL 6.2-12.0 [facility] Determination of erythrocyte mean corpuscular volume (MCV)Ordered By: Dr. Grady on 09-11-2022 MCV (RBC) [Entitic vol] 87.3 fL 81-99 [facility] Gestational diabetes screen 1-hour screen with 50g oral glucose loadOrdered By: Dr. Grady on 09-11-2022 Glucose 1 Hr post 50 g glucose PO [Mass/Vol] 130 mg/dL 70-140 [facility] HIV 1 and HIV-2 antibody ass ay with HIV-1 p24 antigen detectionOrdered By: Dr. Grady on 09-11-2022 HIV 1+2 Ab+HIV1 p24 Ag IA Ql Non-Reactive Nonreactive [facility] Hematocrit Auto (Bld) [Volum e fraction]Ordered By: Dr. Grady on 09-11-2022 Hematocrit (Bld) [Volume fraction] 42.6 % 37-47 [facility] Laboratory - Hematology and Cell countsOrdered By: Dr. Grady on 09-11-2022 Erythrocyte distribution width (RBC) [Entitic vol] 41.9 fL 35.1-43.9 [facility] Erythrocyte distribution width (RBC) [Ratio] 13.2 % 11.6-14.6 [facility] Immature granulocytes/100 WBC (Bld) 0.300 % 0.0-0.9 [facility] Comment on above: IG% - Immature Granu locytes (promyelocytes, myelocytes and metamyelocytes) > 1% indicates that a LEFT SHIFT is Present. MCH (RBC) [Entitic mass] 28.7 pg 27.0-32.0 [facility] Nucleated RBC/100 WBC (Bld) [Ratio] 0 % 0-5 [facility] MCHC Auto (RBC) [Mass/Vol]Or dered By: Dr. Grady on 09-11-2022 MCHC (RBC) [Mass/Vol] 32.9 g/dL 32-36 [facility] No Panel InformationOrdered By: Dr. Grady on 09-11-2022 Miscellaneous Test Comment MAILED SPECIMEN [facility] Rubella IgG Antibody Reactive Nonreactive [facility] Comment on above: Antibody Results Int erpretation of Immune Status Non Reactive Presumed Non-Immune Equivocal Equivocal Reactive Presumed Immune Platelets bldOrdered By: Dr. Grady on 09-11-2022 Platelets (Bld) [#/Vol] 305 10*3/uL 150-450 [facility] Serum Treponema species anti body detectionOrdered By: Dr. Grady on 09-11-2022 Treponema sp Ab Ql (S) Non-Reactive [facility] Culture, urineOrdered By: Dr Ubaldo Grady on 08-26-2022 Bacteria identified Cx Nom (U) Positive [facility] Chlamydia trachomatis rRNA d etection by probe and target amplification methodOrdered By: Dr. Grady on 08-24-2022 C. trachomatis rRNA JUSTIN+probe Ql (Unsp spec) Negative Negative [facility] Laboratory - Microbiology an d Antimicrobial susceptibilityOrdered By: Dr. Grady on 08-24-2022 N. gonorrhoeae DNA JUSTIN+probe Ql (Unsp spec) Negative Negative [facility] Comment on above: Performed at: =G - [facility] [address] [place], [place] [id number] Director: Leida Cordoba MD, Phone: [phone] No Panel InformationOrdered By: Tonio Hernandez on 07-18-2022 Miscellaneous Test See comment [facility] Comment on above: TEST RESULT LIMITSIB D Expanded PanelgASCA 12 units 0-50 Negative <45 Equivocal 45 - 50 Positive >50ACCA 6 units 0-90 Negative <80 Equivocal 80 - 90 Positive >90ALCA 18 units 0-60 Negative <55 Equivocal 55 - 60 Positive >60AMCA 11 units 0-100 Negative < 90 Equivocal 90 - 100 Positive >100 This test was developed and its performance characteristics [facility]. It has not been cleared or approved by the Food and Drug Administration. The FDA has determined that such clearance or approval is not necessary.Atypical pANCA Negative NegativeCommentsPattern is not suggestive of Inflammatory Bowel Disease. ___ TESTING PERFORMED AT [facility]. ORIGINAL REPORT ON FILE IN LAB CONTAINS ADDITIONAL TEST SITE INFORMATION. Chocolate RASTOrdered By: Ra hsu Friend on 04-19-2022 Chocolate IgE Qn (S) <0.10 kU/L Class 0 [facility] Comment on above: Performed at: BN - L [address] [id number] Director: Terese Virk MD, Phone: [phone] Laboratory - Miscellaneous t estsOrdered By: Tonio Hernandez on 04-19-2022 Service comment (Unsp spec) [Interp] Comment . [facility] Comment on above: Levels of Specific I gE Class Description of Class ----- < 0.10 0 Negative 0.10 - 0.31 0/I Equivocal/Low 0.32 - 0.55 I Low 0.56 - 1.40 II Moderate 1.41 - 3.90 III High 3.91 - 19.00 IV Very High 19.01 - 100.00 V Very High >100.00 Very High No Panel InformationOrdered By: Tonio Hernandez on 04-19-2022 [employer] Allergens (RAST) Negative . [facility] Comment on above: Allergens in this mi x are: Blue mussel Fish [place] Shrimp Tuna Serum beef IgE antibody assa y (units/volume)Ordered By: Tonio Hernandez on 04-19-2022 Beef IgE Qn (S) <0.10 kU/L Class 0 [facility] Serum corn IgE antibody assa y (units/volume)Ordered By: Tonio Hernandez on 04-19-2022 [place] IgE Qn (S) <0.10 kU/L Class 0 [facility] Serum cow milk IgE antibody assay (units/volume)Ordered By: Tonio Hernandez on 04-19-2022 Cow milk IgE Qn (S) 0.12 kU/L Class 0/I [facility] Serum peanut IgE antibody as say (units/volume)Ordered By: Tonio Hernandez on 04-19-2022 Peanut IgE Qn (S) <0.10 kU/L Class 0 [facility] Serum pork IgE antibody assa y (units/volume)Ordered By: Tonio Hernandez on 04-19-2022 Pork IgE Qn (S) <0.10 kU/L Class 0 [facility] Serum soybean IgE antibody a ssay (units/volume)Ordered By: Tonio Hernandez on 04-19-2022 Soybean IgE Qn (S) <0.10 kU/L Class [address] [facility] Serum wheat IgE antibody ass ay (units/volume)Ordered By: Tonio Hernandez on 04-19-2022 Wheat IgE Qn (S) 0.85 kU/L Class II [facility] Serum whole egg IgE antibody assay (units/volume)Ordered By: Tonio Hernandez on 04-19-2022 Whole Egg IgE Qn (S) 0.25 kU/L Class 0/I [facility] Albumin Elph [Mass/Vol]on Albumin [Mass/Vol] 3.6 g/dL 2.9-4.4 [facility] Work Phone: Atypical perinuclear antineu trophil cytoplasmic antibodies measurementon 03-23-2022 Neutrophil cytoplasmic Ab.perinuclear.atypical IF (S) [Titer] 1:20 titer Neg:<1:20 [facility] Work Phone: Comment on above: The atypical pANCA p attern has been observed in asignificant percentage of patients with ulcerative colitis,primary sclerosing cholangitis and autoimmune hepatitis. Basophil percentageon 2021 Basophil percentage < 0.2 AI 0.0-0.9 [facility] Work Phone: Erythrocyte sedimentation ra milton 03-23-2022 ESR (Bld) [Velocity] 5 mm/h 0-30 [facility] Work Phone: Interpretation of serum or p lasma protein pattern by immunofixation (narrative resulton 03-23-2022 Protein Fractions Immunofixation Sung [Interp] See comment [facility] Work Phone: Comment on above: Result: Not Observed Laboratory - Chemistry and C hemistry - challengeon 03-23-2022 Free T4 [Mass/Vol] 0.75 ng/dL 0.76-1.46 [facility] Work Phone: HCG ( test) Ql (U) Negative [facility] Work Phone: Comment on above: Very dilute urine sp ecimens, as indicated by a low specificgravity, may not contain chain sales representative levels of hCG. If is still suspected, a first morning urinespecimen should be collected 48 hours later and tested. No Panel Informationon 03-23 Stool Calprotectin <16 ug/g 0-120 [facility] Work Phone: Comment on above: Concentration Interp retation Follow-Up<16 - 50 ug/g Normal None>50 -120 ug/g Borderline Re-evaluate in 4-6 weeks >120 ug/g Abnormal Repeat as clinically indicatedPerformed at: [employer] ([place]) [address] [id number] Director: Terese Virk MD, Phone: [phone] Addendum Document Comment . [facility] Work Phone: Comment on above: Protein electrophore sis scan will follow via computer,mail, or nurse discharge planner delivery. Centromere B Antibody <0.2 AI 0.0-0.9 [facility] Work Phone: Endomysial IgA Antibody Negative Negative [facility] Work Phone: Free Triiodothyronine (T3) pg/dL 3.0 pg/mL 2.18-3.98 [facility] Work Phone: Immunoglobulin E 14 IU/mL 6-495 [facility] Work Phone: Comment on above: Performed at: [address] [id number] Director: Bob Grant PhD, Phone: [phone] at: [employer] ([place]) [address] [id number] Director: Terese Virk MD, Phone: [phone] [employer] CONCESSION MANAGER Antibody <0.2 AI 0.0-0.9 [facility] Work Phone: Thyroid Stimulating Hormone (TSH) 2.27 uIU/mL 0.358-3.74 [facility] Work Phone: Serum DNA double strand anti body assay (units/volume)on 03-23-2022 DNA double strand Ab Qn (S) 1 [IU]/mL 0-9 [facility] Work Phone: Comment on above: Negative <5 Equivoca l 5 - 9 Positive >9 Serum Terra-1 antibody assay (u nits/volume)on 03-23-2022 Terra-1 extractable nuclear Ab Qn (S) <0.2 AI 0.0-0.9 [facility] Work Phone: Serum Scl-70 extractable nuc lear antibody assay (units/volume)on 03-23-2022 SCL-70 extractable nuclear Ab Qn (S) <0.2 AI 0.0-0.9 [facility] Work Phone: Serum Bullard extractable nucl ear antibody detectionon 03-23-2022 Bullard extractable nuclear Ab Ql (S) <0.2 AI 0.0-0.9 [facility] Work Phone: Serum [id number] measu rement by electrophoresison 03-23-2022 Alpha 1 globulin Elph [Mass/Vol] 0.2 g/dL 0.0-0.4 [facility] Work Phone: Alpha 1 globulin Elph [Mass/Vol] 0.9 g/dL 0.4-1.0 [facility] Work Phone: Serum classic neutrophil cyt oplasmic antibody assay (units/volume)on 03-23-2022 Neutrophil cytoplasmic Ab.classic Qn (S) <1:20 titer Neg:<1:20 [facility] Work Phone: Serum globulin measurement ( mass/volume)on 03-23-2022 Globulin (S) [Mass/Vol] 2.8 g/dL 2.2-3.9 [facility] Work Phone: Serum or plasma C reactive p rotein measurement (mass/volume)on 03-23-2022 CRP [Mass/Vol] mg/L 0.0-3.0 [facility] Work Phone: Comment on above: C-Reactive Protein ( CRP) provides useful information for thediagnosis, therapy and monitoring of inflammatory processesand associated diseases. For the evaluation of Relative Riskfor Cardiovascular Disease, a High Sensitivity CRP (HSCRP)should be ordered. Serum or plasma IgA measurem ent (mass/volume)on 03-23-2022 IgA [Mass/Vol] 71 mg/dL 87-352 [facility] Work Phone: Serum or plasma IgG measurem ent (mass/volume)on 03-23-2022 IgG [Mass/Vol] 932 mg/dL [phone] [facility] Work Phone: Serum or plasma IgM measurem ent (mass/volume)on 03-23-2022 IgM [Mass/Vol] 88 mg/dL 26-217 [facility] Work Phone: Serum or plasma beta globuli n measurement by electrophoresis (mass/volume)on 03-23-2022 Beta globulin Elph [Mass/Vol] 0.8 g/dL 0.7-1.3 [facility] Work Phone: Serum or plasma gamma globul in measurement by electrophoresis (mass/volume)on 03-23-2022 Gamma globulin Elph [Mass/Vol] 0.9 g/dL 0.4-1.8 [facility] Work Phone: Serum or plasma gastrin kathia urement (mass/volume)on 03-23-2022 Gastrin [Mass/Vol] 24 pg/mL 0-115 [facility] Work Phone: Comment on above: Siemens Immulite 200 0 Immunochemiluminometric assay (ICMA)Values obtained with different assay methods or kits cannotbe used interchangeably. Results cannot be interpreted asabsolute evidence of the presence or absence of malignantdisease. Serum or plasma immunoelectr ophoresis interpretation (nominal result)on 03-23-2022 Interpretation IEP [Interp] Comment . [facility] Work Phone: Comment on above: No monoclonality det ected. Serum perinuclear neutrophil cytoplasmic antibody titer by immunofluorescenceon 03-23-2022 Neutrophil cytoplasmic Ab.perinuclear IF (S) [Titer] <1:20 titer Neg:<1:20 [facility] Work Phone: Comment on above: The presence of posi tive fluorescence exhibiting P-ANCA orC-ANCA patterns alone is not specific for the diagnosis ofWegener's Granulomatosis (WG) or microscopic polyangiitis.Decisions about treatment should not be based solely onANCA IFA results. The [employer] ANCA Group Consensusrecommends follow up testing of positive sera with both WY-3 and MPO-ANCA enzyme immunoassays. As many as 5% serumsamples are positive only by EIA. Ref. AM J Clin [id number];111:507-513. Serum tissue transglutaminas e IgA antibody assay (units/volume)on 03-23-2022 tTG IgA Qn (S) <2 U/mL 0-3 [facility] Work Phone: Comment on above: Negative 0 - 3 Weak Positive 4 - 10 Positive >10 Tissue Transglutaminase (tTG) has been identified as the endomysial antigen. Studies have demonstr- ated that endomysial IgA antibodies have over 99% specificity for gluten sensitive enteropathy. Thin prep Papanicolaou smear with manual screeningon 03-23-2022 Thin prep Papanicolaou smear with manual screening 192 U/L 84-246 [facility] Work Phone: Thin prep Papanicolaou smear with manual screening 1.3 0.7-1.7 [facility] Work Phone: Total protein bloodon 2021 Protein [Mass/Vol] 6.4 g/dL 6.0-8.5 [facility] Work Phone: Whole blood hemoglobin A1c/t otal hemoglobin ratio (mass fraction)on 03-23-2022 HbA1c (Bld) [Mass fraction] 5.2 % 3.8-5.6 [facility] Work Phone: Comment on above: Normal < 5.7 % Predi abetic 5.7 - 6.4 % Diabetic >or= 6.5 % Please note range changes. Laboratory - Microbiology an d Antimicrobial susceptibilityon 02-12-2022 SARS-CoV-2 (COVID-19) RNA JUSTIN+probe Ql (Unsp spec) Detected [facility] Work Phone: No Panel Informationon 02-12 POC Nasal Swab Influenza A,B Not detected [facility] Work Phone: POC Nasal Swab RSV Not detected [facility] Work Phone: Absolute lymphocyte counton 01-26-2022 Lymphocytes Auto (Unsp spec) [#/Vol] 2.57 10*3/uL 0.83-4.51 [facility] Work Phone: Basophil percentageon 2021 Lactate [Moles/Vol] 0.8 mmol/L 0.4-2.0 [facility] Work Phone: Basophils/100 WBC (Bld) 0.3 % 0-1 [facility] Work Phone: Bilirubin [Mass/Vol] 0.40 mg/dL 0.20-1.00 [facility] Work Phone: Comment on above: For patients on eltr ombopag therapy, use of Dimension [place] TBIL is not recommended. Chloride [Moles/Vol] 104 mmol/L 98-107 [facility] Work Phone: Eosinophils/100 WBC (Bld) 7.4 % 0-5 [facility] Work Phone: Glucose [Mass/Vol] 89 mg/dL 74-106 [facility] Work Phone: Neutrophils (Bld) [#/Vol] 7.6 10*3/uL 2.0-7.7 [facility] Work Phone: Neutrophils/100 WBC (Bld) 64.5 % 47-70 [facility] Work Phone: Potassium [Moles/Vol] 4.2 mmol/L 3.5-5.1 [facility] Work Phone: Protein [Mass/Vol] 7.3 g/dL 6.4-8.2 [facility] Work Phone: Sodium [Moles/Vol] 137 mmol/L 136-145 [facility] Work Phone: WBC (Bld) [#/Vol] 11.8 10*3/uL 4.4-11.0 [facility] Work Phone: Beta hCG serum qualon 2021 Beta HCG ( test) Ql Negative [facility] Work Phone: Blood erythrocytes count (nu mber/volume)on 01-26-2022 RBC (Bld) [#/Vol] 4.82 10*6/uL 4.2-5.4 [facility] Work Phone: Blood hemoglobin measurement (mass/volume)on 01-26-2022 Hemoglobin (Bld) [Mass/Vol] 13.9 g/dL 12.0-15.0 [facility] Work Phone: Blood lymphocytes/100 leukoc yteson 01-26-2022 Lymphocytes/100 WBC (Bld) 21.8 % 19-41 [facility] Work Phone: Blood monocytes/100 leukocyt eson 01-26-2022 Monocytes/100 WBC (Bld) 5.7 % 0-10 [facility] Work Phone: Blood platelet mean volumeon 01-26-2022 Platelet mean volume (Bld) [Entitic vol] 9.1 fL 6.2-12.0 [facility] Work Phone: Determination of erythrocyte mean corpuscular volume (MCV)on 01-26-2022 MCV (RBC) [Entitic vol] 86.7 fL 81-99 [facility] Work Phone: Hematocrit Auto (Bld) [Volum e fraction]on 01-26-2022 Hematocrit (Bld) [Volume fraction] 41.8 % 37-47 [facility] Work Phone: Laboratory - Chemistry and C hemistry - challengeon 01-26-2022 ALP [Catalytic activity/Vol] 94 U/L 45-117 [facility] Work Phone: ALT [Catalytic activity/Vol] 41 U/L 13-56 [facility] Work Phone: CO2 [Moles/Vol] 27.0 mmol/L 21.0-32.0 [facility] Work Phone: Globulin (S) [Mass/Vol] 3.6 g/dL 2.2-4.2 [facility] Work Phone: Lipase [Catalytic activity/Vol] 118 U/L 73-393 [facility] Work Phone: Urea nitrogen/Creatinine [Mass ratio] 17.2 mg/mg 10-20 [facility] Work Phone: Laboratory - Hematology and Cell countson 01-26-2022 Erythrocyte distribution width (RBC) [Entitic vol] 39.5 fL 35.1-43.9 [facility] Work Phone: Erythrocyte distribution width (RBC) [Ratio] 12.6 % 11.6-14.6 [facility] Work Phone: Immature granulocytes/100 WBC (Bld) 0.300 % 0.0-0.9 [facility] Work Phone: Comment on above: IG% - Immature Granu locytes (promyelocytes, myelocytes and metamyelocytes) > 1% indicates that a LEFT SHIFT is Present. MCH (RBC) [Entitic mass] 28.8 pg 27.0-32.0 [facility] Work Phone: Nucleated RBC/100 WBC (Bld) [Ratio] 0 % 0-5 [facility] Work Phone: MCHC Auto (RBC) [Mass/Vol]on 01-26-2022 MCHC (RBC) [Mass/Vol] 33.3 g/dL 32-36 [facility] Work Phone: No Panel Informationon 01-26 Estimated Creatinine Clearance Calc 90.35 ml/min [facility] Work Phone: Estimated GFR (MDRD) Amer 116 mL/min >60 [facility] Work Phone: Comment on above: GFR Calc Estimated GFR (MDRD) Non-Af Amer 96 mL/min >60 [facility] Work Phone: Comment on above: Non- GFR Calc Platelets bldon 08-04-2022 Platelets (Bld) [#/Vol] 386 10*3/uL 150-450 [facility] Work Phone: Serum or plasma albumin kathia urement (mass/volume)on 01-26-2022 Albumin [Mass/Vol] 3.7 g/dL 3.2-5.0 [facility] Work Phone: Serum or plasma albumin/glob ulin mass ratioon 01-26-2022 Albumin/Globulin [Mass ratio] 1.0 {ratio} 0.9-2.4 [facility] Work Phone: Serum or plasma calcium kathia urement (mass/volume)on 01-26-2022 Calcium [Mass/Vol] 9.5 mg/dL 8.5-10.1 [facility] Work Phone: Serum or plasma creatinine m easurement (mass/volume)on 01-26-2022 Creatinine [Mass/Vol] 0.76 mg/dL 0.55-1.02 [facility] Work Phone: Comment on above: The validity of the calculated GFR & GFRAA in patients over 70 years has not been determined. Clinical correlation is essential. Serum or plasma urea nitroge n measurement (mass/volume)on 01-26-2022 Urea nitrogen [Mass/Vol] 13 mg/dL 7-18 [facility] Work Phone: Thin prep Papanicolaou smear with manual screeningon 01-26-2022 Thin prep Papanicolaou smear with manual screening 27 U/L 15-37 [facility] Work Phone: Thin prep Papanicolaou smear with manual screening 6 5-15 [facility] Work Phone: Absolute lymphocyte counton 09-19-2021 Lymphocytes Auto (Unsp spec) [#/Vol] 1.62 10*3/uL 0.83-4.51 [facility] Work Phone: Basophil percentageon 2021 Basophils/100 WBC (Bld) 0.5 % 0-1 [facility] Work Phone: Bilirubin [Mass/Vol] 0.20 mg/dL 0.20-1.00 [facility] Work Phone: Comment on above: For patients on eltr ombopag therapy, use of Dim[employer] [place] TBIL is not recommended. Chloride [Moles/Vol] 101 mmol/L 98-107 [facility] Work Phone: Eosinophils/100 WBC (Bld) 5.9 % 0-5 [facility] Work Phone: Glucose [Mass/Vol] 90 mg/dL 74-106 [facility] Work Phone: [phone] Neutrophils (Bld) [#/Vol] 3.6 10*3/uL 2.0-7.7 [facility] Work Phone: Neutrophils/100 WBC (Bld) 61.1 % 47-70 [facility] Work Phone: Potassium [Moles/Vol] 3.5 mmol/L 3.5-5.1 [facility] Work Phone: Protein [Mass/Vol] 7.4 g/dL 6.4-8.2 [facility] Work Phone: Sodium [Moles/Vol] 137 mmol/L 136-145 [facility] Work Phone: WBC (Bld) [#/Vol] 5.8 10*3/uL 4.4-11.0 [facility] Work Phone: Blood erythrocytes count (nu mber/volume)on 09-19-2021 RBC (Bld) [#/Vol] 5.02 10*6/uL 4.2-5.4 [facility] Work Phone: Blood hemoglobin measurement (mass/volume)on 09-19-2021 Hemoglobin (Bld) [Mass/Vol] 14.3 g/dL 12.0-15.0 [facility] Work Phone: Blood lymphocytes/100 leukoc yteson 09-19-2021 Lymphocytes/100 WBC (Bld) 27.9 % 19-41 [facility] Work Phone: Blood monocytes/100 leukocyt eson 09-19-2021 Monocytes/100 WBC (Bld) 4.3 % 0-10 [facility] Work Phone: Blood platelet adequacy dete ction by light microscopyon 09-19-2021 Platelets LM Ql (Bld) [facility]: Blood platelet mean volumeon 09-19-2021 Platelet mean volume (Bld) [Entitic vol] 9.2 fL 6.2-12.0 [facility] Work Phone: Determination of erythrocyte mean corpuscular volume (MCV)on 09-19-2021 MCV (RBC) [Entitic vol] 83.1 fL 81-99 [facility] Work Phone: Hematocrit Auto (Bld) [Volum e fraction]on 09-19-2021 Hematocrit (Bld) [Volume fraction] 41.7 % 37-47 [facility] Work Phone: Laboratory - Chemistry and C hemistry - challengeon 09-19-2021 ALP [Catalytic activity/Vol] 88 U/L 45-117 [facility] Work Phone: ALT [Catalytic activity/Vol] 25 U/L 13-56 [facility] Work Phone: CO2 [Moles/Vol] 29.0 mmol/L 21.0-32.0 [facility] Work Phone: Cobalamin (Vitamin B12) [Mass/Vol] 295 pg/mL 211-911 [facility] Work Phone: Globulin (S) [Mass/Vol] 4.0 g/dL 2.2-4.2 [facility] Work Phone: Urea nitrogen/Creatinine [Mass ratio] 9.4 mg/mg 10-20 [facility] Work Phone: Laboratory - Hematology and Cell countson 09-19-2021 Erythrocyte distribution width (RBC) [Entitic vol] 39.5 fL 35.1-43.9 [facility] Work Phone: Erythrocyte distribution width (RBC) [Ratio] 13.1 % 11.6-14.6 [facility] Work Phone: Immature granulocytes/100 WBC (Bld) 0.300 % 0.0-0.9 [facility] Work Phone: Comment on above: IG% - Immature Granu locytes (promyelocytes, myelocytes and metamyelocytes) > 1% indicates that a LEFT SHIFT is Present. MCH (RBC) [Entitic mass] 28.5 pg 27.0-32.0 [facility] Work Phone: Nucleated RBC/100 WBC (Bld) [Ratio] 0 % 0-5 [facility] Work Phone: MCHC Auto (RBC) [Mass/Vol]on 09-19-2021 MCHC (RBC) [Mass/Vol] 34.3 g/dL 32-36 [facility] Work Phone: No Panel Informationon 09-19 Estimated GFR (MDRD) Amer 118 mL/min >60 [facility] Work Phone: Comment on above: GFR Calc Estimated GFR (MDRD) Non-Af Amer 98 mL/min >60 [facility] Work Phone: Comment on above: Non- GFR Calc Reactive Lymphocytes 1+ [facility] Work Phone: Thyroid Stimulating Hormone (TSH) 1.36 uIU/mL 0.358-3.74 [facility] Work Phone: Vitamin D 25-Hydroxy 23.4 ng/mL [facility] Work Phone: Comment on above: Vitamin D 25(OH) Sta tus Range Deficiency <20 ng/mL (50nmol/L) Insufficiency 20 - 30 ng/mL (50 - 75 nmol/L) Sufficiency 30 - 100 ng/mL (75 - 250 nmol/L) Toxicity >100 ng/mL (>250 nmol/L) Platelets bldon 09-19-2021 Platelets (Bld) [#/Vol] 318 10*3/uL 150-450 [facility] Work Phone: RBC morphologyon 09-19-2021 RBC morphology finding Nom (Bld) NORM C+C NORMAL NORM C&C [facility] Work Phone: Serum or plasma albumin kathia urement (mass/volume)on 09-19-2021 Albumin [Mass/Vol] 3.4 g/dL 3.2-5.0 [facility] Work Phone: Serum or plasma albumin/glob ulin mass ratioon 09-19-2021 Albumin/Globulin [Mass ratio] 0.8 {ratio} 0.9-2.4 [facility] Work Phone: Serum or plasma calcium kathia urement (mass/volume)on 09-19-2021 Calcium [Mass/Vol] 8.5 mg/dL 8.5-10.1 [facility] Work Phone: Serum or plasma creatinine m easurement (mass/volume)on 09-19-2021 Creatinine [Mass/Vol] 0.74 mg/dL 0.55-1.02 [facility] Work Phone: Comment on above: The validity of the calculated GFR & GFRAA in patients over 70 years has not been determined. Clinical correlation is essential. Serum or plasma urea nitroge n measurement (mass/volume)on 09-19-2021 Urea nitrogen [Mass/Vol] 7 mg/dL 7-18 [facility] Work Phone: Thin prep Papanicolaou smear with manual screeningon 09-19-2021 Thin prep Papanicolaou smear with manual screening 21 U/L 15-37 [facility] Work Phone: Thin prep Papanicolaou smear with manual screening 7 5-15 [facility] Work Phone: No Panel Informationon 07-07 SARS-CoV-2 Antigen (Rapid) [facility] Work Phone: Laboratory - Microbiology an d Antimicrobial susceptibilityon 06-23-2021 SARS-CoV-2 (COVID-19) RNA JUSTIN+probe Ql (Unsp spec) Not detected [facility] Work Phone: No Panel Informationon 06-23 POC Nasal Swab Influenza A,B Not detected [facility] Work Phone: POC Nasal Swab RSV Not detected [facility] Work Phone: Covid 19 Resultson 1 SARS-CoV-2 (COVID-19) RNA JUSTIN+probe Ql (Unsp spec) NEGATIVE COVID-19 Test Coronaviruses are common world-wide and are the cause of many common colds. SARS-COV2 is a new coronavirus that began circulating worldwide in 2019 so we are calling it COVID-19. It has been estimated that four out of five patients with COVID-19 will recover at home without the need for medical attention. Symptoms of COVID-19 may include cough, fever, shortness of breath, loss of taste or smell and other flu-like symptoms including chills, sore muscles, sore throat, and headache. Severe illness is more common in older people and people with other health problems such as high blood pressure, obesity, and immune system problems. If the test is positive, you have COVID-19. You will be contacted by the ordering physicians office and instructed to remain on home isolation, in accordance with CDC guidelines. You may also be contacted by the [facility] to see if any of your close contacts may have been exposed to the virus and need to quarantine. If the test is negative, you likely do not have COVID-19 at this time, but you still may have a different illness that can spread to other people (like Influenza, or the Flu) and could still be at risk for getting COVID-19. We recommend that you stay away from other people to limit the spread of illness until your symptoms are improving and you are fever-free for 24 hours without the use of fever lowering medications such as acetaminophen or ibuprofen. No test is 100% accurate so if you are still concerned you may have COVID-19, talk to your doctor about the need to continue to stay away from others. Medicines Unless your provider told you not to use the following: Acetaminophen (Tylenol and others) is generally safe. Anti-inflammatory medications, such as Ibuprofen (Advil or Motrin) or Naproxen (Aleve) can also be used. Zrht-hee-weluoza cough and cold medicines can be used according to the instructions on the package. Some jrwt-sdt-vptotdc medicines also contain acetaminophen. Make sure you are not taking more than your recommended dose. For those not hospitalized, there is no specific treatment available for this illness. Antibiotics do not treat Coronaviruses. Follow-Up Follow up with your doctor by scheduling a virtual visit or consider follow-up at one of our urgent care fever clinics. If you are having difficulty breathing, or are very weak and having difficulty standing, this is a medical emergency. Call 911 or have someone take you to the nearest emergency room immediately. If possible, wear a facemask. Additional guidance from the CDC for patients who tested POSITIVE for COVID-19 How to isolate: Isolate yourself in a specific room at home and limit your contact with others. Use a separate bathroom from other members of the household, when possible. Leave home only to get essential medical care. Do not go to work, school or public areas. Avoid using public transportation, ride-sharing, or taxis. Restrict contact with pets and other animals. If you must care for your pet or be around animals while you are sick, wash your hands before and after your interaction and wear a facemask. Make sure that shared spaces in the home have good airflow, such as by an air conditioner or an opened window, weather permitting. Personal Hygiene Procedures: Wear a face mask when in the same room as other people or pets. If a face mask interferes with your breathing, others should wear a mask when sharing space with you. Frequent hand-washing: wash your hands with soap and water for at least 20 seconds. If soap and water are not available, use alcohol-based hand tobacco sweeper. Avoid touching your eyes, nose, and mouth with unwashed hands. Household Hygiene Procedures: Avoid sharing personal household items such as dishes, glassware, cups, eating utensils, towels or bedding with other people or pets in your home. After use, these items should be washed with soap and hot water. Disinfect all high-touch surfaces every day with antibacterial cleaning solutions such as Lysol wipes, bleach, cleansers, etc. High-touch surfaces include tabletops, doorknobs, bathroom fixtures, toilets, phones, keyboards, tablets and bedside tables. Immediately clean any surfaces that may have blood, poop or body fluids on them, using antibacterial cleaning solutions such as Lysol wipes, bleach, cleansers, etc. If clothing or bedding come into contact with blood, poop or body fluids, they should be washed immediately. Follow the directions on the laundry detergent and clothing labels but hot water is recommended when possible. Stopping home isolation precautions: If possible, consult your doctor before stopping home isolation precautions. According to the CDC, you can discontinue home isolation precautions when you have met both of these criteria: Your fever and respiratory symptoms have been gone for 24 odalis (more content not included)... Normal [facility] Covid 19 Resultson 1 SARS-CoV-2 (COVID-19) RNA JUSTIN+probe Ql (Unsp spec) NEGATIVE COVID-19 Test Coronaviruses are common world-wide and are the cause of many common colds. SARS-COV2 is a new coronavirus that began circulating worldwide in 2019 so we are calling it COVID-19. It has been estimated that four out of five patients with COVID-19 will recover at home without the need for medical attention. Symptoms of COVID-19 may include cough, fever, shortness of breath, loss of taste or smell and other flu-like symptoms including chills, sore muscles, sore throat, and headache. Severe illness is more common in older people and people with other health problems such as high blood pressure, obesity, and immune system problems. If the test is positive, you have COVID-19. You will be contacted by the ordering physicians office and instructed to remain on home isolation, in accordance with CDC guidelines. You may also be contacted by the [facility] to see if any of your close contacts may have been exposed to the virus and need to quarantine. If the test is negative, you likely do not have COVID-19 at this time, but you still may have a different illness that can spread to other people (like Influenza, or the Flu) and could still be at risk for getting COVID-19. We recommend that you stay away from other people to limit the spread of illness until your symptoms are improving and you are fever-free for 24 hours without the use of fever lowering medications such as acetaminophen or ibuprofen. No test is 100% accurate so if you are still concerned you may have COVID-19, talk to your doctor about the need to continue to stay away from others. Medicines Unless your provider told you not to use the following: Acetaminophen (Tylenol and others) is generally safe. Anti-inflammatory medications, such as Ibuprofen (Advil or Motrin) or Naproxen (Aleve) can also be used. Rhyy-hbv-anfejek cough and cold medicines can be used according to the instructions on the package. Some vmtj-vpy-fcrjghk medicines also contain acetaminophen. Make sure you are not taking more than your recommended dose. For those not hospitalized, there is no specific treatment available for this illness. Antibiotics do not treat Coronaviruses. Follow-Up Follow up with your doctor by scheduling a virtual visit or consider follow-up at one of our urgent care fever clinics. If you are having difficulty breathing, or are very weak and having difficulty standing, this is a medical emergency. Call 911 or have someone take you to the nearest emergency room immediately. If possible, wear a facemask. Additional guidance from the CDC for patients who tested POSITIVE for COVID-19 How to isolate: Isolate yourself in a specific room at home and limit your contact with others. Use a separate bathroom from other members of the household, when possible. Leave home only to get essential medical care. Do not go to work, school or public areas. Avoid using public transportation, ride-sharing, or taxis. Restrict contact with pets and other animals. If you must care for your pet or be around animals while you are sick, wash your hands before and after your interaction and wear a facemask. Make sure that shared spaces in the home have good airflow, such as by an air conditioner or an opened window, weather permitting. Personal Hygiene Procedures: Wear a face mask when in the same room as other people or pets. If a face mask interferes with your breathing, others should wear a mask when sharing space with you. Frequent hand-washing: wash your hands with soap and water for at least 20 seconds. If soap and water are not available, use alcohol-based hand tobacco sweeper. Avoid touching your eyes, nose, and mouth with unwashed hands. Household Hygiene Procedures: Avoid sharing personal household items such as dishes, glassware, cups, eating utensils, towels or bedding with other people or pets in your home. After use, these items should be washed with soap and hot water. Disinfect all high-touch surfaces every day with antibacterial cleaning solutions such as Lysol wipes, bleach, cleansers, etc. High-touch surfaces include tabletops, doorknobs, bathroom fixtures, toilets, phones, keyboards, tablets and bedside tables. Immediately clean any surfaces that may have blood, poop or body fluids on them, using antibacterial cleaning solutions such as Lysol wipes, bleach, cleansers, etc. If clothing or bedding come into contact with blood, poop or body fluids, they should be washed immediately. Follow the directions on the laundry detergent and clothing labels but hot water is recommended when possible. Stopping home isolation precautions: If possible, consult your doctor before stopping home isolation precautions. According to the CDC, you can discontinue home isolation precautions when you have met both of these criteria: Your fever and respiratory symptoms have been gone for 24 odalis (more content not included)... Normal [facility] GC + CHLAMYDIA BY AMPLIFIED DETECTIONon 01-17-2020 CHLAMYDIA TRACH.,AMPLIFIED Negative Normal Negative [facility] Comment on above: Performed By: #### [facility] #### [facility] [address] [place] [address] N.GONORRHEA,AMPLIFIED Negative Normal Negative [facility] Comment on above: Performed By: #### [facility] #### [facility] [address] [place] [address] GC + CHLAMYDIA BY AMPLIFIED DETECTIONon 01-16-2020 Lab Specimen Source Urine Normal [facility] Comment on above: Performed By: #### [facility] #### [facility] [address] [place] [address] GC + Chlamydia By Amplified Detectionon 01-16-2020 C. trachomatis rRNA JUSTIN+probe Ql (Unsp spec) Negative Negative [facility] [address] Work Phone: N. gonorrhoeae rRNA JUSTIN+probe Ql (Unsp spec) Negative Negative [place] [address] [employer] Work Phone: Comment on above: SOURCE: Urine Imm/Pathon 01-16-2020 Cytology report Cyto stain.thin prep Doc (Cvx/Vag) Date of Procedure: 01/16/2020 Pathologist: [facility], CytologyDate Reported: 02/01/2020Date Received: 01/17/2020Submitting Physician: LAI DE LA VEGA, FINAL CYTOLOGICAL INTERPRETATIONA. THINPREP PAP CERVICAL: Specimen Adequacy: SATISFACTORY FOR EVALUATION. Quality Indicator: Absence of endocervical/transformat ion zone component. General Categorization: NEGATIVE FOR INTRAEPITHELIAL LESION OR MALIGNANCY. Ancillary Testing: Specimen does not meet the requisition-stated criteria for HPV testing.See Pap test interpretation above. This specimen has been analyzed by the PURE H20 BIO TECHNOLOGIESPrep Imaging System ([employer].),an automated imaging and review system, which assists the laboratory inevaluating cells on ThinPrep Pap tests. Following automated imaging, selectedfields from every slide were reviewed by a towel stretcher and/or pathologist.Electronical ly Signed Out By [facility], Cytology//[facility] By the signature on this report, the individual or group listed as making theFinal Interpretation/Diagnosis certifies that they have reviewed this case.Educational Note:Cervical cytology is a screening procedure primarily for squamous cancers andprecursors and has associated false-negative and false-positive results asevidenced by published data. Your patient's test should be interpreted in thiscontext, together with patient's history and clinical findings. Regularsampling and follow-up of unexplained clinical signs and symptoms arerecommended to minimize false negative results. 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 PATIENT HAS NO CONCERNS. PATIENT DENIES SELF BREAST EXAMS. LMP-12/18/2019. History of Present Qxdehqe04-febi-raq G0 presents for annual exam. Patient is stable denies abuse. Patient sexually active. Patient notes she is been put on Prozac which is been helping with her mood but has decreased her sex drive. Patient would like to stop control and achieve . Patient is getting in about 6 weeks. Patient working on diet and exercise. Patient does not do self breast exams. Patient taking a vitamin Review of Systems Constitutional: No fevers, chills Eye:no vision changes Respiratory: no SOB Cardiovascular: no chest pain Breast: No lump/mass or discharge Gastrointestinal: No nausea, vomiting, diarrhea, constipation, abdominal pain Genitourinary:no dysuria Gynecology: See HPI Endocrine: No heat or cold intolerance Musculoskeletal: No decreased ROM Skin:No rash Neurologic: No numbness tingling Psychiatric: anxiety All other: all other systems reviewed and negative for complaint Active Problems control counseling (V25.09) (Z30.09) Chronic headache (784.0) (R51) Encounter for Nexplanon removal (V25.43) (Z30.46) Screening for breast cancer (V76.10) (Z12.39) Screening for cervical cancer (V76.2) (Z12.4) Women's annual routine gynecological examination (V72.31) (Z01.419) [id number] Past Medical History History of Menarche (V21.8) AGE 15 History of Nexplanon in place (V45.52) (Z97.5) Women's annual routine gynecological examination (V72.31) (Z01.419) [id number] Surgical History History of [place] tooth extraction Family History Family history of hypertension (V17.49) (Z82.49) Family history of myocardial infarction (V17.3) (Z82.49) Family history of thyroid disease (V18.19) (Z83.49) Family history of cardiac disorder (V17.49) (Z82.49) Family history of hypertension (V17.49) (Z82.49) Family history of malignant neoplasm (V16.9) (Z80.9) Family history of thyroid disease (V18.19) (Z83.49) Family history of malignant neoplasm of urinary bladder (V16.52) (Z80.52) Family history of cardiac disorder (V17.49) (Z82.49) Family history of malignant neoplasm (V16.9) (Z80.9) Family history of myocardial infarction (V17.3) (Z82.49) Social History Does not use illicit drugs (V49.89) (Z78.9) Never a smoker Occasional alcohol use Sexually active Allergies No Known Drug Allergies Recorded By: Nathaly Kunz; 07/25/2019 11:11:03 AM Current Meds Xulane 150-35 MCG/24HR Transdermal Patch Weekly; APPLY 1 PATCH WEEKLY DIRECTED; Therapy: 72Mml5986 to (Evaluate:68Puv9758) Requested for: 54Blq3707; Last Rx:[id number] Ordered Rx By: Lai De La Vega; Dispense: 21 Days ; #:3 Patch; Refill: 12;For: control counseling; JUVENTINO = N; Verified Transmission to [facility]; Last Updated By: Vaishali Harvey; 01/16/2020 1:15:51 PM FLUoxetine HCl - 10 MG Oral Capsule; Therapy: 15Fhk9067 to Recorded Dispense: 30 Days ; #:60; Refill: 0; JUVENTINO = N; Record; Last Updated By: Lai De La Vega; 01/16/2020 1:13:16 PM Multi-Vitamins TABS; Therapy: (Recorded:47Kdz5531) to Recorded Dispense: 0 Days ; #: Sufficient; Refill: 0; JUVENTINO = N; Record; Last Updated By: Pita oT; 01/16/2020 1:13:22 PM TABS; Therapy: (Recorded:35Hcp8121) to Recorded Dispense: 0 Days ; #: Sufficient; Refill: 0; JUVENTINO = N; Record; Last Updated By: Pita To; 01/16/2020 1:07:49 PM Vitals Vital Signs Recorded: 01Trk5799 01:09PM Rfooidmklex10.7 F, Temporal Pgoypqjk29, LUE, Sitting Zcaopnqff41, LUE, Sitting Height5 ft 3.78 in Yckfpu949 lb 11.42 oz BMI Kgwjwkvjvl89.78 BSA Calculated1.78 [id number] Physical Exam General: None acute distress Eye: Intraocular movements are intact HEENT: Normocephalic Respiratory: Lungs are clear to auscultation, respirations are nonlabored Breast: No masses no tenderness no discharge no adenopathy or skin changes Gastrointestinal: Soft nontender nondistended normal bowel sounds Gynecology: External genitalia within normal limits for age. Urethral meatus normal bladder nontender. Vagina without discharge. No vaginal bleeding. nulliparous cervix. No lesions. No CMT. Uterus mobile midline nontender. No levator ani tenderness. No adnexal tenderness. No adnexal masses Musculoskeletal: Normal range of motion Skin: Warm and dry Neurologic: Alert and oriented x3 Psychiatric: Cooperative appropriate mood and affect. 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; Status:In Progress - Specimen/Data Collected,Retrospective Authorization; Done: 16Jan2020 Perform:PAP [employer]OC[employer] MILLING MACHINE OPERATOR Cytology; Due:15Apr2020; Last Updated By:Pita To; 01/16/2020 1:32:26 PM;Ordered; For:Screening for cervical cancer; Ordered By:Lai De La Vega; Last Menstrual Period (LMP): : 12/18/2019 PAP - Site : CERVICAL Cytology Order : ThinPrep PAP, Screening, HPV Reflex - Include Genotyping GC + Chlamydia By Amplified Detection; Specimen Source:Urine; Status:In Progress - Specimen/Data Collected,Retrospective Authorization; Done: 16Jan2020 Perform:Lab Services - Lab To Draw (Non-Blood Test); Due:15Apr2020; Last Updated By:Pita To; 01/16/2020 1:32:26 PM;Ordered; For:Screening for STD (sexually transmitted disease); Ordered By:Lai De La Vega; Follow-up visit in 12 months Outpatient Follow-up Status: Hold For - Scheduling Requested for: 16Jan2020 Ordered Stat;For: Women's annual routine gynecological examination; Ordered By: Lai De La Vega Performed: Due: 15Apr2020 Stop: Multi-Vitamins TABS Dispense: 0 Days ; #: Sufficient; Refill: 0; JUVENTINO = N; Record; Last Updated By: Lai De La Vega; 01/16/2020 1:13:22 PM Provider Impressions Annual Exam-Cervical,colon and breast cancer screening guidelines reviewed. CBE benign.Colon cancer screening is up to date. Pap obtained today . Reviewed HPV vaccine and guidelines, pt had. Discussed safe sex practices. Discussed diet and exercise. Reviewed bone health, namely exercise with vitamin D/calcium. Reviewed fertility goals, discussed pnv and timed intercourse. Reviewed hereditary cancer screening. Discussed that patient is not at increased risk. All questions answered. 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 PATIENT WOULD LIKE TO GO ON THE CONTROL PATCH. LMP-07/25/2019. History of Present Illness 29-year-old presents for Nexplanon Removal. Patient desires control patch as previously discussed we will start today. No contraindications. No other acute concerns. Review of Systems Constitutional: No fevers, chills Eye:no vision changes Respiratory: no SOB Cardiovascular: no chest pain Gastrointestinal: No nausea, vomiting, diarrhea, constipation, abdominal pain Genitourinary:no dysuria Gynecology: See HPI Active Problems control counseling (V25.09) (Z30.09) Chronic headache (784.0) (R51) Past Medical History History of Menarche (V21.8) AGE 15 History of Nexplanon in place (V45.52) (Z97.5) Surgical History History of [place] tooth extraction Family History Family history of hypertension (V17.49) (Z82.49) Family history of myocardial infarction (V17.3) (Z82.49) Family history of thyroid disease (V18.19) (Z83.49) Family history of cardiac disorder (V17.49) (Z82.49) Family history of hypertension (V17.49) (Z82.49) Family history of malignant neoplasm (V16.9) (Z80.9) Family history of thyroid disease (V18.19) (Z83.49) Family history of cardiac disorder (V17.49) (Z82.49) Family history of malignant neoplasm (V16.9) (Z80.9) Family history of myocardial infarction (V17.3) (Z82.49) Social History Does not use illicit drugs (V49.89) (Z78.9) Never a smoker Occasional alcohol use Sexually active Allergies No Known Drug Allergies Recorded By: Nathaly Kunz; 07/25/2019 11:11:03 AM Current Meds Vitamin D3 CAPS; Therapy: (Recorded:25Jul2019) to Recorded Dispense: 0 Days ; #: Sufficient; Refill: 0; JUVENTINO = N; Record; Last Updated By: Nathaly Kunz; 07/25/2019 11:11:03 AM Vitals Vital Signs Recorded: 07Aug2019 03:35PM Lfplufyr803, LUE, Sitting Rrcfkyfxa00, LUE, Sitting Height5 ft 3.78 in Aerewu193 lb 11.94 oz BMI Bgwhjyqzhe58.09 BSA Calculated1.76 Physical Exam General: None acute distress Eye: Intraocular movements are intact HEENT: Normocephalic Respiratory: Respirations are nonlabored Gastrointestinal: Nondistended Musculoskeletal: Normal range of motion Neurologic: Alert and oriented x3 Psychiatric: Cooperative appropriate mood and affect. Procedure Nexplanon Insertion and Removal Procedure: Nexplanon Removal Procedure Note: 0.5 ml of 1% lidocaine was injected just under the skin. The skin was prepped with betadine. the implant was located by palpation and a 2-3 mm incision was made in the longitudinal direction of the arm at the tip of the implant closest to the elbow. The implant was then grasped and removed with forceps. Patient Status: the patient tolerated the procedure well. Complications: there were no complications. Diagnoses/Problems control counseling (V25.09) (Z30.09) Encounter for Nexplanon removal (V25.43) (Z30.46) Orders control counseling Start: Xulane 150-35 MCG/24HR Transdermal Patch Weekly; APPLY 1 PATCH WEEKLY DIRECTED Rx By: Lai De La Vega; Dispense: 21 Days ; #:3 Patch; Refill: 12;For: control counseling; JUVENTINO = N; Verified Transmission to [facility]; Last Updated By: Vaishali Harvey; 08/07/2019 3:43:52 PM Follow-up visit in 12 months Outpatient Follow-up Status: Hold For - Scheduling Requested for: [id number] Ordered Stat;For: control counseling; Ordered By: Lai De La Vega Performed: Due: 41Qxw3795 Provider Impressions 1) Nexplanon removal- patient tolerated the procedure well. Dressing applied. Precautions reviewed. We'll start doing tonight. Discussed any for backup. All questions answered. Signatures Electronically signed by : Lai De La Vega DO; Aug 07 2019 5:22PM EST (Author) Normal [employer] BARTENDER SERVER - Office Visiton 06-27 BARTENDER SERVER - Office Visit Chief Complaint NEW PT HERE TODAY FOR FOR DISCUSSION ON CONTROL, CURRENTLY HAS NEXPLANON WILL NEED REMOVED IN JULY 2019 SHE HAD IT PLACED 3 YEARS AGO. PT WOULD LIKE OTHER OPTION SHE WOULD LIKE TO TRY FOR CHILDREN IN A YEAR History of Present Illness 29-year-old G0 presents to discuss her Nexplanon. Patient notes long history of irregular bleeding and has been on NuvaRing and Nexplanon for almost 6+ years. Patient does not want kids until she gets at the end of this year. Patient has a honeymoon in 2019 and is thinking following year. Patient will discuss her options. Patient notes she is worried about missing her control pill. Patient is no contraindications. No other acute concerns. Review of Systems Constitutional: No fevers, chills Eye:no vision changes Respiratory: no SOB Cardiovascular: no chest pain Breast: No lump/mass or discharge Gastrointestinal: No nausea, vomiting, diarrhea, constipation, abdominal pain Genitourinary:no dysuria Gynecology: See HPI Endocrine: No heat or cold intolerance Musculoskeletal: No decreased ROM Skin:No rash Neurologic: No numbness tingling Psychiatric: anxiety All other: all other systems reviewed and negative for complaint Past Medical History History of Menarche (V21.8) AGE 15 History of Nexplanon in place (V45.52) (Z97.5) Surgical History History of [place] tooth extraction Family History Family history of hypertension (V17.49) (Z82.49) Family history of myocardial infarction (V17.3) (Z82.49) Family history of thyroid disease (V18.19) (Z83.49) Family history of cardiac disorder (V17.49) (Z82.49) Family history of hypertension (V17.49) (Z82.49) Family history of malignant neoplasm (V16.9) (Z80.9) Family history of thyroid disease (V18.19) (Z83.49) Family history of cardiac disorder (V17.49) (Z82.49) Family history of malignant neoplasm (V16.9) (Z80.9) Family history of myocardial infarction (V17.3) (Z82.49) Social History Does not use illicit drugs (V49.89) (Z78.9) Never a smoker Occasional alcohol use Sexually active Allergies No Known Drug Allergies Recorded By: Nathaly Kunz; 07/25/2019 11:11:03 AM Current Meds Nexplanon 68 MG Subcutaneous Implant; Therapy: (Recorded:25Jul2019) to Recorded Dispense: 0 Days ; #: Sufficient; Refill: 0; JUVENTINO = N; Record; Last Updated By: Nathaly Kunz; 07/25/2019 11:11:03 AM Vitamin D3 CAPS; Therapy: (Recorded:25Jul2019) to Recorded Dispense: 0 Days ; #: Sufficient; Refill: 0; JUVENTINO = N; Record; Last Updated By: Nathaly Kunz; 07/25/2019 11:11:03 AM Vitals Vital Signs Recorded: 25Jul2019 11:12AM Hjzncqgv104 Ghjjsrskv89 Height5 ft 4 in Savbev884 lb 2.99 oz BMI Mbbmmjczwe45.98 BSA Calculated1.77 [id number] Physical Exam General: None acute distress Eye: Intraocular movements are intact HEENT: Normocephalic Respiratory: Lungs are clear to auscultation, respirations are nonlabored Gastrointestinal: Soft nontender nondistended normal bowel sounds Musculoskeletal: Normal range of motion Skin: Warm and dry Neurologic: Alert and oriented x3 Psychiatric: Cooperative appropriate mood and affect. Orders Tobacco Use Screening; Status:Complete; Done: 25Jul2019 Perform:Not Applicable;Ordered; For:SocHx: Never a smoker; Ordered By:Nathaly Kunz; Provider Impressions 1) control counseling- review patient's history of control. Discussed all options again. Reviewed patient's fertility goals. Review pros and cons of each. Patient selected to remove nexplanon and start control patch. All questions answered. Signatures Electronically signed by : Lai De La Vega DO; Jul 25 2019 2:59PM EST (Author) Normal [employer] Vital Signs Date Time Vital Sign Value Performing Clinician Facility 11-10-2024 10:22-0400 Body temperature 98.8 [degF] Dr. Eugenia Low DO Work Phone: [facility] 11-10-2024 10:22-0400 Diastolic blood pressure 60 mm[Hg] Dr. Eugenia Low DO Work Phone: [facility] 11-10-2024 10:22-0400 Heart rate 68 /min Dr. Eugenia Low DO Work Phone: [facility] 11-10-2024 10:22-0400 SaO2% (BldA) [Mass fraction] 98 % Dr. Eugenia Low DO Work Phone: [facility] 11-10-2024 10:22-0400 Systolic blood pressure 102 mm[Hg] Dr. Eugenia Low DO Work Phone: [facility] 09-05-2024 08:54-0400 Body height 162.[address] Eugenia Low DO Work Phone: [facility] 09-05-2024 08:54-0400 Body mass index (BMI) [Ratio] 31.6 kg/m2 Dr. Eugenia Low DO Work Phone: [facility] 09-05-2024 08:54-0400 Body weight 83.[address] Eugenia Low DO Work Phone: [facility] 09-05-2024 08:54-0400 Diastolic blood pressure 73 mm[Hg] Dr. Eugenia Low DO Work Phone: [facility] 09-05-2024 08:54-0400 Systolic blood pressure 109 mm[Hg] Dr. Eugenia Low DO Work Phone: [facility] 08-12-2024 13:00-0500 Body temperature 97.4 [degF] Dr. Eugenia Low DO Work Phone: [facility] 08-12-2024 13:00-0500 Diastolic blood pressure 74 mm[Hg] Dr. Eugenia Low DO Work Phone: [facility] 08-12-2024 13:00-0500 Heart rate 68 /min Dr. Eugenia Low DO Work Phone: [facility] 08-12-2024 13:00-0500 Respiratory rate 16 /min Dr. Eugenia Low DO Work Phone: [facility] 08-12-2024 13:00-0500 SaO2% (BldA) [Mass fraction] 96 % Dr. Eugenia Low DO Work Phone: [facility] 08-12-2024 13:00-0500 Systolic blood pressure 110 mm[Hg] Dr. Eugenia Low DO Work Phone: [facility] 08-12-2024 10:18-0500 Body mass index (BMI) [Ratio] 30.9 kg/m2 Dr. Eugenia Low DO Work Phone: [facility] 08-12-2024 10:18-0500 Body weight 81.[address] Eugenia Low DO Work Phone: [facility] 09-11-2023 17:10-0400 Body temperature 98.6 [degF] Dr. Eugenia Low Work Phone: [facility] 09-11-2023 17:10-0400 Diastolic blood pressure 59 mm[Hg] Dr. Eugenia Low Work Phone: [facility] 09-11-2023 17:10-0400 Heart rate 84 /min Dr. Eugenia Low Work Phone: [facility] 09-11-2023 17:10-0400 Respiratory rate 16 /min Dr. Eugenia Low Work Phone: [facility] 09-11-2023 17:10-0400 SaO2% (BldA) [Mass fraction] 98 % Dr. Eugenia Low Work Phone: [facility] 09-11-2023 17:10-0400 Systolic blood pressure 95 mm[Hg] Dr. Eugenia Low Work Phone: [facility] 09-11-2023 13:55-0400 Body height 162.[address] Eugenia Low Work Phone: [facility] 09-11-2023 13:55-0400 Body mass index (BMI) [Ratio] 29.5 kg/m2 Dr. Eugenia Low Work Phone: [facility] 09-11-2023 13:55-0400 Body weight [address] Eugenia Low Work Phone: [facility] 05-10-2023 13:08-0500 Body height 160.[address] Eugenia Low Work Phone: [facility] 05-10-2023 13:07-0500 Body mass index (BMI) [Ratio] 31.7 kg/m2 Dr. Eugenia Low Work Phone: [facility] 05-10-2023 13:07-0500 Body weight 81.[address] Eugenia Low Work Phone: [facility] 05-10-2023 13:07-0500 Diastolic blood pressure 78 mm[Hg] Dr. Eugenia Low Work Phone: [facility] 05-10-2023 13:07-0500 Systolic blood pressure 112 mm[Hg] Dr. Eugenia Low Work Phone: [facility] 03-16-2023 15:07-0400 Diastolic blood pressure 66 mm[Hg] Dr. Eugenia Low Work Phone: [facility] 03-16-2023 15:07-0400 Heart rate 72 /min Dr. Eugenia Low Work Phone: [facility] 03-16-2023 15:07-0400 Respiratory rate 16 /min Dr. Eugenia Low Work Phone: [facility] 03-16-2023 15:07-0400 SaO2% (BldA) [Mass fraction] 96 % Dr. Eugenia Low Work Phone: [facility] 03-16-2023 15:07-0400 Systolic blood pressure 108 mm[Hg] Dr. Eugenia Low Work Phone: [facility] 03-16-2023 12:48-0400 Body height 160.[address] Eugenia Low Work Phone: [facility] 03-16-2023 12:48-0400 Body temperature 97 [degF] Dr. Eugenia Low Work Phone: [facility] 03-15-2023 15:44-0400 Body mass index (BMI) [Ratio] 33.7 kg/m2 Dr. Eugenia Low Work Phone: [facility] 03-15-2023 15:44-0400 Body weight 86.[address] Eugenia Low Work Phone: [facility] 03-15-2023 15:44-0400 Diastolic blood pressure 84 mm[Hg] Dr. Eugenia Low Work Phone: [facility] 03-15-2023 15:44-0400 Systolic blood pressure 126 mm[Hg] Dr. Eugenia Low Work Phone: [facility] 03-09-2023 15:22-0400 Diastolic blood pressure 64 mm[Hg] Dr. Eugenia Low Work Phone: [facility] 03-09-2023 15:22-0400 Heart rate 73 /min Dr. Eugenia Low Work Phone: [facility] 03-09-2023 15:22-0400 Respiratory rate 16 /min Dr. Eugenia Low Work Phone: [facility] 03-09-2023 15:22-0400 Systolic blood pressure 101 mm[Hg] Dr. Eugenia Low Work Phone: [facility] 03-09-2023 13:03-0400 Body height 160.[address] Eugenia Low Work Phone: [facility] 03-09-2023 13:03-0400 Body temperature 96.7 [degF] Dr. Eugenia Low Work Phone: [facility] 03-09-2023 13:03-0400 SaO2% (BldA) [Mass fraction] 97 % Dr. Eugenia Low Work Phone: [facility] 03-08-2023 18:48-0400 Diastolic blood pressure 67 mm[Hg] Dr. Eugenia Low Work Phone: [facility] 03-08-2023 18:48-0400 Heart rate 74 /min Dr. Eugenia Low Work Phone: [facility] 03-08-2023 18:48-0400 Systolic blood pressure 116 mm[Hg] Dr. Eugenia Low Work Phone: [facility] 03-08-2023 17:30-0400 SaO2% (BldA) [Mass fraction] 98 % Dr. Eugenia Low Work Phone: [facility] 03-08-2023 16:44-0400 Body temperature 98.5 [degF] Dr. Eugenia Low Work Phone: [facility] 03-08-2023 16:41-0400 Body mass index (BMI) [Ratio] 33 kg/m2 Dr. Eugenia Low Work Phone: [facility] 03-08-2023 16:41-0400 Body weight 84.[address] Eugenia Low Work Phone: [facility] 03-08-2023 15:52-0400 Body mass index (BMI) [Ratio] 33.5 kg/m2 Dr. Eugenia Low Work Phone: [facility] 03-08-2023 15:52-0400 Body weight 85.[address] Eugenia Low Work Phone: [facility] 09-14-2023 15:52-0400 Diastolic blood pressure 79 mm[Hg] Dr. Eugenia Low Work Phone: [facility] 03-08-2023 15:52-0400 Systolic blood pressure 127 mm[Hg] Dr. Eugenia Low Work Phone: [facility] 03-02-2023 14:40-0400 Body temperature 97 [degF] Dr. Eugenia Low Work Phone: [facility] 03-02-2023 14:40-0400 Diastolic blood pressure 61 mm[Hg] Dr. Eugenia Lwo Work Phone: [facility] 03-02-2023 14:40-0400 Heart rate 82 /min Dr. Eugenia Low Work Phone: [facility] 03-02-2023 14:40-0400 Respiratory rate 16 /min Dr. Eugenia Low Work Phone: [facility] 03-02-2023 14:40-0400 SaO2% (BldA) [Mass fraction] 97 % Dr. Eugenia Low Work Phone: [facility] 03-02-2023 14:40-0400 Systolic blood pressure 106 mm[Hg] Dr. Eugenia Low Work Phone: [facility] 03-02-2023 12:52-0400 Body height 160.[address] Eugenia Low Work Phone: [facility] 03-02-2023 12:52-0400 Body mass index (BMI) [Ratio] 33.3 kg/m2 Dr. Eugenia Low Work Phone: [facility] 03-02-2023 12:52-0400 Body weight 85.[address] Eugenia Low Work Phone: [facility] 02-28-2023 15:24-0400 Body mass index (BMI) [Ratio] 33.3 kg/m2 Dr. Eugenia Low Work Phone: [facility] 02-28-2023 15:24-0400 Body weight 85.[address] Eugenia Low Work Phone: [facility] 02-28-2023 15:24-0400 Diastolic blood pressure 88 mm[Hg] Dr. Eugenia Low Work Phone: [facility] 02-28-2023 15:24-0400 Systolic blood pressure 119 mm[Hg] Dr. Eugenia Low Work Phone: [facility] 02-16-2023 15:40-0400 Body height 160.[address] Eugenia Low Work Phone: [facility] 02-16-2023 15:40-0400 Body mass index (BMI) [Ratio] 33.3 kg/m2 Dr. Eugenia Low Work Phone: [facility] 02-16-2023 15:40-0400 Body weight 85.[address] Eugenia Low Work Phone: [facility] 02-16-2023 15:40-0400 Diastolic blood pressure 64 mm[Hg] Dr. Eugenia Low Work Phone: [facility] 02-16-2023 15:40-0400 Systolic blood pressure 93 mm[Hg] Dr. Eugenia Low Work Phone: [facility] 02-01-2023 14:25-0400 Body height 160.[address] Eugenia Low Work Phone: [facility] 02-01-2023 14:21-0400 Body mass index (BMI) [Ratio] 33.5 kg/m2 Dr. Eugenia Low Work Phone: [facility] 02-01-2023 14:21-0400 Body weight 85.[address] Eugenia Low Work Phone: [facility] 02-01-2023 14:21-0400 Diastolic blood pressure 72 mm[Hg] Dr. Eugenia Low Work Phone: [facility] 02-01-2023 14:21-0400 Systolic blood pressure 106 mm[Hg] Dr. Eugenia Low Work Phone: [facility] 01-19-2023 15:07-0400 Body height 160.[address] Eugenia Low Work Phone: [facility] 01-19-2023 15:07-0400 Body mass index (BMI) [Ratio] 32.9 kg/m2 Dr. Eugenia Low Work Phone: [facility] 01-19-2023 15:07-0400 Body weight 84.[address] Eugenia Low Work Phone: [facility] 01-19-2023 15:07-0400 Diastolic blood pressure 80 mm[Hg] Dr. Eugenia Low Work Phone: [facility] 01-19-2023 15:07-0400 Systolic blood pressure 112 mm[Hg] Dr. Eugenia Low Work Phone: [facility] 01-10-2023 14:38-0400 Body height 160.[address] Eugenia Low Work Phone: [facility] 01-10-2023 14:23-0400 Body mass index (BMI) [Ratio] 32.8 kg/m2 Dr. Eugenia Low Work Phone: [facility] 01-10-2023 14:23-0400 Body weight 83.[address] Eugenia Low Work Phone: [facility] 01-10-2023 14:23-0400 Diastolic blood pressure 68 mm[Hg] Dr. Eugenia Low Work Phone: [facility] 01-10-2023 14:23-0400 Systolic blood pressure 104 mm[Hg] Dr. Eugenia Low Work Phone: [facility] 12-28-2022 14:22-0400 Body temperature 99 [degF] Dr. Eugenia Low Work Phone: [facility] 12-28-2022 14:22-0400 Diastolic blood pressure 63 mm[Hg] Dr. Eugenia Low Work Phone: [facility] 12-28-2022 14:22-0400 Heart rate 86 /min Dr. Eugenia Low Work Phone: [facility] 12-28-2022 14:22-0400 Respiratory rate 16 /min Dr. Eugenia Low Work Phone: [facility] 12-28-2022 14:22-0400 Systolic blood pressure 108 mm[Hg] Dr. Eugenia Low Work Phone: [facility] 12-27-2022 11:58-0400 SaO2% (BldA) [Mass fraction] 96 % Dr. Eugenia Low Work Phone: [facility] 12-27-2022 01:46-0400 Body height 160.[address] Eugenia Low Work Phone: [facility] 12-27-2022 01:46-0400 Body mass index (BMI) [Ratio] 32.4 kg/m2 Dr. Eugenia Low Work Phone: [facility] 12-27-2022 01:46-0400 Body weight [address] Eugenia Low Work Phone: [facility] 12-25-2022 15:02-0400 Body mass index (BMI) [Ratio] 32.5 kg/m2 Dr. Eugenia Low Work Phone: [facility] 12-25-2022 15:02-0400 Body weight 83.[address] Eugenia Low Work Phone: [facility] 12-25-2022 15:02-0400 Diastolic blood pressure 66 mm[Hg] Dr. Eugenia Low Work Phone: [facility] 12-25-2022 15:02-0400 Heart rate 93 /min Dr. Eugenia Low Work Phone: [facility] 12-25-2022 15:02-0400 Respiratory rate 18 /min Dr. Eugenia Low Work Phone: [facility] 12-25-2022 15:02-0400 Systolic blood pressure 95 mm[Hg] Dr. Eugenia Low Work Phone: [facility] 12-14-2022 21:54-0400 Diastolic blood pressure 77 mm[Hg] Dr. Eugenia Low Work Phone: [facility] 12-14-2022 21:54-0400 Heart rate 80 /min Dr. Eugenia Low Work Phone: [facility] 12-14-2022 21:54-0400 Respiratory rate 16 /min Dr. Eugenia Low Work Phone: [facility] 12-14-2022 21:54-0400 SaO2% (BldA) [Mass fraction] 99 % Dr. Eugenia Low Work Phone: [facility] 12-14-2022 21:54-0400 Systolic blood pressure 120 mm[Hg] Dr. Eugenia Low Work Phone: [facility] 12-14-2022 19:36-0400 Body mass index (BMI) [Ratio] 33.3 kg/m2 Dr. Eugneia Low Work Phone: [facility] 12-14-2022 19:36-0400 Body weight 85.[address] Eugenia Low Work Phone: [facility] 12-14-2022 16:47-0400 Body height 160.[address] Eugenia Low Work Phone: [facility] 12-14-2022 16:47-0400 Body temperature 96.3 [degF] Dr. Eugenia Low Work Phone: [facility] 12-13-2022 15:07-0400 Body mass index (BMI) [Ratio] 32.3 kg/m2 Dr. Eugenia Low Work Phone: [facility] 12-13-2022 15:07-0400 Body weight 82.[address] Eugenia Low Work Phone: [facility] 12-13-2022 15:07-0400 Diastolic blood pressure 75 mm[Hg] Dr. Eugenia Low Work Phone: [facility] 12-13-2022 15:07-0400 Systolic blood pressure 111 mm[Hg] Dr. Eugenia Low Work Phone: [facility] 11-15-2022 11:57-0400 Body height 160.[address] Eugenia Low Work Phone: [facility] 11-15-2022 11:56-0400 Body mass index (BMI) [Ratio] 31.7 kg/m2 Dr. Eugenia Low Work Phone: [facility] 11-15-2022 11:56-0400 Body weight 81.[address] Eugenia Low Work Phone: [facility] 11-15-2022 11:56-0400 Diastolic blood pressure 65 mm[Hg] Dr. Eugenia Low Work Phone: [facility] 11-15-2022 11:56-0400 Systolic blood pressure 101 mm[Hg] Dr. Eugenia Low Work Phone: [facility] 10-18-2022 15:37-0400 Body mass index (BMI) [Ratio] 30.9 kg/m2 Dr. Eugenia Low Work Phone: [facility] 10-18-2022 15:37-0400 Body weight 79.[address] Eugenia Low Work Phone: [facility] 10-18-2022 15:37-0400 Diastolic blood pressure 80 mm[Hg] Dr. Eugenia Low Work Phone: [facility] 10-18-2022 15:37-0400 Systolic blood pressure 121 mm[Hg] Dr. Eugenia Low Work Phone: [facility] 10-18-2022 08:10-0400 Body temperature 97.8 [degF] Dr. Eugenia Low Work Phone: [facility] 10-18-2022 08:10-0400 Diastolic blood pressure 68 mm[Hg] Dr. Eugenia Low Work Phone: [facility] 10-18-2022 08:10-0400 Heart rate 82 /min Dr. Eugenia Low Work Phone: [facility] 10-18-2022 08:10-0400 Respiratory rate 14 /min Dr. Eugenia Low Work Phone: [facility] 10-18-2022 08:10-0400 Systolic blood pressure 118 mm[Hg] Dr. Eugenia Low Work Phone: [facility] 10-10-2022 15:49-0400 Body temperature 97.1 [degF] Dr. Eugenia Low Work Phone: [facility] 10-10-2022 15:49-0400 Diastolic blood pressure 70 mm[Hg] Dr. Eugenia Low Work Phone: [facility] 10-10-2022 15:49-0400 Heart rate 66 /min Dr. Eugenia Low Work Phone: [facility] 10-10-2022 15:49-0400 Respiratory rate 14 /min Dr. Eugenia Low Work Phone: [facility] 10-10-2022 15:49-0400 SaO2% (BldA) [Mass fraction] 98 % Dr. Eugenia Low Work Phone: [facility] 10-10-2022 15:49-0400 Systolic blood pressure 108 mm[Hg] Dr. Eugenia Low Work Phone: [facility] 09-20-2022 15:45-0400 Body mass index (BMI) [Ratio] 31.3 kg/m2 Dr. Eugenia Low Work Phone: [facility] 09-20-2022 15:45-0400 Body weight 80.[address] Eugenia Low Work Phone: [facility] 09-20-2022 15:45-0400 Diastolic blood pressure 84 mm[Hg] Dr. Eugenia Low Work Phone: [facility] 09-20-2022 15:45-0400 Systolic blood pressure 126 mm[Hg] Dr. Eugenia Low Work Phone: [facility] 08-24-2022 14:24-0500 Body height 160.[address] Eugenia Low Work Phone: [facility] 08-24-2022 14:24-0500 Body mass index (BMI) [Ratio] 32.4 kg/m2 Dr. Eugenia Low Work Phone: [facility] 08-24-2022 14:24-0500 Body weight 83.[address] Eugenia Low Work Phone: [facility] 08-24-2022 14:24-0500 Diastolic blood pressure 71 mm[Hg] Dr. Eugenia Low Work Phone: [facility] 08-24-2022 14:24-0500 Systolic blood pressure 102 mm[Hg] Dr. Eugenia Low Work Phone: [facility] 03-23-2022 13:52-0400 Body temperature 97.9 [degF] Dr. Eugenia Low Work Phone: [facility] Work Phone: 03-23-2022 13:52-0400 Diastolic blood pressure 71 mm[Hg] Dr. Eugenia Low Work Phone: [facility] Work Phone: 03-23-2022 13:52-0400 Heart rate 62 /min Dr. Eugenia Low Work Phone: [facility] Work Phone: 03-23-2022 13:52-0400 Respiratory rate 16 /min Dr. Eugenia Low Work Phone: [facility] Work Phone: 03-23-2022 13:52-0400 SaO2% (BldA) [Mass fraction] 100 % Dr. Eugenia Low Work Phone: [facility] Work Phone: 03-23-2022 13:52-0400 Systolic blood pressure 106 mm[Hg] Dr. Eugenia Low Work Phone: [facility] Work Phone: 03-23-2022 11:48-0400 Body height 160.[address] Eugenia Low Work Phone: [facility] Work Phone: 03-23-2022 11:48-0400 Body mass index (BMI) [Ratio] 31.5 kg/m2 Dr. Eugenia Low Work Phone: [facility] Work Phone: 03-23-2022 11:48-0400 Body weight 80.[address] Eugenia Low Work Phone: [facility] Work Phone: 02-12-2022 10:16-0400 Body temperature 98 [degF] Dr. Eugenia Low Work Phone: [facility] Work Phone: 02-12-2022 10:16-0400 Diastolic blood pressure 68 mm[Hg] Dr. Eugenia Low Work Phone: [facility] Work Phone: 02-12-2022 10:16-0400 Heart rate 69 /min Dr. Eugenia Low Work Phone: [facility] Work Phone: 02-12-2022 10:16-0400 Respiratory rate 14 /min Dr. Eugenia Low Work Phone: [facility] Work Phone: 02-12-2022 10:16-0400 SaO2% (BldA) [Mass fraction] 98 % Dr. Eugenia Low Work Phone: [facility] Work Phone: 02-12-2022 10:16-0400 Systolic blood pressure 118 mm[Hg] Dr. Eugenia Low Work Phone: [facility] Work Phone: 02-08-2022 15:58-0400 Body height 160.[address] Eugenia Low Work Phone: [facility] Work Phone: 02-08-2022 15:58-0400 Body weight 79.[address] Eugenia Low Work Phone: [facility] Work Phone: 01-27-2022 00:05-0400 Diastolic blood pressure 86 mm[Hg] [facility] Work Phone: 01-27-2022 00:05-0400 Heart rate 71 /min [facility] Work Phone: 01-27-2022 00:05-0400 Respiratory rate 16 /min [facility] Work Phone: 01-27-2022 00:05-0400 SaO2% (BldA) [Mass fraction] 99 % [facility] Work Phone: 01-27-2022 00:05-0400 Systolic blood pressure 120 mm[Hg] [facility] Work Phone: 01-26-2022 22:28-0400 Body height 160.02 cm [facility] Work Phone: 01-26-2022 22:28-0400 Body mass index (BMI) [Ratio] 30.9 kg/m2 [facility] Work Phone: 01-26-2022 22:28-0400 Body temperature 97.6 [degF] [facility] Work Phone: 01-26-2022 22:28-0400 Body weight 79.37 kg [facility] Work Phone: 01-25-2022 17:32-0400 Body weight 79.92 kg [facility] Work Phone: 01-11-2022 17:33-0400 Body height 162.56 cm [facility] Work Phone: 01-11-2022 17:33-0400 Body weight 79.56 kg [facility] Work Phone: 06-23-2021 06:36-0500 Body temperature 97.8 [degF] Dr. Eugenia Low Work Phone: [facility] Work Phone: 06-23-2021 06:36-0500 Diastolic blood pressure 80 mm[Hg] Dr. Eugenia Low Work Phone: [facility] Work Phone: 06-23-2021 06:36-0500 Heart rate 75 /min Dr. Eugenia Low Work Phone: [facility] Work Phone: 06-23-2021 06:36-0500 Respiratory rate 16 /min Dr. Eugenia Low Work Phone: [facility] Work Phone: 06-23-2021 06:36-0500 SaO2% (BldA) [Mass fraction] 99 % Dr. Eugenia Low Work Phone: [facility] Work Phone: 06-23-2021 06:36-0500 Systolic blood pressure 114 mm[Hg] Dr. Eugenia Low Work Phone: [facility] Work Phone: 01-16-2020 15:09-0400 BMI (Body Mass Index) 27.78 kg/m2 Eugenia Ha-[place] [address] Work Phone: 01-16-2020 15:09-0400 Body Temperature 97.7 [degF] Eugenia [facility] [address] Work Phone: Comment on above: Method: Temporal 01-16-2020 15:09-0400 Body weight 72.9 kg Eugenia Ha-[place] d [address] Work Phone: 01-16-2020 15:09-0400 BP Diastolic 72 mm[Hg] Eugenia [facility] [address] Work Phone: Comment on above: Location: LUE; Position: Sitting 01-16-2020 15:09-0400 BP Systolic 90 mm[Hg] Eugenia Ha-[place] d [address] Work Phone: Comment on above: Location: LUE; Position: Sitting 01-16-2020 15:09-0400 BSA (Body Surface Area) 1.78 m2 Eugenia [facility] [address] Work Phone: 01-16-2020 15:09-0400 Height 162 cm Eugenia Ha-[place] d [address] Work Phone: Encounters Encounter Date Encounter Type Care Provider Facility Start: 11-10-2024 End: 11-10-2024 Patient encounter procedure Flaquito Moya [facility] Work Phone: Start: 11-10-2024 End: 11-10-[address] Eugenia Low DO Work Phone: [facility] Work Phone: Start: 09-23-2024 Encounter for other preprocedural examination Annie Grady [facility] Start: 09-05-2024 End: 09-05-[address] Annie Grady MD -[facility] [place] Work Phone: Start: 09-05-2024 End: 09-05-2024 ambulatory Eugenia Malys Facility:[facility] Start: 08-12-2024 ambulatory Eugenia Malys Facility:[facility] Start: 08-12-2024 Non-patient / Non-visit Dr. Annie Grady MD -[facility] [place] Start: 08-12-2024 End: 08-12-2024 Admission to same day surgery center Dr. Annie Grady [facility] Start: 08-12-2024 End: 08-12-2024 ambulatory Eugenia Malys Facility:[facility] Start: 08-11-2024 ambulatory Eugenia Malys Facility:[facility] Start: 08-11-2024 Non-patient / Non-visit Dr. Annie Grady MD -[facility] [place] Start: 07-10-2024 End: 07-10-2024 ambulatory Eugenia Malys Facility:[facility] Start: 07-10-2024 End: 07-10-2024 ambulatory Eugenia Malys Facility:[facility] Start: 07-04-2024 End: 07-04-2024 ambulatory Eugenia Malys Facility:[facility] Start: 05-27-2024 End: 05-27-2024 ambulatory Eugenia Malys Facility:[facility] Start: 05-18-2024 End: 05-18-2024 ambulatory Eugenia Malys Facility:[facility] Start: 05-13-2024 End: 05-13-2024 ambulatory Eugenia Malys Facility:[facility] Start: 05-13-2024 End: 05-13-2024 ambulatory [place] [facility] Facility:[facility] Start: 03-28-2024 End: 03-28-2024 ambulatory Eugenia Malys Facility:[facility] Start: 02-12-2024 End: 02-12-2024 ambulatory Eugenia Malys Facility:[facility] Start: 12-30-2023 End: 12-30-2023 Emergency department patient visit Earl Somers Facility:[facility] Start: 12-21-2023 End: 12-21-2023 ambulatory Eugenia Malys Facility:[facility] Start: 09-11-2023 Non-patient / Non-visit Dr. Eugenia Low Work Phone: [facility] Start: 09-11-2023 End: 09-11-2023 Admission to same day surgery center Dr. Eugenia Low Work Phone: [facility]Endoscopy Work Phone: Start: 09-11-2023 End: 09-11-[address] Eugenia Low Work Phone: [facility] Work Phone: Start: 07-30-2023 End: 07-30-[address] Eugenia Low Work Phone: [facility] Work Phone: Start: 07-30-2023 End: 07-30-[address] Eugenia Low Work Phone: [facility] Work Phone: Start: 07-29-2023 Letter encounter [facility] Start: 05-10-2023 End: 05-10-[address] Eugenia Low [facility] Phone[facility] Start: 03-16-2023 End: 03-16-[address] Eugenia Low Work Phone: [facility] Work Phone: Start: 03-16-2023 End: 03-16-[address] Eugenia Low Work Phone: [facility]Medical Out Work Phone: Start: 03-15-2023 End: 03-15-[address] Eugenia Low Work Phone[facility] Work [facility]: Start: 03-10-2023 Non-patient / Non-visit Dr. Eugenia Low Work Phone: [facility] Start: 03-09-2023 End: 03-09-[address] Eugenia Low Work Phone: [facility] Work Phone: Start: 03-09-2023 End: 03-09-[address] Eugenia Low Work Phone: [facility] Work Phone: Start: 03-08-2023 End: 03-08-[address] [facility] Work Phone: Start: 03-02-2023 End: 03-02-[address] Eugenia Low Work Phone: [facility] Work Phone: Start: 03-02-2023 End: 03-02-[address] [facility] Start: 02-28-2023 End: 02-28-[address] Eugenia Low Work Phone: [facility] Work Phone: Start: 02-28-2023 End: 02-28-[address] Eugenia Low Work Phone: [facility]-Laboratory, Specimen Work Phone: Start: 02-16-2023 End: 02-16-[address] Eugenia Low Work Phone: [facility] Work Phone: Start: 02-16-2023 End: 02-16-[address] Eugenia Low Work Phone: [facility] Work Phone: Start: 02-16-2023 End: 02-16-[address] [facility] Start: 02-01-2023 End: 02-01-[address] Eugenia Low Work Phone: [facility] Work Phone: Start: 02-01-2023 End: 02-01-[address] Eugenia Low Work Phone: [facility] Work Phone: Start: 02-01-2023 End: 02-01-[address] Eugenia Low Work Phone: [facility] Work Phone: Start: 01-19-2023 End: 01-19-[address] Eugenia Low Work Phone: [facility] Work Phone: Start: 01-17-2023 End: 01-17-[address] Eugenia Low Work Phone: [facility] Work Phone: Start: 01-17-2023 End: 01-17-2023 Patient encounter procedure [facility] Start: 01-10-2023 End: 01-10-[address] Eugenia Low Work Phone: [facility] Work Phone: Start: 01-10-2023 Non-patient / Non-visit Dr. Eugenia Low Work Phone: [facility] Work Phone: Start: 01-08-2023 Non-patient / Non-visit Dr. Eugenia Low Work Phone: [facility] Start: 01-08-2023 End: 01-08-[address] Eugenia Low Work Phone: [facility] Work Phone: Start: 01-08-2023 End: 01-08-[address] [facility] Start: 01-05-2023 End: 01-05-[address] Eugenia Low Work Phone: [facility] Work Phone: Start: 01-05-2023 End: 01-05-[address] Eugenia Low Work Phone: [facility] Work Phone: Start: 01-01-2023 End: 01-01-[address] Eugenia Low Work Phone: [facility] Work Phone: Start: 01-01-2023 End: 01-01-[address] Eug[facility] Work Phone: [facility] Work Phone: Start: 12-28-2022 Non-patient / Non-visit Dr. Eugenia Low Work Phone: [facility] Start: 12-27-2022 Non-patient / Non-visit Dr. Eugenia Low Work Phone: [facility] Start: 12-27-2022 End: 12-28-[address] Eugenia Low Work Phone: [facility] Work Phone: Start: 12-27-2022 End: 12-28-[address] [facility] Low [facility] Work Phone: Start: 12-25-2022 End: 12-25-[address] Eugenia Low Work Phone: [facility] Work Phone: Start: 12-14-2022 End: 12-14-[address] Eugenia Low Work Phone: [facility] Work Phone: Start: 12-14-2022 End: 12-14-[address] [facility] Start: 12-14-2022 End: 12-14-2022 Emergency department patient visit Dr. Eugenia Low Work Phone: [facility] Start: 12-13-2022 End: 12-13-[address] Eugenia Low Work Phone: [facility] Start: 12-11-2022 End: 12-11-2022 ambulatory SUYAPA JULIO [facility] Start: 11-27-2022 End: 11-27-2022 [facility] Start: 11-15-2022 End: 11-15-[address] Eugenia Low Work Phone: [facility] Work Phone: Start: 11-15-2022 End: 11-15-[address] Eugenia Low Work Phone: [facility] Start: 11-08-2022 End: 11-08-2022 ambulatory SUYAPA SANCHEZEVSANDRA [facility] Start: 11-08-2022 End: 11-08-2022 [facility] Start: 10-31-2022 End: 10-31-2022 ambulatory EUGENIA LOW [facility] Start: 10-18-2022 End: 10-18-[address] Eugenia Low Work Phone: [facility] Start: 10-18-2022 End: 10-18-[address] Eugenia Low Work Phone: [facility] Start: 10-10-2022 End: 10-10-[address] Eugenia Low Work Phone: [facility] Start: 10-05-2022 End: 10-05-[address] Eugenia Low Work Phone: [facility] Start: 09-20-2022 End: 09-20-[address] Eugenia Low Work Phone: [facility] Start: 09-11-2022 End: 09-11-[address] Eugenia Low Work Phone: [facility] Work Phone: Start: 09-11-2022 End: 09-11-[address] Eugenia Low Work Phone: [facility] Start: 08-24-2022 End: 08-24-[address] Eugenia Low Work Phone: [facility] Work Phone: Start: 08-24-2022 End: 08-24-[address] Eugenia Low Work Phone: [facility]Labor[facility], Specimen Start: 08-24-2022 End: 08-24-[address] Eugenia Low Work Phone: [facility] [place] Start: 07-25-2022 [facility] Start: 07-18-2022 End: 07-18-[address] Eugenia Low Work Phone: [facility] Work Phone: Start: 07-18-2022 End: 07-18-[address] Eugenia Low Work Phone: [facility] Start: 04-25-2022 End: 04-25-[address] Eugenia Low Work Phone: [facility] Work Phone: Start: 04-25-2022 End: 04-25-[address] [facility] Low [facility] Start: 04-19-2022 End: 04-19-[address] Eugenia Low Work Phone: [facility] Work Phone: Start: 04-19-2022 End: 04-19-[address] Eugenia Low Work Phone: [facility] Start: 03-23-2022 Non-patient / Non-visit Dr. Eugenia Low Work Phone: [facility] Start: 03-23-2022 End: 03-23-2022 Admission to same day surgery center Dr. Eugenia Low Work Phone: [facility] Start: 03-23-2022 End: 03-23-[address] Eugenia Low Work Phone: [facility] Work Phone: Start: 02-12-2022 End: 02-12-[address] Eugenia Low Work Phone: [facility] Start: 02-12-2022 End: 02-12-[address] Eugenia Low Work Phone: [facility] Start: 02-08-2022 End: 02-22-[address] Eugenia Low Work Phone: [facility] Work Phone: Start: 02-08-2022 End: 02-22-[address] [facility] Start: 02-01-2022 End: 02-01-[address] Eugenia Low Work Phone: [facility] Start: 01-26-2022 End: 01-27-2022 Emergency department patient visit [facility] Start: 01-25-2022 [facility] Start: 01-11-2022 End: 01-22-2022 [facility] Start: 09-19-2021 End: 09-19-[address] Eugenia Low Work Phone: [facility] Start: 07-07-[address] Eugenia reid Work Phone: [facility] Start: 06-23-2021 End: 06-23-[address] Eugenia Low Work Phone: [facility] Start: 01-16-2020 Patient encounter procedure Eugenia Low [facility] [address] Work Phone: Start: 08-07-2019 Patient encounter procedure Eugenia Low [facility] [address] Work Phone: Start: 07-25-2019 Patient encounter procedure Eugenia Low [facility] [address] Work Phone: Procedures Date Procedure Procedure Detail Performing Clinician Start: 09-11-[address] Eugenia Low Work Phone: Start: 03-08-2023 Group B Streptococcus Culture Dr. Eugenia reid Work Phone: Start: 01-01-[address] Eugenia Low Work Phone: Start: 12-27-2022 CT of abdomen and pelvis without contrast Dr. Eugenia Low Work Phone: Start: 12-27-[address] Eugenia Low Work Phone: Start: 12-14-2022 Plain chest X-ray Dr. Eugenia Low Work Phone: Start: 12-14-[address] Eugenia Low Work Phone: Start: 04-25-2022 Radionuclide gastric emptying study Dr. Eugenia Low Work Phone: Start: 03-23-[address] Eugenia pike Work Phone: Start: 01-26-2022 Computed tomography of abdomen and pelvis with intravenous contrast Start: 07-07-2021 SARS-CoV-2 Antigen (Rapid) Dr. Eugenia pike Work Phone: Extraction of wisdom tooth L kailee Low Urine culture Dr. Eugenia Low Work Phone: Urine culture Dr. Eugenia Low Work Phone: Plan of Treatment Date Care Activity Detail Author Start: 2042 Shingles (RZV) Vaccine (1 of 2) Shingles (RZV) Vaccine (1 of 2) [facility] Start: 09-03-2030 Tetanus vaccination Tetanus (Td or Tdap) Booster [facility] Start: 08-12-2024 Anes hysteroscopy&/hysterosalpi ngography w/bx ANESTH HYSTEROSCOPE/GRAPH [facility] Start: 02-18-2025 Conization cervix w/wo d&c rpr eltrd exc CONIZATION OF CERVIX [facility] Start: 08-12-2024 Hysteroscopy bx endometrium&/polypc w/wo d&c HYSTEROSCOPY BIOPSY [facility] Start: 08-12-2024 Ambulation without limitation [facility] Start: 08-12-2024 Medical regimen orders management [facility] Start: 08-12-2024 Medication education [facility] Start: 08-12-2024 Patient discharge [facility] Start: 08-12-2024 Procedure discontinued [facility] Start: 08-12-2024 Taking patient vital signs [facility] Start: 08-12-2024 Vital signs measurements [facility] Start: 08-12-2024 [facility] Start: 09-11-2023 Patient discharge [facility] Start: 03-08-2023 Nonstress test [facility] Start: 03-08-2023 Obstetric monitoring [facility] Start: 03-08-2023 Vital signs measurements [facility] Start: 03-08-2023 [facility] Start: 03-08-2023 Group B Streptococcus Culture Group B Streptococcus Culture [facility] Start: 03-08-2023 Patient discharge [facility] Start: 03-08-2023 Streptococcus agalactiae [Presence] in Unspecified specimen by Organism specific culture [facility] Start: 03-02-2023 Iv infusion therapy prophylaxis/dx ea hour [facility] Start: 03-02-2023 Iv infusion therapy/prophylaxis /dx 1st to 1 hr THER/PROPH/DIAG IV INF INIT [facility] Start: 02-23-2023 COVID-19 Vaccine ( season) COVID-19 Vaccine ( season) [facility] Start: 02-23-2023 Influenza vaccination Influenza Vaccine (#1) [facility] Start: 02-01-2023 Serum immunofixation [facility] Start: 02-01-2023 Human leukocyte antigen B27 antigen phenotyping [facility] Start: 12-28-2022 Patient discharge [facility] Start: 12-27-2022 Iv infusion ther proph addl sequential to 1 hr TX/PROPH/DG ADDL SEQ IV INF [facility] Start: 12-27-2022 Iv infusion therapy prophylaxis/dx ea hour THER/PROPH/DIAG IV INF [facility] Start: 12-27-2022 Iv infusion therapy/prophylaxis /dx 1st to 1 hr THER/PROPH/DIAG IV INF INIT [facility] Start: 12-27-2022 Ther proph/dx njx ea seql iv push sbst/drug fac TX/PRO/[facility] Start: 12-27-2022 Therapeutic injection iv push each new drug TX/PRO/DX INJ NEW DRUG [facility] Start: 12-27-2022 Therapeutic prophylactic/dx injection subq/im THER/PROPH/DIAG INJ SC/IM [facility] Start: 12-27-2022 Consultation [facility] Start: 12-27-2022 [facility] Start: 12-27-2022 End: 12-27-2022 [facility] Start: 12-27-2022 Nonstress test [facility] Start: 12-27-2022 Obstetric monitoring [facility] Start: 12-27-2022 Vital signs measurements [facility] Start: 12-14-2022 [facility] Start: 12-13-2022 Patient referral [facility] Work Phone: Start: 10-10-2022 Iv infusion hydration each additional hour HYDRATE IV INFUSION ADD-ON [facility] Start: 10-10-2022 Ther proph/dx njx iv push single/1st sbst/drug THER/PROPH/DIAG INJ IV PUSH [facility] Start: 08-24-2022 Chlamydia deoxyribonucleic acid detection [facility] Start: 04-19-2022 General foods mix RAST test [facility] Work Phone: Start: 03-25-2022 Influenza vaccination Influenza Vaccine (#1) [facility] Start: 03-23-2022 Egd transoral biopsy single/multiple EGD BIOPSY SINGLE/MULTIPLE [facility] Work Phone: Start: 03-23-2022 Patient discharge [facility] Work Phone: Start: 02-16-2021 COVID-19 Vaccine (3 - Booster for Pfizer series) COVID-19 Vaccine (3 - Booster for Pfizer series) [facility] Start: 2013 Screening for malignant neoplasm of cervix Pap Smear [facility] Start: 2010 Hepatitis C screening Hepatitis C Antibody [facility] Start: 2007 HIV screening HIV Test [facility] Albumin [Moles/volum e] in Serum or Plasma [facility] Work Phone: Albumin [Moles/volum e] in Serum or Plasma [facility] Albumin/Globulin ratio [facility] Work Phone: Albumin/Globulin ratio [facility] Antibody to lupus La protein measurement [facility] Work Phone: Antibody to SS-A measurement [facility] Work Phone: Bacteria identified in Urine by Culture Urine Culture [facility] Beef IgE Ab [Units/v olume] in Serum [facility] Work Phone: Beta-hemolytic Streptococcus culture [facility] C reactive protein [Mass/volume] in Serum or Plasma [facility] Work Phone: CBC W Auto Different ial panel - Blood [facility] CBC W Auto Different ial panel - Blood [facility] Centromere protein B Ab [Units/volume] in Serum [facility] Work Phone: Chocolate IgE Ab [Units/volume] in Serum [facility] Work Phone: Chromatin Ab [Units/volume] in Serum or Plasma [facility] Work Phone: [place] IgE Ab [Units/v olume] in Serum [facility] Work Phone: Cow milk IgE Ab [Units/volume] in Serum [facility] Work Phone: DNA double strand Ab [Units/volume] in Serum [facility] Work Phone: Electrophoresis: [id number] [facility] Work Phone: Electrophoresis: [id number] [facility] Electrophoresis: flavia ma globulin [facility] Work Phone: Electrophoresis: flavia ma globulin [facility] Erythrocyte sediment ation rate [facility] Work Phone: Fish RAST [facility] Work Phone: Gastrin [Mass/volume ] in Serum or Plasma [facility] Work Phone: Globulin measurement [facility] Work Phone: Globulin measurement [facility] Glucose [Mass/volume ] in Serum or Plasma --1 hour post 50 g glucose PO [facility] Glucose [Mass/volume ] in Serum or Plasma --1 hour post 50 g glucose PO [facility] Hemoglobin A1c/Hemoglobin.total in Blood [facility] Work Phone: HIV 1+2 Ab+HIV1 p24 Ag [Presence] in Serum or Plasma by Immunoassay [facility] HIV 1+2 Ab+HIV1 p24 Ag [Presence] in Serum or Plasma by Immunoassay [facility] HLA-B27 [Presence] b y JUSTIN with probe detection [facility] IgA [Mass/volume] in Serum or Plasma [facility] Work Phone: IgA [Mass/volume] in Serum or Plasma [facility] IgE [Units/volume] i n Serum or Plasma [facility] Work Phone: IgG [Mass/volume] in Serum or Plasma [facility] Work Phone: IgG [Mass/volume] in Serum or Plasma [facility] IgM [Mass/volume] in Serum or Plasma [facility] Work Phone: IgM [Mass/volume] in Serum or Plasma [facility] Terra-1 extractable nuc lear Ab [Units/volume] in Serum [facility] Work Phone: LDH [facility] Work Phone: Measurement of immunoglobulin A in serum specimen [facility] Work Phone: Neisseria gonorrhoea e rRNA [Presence] in Unspecified specimen by JUSTIN with probe detection [facility] Neutrophil cytoplasm ic Ab.classic [Units/volume] in Serum [facility] Work Phone: P-ANCA measurement [facility] Work Phone: Patient Education [facility] Work Phone: Patient referral [facility] Work Phone: PCR test for Chlamyd ia trachomatis [facility] Peanut IgE Ab [Units/volume] in Serum [facility] Work Phone: Pork IgE Ab [Units/v olume] in Serum [facility] Work Phone: Protein electrophore sis panel - Serum or Plasma [facility] Work Phone: Protein electrophore sis panel - Serum or Plasma [facility] Rubella IgG measurement [facility] SCL-70 extractable n uclear Ab [Units/volume] in Serum by Immunoassay [facility] Work Phone: Serum protein electrophoresis [facility] Bullard extractable nu clear Ab [Presence] in Serum [facility] Work Phone: Soybean IgE Ab [Units/volume] in Serum [facility] Work Phone: T4 free measurement [facility] Work Phone: Thyroid stimulating hormone measurement [facility] Work Phone: Tissue transglutamin ase IgA Ab [Units/volume] in Serum [facility] Work Phone: Treponema sp Ab [Pre sence] in Serum [facility] Treponema sp Ab [Pre sence] in Serum [facility] Triiodothyronine, fr ee measurement [facility] Work Phone: US Heart [facility] Wheat IgE Ab [Units/volume] in Serum [facility] Work Phone: Whole Egg IgE Ab [Units/volume] in Serum [facility] Work Phone: [facility] Immunizations Immunization Date Immunization Notes Care Provider Eileen santillan 04-27-2024 influenza, seasonal, injectable, preservative free Dr. Eugenia Low DO Work Phone: [facility] 03-30-2023 influenza, injectabl e, quadrivalent, preservative free Dr. Eugenia Low Work Phone: [facility] 01-10-2023 tetanus toxoid, reduced diphtheria toxoid, and acellular pertussis vaccine, adsorbed Dr. Eugenia Low Work Phone: [facility] 11-30-2021 hepatitis B vaccine, adult dosage [facility] 05-20-2021 hepatitis B vaccine, adult dosage Dr. Eugenia Low Work Phone: [facility] Work Phone: 05-20-2021 influenza, injectabl e, quadrivalent, preservative free Dr. Eugenia Low Work Phone: [facility] 05-20-2021 influenza, seasonal, injectable Dr. Eugenia Low Work Phone: [facility] 05-20-2021 influenza, seasonal, injectable, preservative free [facility] 05-20-2021 measles, mumps and rubella virus vaccine Dr. Eugenia Low Work Phone: [facility] Work Phone: 05-20-2021 influenza virus vaccine, unspecified formulation [facility] 04-14-2021 hepatitis B vaccine, adult dosage Dr. Eugenia Low Work Phone: [facility] Work Phone: 04-14-2021 measles, mumps and rubella virus vaccine Dr. Eugenia Low Work Phone: [facility] Work Phone: 09-03-2020 diphtheria, tetanus toxoids and acellular pertussis vaccine, unspecified formulation Dr. Eugenia Low Work Phone: [facility] Work Phone: 09-03-2020 tetanus toxoid, reduced diphtheria toxoid, and acellular pertussis vaccine, adsorbed Dr. Eugenia Low Work Phone: [facility] Work Phone: 03-25-2020 influenza, injectabl e, quadrivalent, preservative free Dr. Eugenia Low Work Phone: [facility] 03-25-2020 influenza, seasonal, injectable Dr. Eugenia Low Work Phone: [facility] 09-09-2018 tuberculin skin test ; purified protein derivative solution, intradermal [facility] 03-29-2018 influenza virus vaccine, unspecified formulation [facility] 03-25-2015 influenza, injectabl e, quadrivalent, preservative free Dr. Eugenia Low Work Phone: [facility] 03-25-2015 influenza, seasonal, injectable Dr. Eugenia Low Work Phone: [facility] 04-05-2014 influenza virus vaccine, unspecified formulation [facility] 04-05-2014 influenza, injectabl e, quadrivalent, contains preservative [facility] 03-18-2013 influenza virus vaccine, unspecified formulation [facility] Work Phone: 09-07-2009 human papilloma viru s vaccine, quadrivalent [facility] 03-19-2009 human papilloma viru s vaccine, quadrivalent [facility] 03-19-2009 influenza virus vaccine, live, attenuated, for intranasal use [facility] 01-07-2009 human papilloma viru s vaccine, quadrivalent [facility] 01-07-2009 Meningococcal, MCV4, unspecified conjugate formulation(groups A, C, Y and W-135) [facility] 01-07-2009 tetanus toxoid, reduced diphtheria toxoid, and acellular pertussis vaccine, adsorbed [facility] 02-01-2005 measles, mumps and rubella virus vaccine [facility] 12-23-2001 diphtheria, tetanus toxoids and acellular pertussis vaccine [facility] 12-23-2001 TD(adult) unspecifie d formulation [facility] 04-20-1997 diphtheria, tetanus toxoids and acellular pertussis vaccine [facility] 03-26-1997 poliovirus vaccine, [facility] 03-26-1997 poliovirus vaccine, unspecified formulation [facility] 01-26-1994 diphtheria, tetanus toxoids and acellular pertussis vaccine [facility] 01-26-1994 haemophilus influenz ae type b vaccine, HbOC conjugate [facility] 01-26-1994 poliovirus vaccine, inactivated [facility] 01-26-1994 poliovirus vaccine, unspecified formulation [facility] 10-25-1993 measles, mumps and rubella virus vaccine [facility] 08-09-1993 hepatitis B vaccine, pediatric or pediatric/adolescent dosage [facility] 02-03-1993 haemophilus influenz ae type b vaccine, HbOC conjugate [facility] 01-26-1993 hepatitis B vaccine, pediatric or pediatric/adolescent dosage [facility] 01-24-1993 diphtheria, tetanus toxoids and acellular pertussis vaccine [facility] 1992 diphtheria, tetanus toxoids and acellular pertussis vaccine [facility] 1992 haemophilus influenz ae type b vaccine, HbOC conjugate [facility] 1992 hepatitis B vaccine, pediatric or pediatric/adolescent dosage [facility] 1992 poliovirus vaccine, inactivated [facility] 1992 poliovirus vaccine, unspecified formulation [facility] 1992 diphtheria, tetanus toxoids and acellular pertussis vaccine [facility] 1992 haemophilus influenz ae type b vaccine, HbOC conjugate [facility] 1992 poliovirus vaccine, inactivated [facility] 1992 poliovirus vaccine, unspecified formulation [facility] Payers Date Payer Category Payer Self-pay [id number] 2023 Unknown [id number] 93 [id number] 2016 Unknown [id number] 1992 Unknown [id number] 2.. [id number] 1992 Unknown [id number] 2.. 840.1.262915.3.579.2.9 1992 Unknown [id number] 2.. 840.1.995350.3.579.2.479 1992 Unknown [id number] 2.. 840.1.360787.3.579.2.479 1992 Unknown [id number] 2.16. 840.1.234566.3.579.2.479 Unknown [id number] Unknown [id number] 2.16.8 40.1.157436.3.579.2.462 Unknown [id number] 2.16.8 40.1.461025.3.579.2.462 Unknown [id number] 2.16.8 40.1.414952.3.579.2.462 Unknown [id number] 2.16.8 40.1.856466.3.579.2.462 Unknown [id number] 2.16.8 40.1.071758.3.579.2.462 Unknown [id number] 2.16.8 40.1.952208.3.579.2.462 Unknown [id number] 2.16.8 40.1.951723.3.579.2.462 Unknown [id number] 2.16.8 40.1.657682.3.579.2.462 Unknown [id number] 2.16.8 40.1.636365.3.579.2.462 Unknown [id number] 2.16.8 40.1.680142.3.579.2.462 Unknown [id number] 2.16.8 40.1.170393.3.579.2.462 Unknown [id number] 2.16.8 40.1.563570.3.579.2.462 Unknown [id number] 2.16.8 40.1.265544.3.579.2.462 Unknown [id number] 2.16.8 40.1.991511.3.579.2.462 Unknown [id number] 2.16.8 40.1.484505.3.579.2.462 Unknown [id number] 2.16.8 40.1.811685.3.579.2.462 Social History Date Type Detail Facility Start: 06-23-2021 End: 09-10-2023 Tobacco smoking status NHIS Unknown if ever smoked [facility] Start: 06-11-2015 Occasional [facility] Start: 06-11-2015 None [facility] Start: 06-11-2015 Alone [facility] Start: 09-06-2020 Non-smoker [facility] Start: 1990 Sex Assigned At Female [facility] Start: 1990 Sex Assigned At Not on file [facility] Gender identity Not on file [facility] Start: 07-29-2024 Tobacco smoking status NHIS Never smoked tobacco (finding) [facility] NEGATED: Highlighted row - - [facility] [address] [employer] Work Phone: NEGATED: Highlighted row Not [facility] Goals Date Patient Goal Desired Activity /State Functional Status Date Assessment Result Facility NEGATED: Highlighted row Functional performance Functional status health issues are not documented Disease [facility] [address] [employer] Work Phone: Mental Status Date Assessment Result Facility 08-12-2024 Cognitive function Level Of Cons ciousness Sedated [facility] Work Phone: 08-12-2024 Cognitive function Voice/Name [facility] Work Phone: 09-11-2023 Cognitive function Voice/Name [facility] Work Phone: 03-16-2023 Cognitive function Awake;Alert;A ppropriate ;Follows [facility] Work Phone: 03-09-2023 Cognitive function Awake;Alert;A ppropriate ;Follows [facility] Work Phone: 03-02-2023 Cognitive function Awake;Alert;A ppropriate ;Follows [facility] Work Phone: 12-14-2022 Cognitive function Level Of Cons ciousness Awake;Alert;Appropriate ;Follows [facility] Work Phone: 10-10-2022 Cognitive function Voice/Name [facility] Work Phone: 03-23-2022 Cognitive function Voice/Name [facility] Work Phone: NEGATED: Highlighted row Cognitive function [Interpretation] Cognitive status health issues are not documented Disease [address] Work Phone: Clinical Notes 12-27-2022 to 08-23-2024 Note Date & Type Note Facility 08-23-2024 Evaluation note Diagnosis Onset Date Resolution Friable cervix August, acute August 12, 2024 9:48am Postcoital bleeding acute August 12, 2024 9:48am Friable cervix August, acute August 8:52am [facility] Work Phone: 1(577) 426-284002-17-2025 [facility] Medical Records Department [address] [facility] [place] [address] History Physical Exam 08/11/24 1728 MR#: [id number] Acct: [id number] Name: NANCY BROWN Rep #: [id number] : 1990 34 From: Annie Grady MD PCP: Dr. Eugenia Low DO Status:[facility] Location: [place] [address] History and Physical Date of Admission: 08/12/[address] Annie Grady MD on 07/06/24 at 1221 Assessment and Plan Assessment and Plan (1) Friable cervix: Status: Acute Comment: long history. Neg pap, hpv and culture. recommend d and c hysteroscopy leep (2) Postcoital bleeding: Status: Acute (3) Heart palpitations: Status: Acute Comment: ekg ordered (4) UTI (urinary tract infection): Status: Acute Qualifiers: Urinary tract infection type: acute cystitis Hematuria presence: without hematuria Qualified Code(s): N30.00 - Acute cystitis without hematuria Orders: Orders 12 Lead EKG 07/04/24 R00.2 - Palpitations Plan After discussing the patient's diagnosis and treatment plan options, patient wishes to proceed with surgical management. I have discussed with the patient the risks, benefits, and alternatives of the procedure which include but are not limited to risks of anesthesia, bleeding, infection, possible damage to bowel, bladder, or surrounding vasculature which could lead to additional surgery to evaluate any complications. Patient agrees to procedure and wishes to proceed. ACOG/uptodate references given for additional information regarding procedure. 07/06/24 1221 Date Annie Grady MD cc: * Signed Intake Vital Signs 05/18/2409:00 07/04/2513:30 Height 5 ft 4 in 5 ft 4 in Weight: 178 lb 4 oz 174 lb 8 oz BMI 30.6 29.9 BP 120/78 118/82 H Blood Pressure Location Lt brachial Position Sitting Respiration 12 Pulse 81 Pulse Source NIBP Temp 98.3 F Pulse Oximetry (%) 99 Oxygen Delivery Method room air Intake Visit Reasons: consultation friable cervix [employer] Required: No Is patient in pain?: No Allergies No Known Allergies Allergy (Verified 07/04/24 14:31) Medications ???Medication ???Instructions ???Recorded ???Confirmed ???Type fluoxetine 20 mg capsule (Prozac) 20 mg PO DAILY #30 caps 03/09/23 07/04/24 Rx dextroamphetamine-amphetamine ER 5 1 cap PO BID 09/10/23 07/04/24 History mg 24hr capsule,extend release hyoscyamine sulfate 0.125 mg 0.125 mg sublingual BID-QID PRN 02/12/24 07/04/24 Rx sublingual tablet dyspepsia #30 tabs phenazopyridine 100 mg tablet 100 mg PO TID PRN pain #7 tabs 05/18/24 07/04/24 Rx (Pyridium) pantoprazole 20 mg tablet,delayed 20 mg PO DAILY #30 tabs 06/12/24 07/04/24 Rx release Is last menstrual period known: Yes Last Menstrual Period: 06/21/24 Post menopausal: No Patient : No : No [facility] Medical History (Updated 07/06/24 @ 12:[address] Annie Grady MD) Heart palpitations Vaginal delivery PONV (postoperative nausea and vomiting) History of Holter monitoring Cardiology follow-up encounter Headache Depression Anxiety Left ureteral stone Hyperemesis arising during Wears glasses Easy bruising Migraine headache Gastric reflux Non-smoker History of echocardiogram COVID-19 Acute pharyngitis Shawn-Danlos syndrome Exercise-induced asthma Abnormal EKG ( 2015) Mixed anxiety and depressive disorder Surgical History History of wisdom tooth extraction Family History Mother Thyroid disorderGrandmother Thyroid disorder Cancer Maternal grandmother - kidney cancerGrandfather Cancer Bladder Social History adopted: No household members: spouse, children and other details: brother in law housing: house number of children: 1 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 pets and animals: dog(s) history of recent travel: No sexually active: Yes Smoking Status: Never smoker Electronic Cigarette Use: not used second hand exposure: No alcohol intake: current alcohol intake frequency: holidays/special occasions only Alcohol type: wine details: not while substance use type: does not use diet: gluten free and lactose free well-balanced diet: daily or most days caffeine: Yes Type: carbonated beverages Number of servings: 1 what type of physical activity do you participate in: other details: cardio kickboxing frequency: 1-2 times per week duration: 45-60 minutes/day seatbelt use: always do you feel safe at home: Yes additional social his (more content not included)...[facility] 09-11-[address] [facility]03-19-2024 Procedure note [facility]03-19-[address] [facility] 09-11-[address] [facility]07-06-2023 Progress note Author Inna Thomas [facility] December 28, 2022 5:39pm Note Date/Time December 28, 2022 4:39p m [facility] Medical Records Department [address] [place] [address] OB Triage Progress Note 12/28/22 1633 MR#: [id number] Acct: [id number] Name: STEPHANIENANCYJUANJO CHAMBERS Rep #:[id number] : 1990 32 From: Inna Thomas CNM PCP: Dr. Eugenia Low, DO Status:REG CLI Y DOS: [facility] Notes Date of Service: 12/28/22 Progress Note: Patient presents for triage evaluation secondary to back pain. FHT: 140 Moderate variability reactive no decelerations category I tracing [place]: none Contractions Assessment and plan: Per STACY/Melia, Plan for D/C, Keflex x 3 days and follow upUS next week. See problem list and previous note for additional plan information. Laboratory Studies: Laboratory Tests 12/27/22 Range/Units 01:55 WBC 11.7 H (4.4-11.0) K/mm3 RBC 4.00 L (4.2-5.4) M/mm3 Hgb 10.5 L (12.0-15.0) g/dL Hct 33.6 L (37-47) % MCV 84.0 (81-99) fL MCH 26.3 L (27.0-32.0) pg MCHC 31.3 L (32-36) g/dL RDW Std Deviation 41.0 (35.1-43.9) fl RDW Coeff of Aaron 13.3 (11.6-14.6) % Plt Count 270 (150-450) K/mm3 MPV 9.7 (6.2-12.0) fl Urine Color Yellow (Yellow) Urine Clarity Sl. Cloudy (Clear) Urine pH 6.0 (5.0 - 8.0) Ur Specific [place] 1.025 (1.002-1.030) Urine Protein 30 H (Negative) mg/dl Urine Glucose (UA) Normal (Normal) mg/dl Urine Ketones 5 H (Negative) mg/dl Urine Occult Blood 50 H (Negative) /ul Urine Nitrite Negative (Negative) Urine Bilirubin Negative (Negative) mg/dL Urine Urobilinogen 1 H (Normal) mg/dl Ur Leukocyte Esterase 500 H (Negative) /ul Urine RBC 0-5 SEEN (0-5) /hpf Urine WBC 25-50 SEEN (0-5) /hpf Ur Squamous Epith Cells 10-25 SEEN (5-10) /hpf Calcium Oxalate Crystal 1+ (<or=2+) /hpf Urine Bacteria 3+ (None Seen) /hpf Urine Mucus 2+ (<or=2+) /hpf Assessment & Plan (1) Kidney stone complicating : QUALIFIERS: Trimester: second trimester Qualified Code(s): O26.832 - related renal disease, second trimester; N20.0 - Calculus ofkidney COMMENT: left UVJ, Dr. Cárdenas consulted. 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 Mota. s/p mfm consult nl maternal echo, Anesthesia consult 09/06 @ 10. delivery based on obstetric indications; NL ECG CL q 2 weeks to 26 weeks -44.2mm. no further CL needed (6) Depression affecting : COMMENT: stable on Prozac 40mg, counseling encouraged (7) Hyperemesis affecting , antepartum: COMMENT: reglan and zofran. encouraged q 4 hour rotating dosing. if no better next week-referral for zofran pump (8) Left ureteral stone: (9) Hydronephrosis: QUALIFIERS: Hydronephrosis type: with ureteral calculous obstruction Qualified Code(s): N13.2 - Hydronephrosis with renal and ureteral calculous obstruction (10) Bacteriuria: 12/28/22 9139 <Electronically signed by Inna pike CNM> Date _ Inna Thomas CNM Cosigner Signature (if applicable): Date CC: BRIAN Thomas; Dr. Eugenia Low, DO ~ Signed [facility] Work Phone: 1(588) 737-953507-06-2023 History and physical note Author Inna Thomas [facility] December 28, 2022 10:58am Note Date/Time December 28, 2022 7:56a m [facility] Medical Records Department [address] [place] [address] OB Triage Physician Note 12/28/22 0755 MR#: [id number] Acct: [id number] Name: NANCY BROWN Rep #:[id number] : 1990 32 From: Inna Thomas CNM PCP: Dr. Eugenia Low, DO Status:REG CLI Y Location: [place] [address]-1 HPI - General General Date of Service: 12/28/22 HPI Narrative NANCY BROWN, is a 32 F who presented to L&D 12/26/22 with the complaint of nausea, vomiting, and left lower quadrant and back pain and the sensation that she was not emptying bladder completely. She was started on IV fluids, antibiotics, and given morphine and zofran for support. She has a Mild degree ofleft hydronephrosis and left hydroureter due to a 4 mm calculus at the left ureterovesical junction per MRI. She is currently laying in bed doing better than the day prior. She is still using Percocet for pain control but now only using q 6-8 hours. Straining urine but has not yet passed the stone. Maternal Data Information DAISY Calculator Estimated Delivery Date Method Current WG Current Estimate 04/01/23 Ultrasound #1 26w 4d Other Estimates 03/26/23 LMP (Certain) 27w 3d Final DAISY: 04/01/23 Final DAISY Source: US >20 weeks Gestational age: 26.4 weeks [facility] Medical History (Updated 12/27/22 @ 23:[address] Prerna Cárdenas MD) Abnormal EKG (~2014) Acute pharyngitis Celiac disease COVID-19 Difficulty swallowing Easy bruising Shawn-Danlos syndrome Exercise-induced asthma Gastric reflux History of echocardiogram Hyperemesis arising during Left ureteral stone Migraine headache Mixed anxiety and depressive disorder Non-smoker Wears glasses Home Medications ondansetron HCl 4 mg tablet 4 mg PO Q8H PRN nausea and vomiting #30 tabs 08/18/22 [Rx Last Taken 12/26/22] prenat.vits,anh,iwu-zovw-zoooi 1 tab PO DAILY 08/18/22 [History Last Taken 12/26/22] metoclopramide HCl 5 mg tablet (Reglan) 5 mg PO .q 8 hrs PRN nausea and vomiting#60 tabs 09/20/22 [Rx Last Taken 12/26/22] pantoprazole 40 mg tablet,delayed release 40 mg PO DAILY #90 tabs 11/15/22 [Rx Last Taken 12/26/22] linaclotide 145 mcg capsule (Linzess) 145 mcg PO Q OTHER DAY 12/25/22 [History Last Taken 12/26/22] Allergy/AdvReac Type Severity Reaction Status Date / Time No Known Allergies Allergy Verified 12/27/22 01:46 Family History Mother Thyroid disorder Grandmother Thyroid disorder Cancer Maternal grandmother - kidney cancer Grandfather Cancer Bladder Surgical History History of wisdom tooth extraction Social History adopted: No household members: spouse, children and other details: brother in law housing: house number of children: 1 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 pets and animals: dog(s) history of recent travel: No sexually active: Yes Smoking Status: Never smoker Electronic Cigarette Use: not used second hand exposure: No alcohol intake: current alcohol intake frequency: holidays/special occasions only Alcohol type: wine details: not while substance use type: does not use diet: gluten free and lactose free well-balanced diet: daily or most days caffeine: Yes Type: carbonated beverages Number of servings: 1 what type of physical activity do you participate in: other details: cardio kickboxing frequency: 1-2 times per week duration: 45-60 minutes/day seatbelt use: always do you feel safe at home: Yes additional social history: 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 Date Name GA/Weeks Outcome Route Bth Weight Infant Gen Labor Lgth Anesthesia Del Locatn Provider FOB 10/09/20 Gloria 38 live - full term 6lbs 5oz Female [facility] Tracy Delivery Date: 10/09/20 Last Updated by: Antoinette Rubalcava IOl for cholestasis, uncomplicated delivery Visit Details Expected Delivery Route/Plan Labor Preferences- CB/BF classes: [] labor support person: [] labor intervention preferences: [] pain management options preferred: [] cut cord/dad catch: [] : [] PP control planned: [] discussed possible routes of delivery and associated risks: [] special requests: [] Plans Covid status: [] Flu vaccine: [] Tdap vaccine: [] Rhogam: [] LARC form signed: [] Problem list reviewed and updated with the most current plan of care details and appropriate orders placed. Relevant counseling for the gestational age provided. Continue routine care and follow up unless otherwise noted in visit notes/problem list details OB Flowsheet Initial Weight: Not Recorded Date -?-?-?-?-?-?-?-?-?-?-?-?- EGA Weight BP Urine Prot -?-?-?-?-?-?-?-?-?-?-?-?- Glucose FHR FuHt Pres Dilation -?-?-?-?-?-?-?-?-?-?-?-?- Effaced St Visit Note 08/24/22 -?-?-?-?-?-?-?-?-?-?-?-?- 8w 4d 183 lb 4 oz 183 lb 4 oz 102/71 -?-?-?-?-?-?-?-?-?-?-?-?- 170 -?-?-?-?-?-?-?-?-?-?-?-?- SM- CRL NOT cons with LMP 1.8 cm 09/20/22 -?-?-?-?-?-?-?-?-?-?-?-?- 12w 3d 177 lb 126/84 Negative -?-?-?-?-?-?-?-?-?-?-?-?- Negative 153 -?-?-?-?-?-?-?-?-?--?-?-?- JV- pt states th at she is still having nausea daily and vomiting occasionally. She has been treated with reglan in the past for gastroparesis and felt great. will try reglan again. rx sent to pharmacy. 10/18/22 -?-?-?-?-?-?-?-?-?-?-?-?- 16w 3d 174 lb 6 oz 121/80 Trac e -?-?-?-?-?-?-?-?-?-?-?-?- Negative 150 -?-?-?-?-?-?-?-?-?-?-?-?- KW-possible flut ters. no cramping. feeling more anxiety today. she is still vomiting 2-8 times a day. encouraged zofran use with the reglan. if not feeling better by early next week will call for home health visit/zofran pump. encouraged intake of whatever food she can tolerate. 11/15/22 -?-?-?-?-?-?-?-?-?-?-?-?- 20w 3d 179 lb 4 oz 101/65 Nega tive -?-?-?-?-?-?-?-?-?-?-?-?- Negative 147 -?-?-?-?-?-?-?-?-?-?-?-?- JV- feeling bett er with zofran and wants to continue for now. Getting CL q 2 weeks until 26 weeks due to EDS. 12/13/22 -?-?-?-?-?-?-?-?-?-?-?-?- 24w 3d 182 lb 6 oz 111/75 Nega tive -?-?-?-?-?-?-?-?-?-?-?-?- Negative 145 24 -?-?-?-?-?-?-?-?-?-?-?-?- KW- + FM, no vb/ lof/ctx. reports 4 episodes of palpitations and syncope-worse with heat and exacerbation. KW- + FM, no vb/lof/ctx. rep orts 4 episodes of palpitations and syncope-worse with heat and exacerbation. cardiology consult. discussed with STACY GONZALES Constitutional Constitutional: Reports systems reviewed and no addt'l complaints, except as documented Cardiovascular Cardiovascular: Reports systems reviewed and no addt'l complaints, except as documented Respiratory/Chest Respiratory/Chest: Reports systems reviewed and no addt'l complaints, except as documented Gastrointestinal Gastrointestinal: Reports systems reviewed and no addt'l complaints, except as documented Genitourinary Genitourinary: Reports systems reviewed and no addt'l complaints, except as documented, movement and flank pain Musculoskeletal Musculoskeletal: Reports systems reviewed and no addt'l complaints, except as documented Integumentary Integumentary: Reports systems reviewed and no addt'l complaints, except as documented Neurologic Neurologic: Reports systems reviewed and no addt'l complaints, except as documented Psychiatric Psychiatric: Reports systems reviewed and no addt'l complaints, except as documented Endocrine Endocrinology: Reports systems reviewed and no addt'l complaints, except as documented Physical Exam Const alert and oriented x3 Neck full ROM Resp normal respiratory effort, no retractions and no use of accessory muscles GI normal to inspection, nondistended, normoactive bowel sounds Inspection: gravid Back/Spine General Back: CVA tenderness bilateral Extremity normal to inspection and full ROM Neuro moves all extremities NST FHR Rate Baby B Baseline: 140 Variability:: Moderate Accelerations:: 10 x 10 Decelerations:: None NST Reactive:: Appropriate for gestational age Uterine Activity:: none Assessment & Plan (1) Bacteriuria: (2) Hydronephrosis: QUALIFIERS: Hydronephrosis type: with ureteral calculous obstruction Qualified Code(s): N13.2 - Hydronephrosis with renal and ureteral calculous obstruction (3) Left ureteral stone: PLAN: continue current plan of care of IV fluids, Percocet for pain control and atb as ordered. continue to strain urine Plan for surgical intervention with Dr Cárdenas tomorrow consulted with JStella on plan of care. (4) Kidney stone complicating : QUALIFIERS: Trimester: second trimester Qualified Code(s): O26.832 - related renal disease, second trimester; N20.0 - Calculus of kidney COMMENT: left UVJ, Dr. Cárdenas consulted. (5) Hyperemesis affecting , antepartum: COMMENT: reglan and zofran. encouraged q 4 hour rotating dosing. 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 Mota. s/p mfm consult nl maternal echo, Anesthesia consult 09/06 @ 10. delivery based on obstetric indications; NL ECG CL q 2 weeks to 26 weeks -44.2mm. no further CL needed Charges/Coding Visit Charges Office Visits / Consults: 39843 OV L3 Est 12/28/22 1058 <Electronically signed by Inna pike CNM> Date _ Inna Thomas CNM Cosigner Signature (if applicable): Date CC: BRIAN Thomas; Dr. Eugenia Low, DO ~ Signed [facility] Work Phone: 1(858) 259-834407-06-2023 Consult note Author rPerna Cárdenas [facility] December 27, 2022 11:07pm Note Date/Time December 27, 2022 11:07 pm [facility] Medical Records Department [address] [place] [address] Consultation 12/27/22 2258 MR#: [id number] Acct: [id number] Name: NANCY BROWN Rep #:[id number] : 1990 32 From: Prerna Leonardo PCP: Dr. Eugenia Low, DO Status:REG [facility] Location: [id number] Assessment & Plan Assessment/Plan (1) Kidney stone complicating : QUALIFIERS: Trimester: second trimester Qualified Code(s): O26.832 - related renal disease, second trimester; N20.0 - Calculus ofkidney (2) Left ureteral stone: (3) Hydronephrosis: QUALIFIERS: Hydronephrosis type: with ureteral calculous obstruction Qualified Code(s): N13.2 - Hydronephrosis with renal and ureteral calculous obstruction (4) Bacteriuria: PLAN: Plan continue hydration and supportive care continue antibiotics and await culture results if stone has not passed and pain remains, will plan fo surgical intervention Sunday plan discussed with patient and HPI Consult Data Date of Consult: 12/27/22 HPI Narrative Reason for Consultation: left ureteral calculus HPI Narrative: NANCY BROWN, is a 32 F who developed acute onset left flank pain that felt like a knife. She has never had a stone before, and was worried about the baby, so was evaluated. Blood was found in the urine along with left hydronephrosis and the decision was made to proceed with CT scan. This showed distal left ureteral calculus measured at 4mm. She is feeling more comfortable now with medications on board, but worried will not be able to handle this same pain at home. She has a toddler and cannot care for them while in this condition. [facility] Medical History (Updated 12/27/22 @ 23:[address] Prerna Cárdenas MD) Abnormal EKG (~2014) Acute pharyngitis Celiac disease COVID-19 Difficulty swallowing Easy bruising Shawn-Danlos syndrome Exercise-induced asthma Gastric reflux History of echocardiogram Hyperemesis arising during Left ureteral stone Migraine headache Mixed anxiety and depressive disorder Non-smoker Wears glasses Home Medications ondansetron HCl 4 mg tablet 4 mg PO Q8H PRN nausea and vomiting #30 tabs 08/18/22 [Rx Last Taken 12/26/22] prenat.vits,anh,[id number] 1 tab PO DAILY 08/18/22 [History Last Taken 12/26/22] metoclopramide HCl 5 mg tablet (Reglan) 5 mg PO .q 8 hrs PRN nausea and vomiting#60 tabs 09/20/22 [Rx Last Taken 12/26/22] pantoprazole 40 mg tablet,delayed release 40 mg PO DAILY #90 tabs 11/15/22 [Rx Last Taken 12/26/22] linaclotide 145 mcg capsule (Linzess) 145 mcg PO Q OTHER DAY 12/25/22 [History Last Taken 12/26/22] Allergy/AdvReac Type Severity Reaction Status Date / Time No Known Allergies Allergy Verified 12/27/22 01:46 Family History Mother Thyroid disorder Grandmother Thyroid disorder Cancer Maternal grandmother - kidney cancer Grandfather Cancer Bladder Surgical History History of wisdom tooth extraction Social History adopted: No household members: spouse, children and other details: brother in law housing: house number of children: 1 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 pets and animals: dog(s) history of recent travel: No sexually active: Yes Smoking Status: Never smoker Electronic Cigarette Use: not used second hand exposure: No alcohol intake: current alcohol intake frequency: holidays/special occasions only Alcohol type: wine details: not while substance use type: does not use diet: gluten free and lactose free well-balanced diet: daily or most days caffeine: Yes Type: carbonated beverages Number of servings: 1 what type of physical activity do you participate in: other details: cardio kickboxing frequency: 1-2 times per week duration: 45-60 minutes/day seatbelt use: always do you feel safe at home: Yes 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 Constitutional Constitutional: Denies anorexia, chills, fever(s) or malaise Eyes Eyes: Reports systems reviewed and no addt'l complaints, except as documented ENT HEENT: Reports systems reviewed and no addt'l complaints, except as documented Cardiovascular Cardiovascular: Reports systems reviewed and no addt'l complaints, except as documented Respiratory/Chest Respiratory/Chest: Reports systems reviewed and no addt'l complaints, except as documented Gastrointestinal Gastrointestinal: Reports abdominal pain and nausea; Denies vomiting Genitourinary Genitourinary: Reports abdominal discomfort, flank pain, low back pain, polyuriaand other Details: bladder pain at end of stream ; Denies burning urination or dysuria Musculoskeletal Musculoskeletal: Reports back pain Integumentary Integumentary: Reports systems reviewed and no addt'l complaints, except as documented Neurologic Neurologic: Reports systems reviewed and no addt'l complaints, except as documented Psychiatric Psychiatric: Reports systems reviewed and no addt'l complaints, except as documented Endocrine Endocrinology: Reports systems reviewed and no addt'l complaints, except as documented Hematologic/Lymphatic Hematologic/Lymphatic: Reports systems reviewed and no addt'l complaints, exceptas documented Allergic/Immunologic Allergic/Immunologic: Reports systems reviewed and no addt'l complaints, except as documented Physical Exam Const alert, oriented x3 and no apparent distress HEENT normocephalic, head/scalp atraumatic, hearing grossly normal bilaterally, external nose normal and moist oral mucous membranes Eyes General Eye: normal appearance of both eyes Neck supple General: trachea midline Chest inspection of chest normal Resp normal respiratory effort and normal air movement Cardio regular rate GI GI Narrative: gravid Bladder / Kidney Exam: No catheter in place and CVA tenderness left Extremity normal to inspection Skin no rashes or lesions noted Neuro oriented x3, CN's II-XII intact bilaterally and moves all extremities Psych mental status grossly normal Lab / Micro Data 12/27/22 01:55 Labs: Laboratory Results - last 24 hr 12/27/22 01:55: WBC 11.7 H, RBC 4.00 L, Hgb 10.5 L, Hct 33.6 L, MCV 84.0, MCH 26.3 L, MCHC 31.3 L, RDW Std Deviation 41.0, RDW Coeff of Aaron 13.3, Plt Count 270, MPV 9.7, Urine Color Yellow, Urine Clarity Sl. Cloudy, Urine pH 6.0, Ur Specific Harrison 1.025, Urine Protein 30 H, Urine Glucose (UA) Normal, Urine Ketones 5 H, Urine Occult Blood 50 H, Urine Nitrite Negative, Urine Bilirubin Negative, Urine Urobilinogen 1 H, Ur Leukocyte Esterase 500 H, Urine RBC 0-5 SEEN, Urine WBC 25-50 SEEN, Ur Squamous Epith Cells 10-25 SEEN, Calcium Oxalate Crystal 1+, Urine Bacteria 3+, Urine Mucus 2+ Radiology Impression Renal Ultrasound 12/27/22 01:27 IMPRESSION: Mild left hydronephrosis and minimal right hydronephrosis. Suspect secondary to enlarged gravid uterus. Electronically Signed: Alexandro Christiansen MD at 3:08 EDT , Abdomen/Pelvis CT 12/27/22 08:01 IMPRESSION: Mild left hydronephrosis and left hydroureter due to a 4 mm calculus at the left ureterovesical junction. Electronically Signed: Porfirio Cornejo MD at 8:51 EDT , 12/27/22 2307 <Electronically signed by Prerna Cárdenas MD> Cosigner Signature (if applicable): CC: Dr. Prerna Cárdenas MD; Dr. Suyapa Israel DO; Dr. Eugenia Low DO~ Signed [facility] Work Phone: [phone] History and physical note Author Suyapa Scruggs [facility] December 27, 2022 10:06am Note Date/Time December 27, 2022 10:00 am [facility] Medical Records Department [address] [place] [address] H&P Exam - B[employer]END[employer]ER 12/27/22 0956 MR#: [id number] Acct: [id number] Name: NANCY BROWN Rep #:[id number] 1 : 1990 32 From: Suyapa Israel DO PCP: Dr. Eugenia Low DO Status:REG [facility] Location: [id number] HPI - General HPI Narrative NANCY BROWN, is a 32 y/o who presented to L&D late last night with the complaint of nausea, vomiting, and left lower quadrant and back pain and the sensation that she was not emptying bladder completely. She was started on IV fluids, antibiotics, and given morphine and zofran for support. Ultrasound showed mild left hydronephrosis without stones in the ureters or kidneys. She is currently laying in bed uncomfortably and states that pain is somewhat better than last night but still quite unbearable. Maternal Data Information DAISY Calculator Estimated Delivery Date Method Current WG Current Estimate 04/01/23 Ultrasound #1 26w 3d Other Estimates 03/26/23 LMP (Certain) 27w 2d PFSH PFSH Medical History Abnormal EKG (~2014) Acute pharyngitis Celiac disease COVID-19 Difficulty swallowing Easy bruising Shawn-Danlos syndrome Exercise-induced asthma Gastric reflux History of echocardiogram Hyperemesis arising during Migraine headache Mixed anxiety and depressive disorder Non-smoker Wears glasses Home Medications ondansetron HCl 4 mg tablet 4 mg PO Q8H PRN nausea and vomiting #30 tabs 08/18/22 [Rx Last Taken 12/26/22] prenat.vits,anh,[id number] 1 tab PO DAILY 08/18/22 [History Last Taken 12/26/22] metoclopramide HCl 5 mg tablet (Reglan) 5 mg PO .q 8 hrs PRN nausea and vomiting#60 tabs 09/20/22 [Rx Last Taken 12/26/22] pantoprazole 40 mg tablet,delayed release 40 mg PO DAILY #90 tabs 11/15/22 [Rx Last Taken 12/26/22] linaclotide 145 mcg capsule (Linzess) 145 mcg PO Q OTHER DAY 12/25/22 [History Last Taken 12/26/22] Allergy/AdvReac Type Severity Reaction Status Date / Time No Known Allergies Allergy Verified 12/27/22 01:46 Family History Mother Thyroid disorder Grandmother Thyroid disorder Cancer Maternal grandmother - kidney cancer Grandfather Cancer Bladder Surgical History History of wisdom tooth extraction Social History adopted: No household members: spouse, children and other details: brother in law housing: house number of children: 1 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 pets and animals: dog(s) history of recent travel: No sexually active: Yes Smoking Status: Never smoker Electronic Cigarette Use: not used second hand exposure: No alcohol intake: current alcohol intake frequency: holidays/special occasions only Alcohol type: wine details: not while substance use type: does not use diet: gluten free and lactose free well-balanced diet: daily or most days caffeine: Yes Type: carbonated beverages Number of servings: 1 what type of physical activity do you participate in: other details: cardio kickboxing frequency: 1-2 times per week duration: 45-60 minutes/day seatbelt use: always do you feel safe at home: Yes 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 Date Name GA/Weeks Outcome Route Bth Weight Gen Labor Lgth Anesthesia Del Locatn Provider FOB 10/09/20 Gloria 38 live - full term 6lbs 5oz Female [facility] Tracy Delivery Date: 10/09/20 Last Updated by: Antoinette Rubalcava IOl for cholestasis, uncomplicated delivery Visit Details Expected Delivery Route/Plan Labor Preferences- CB/BF classes: [] labor support person: [] labor intervention preferences: [] pain management options preferred: [] cut cord/dad catch: [] : [] PP control planned: [] discussed possible routes of delivery and associated risks: [] special requests: [] Plans Covid status: [] Flu vaccine: [] Tdap vaccine: [] Rhogam: [] LARC form signed: [] Problem list reviewed and updated with the most current plan of care details and appropriate orders placed. Relevant counseling for the gestational age provided. Continue routine care and follow up unless otherwise noted in visit notes/problem list details OB Flowsheet Initial Weight: Not Recorded Date -?-?-?-?-?-?-?-?-?-?-?-?- EGA Weight BP Urine Prot -?-?-?-?-?-?-?-?-?-?-?-?- Glucose FHR FuHt Pres Dilation -?-?-?-?-?-?-?-?-?-?-?-?- Effaced St Visit Note 08/24/22 -?-?-?-?-?-?-?-?-?-?-?-?- 8w 4d 183 lb 4 oz 183 lb 4 oz 102/71 -?-?-?-?-?-?-?-?-?-?-?-?- 170 -?-?-?-?-?-?-?-?-?-?-?-?- SM- CRL NOT cons with LMP 1.8 cm 09/20/22 -?-?-?-?-?-?-?-?-?-?-?-?- 12w 3d 177 lb 126/84 Negative -?-?-?-?-?-?-?-?-?-?-?-?- Negative 153 -?-?-?-?-?-?-?-?-?-?-?-?- JV- pt states th at she is still having nausea daily and vomiting occasionally. She has been treated with reglan in the past for gastroparesis and felt great. will try reglan again. rx sent to pharmacy. 10/18/22 -?-?-?-?-?-?-?-?-?-?-?-?- 16w 3d 174 lb 6 oz 121/80 Trac e -?-?-?-?-?-?-?-?-?-?-?-?- Negative 150 -?-?-?-?-?-?-?-?-?-?-?-?- KW-possible flut ters. no cramping. feeling more anxiety today. she is still vomiting 2-8 times a day. encouraged zofran use with the reglan. if not feeling better by early next week will call for home health visit/zofran pump. encouraged intake of whatever food she can tolerate. 11/15/22 -?-?-?-?-?-?-?-?-?-?-?-?- 20w 3d 179 lb 4 oz 101/65 Nega tive -?-?-?-?-?-?-?-?-?-?-?-?- Negative 147 -?-?-?-?-?-?-?-?-?-?-?-?- JV- feeling bett er with zofran and wants to continue for now. Getting CL q 2 weeks until 26 weeks due to EDS. 12/13/22 -?-?-?-?-?-?-?-?-?-?-?-?- 24w 3d 182 lb 6 oz 111/75 Nega tive -?-?-?-?-?-?-?-?-?-?-?-?- Negative 145 24 -?-?-?-?-?-?-?-?-?-?-?-?- KW- + FM, no vb/ lof/ctx. reports 4 episodes of palpitations and syncope-worse with heat and exacerbation. KW- + FM, no vb/lof/ctx. rep orts 4 episodes of palpitations and syncope-worse with heat and exacerbation. cardiology consult. discussed with STACY BARBOSA FHR Rate Baby A Baseline: 140 ROS Constitutional Constitutional: Denies change in weight, fatigue, fever(s), headache(s), poor appetite or weakness Cardiovascular Cardiovascular: Denies chest pain, dizziness, dyspnea, irregular heart rhythm, leg edema, palpitations or vomiting Respiratory/Chest Respiratory/Chest: Denies chest tightness, cough, dyspnea or breast pain Gastrointestinal Gastrointestinal: Denies abdominal pain, anorexia, constipation, cramping, diarrhea, hemorrhoids, vomiting or weight changes Genitourinary Genitourinary: Reports flank pain, low back pain and urinary urgency; Denies dysuria, genital lesions or urinary incontinence Musculoskeletal Musculoskeletal: Denies back pain, difficulty walking, joint pain, limited range of motion, muscle cramps or numbness Integumentary Integumentary: Denies lesions or unusual bruising Neurologic Neurologic: Denies abnormal movements, abnormal speech, dizziness, numbness or seizure-like activity Vital Signs Vital Signs Vital Signs: 12/27/22 01:12 12/27/22 01:12 12/27/22 01:12 Temperature Temperature Source Pulse Rate 92 Blood Pressure 131/77 H BP Systolic 131 BP Diastolic 77 Pulse Ox 98 07/05/23 01:19 12/27/22 01:19 12/27/22 01:12 Temperature Temperature Source Temporal Pulse Rate 85 Blood Pressure 128/84 H BP Systolic 128 BP Diastolic 84 Pulse Ox 12/27/22 01:12 12/27/22 02:55 12/27/22 02:55 Temperature 98.8 F Temperature Source Pulse Rate 85 Blood Pressure 118/79 BP Systolic 118 BP Diastolic 79 Pulse Ox 12/27/22 03:37 12/27/22 03:37 12/27/22 01:13 Temperature Temperature Source Temporal Pulse Rate 89 Blood Pressure BP Systolic BP Diastolic Pulse Ox 84 12/27/22 01:13 12/27/22 07:56 12/27/22 07:56 Temperature 98.8 F Temperature Source Pulse Rate 92 Blood Pressure 134/81 H BP Systolic 134 BP Diastolic 81 Pulse Ox 12/27/22 07:55 12/27/22 07:47 12/27/22 07:47 Temperature 98.8 F Temperature Source Temporal Pulse Rate Blood Pressure BP Systolic BP Diastolic Pulse Ox 97 Weight Weight: 183 lb Body Mass Index (BMI) 32.4 Physical Exam Const alert, oriented x3, no apparent distress and healthy appearing General Appearance: cooperative; Negative for anxious HEENT normocephalic Face and Sinus: normal facial exam Eyes EOMs intact bilaterally and no scleral icterus General Eye: normal appearance of both eyes Neck full ROM and supple Lymph Lymphatic: no lymphadenopathy noted Chest Chest: abnormal inspection of the chest Resp normal respiratory effort Effort and Inspection: able to speak in complete sentences Cardio regular rate GI soft to palpation and non-tender Inspection: gravid Palpation: soft; Negative for tender external exam normal Narrative: + CVA tenderness on left Amniotic Fluid: ROM+plus Back/Spine no CVA tenderness Extremity normal to inspection, full ROM and no clubbing, cyanosis or edema General Extremity: Negative for calf tenderness or edema Skin Lesions: no lesions Rashes: no rashes Psych mental status grossly normal Labs Labs Labs: Blood Type O POSITIVE Antibody Screen NEGATIVE Hct 33.6 % (37-47) L Hgb 10.5 g/dL (12.0-15.0) L Obstetrics US Syphilis Total Ab Non-reactive VZV IgG Antibody 2076 index (Immune >165) Rubella IgG Antibody Reactive (Nonreactive) Hep Bs Antigen Non-Reactive (Nonreactive) Chlamydia DNA (JUSTIN) Negative (Negative) Neisseria gonorrhoeae DNA (JUSTIN) Negative (Negative) HIV 1&2 Antibody Non-Reactive (Nonreactive) Glucose 1 Hr 50 gm 130 mg/dL (70-140) Rhogam given: No Miscellaneous Test Assessment & Plan (1) Syncope: QUALIFIERS: Syncope type: vasovagal syncope Qualified Code(s): R55 - Syncope and collapse COMMENT: Tunnel vision, things started to go black, ears ringing, then vomited. 5 episodes in 1 months time, Gets tachycardic with episode (2) Heart palpitations: (3) Hyperemesis affecting , antepartum: COMMENT: reglan and zofran. encouraged q 4 hour rotating dosing. if no better next week-referral for zofran pump (4) Obesity affecting : COMMENT: 1 TM GCT encouraged healthy weight gain (5) Needle stick injury: COMMENT: was stuck with needle. Hep + patient. 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 Mota. s/p mfm consult nl maternal echo, Anesthesia consult 09/06 @ 10. delivery based on obstetric indications; NL ECG CL q 2 weeks to 26 weeks -44.2mm. no further CL needed (13) Kidney stone complicating : COMMENT: left UVJ, Dr. Cárdenas consulted. Charges/Coding Visit Charges Inpatient E&M: 47602 Init Hosp L3 12/27/22 1006 <Electronically signed by Suyapa Israel DO> Cosigner Signature (if applicable): CC: Dr. Suyapa Israel DO; Dr. Eugenia Low DO~ Signed [facility] Work Phone: Evaluation note* Diagnosis Onset Date Resolution Status URI (upper respiratory infection) acute [facility] Work Phone: Evaluation noteNo assessment information available [facility] Work Phone: evaluation note* Diagnosis Onset Date Resolution Status Dysphagia acute COVID-19 acute [facility] Work Phone: evaluation note* Diagnosis Onset Date Resolution Status Dysphagia acute COVID-19 acute ANCA-positive vasculitis acu te Celiac disease acute GERD (gastroesophageal reflux disease) acute [facility] Work Phone: Evaluation note* Diagnosis Onset Date Resolution Status ANCA-positive vasculitis acu te Celiac disease chronic GERD (gastroesophageal reflux disease) chronic ANCA-positive vasculitis acu te Celiac disease chronic GERD (gastroesophageal reflux disease) chronic [facility] Work Phone: Evaluation note* Diagnosis Onset Date Resolution Status ANCA-positive vasculitis acu te Celiac disease chronic GERD (gastroesophageal reflux disease) chronic 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 Needle stick injury acute Obesity affecting acute acute Supervision of high risk , antepartum acute Celiac disease chronic GERD (gastroesophageal reflux disease) chronic [facility] Work Phone: evaluation note* Diagnosis Onset Date Resolution Status 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 Needle stick injury acute Obesity affecting acute acute Supervision of high risk , antepartum acute Celiac disease chronic GERD (gastroesophageal reflux disease) chronic 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 Needle stick injury acute Obesity affecting acute acute Supervision of high risk , antepartum acute Celiac disease chronic GERD (gastroesophageal reflux disease) chronic ANCA-positive vasculitis acu te Celiac disease chronic GERD (gastroesophageal reflux disease) chronic 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 Hyperemesis affecting , antepartum acute Needle stick injury acute Obesity affecting acute acute Supervision of high risk , antepartum acute Celiac disease chronic GERD (gastroesophageal reflux disease) chronic 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 Hyperemesis affecting , antepartum acute Needle stick injury acute Obesity affecting acute acute Supervision of high risk , antepartum acute Celiac disease chronic GERD (gastroesophageal reflux disease) [facility] Work Phone: Evaluation note* Diagnosis Onset Date Resolution Status 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 Needle stick injury acute Obesity affecting acute acute Supervision of high risk , antepartum acute Celiac disease chronic GERD (gastroesophageal reflux disease) chronic 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 Needle stick injury acute Obesity affecting acute acute Supervision of high risk , antepartum acute Celiac disease chronic GERD (gastroesophageal reflux disease) chronic ANCA-positive vasculitis acu te Celiac disease chronic GERD (gastroesophageal reflux disease) chronic 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 Hyperemesis affecting , antepartum acute Needle stick injury acute Obesity affecting acute acute Supervision of high risk , antepartum acute Celiac disease chronic GERD (gastroesophageal reflux disease) chronic 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 Hyperemesis affecting , antepartum acute Needle stick injury acute Obesity affecting acute acute Supervision of high risk , antepartum acute Celiac disease chronic GERD (gastroesophageal reflux disease) chronic 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 Heart palpitations acute Hyperemesis affecting , antepartum acute Needle stick injury acute Obesity affecting acute acute Supervision of high risk , antepartum acute Syncope acute Celiac disease chronic GERD (gastroesophageal reflux disease) [facility] Work Phone: Evaluation note* Diagnosis Onset Date Resolution Status 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 Needle stick injury acute Obesity affecting acute acute Supervision of high risk , antepartum acute Celiac disease chronic GERD (gastroesophageal reflux disease) chronic ANCA-positive vasculitis acu te Celiac disease chronic GERD (gastroesophageal reflux disease) chronic 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 Hyperemesis affecting , antepartum acute Needle stick injury acute Obesity affecting acute acute Supervision of high risk , antepartum acute Celiac disease chronic GERD (gastroesophageal reflux disease) chronic 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 Hyperemesis affecting , antepartum acute Needle stick injury acute Obesity affecting acute acute Supervision of high risk , antepartum acute Celiac disease chronic GERD (gastroesophageal reflux disease) chronic 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 Heart palpitations acute Hyperemesis affecting , antepartum acute Needle stick injury acute Obesity affecting acute acute Supervision of high risk , antepartum acute Syncope 2022 acute Celiac disease chronic GERD (gastroesophageal reflux disease) chronic Syncope 2022 acute ANCA-positive vasculitis acu te Bacteriuria acu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 Heart palpitations acute Hydronephrosis acute Hyperemesis affecting , antepartum acute Kidney stone complicating acute Left ureteral stone acute Needle stick injury acute Obesity affecting acute acute Supervision of high risk , antepartum acute Syncope 2022 acute Celiac disease chronic GERD (gastroesophageal reflux disease) chronic [facility] Work Phone: Evaluation note* Diagnosis Onset Date Resolution Status 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 Needle stick injury acute Obesity affecting acute acute Supervision of high risk , antepartum acute Celiac disease chronic GERD (gastroesophageal reflux disease) chronic ANCA-positive vasculitis acu te Celiac disease chronic GERD (gastroesophageal reflux disease) chronic 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 Hyperemesis affecting , antepartum acute Needle stick injury acute Obesity affecting acute acute Supervision of high risk , antepartum acute Celiac disease chronic GERD (gastroesophageal reflux disease) chronic 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 Hyperemesis affecting , antepartum acute Needle stick injury acute Obesity affecting acute acute Supervision of high risk , antepartum acute Celiac disease chronic GERD (gastroesophageal reflux disease) chronic 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 Heart palpitations acute Hyperemesis affecting , antepartum acute Needle stick injury acute Obesity affecting acute acute Supervision of high risk , antepartum acute Syncope 2022 acute Celiac disease chronic GERD (gastroesophageal reflux disease) chronic Syncope 2022 acute ANCA-positive vasculitis acu te Bacteriuria acu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 Heart palpitations acute Hydronephrosis acute Hyperemesis affecting , antepartum acute Kidney stone complicating acute Left ureteral stone acute Needle stick injury acute Obesity affecting acute acute Supervision of high risk , antepartum acute Syncope 2022 acute Celiac disease chronic GERD (gastroesophageal reflux disease) chronic Abnormal glucose affecting acute Anemia affecting a cute Depression affecting acute Heart palpitations acute Hydronephrosis acute Hyperemesis affecting , antepartum acute Kidney stone complicating acute Left ureteral stone acute Needle stick injury acute Obesity affecting acute acute Supervision of high risk , antepartum acute Syncope 2022 acute GERD (gastroesophageal reflux disease) chronic [facility] Work Phone: Evaluation note* Diagnosis Onset Date Resolution Status ANCA-positive vasculitis acu te Celiac disease chronic GERD (gastroesophageal reflux disease) chronic 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 Hyperemesis affecting , antepartum acute Needle stick injury acute Obesity affecting acute acute Supervision of high risk , antepartum acute Celiac disease chronic GERD (gastroesophageal reflux disease) chronic 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 Hyperemesis affecting , antepartum acute Needle stick injury acute Obesity affecting acute acute Supervision of high risk , antepartum acute Celiac disease chronic GERD (gastroesophageal reflux disease) chronic 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 Heart palpitations acute Hyperemesis affecting , antepartum acute Needle stick injury acute Obesity affecting acute acute Supervision of high risk , antepartum acute Syncope 2022 acute Celiac disease chronic GERD (gastroesophageal reflux disease) chronic Syncope 2022 acute ANCA-positive vasculitis acu te Bacteriuria acu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 Heart palpitations acute Hydronephrosis acute Hyperemesis affecting , antepartum acute Kidney stone complicating acute Left ureteral stone acute Needle stick injury acute Obesity affecting acute acute Supervision of high risk , antepartum acute Syncope 2022 acute Celiac disease chronic GERD (gastroesophageal reflux disease) chronic Abnormal glucose affecting acute Anemia affecting a cute Depression affecting acute Heart palpitations acute Hydronephrosis acute Hyperemesis affecting , antepartum acute Kidney stone complicating acute Left ureteral stone acute Needle stick injury acute Obesity affecting acute acute Supervision of high risk , antepartum acute Syncope 2022 acute GERD (gastroesophageal reflux disease) chronic Abnormal glucose affecting acute ANCA-positive vasculitis acu te Anemia affecting a cu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 Heart palpitations acute Hyperemesis affecting , antepartum acute Kidney stone complicating acute Needle stick injury acute Obesity affecting acute acute Supervision of high risk , antepartum acute Syncope 2022 acute Celiac disease chronic GERD (gastroesophageal reflux disease) chronic [facility] Work Phone: Evaluation note* Diagnosis Onset Date Resolution Status 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 Hyperemesis affecting , antepartum acute Needle stick injury acute Obesity affecting acute acute Supervision of high risk , antepartum acute Celiac disease chronic GERD (gastroesophageal reflux disease) chronic 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 Hyperemesis affecting , antepartum acute Needle stick injury acute Obesity affecting acute acute Supervision of high risk , antepartum acute Celiac disease chronic GERD (gastroesophageal reflux disease) chronic 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 Heart palpitations acute Hyperemesis affecting , antepartum acute Needle stick injury acute Obesity affecting acute acute Supervision of high risk , antepartum acute Syncope 2022 acute Celiac disease chronic GERD (gastroesophageal reflux disease) chronic Syncope 2022 acute ANCA-positive vasculitis acu te Bacteriuria acu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 Heart palpitations acute Hydronephrosis acute Hyperemesis affecting , antepartum acute Kidney stone complicating acute Left ureteral stone acute Needle stick injury acute Obesity affecting acute acute Supervision of high risk , antepartum acute Syncope 2022 acute Celiac disease chronic GERD (gastroesophageal reflux disease) chronic Abnormal glucose affecting acute Anemia affecting a cute Depression affecting acute Heart palpitations acute Hydronephrosis acute Hyperemesis affecting , antepartum acute Kidney stone complicating acute Left ureteral stone acute Needle stick injury acute Obesity affecting acute acute Supervision of high risk , antepartum acute Syncope 2022 acute GERD (gastroesophageal reflux disease) chronic Abnormal glucose affecting acute ANCA-positive vasculitis acu te Anemia affecting a cu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 Heart palpitations acute Hyperemesis affecting , antepartum acute Kidney stone complicating acute Needle stick injury acute Obesity affecting acute acute Supervision of high risk , antepartum acute Syncope 2022 acute Celiac disease chronic GERD (gastroesophageal reflux disease) chronic ANCA-positive vasculitis acu te Depression affecting acute Celiac disease chronic GERD (gastroesophageal reflux disease) chronic Abnormal glucose affecting acute ANCA-positive vasculitis acu te Anemia affecting a cute Bacteriuria acu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 Heart palpitations acute Hydronephrosis acute Hyperemesis affecting , antepartum acute Kidney stone complicating acute Left ureteral stone acute Obesity affecting acute acute Supervision of high risk , antepartum acute Syncope 2022 acute Celiac disease chronic GERD (gastroesophageal reflux disease) chronic [facility] Work Phone: Evaluation note* Diagnosis Onset Date Resolution Status 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 Hyperemesis affecting , antepartum acute Needle stick injury acute Obesity affecting acute acute Supervision of high risk , antepartum acute Celiac disease chronic GERD (gastroesophageal reflux disease) chronic 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 Heart palpitations acute Hyperemesis affecting , antepartum acute Needle stick injury acute Obesity affecting acute acute Supervision of high risk , antepartum acute Syncope 2022 acute Celiac disease chronic GERD (gastroesophageal reflux disease) chronic Syncope 2022 acute ANCA-positive vasculitis acu te Bacteriuria acu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 Heart palpitations acute Hydronephrosis acute Hyperemesis affecting , antepartum acute Kidney stone complicating acute Left ureteral stone acute Needle stick injury acute Obesity affecting acute acute Supervision of high risk , antepartum acute Syncope 2022 acute Celiac disease chronic GERD (gastroesophageal reflux disease) chronic Abnormal glucose affecting acute Anemia affecting a cute Depression affecting acute Heart palpitations acute Hydronephrosis acute Hyperemesis affecting , antepartum acute Kidney stone complicating acute Left ureteral stone acute Needle stick injury acute Obesity affecting acute acute Supervision of high risk , antepartum acute Syncope 2022 acute GERD (gastroesophageal reflux disease) chronic Abnormal glucose affecting acute ANCA-positive vasculitis acu te Anemia affecting a cu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 Heart palpitations acute Hyperemesis affecting , antepartum acute Kidney stone complicating acute Needle stick injury acute Obesity affecting acute acute Supervision of high risk , antepartum acute Syncope 2022 acute Celiac disease chronic GERD (gastroesophageal reflux disease) chronic ANCA-positive vasculitis acu te Depression affecting acute Celiac disease chronic GERD (gastroesophageal reflux disease) chronic Abnormal glucose affecting acute ANCA-positive vasculitis acu te Anemia affecting a cute Bacteriuria acu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 Heart palpitations acute Hydronephrosis acute Hyperemesis affecting , antepartum acute Kidney stone complicating acute Left ureteral stone acute Obesity affecting acute acute Supervision of high risk , antepartum acute Syncope 2022 acute Celiac disease chronic GERD (gastroesophageal reflux disease) chronic Abnormal glucose affecting acute ANCA-positive vasculitis acu te Anemia affecting a cute Bacteriuria acu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 Heart palpitations acute Hydronephrosis acute Hyperemesis affecting , antepartum acute Kidney stone complicating acute Left ureteral stone acute Needle stick injury acute Obesity affecting acute acute Supervision of high risk , antepartum acute Syncope 2022 acute Celiac disease chronic GERD (gastroesophageal reflux disease) chronic [facility] Work Phone: Evaluation note* Diagnosis Onset Date Resolution Status 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 Hyperemesis affecting , antepartum acute Needle stick injury acute Obesity affecting acute acute Supervision of high risk , antepartum acute Celiac disease chronic GERD (gastroesophageal reflux disease) chronic 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 Heart palpitations acute Hyperemesis affecting , antepartum acute Needle stick injury acute Obesity affecting acute acute Supervision of high risk , antepartum acute Syncope 2022 acute Celiac disease chronic GERD (gastroesophageal reflux disease) chronic Syncope 2022 acute ANCA-positive vasculitis acu te Bacteriuria acu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 Heart palpitations acute Hydronephrosis acute Hyperemesis affecting , antepartum acute Kidney stone complicating acute Left ureteral stone acute Needle stick injury acute Obesity affecting acute acute Supervision of high risk , antepartum acute Syncope 2022 acute Celiac disease chronic GERD (gastroesophageal reflux disease) chronic Abnormal glucose affecting acute Anemia affecting a cute Depression affecting acute Heart palpitations acute Hydronephrosis acute Hyperemesis affecting , antepartum acute Kidney stone complicating acute Left ureteral stone acute Needle stick injury acute Obesity affecting acute acute Supervision of high risk , antepartum acute Syncope 2022 acute GERD (gastroesophageal reflux disease) chronic Abnormal glucose affecting acute ANCA-positive vasculitis acu te Anemia affecting a cu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 Heart palpitations acute Hyperemesis affecting , antepartum acute Kidney stone complicating acute Needle stick injury acute Obesity affecting acute acute Supervision of high risk , antepartum acute Syncope 2022 acute Celiac disease chronic GERD (gastroesophageal reflux disease) chronic ANCA-positive vasculitis acu te Depression affecting acute Celiac disease chronic GERD (gastroesophageal reflux disease) chronic Abnormal glucose affecting acute ANCA-positive vasculitis acu te Anemia affecting a cute Bacteriuria acu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 Heart palpitations acute Hydronephrosis acute Hyperemesis affecting , antepartum acute Kidney stone complicating acute Left ureteral stone acute Obesity affecting acute acute Supervision of high risk , antepartum acute Syncope 2022 acute Celiac disease chronic GERD (gastroesophageal reflux disease) chronic Abnormal glucose affecting acute ANCA-positive vasculitis acu te Anemia affecting a cute Bacteriuria acu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 Heart palpitations acute Hydronephrosis acute Hyperemesis affecting , antepartum acute Kidney stone complicating acute Left ureteral stone acute Needle stick injury acute Obesity affecting acute acute Supervision of high risk , antepartum acute Syncope 2022 acute Celiac disease chronic GERD (gastroesophageal reflux disease) chronic Abnormal glucose affecting acute ANCA-positive vasculitis acu te Anemia affecting a cute Bacteriuria acu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 Heart palpitations acute Hydronephrosis acute Hyperemesis affecting , antepartum acute Kidney stone complicating acute Left ureteral stone acute Needle stick injury acute Obesity affecting acute acute Supervision of high risk , antepartum acute Syncope 2022 acute Celiac disease chronic GERD (gastroesophageal reflux disease) chronic [facility] Work Phone: Evaluation note* Diagnosis Onset Date Resolution Status 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 Hyperemesis affecting , antepartum acute Needle stick injury acute Obesity affecting acute acute Supervision of high risk , antepartum acute Celiac disease chronic GERD (gastroesophageal reflux disease) chronic 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 Heart palpitations acute Hyperemesis affecting , antepartum acute Needle stick injury acute Obesity affecting acute acute Supervision of high risk , antepartum acute Syncope 2022 acute Celiac disease chronic GERD (gastroesophageal reflux disease) chronic Syncope 2022 acute ANCA-positive vasculitis acu te Bacteriuria acu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 Heart palpitations acute Hydronephrosis acute Hyperemesis affecting , antepartum acute Kidney stone complicating acute Left ureteral stone acute Needle stick injury acute Obesity affecting acute acute Supervision of high risk , antepartum acute Syncope 2022 acute Celiac disease chronic GERD (gastroesophageal reflux disease) chronic Abnormal glucose affecting acute Anemia affecting a cute Depression affecting acute Heart palpitations acute Hydronephrosis acute Hyperemesis affecting , antepartum acute Kidney stone complicating acute Left ureteral stone acute Needle stick injury acute Obesity affecting acute acute Supervision of high risk , antepartum acute Syncope 2022 acute GERD (gastroesophageal reflux disease) chronic Abnormal glucose affecting acute ANCA-positive vasculitis acu te Anemia affecting a cu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 Heart palpitations acute Hyperemesis affecting , antepartum acute Kidney stone complicating acute Needle stick injury acute Obesity affecting acute acute Supervision of high risk , antepartum acute Syncope 2022 acute Celiac disease chronic GERD (gastroesophageal reflux disease) chronic ANCA-positive vasculitis acu te Depression affecting acute Celiac disease chronic GERD (gastroesophageal reflux disease) chronic Abnormal glucose affecting acute ANCA-positive vasculitis acu te Anemia affecting a cute Bacteriuria acu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 Heart palpitations acute Hydronephrosis acute Hyperemesis affecting , antepartum acute Kidney stone complicating acute Left ureteral stone acute Obesity affecting acute acute Supervision of high risk , antepartum acute Syncope 2022 acute Celiac disease chronic GERD (gastroesophageal reflux disease) chronic Abnormal glucose affecting acute ANCA-positive vasculitis acu te Anemia affecting a cute Bacteriuria acu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 Heart palpitations acute Hydronephrosis acute Hyperemesis affecting , antepartum acute Kidney stone complicating acute Left ureteral stone acute Needle stick injury acute Obesity affecting acute acute Supervision of high risk , antepartum acute Syncope 2022 acute Celiac disease chronic GERD (gastroesophageal reflux disease) chronic Abnormal glucose affecting acute ANCA-positive vasculitis acu te Anemia affecting a cute Bacteriuria acu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 Heart palpitations acute Hydronephrosis acute Hyperemesis affecting , antepartum acute Kidney stone complicating acute Left ureteral stone acute Needle stick injury acute Obesity affecting acute acute Supervision of high risk , antepartum acute Syncope 2022 acute Celiac disease chronic GERD (gastroesophageal reflux disease) chronic Abnormal glucose affecting acute ANCA-positive vasculitis acu te Anemia affecting a cute Bacteriuria acu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 Heart palpitations acute Hydronephrosis acute Hyperemesis affecting , antepartum acute Kidney stone complicating acute Left ureteral stone acute Needle stick injury acute Obesity affecting acute acute Supervision of high risk , antepartum acute Syncope 2022 acute Celiac disease chronic GERD (gastroesophageal reflux disease) [facility] Work Phone: Evaluation note* Diagnosis Onset Date Resolution Status 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 Heart palpitations acute Hyperemesis affecting , antepartum acute Needle stick injury acute Obesity affecting acute acute Supervision of high risk , antepartum acute Syncope 2022 acute Celiac disease chronic GERD (gastroesophageal reflux disease) chronic Syncope 2022 acute ANCA-positive vasculitis acu te Bacteriuria acu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 Heart palpitations acute Hydronephrosis acute Hyperemesis affecting , antepartum acute Kidney stone complicating acute Left ureteral stone acute Needle stick injury acute Obesity affecting acute acute Supervision of high risk , antepartum acute Syncope 2022 acute Celiac disease chronic GERD (gastroesophageal reflux disease) chronic Abnormal glucose affecting acute Anemia affecting a cute Depression affecting acute Heart palpitations acute Hydronephrosis acute Hyperemesis affecting , antepartum acute Kidney stone complicating acute Left ureteral stone acute Needle stick injury acute Obesity affecting acute acute Supervision of high risk , antepartum acute Syncope 2022 acute GERD (gastroesophageal reflux disease) chronic Abnormal glucose affecting acute ANCA-positive vasculitis acu te Anemia affecting a cu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 Heart palpitations acute Hyperemesis affecting , antepartum acute Kidney stone complicating acute Needle stick injury acute Obesity affecting acute acute Supervision of high risk , antepartum acute Syncope 2022 acute Celiac disease chronic GERD (gastroesophageal reflux disease) chronic ANCA-positive vasculitis acu te Depression affecting acute Celiac disease chronic GERD (gastroesophageal reflux disease) chronic Abnormal glucose affecting acute ANCA-positive vasculitis acu te Anemia affecting a cute Bacteriuria acu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 Heart palpitations acute Hydronephrosis acute Hyperemesis affecting , antepartum acute Kidney stone complicating acute Left ureteral stone acute Obesity affecting acute acute Supervision of high risk , antepartum acute Syncope 2022 acute Celiac disease chronic GERD (gastroesophageal reflux disease) chronic Abnormal glucose affecting acute ANCA-positive vasculitis acu te Anemia affecting a cute Bacteriuria acu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 Heart palpitations acute Hydronephrosis acute Hyperemesis affecting , antepartum acute Kidney stone complicating acute Left ureteral stone acute Needle stick injury acute Obesity affecting acute acute Supervision of high risk , antepartum acute Syncope 2022 acute Celiac disease chronic GERD (gastroesophageal reflux disease) chronic Abnormal glucose affecting acute ANCA-positive vasculitis acu te Anemia affecting a cute Bacteriuria acu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 Heart palpitations acute Hydronephrosis acute Hyperemesis affecting , antepartum acute Kidney stone complicating acute Left ureteral stone acute Needle stick injury acute Obesity affecting acute acute Supervision of high risk , antepartum acute Syncope 2022 acute Celiac disease chronic GERD (gastroesophageal reflux disease) chronic Abnormal glucose affecting acute ANCA-positive vasculitis acu te Anemia affecting a cute Bacteriuria acu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 Heart palpitations acute Hydronephrosis acute Hyperemesis affecting , antepartum acute Kidney stone complicating acute Left ureteral stone acute Needle stick injury acute Obesity affecting acute acute Supervision of high risk , antepartum acute Syncope 2022 acute Celiac disease chronic GERD (gastroesophageal reflux disease) chronic Abnormal glucose affecting acute Anemia affecting a cute Bacteriuria acu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 Heart palpitations acute Hydronephrosis acute Hyperemesis affecting , antepartum acute Kidney stone complicating acute Left ureteral stone acute Obesity affecting acute acute Supervision of high risk , antepartum acute Syncope 2022 acute [facility] Work Phone: Evaluation note* Diagnosis Onset Date Resolution Status Routine Follow-Up noneactive Gastroparesis acute Lower GI bleeding acute Difficulty swallowing chroni c 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 res olved Celiac disease resolved GERD (gastroesophageal reflux disease) resolved [facility] Work Phone: Evaluation note* Diagnosis Onset Date Resolution Status Gastroparesis acute Lower GI bleeding acute Difficulty swallowing chroni c 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 Eugenia Low, DO Status:[facility] Location: [place] [id number] History and Physical Date of Admission: 09/11/23 NANCY BROWN, is a 33 F who presents to the office today for PCP OV with similar symptoms as ED presentation with reported normal biochemicalworkup and US. PCP increased prevacid which was helpful initially. [facility] ED presentation 8.4.22 with abdominal and epigastric pain/pressure/squeezing, dysphagia and hiccups that present 1-2 times a month with no identifiable trigger. Onset since of daughter 16 months prior. Presented r/t increased pain. ED performed biochemical workup and imaging without cause for alarm and she was given GI cocktail and discharged with prevacid, start norco and Carafate (with some relief). Biochemical CBC (elevated Eosinophils 7.4), CMP, lipase, screen without pertinent abnormality. CT abd/pel noting colonic diverticulosis; granulomata of the spleen; retroverteduterus. *BGI established 02.01.[address] [facility] ED. ED No history of EGD. ? Biochemical ESR, a1C, LDH, CRP, TSH, T3, ALLI comp, gastrin, IgGA(L71)ME, CHEL without pertinent abnormality. Thyroxine L0.75; p-ANCA H1:20. Celiac testing inconclusive r/t IgA level. Stool testing calprotectin WNL. ? EGD 03.23.22 LA Grade B reflux esophagitis; gastritis; duodenitis;villous atrophy of small bowel head. H.Pylori negative. OV 04.19.22 with ongoing heartburn despite Pepcid use; dysphagia and nausea. BM every three days. Stop famotidine, start protonix BIDx 1 month then QDx 1 month.Linzess 145mcg Biochemical IBD profile without pertinent abnormality.? RAST: cow?s milk equivocal 0.12; whole egg low 0.25; wheat Moderate 0.85 ? GET 11.1.22 prolonged at 83.35 minutes (12-56). Start reglan 5mg TID OV 1.. with continued nausea/bloating. Reglan stopped r/t nightmares and fatigue; reglan helpful with appetite increase. Linzess QOD prompting QD BM withcomplete evacuation. Biochemical IBD profile without pertinent abnormality OV 4.. Currently 15 weeks with worsening N/V and heartburn and somenew onset constipation. Fluoxetine stopped and reglan, PPI continue. Biochemical 5..23 CMP, amylase, lipase without pertinent abnormality. OV 8.. with ongoing occasional nausea that she feels is r/t to her . Linzess continues and is having regular movements. ? Biochemical ESR, GA(L57)M, CHEL, HLA B27 without pertinent abnormality. ? Ferritin L3, CRP H8.51 OV 2.5.24 feeling well without nausea and having regular BM, has not needed Linzess since of child 4 months ago. Had dental work with numbing medications that caused a sensation that made her feel that food was stuck; she has had similar episodes approximately four times in the last 18 months. ROS Const Constitutional: Positive for fatigue and weight change; No fever(s), frequent falls or headache(s) ENT ENT: No headache(s) or difficulty swallowing Cardio Cardiology: No leg pain with exertion Gastro GI: Positive for bloating, constipation, heartburn, nausea/dyspepsia and vomiting; No abdominal pain, change in bowel habits, diarrhea, difficulty swallowing, Vomiting blood/hematemesis or Blood in stool Musc Musculoskeletal: No abnormal gait, joint pain, back pain, joint swelling, musclecramps, muscle weakness, numbness, stiffness, tingling, Arthritis, sciatica, legpain at night or leg pain with exertion Skin Skin: No dry skin, lesions, itchy eyes or rash Neuro Neurology: No abnormal gait, dizziness, frequent falls, headache(s), numbness, tingling, tremor(s), Increased tone in limbs, paralysis or seizures Psych Psychiatric: Positive for anxiety, No depression, No paranoia, No Behavioral Problems, No Compulsive Behavior, No hyperactivity, No inattentiveness, No obsessions/compulsions, No Temper Tantrums and No suicidal ideation Endo Endocrine: Positive for fatigue and weight change Aller/Imm Allergy/Immunologic: No itchy eyes Danny/Lymp Hematologic/Lymphatic: Positive for easy bruising; No easy bleeding Exam Const General: cooperative, healthy appearing and no acute distress Orientation: alert, awake and oriented x3 [facility] Head: normal to inspection Ears: hearing grossly normal bilaterally, external ears normal, TM's normal bilaterally and EAC's normal Nose: external nose normal, nares normal, septum normal and no nasal discharge Face and sinus: normal facial exam, sinuses nontender and face symmetric Mouth: oral mucosae normal, lip normal, tongue normal and oropharynx normal Throat: posterior oropharynx normal, uvula midline, abnormal tonsil bilaterally erythema; no exudates and no hypertrophy and postnasal drainage (clear) Eyes General: appearance normal, both eyes and all related structures Neck Neck: normal visual inspection, full ROM, no lymphadenopathy, no meningeal signsand supple Neck mass: No Thyroid: thyroid normal Lymphatic: no lymphadenopathy noted Chest Chest palpation & inspection: normal inspection of the chest Resp Effort & Inspection: normal respiratory effort and able to speak in complete sentences Auscultation: Bilateral: Clear to Auscultation Cardio Palpation: normal PMI Rate: regular rate Rhythm: regular rhythm Heart Sounds: S1 normal, S2 normal, no gallops, no murmurs and no rubs Pulses: radial pulses present GI Inspection: normal to inspection Palpation: soft and no hepatosplenomegaly Skin General: no rashes or lesions noted Neuro General: patient alert, patient awake and patient oriented x3 Cognition: normal cognition Speech: speech normal Psych Appearance: grossly normal Mental Status: mental status grossly normal Mood: congruent mood Affect: normal affect Speech and Movement: speech and movement normal Attitude: cooperative Thought Process: normal Thought Content: normal Judgment: judgment good Quality Reporting Tobacco Screening ([facility] 138) Smoking Status: Never smoker Assessment and Plan Assessment and Plan (1) Non-celiac gluten sensitivity: Status: Chronic (2) Difficulty swallowing: Status: Chronic (3) ANCA-positive vasculitis: Status: Resolved Plan: She was brought as having low titer of ANCA. She is not exhibiting signs of ulcerative colitis, autoimmune hepatitis or microscopic polyangiitis. These areall associated with ANCA associated disease. This is something she will note. (4) Celiac disease: Status: Resolved Plan: Her friend show some inflammation in the esophagus stomach and small bowel. Thebiopsies of the small bowel head showed inflammation consistent with villous atrophy. She is IgA negative and therefore she can IgA believes antibody test for celiac disease. I will put her on a gluten-free diet for control of a lot of her symptoms. I think she does have celiac disease and is resulting in chronic idiopathic constipation. We will continue her on Linzess, 45 mcg once aday for constipation. (5) GERD (gastroesophageal reflux disease): Status: Resolved Qualifiers: Esophagitis presence: without esophagitis Qualified Code(s): K21.9 - Gastro-esophageal reflux disease without esophagitis Plan: Her gastroesophageal reflux disease is not controlled on famotidine based therapy. She is finished with PPI therapy twice a day for a month and is now on once a day for a month. It had gotten a little worse with her but now that she is coming out of first trimester she is doing a lot better. I suggested that she use peppermint gum and always try to keep some type of peppermint in her mouth. She has been doing carbonation as a way to belch. Her nausea is a lot better now that she is off of fluoxetine and only on Reglantherapy. She is taking scheduled as per her permit coordinator. I am okay with her doing that. I told her if it gets worse we can put a temporary Dobbhoff tube inthe office for decompression. Also we encouraged fiber and other agents to helpher constipation as that can indirectly help her gastroparesis. Continue protonix 40mg once a day. (6) Gastroparesis: Status: Acute Plan: We will do some blood for autoimmune gastritis and repeat gastric emptying studyin the future. (7) Lower GI bleeding: Status: Acute Plan: She did have episodes of lower GI bleeding. Since she did have episodes she hasnot had any more lower GI bleeding contributed to hemorrhoidal bleeding. She also has a history of diverticular disease. We talked about doing a colonoscopyand upper endoscopy to see how her was looking because she does have nonsevere gluten sensitivity along looking for the etiology of her lower GI bleeding. Differential diagnosis does include anal fissure, hemorrhoidal bleeding, diverticular bleeding, ischemic colitis and less likely ulcerative colitis or malignancy. Orders: Orders Gastrin, Serum Today K90.41 - Non-celiac gluten sensitivity, R13.10 - Dysphagia,unspecified Intrinsic Factor Ab Today K90.41 - Non-celiac gluten sensitivity, R13.10 - Dysphagia, unspecified Anti-Parietal Cell AB, QN Today K90.41 - Non-celiac gluten sensitivity, R13.10 -Dysphagia, unspecified Vitamin B12 Today K90.41 - Non-celiac gluten sensitivity, R13.10 - Dysphagia, unspecified Folates, (Folic Acid) Today K90.41 - Non-celiac gluten sensitivity, R13.10 - Dysphagia, unspecified Vitamin D,25 Hydroxy Today K90.41 - Non-celiac gluten sensitivity, R13.10 - Dysphagia, unspecified Vitamin D 1,25-Dihydroxy Today K90.41 - Non-celiac gluten sensitivity, R13.10 - Dysphagia, unspecified Amylase Today K90.41 - Non-celiac gluten sensitivity, R13.10 - Dysphagia, unspecified Lipase Today K90.41 - Non-celiac gluten sensitivity, R13.10 - Dysphagia, unspecified CRP Today K90.41 - Non-celiac gluten sensitivity, R13.10 - Dysphagia, unspecified Erythrocyte Sed Rate Today K90.41 - Non-celiac gluten sensitivity, R13.10 - Dysphagia, unspecified Medications: Refilled pantoprazole 40 mg PO DAILY 90 tabs 6RF I have examined the patient and the H&P has been reviewed. There are no clinicalchanges since date of exam. 09/11/23 1626 <Electronically signed by Tonio Hernandez DO> Cosigner Signature (if applicable): CC: Dr. Eugenia Low DO; Tonio Hernandez DO~ Signed [facility] Work Phone: Reason for referral (narrative)No reason for referral [facility] Work Phone: Summary Purpose Family History No Family History Records Found Grandmother Name Dates Details Family history of hypertensi on(V17.49, Z82.49) Status:Active Family history of malignant neoplasm(V16.9, Z80.9) Status:Active Family history of cardiac di sorder(V17.49, Z82.49) Status:Active Family history of thyroid di sease(V18.19, Z83.49) Status:Active Grandfather Name Dates Details Family history of malignant neoplasm of urinary bladder(V16.52, Z80.52) Status:Active Mother Name Dates Details Family history of hypertensi on(V17.49, Z82.49) Status:Active Family history of thyroid di sease(V18.19, Z83.49) Status:Active Family history of myocardial infarction(V17.3, Z82.49) Status:Active Grandfather Name Dates Details Family history of malignant neoplasm(V16.9, Z80.9) Status:Active Family history of cardiac di sorder(V17.49, Z82.49) Status:Active Family history of myocardial infarction(V17.3, Z82.49) Status:Active Relationship Condition Age at Onset Recorded Date/T herber mother Disorder of thyroid Unknown grandmother Disorder of thyroid Unknown Malignant neoplasm Unknown Relationship Condition Age at Onset Recorded Date/T herber mother Disorder of thyroid Unknown grandmother Disorder of thyroid Unknown Malignant neoplasm Unknown grandfather Malignant neoplasm Unknown Advance Directives No Advanced Directives Records Found Advance Directive Response Recorded Date/ Time Advance Directives No May 11:41am Living Will No March 26 6:22am Power of Food Concession Manager No March 26 6:22am Advance Directive Response Recorded Date/ Time Advance Directives No May 11:41am Living Will No January 26, 2022 10:36pm Power of Food Concession Manager No January 26 10:36pm Advance Directive Response Recorded Date/ Time Advance Directives No May 11:41am Living Will No March 20, 2022 2:40pm Power of Food Concession Manager No February 2:40pm Advance Directive Response Recorded Date/ Time Advance Directives No May 10:41am Living Will No March 20, 2022 1:40pm Power of Food Concession Manager No February 1:40pm Advance Directive Response Recorded Date/ Time Advance Directives No October 18 023 7:57am Living Will No October 18, 2022 7:57am Power of Food Concession Manager No October 18 7:57am Advance Directive Response Recorded Date/ Time Advance Directives No October 18 023 7:57am Living Will No December 14, 2022 6:07pm Power of Food Concession Manager No December 14 6:07pm Advance Directive Response Recorded Date/ Time Advance Directives No October 18 2 023 6:57am Living Will No March 28 7:57am Power of Food Concession Manager No March 28 7:57am Advance Directive Response Recorded Date/ Time Advance Directives No October 18 023 7:57am Living Will No September 10, 2023 11:24am Power of Food Concession Manager No September 09 11:24am Advance Directive Response Recorded Date/ Time Living Will No July 29 3:05pm Do you have a Healthcare Power of Food Concession Manager? No July 29, 2024 3:05pm Advance Directives No April 9:24am Chief Complaint and Reason for Visit Chief Complaint SYMPTOMS/COVID COVID/[facility] Reason for Visit URI (upper respirato ry infection) Chief Complaint OBESITY Chief Complaint OBESITY OBESITY ABD PAIN Chief Complaint OBESITY ABD PAIN ER FU ABD PAIN OBESITY CONCERN FOR SINUS INFECTION/ILL X4DAYS/COVID TEST COVID TEST/[facility] EMP Reason for Visit Dysphagia COVID-19 Chief Complaint OBESITY ABD PAIN ER FU ABD PAIN OBESITY CONCERN FOR SINUS INFECTION/ILL X4DAYS/COVID TEST COVID TEST/[facility] EMP E ORDERS FOR LABS Reason for Visit Dysphagia COVID-19 Chief Complaint OBESITY ABD PAIN ER FU ABD PAIN OBESITY CONCERN FOR SINUS INFECTION/ILL X4DAYS/COVID TEST COVID TEST/[facility] EMP E ORDERS FOR LABS 2 WK FU E ORDER Reason for Visit Dysphagia COVID-19 ANCA-positive vasculitis Celiac disease GERD (gastroesophageal reflux disease) Chief Complaint OBESITY ABD PAIN ER FU ABD PAIN OBESITY CONCERN FOR SINUS INFECTION/ILL X4DAYS/COVID TEST COVID TEST/[facility] EMP E ORDERS FOR LABS 2 WK FU E ORDER Shawn-Danlos syndrome, unspecified Reason for Visit Dysphagia COVID-19 ANCA-positive vasculitis Celiac disease GERD (gastroesophageal reflux disease) Chief Complaint 2 WK FU E ORDER Shawn-Danlos syndrome, unspecified 3 MO FU E ORDER Reason for Visit ANCA-positive vascul itis Celiac disease GERD (gastroesophageal reflux disease) ANCA-positive vasculitis Celiac disease GERD (gastroesophageal reflux disease) Chief Complaint 3 MO FU E ORDER NOB LMP 06/19 Reason for Visit ANCA-positive vascul itis Celiac disease GERD (gastroesophageal reflux disease) 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 Needle stick injury Obesity affecting Supervision of high risk , antepartum Celiac disease GERD (gastroesophageal reflux disease) Chief Complaint NOB LMP 06/19 12 WK OB 3 MO FU HYDRATION SORE THROAT 16 WK OB 20 WK OB E-ORDER Reason for Visit ANCA-positive vascul itis Depression affecting Shawn-Danlos syndrome Needle stick injury Obesity affecting Supervision of high risk , antepartum Celiac disease GERD (gastroesophageal reflux disease) 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 Needle stick injury Obesity affecting Supervision of high risk , antepartum Celiac disease GERD (gastroesophageal reflux disease) ANCA-positive vasculitis Celiac disease GERD (gastroesophageal reflux disease) 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 Hyperemesis affecting , antepartum Needle stick injury Obesity affecting Supervision of high risk , antepartum Celiac disease GERD (gastroesophageal reflux disease) 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 Hyperemesis affecting , antepartum Needle stick injury Obesity affecting Supervision of high risk , antepartum Celiac disease GERD (gastroesophageal reflux disease) Chief Complaint NOB LMP 06/19 12 WK OB 3 MO FU HYDRATION SORE THROAT 16 WK OB 20 WK OB E-ORDER 24 WK OB 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 Reason for Visit ANCA-positive vascul itis Depression affecting Shawn-Danlos syndrome Needle stick injury Obesity affecting Supervision of high risk , antepartum Celiac disease GERD (gastroesophageal reflux disease) 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 Needle stick injury Obesity affecting Supervision of high risk , antepartum Celiac disease GERD (gastroesophageal reflux disease) ANCA-positive vasculitis Celiac disease GERD (gastroesophageal reflux disease) 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 Hyperemesis affecting , antepartum Needle stick injury Obesity affecting Supervision of high risk , antepartum Celiac disease GERD (gastroesophageal reflux disease) 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 Hyperemesis affecting , antepartum Needle stick injury Obesity affecting Supervision of high risk , antepartum Celiac disease GERD (gastroesophageal reflux disease) 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 Heart palpitations Hyperemesis affecting , antepartum Needle stick injury Obesity affecting Supervision of high risk , antepartum Syncope Celiac disease GERD (gastroesophageal reflux disease) Chief Complaint 12 WK OB 3 MO FU HYDRATION SORE THROAT 16 WK OB 20 WK OB E-ORDER 24 WK OB 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 PALP / SYNCOPE / 24WKS (FALGUNI) ABDOMINAL PAIN ABDOMINAL PAIN ABDOMINAL PAIN Reason for Visit ANCA-positive vascul itis Depression affecting Shawn-Danlos syndrome Needle stick injury Obesity affecting Supervision of high risk , antepartum Celiac disease GERD (gastroesophageal reflux disease) ANCA-positive vasculitis Celiac disease GERD (gastroesophageal reflux disease) 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 Hyperemesis affecting , antepartum Needle stick injury Obesity affecting Supervision of high risk , antepartum Celiac disease GERD (gastroesophageal reflux disease) 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 Hyperemesis affecting , antepartum Needle stick injury Obesity affecting Supervision of high risk , antepartum Celiac disease GERD (gastroesophageal reflux disease) 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 Heart palpitations Hyperemesis affecting , antepartum Needle stick injury Obesity affecting Supervision of high risk , antepartum Syncope Celiac disease GERD (gastroesophageal reflux disease) Syncope ANCA-positive vasculitis Bacteriuria Depression affecting Shawn-Danlos syndrome Heart palpitations Hydronephrosis Hyperemesis affecting , antepartum Kidney stone complicating Left ureteral stone Needle stick injury Obesity affecting Supervision of high risk , antepartum Syncope Celiac disease GERD (gastroesophageal reflux disease) Chief Complaint 12 WK OB 3 MO FU HYDRATION SORE THROAT 16 WK OB 20 WK OB E-ORDER 24 WK OB 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 PALP / SYNCOPE / 24WKS (FALGUNI) ABDOMINAL PAIN ABDOMINAL PAIN ABDOMINAL PAIN Bacteriuria Reason for Visit ANCA-positive vascul itis Depression affecting Shawn-Danlos syndrome Needle stick injury Obesity affecting Supervision of high risk , antepartum Celiac disease GERD (gastroesophageal reflux disease) ANCA-positive vasculitis Celiac disease GERD (gastroesophageal reflux disease) 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 Hyperemesis affecting , antepartum Needle stick injury Obesity affecting Supervision of high risk , antepartum Celiac disease GERD (gastroesophageal reflux disease) 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 Hyperemesis affecting , antepartum Needle stick injury Obesity affecting Supervision of high risk , antepartum Celiac disease GERD (gastroesophageal reflux disease) 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 Heart palpitations Hyperemesis affecting , antepartum Needle stick injury Obesity affecting Supervision of high risk , antepartum Syncope Celiac disease GERD (gastroesophageal reflux disease) Syncope ANCA-positive vasculitis Bacteriuria Depression affecting Shawn-Danlos syndrome Heart palpitations Hydronephrosis Hyperemesis affecting , antepartum Kidney stone complicating Left ureteral stone Needle stick injury Obesity affecting Supervision of high risk , antepartum Syncope Celiac disease GERD (gastroesophageal reflux disease) Chief Complaint 12 WK OB 3 MO FU HYDRATION SORE THROAT 16 WK OB 20 WK OB E-ORDER 24 WK OB 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 PALP / SYNCOPE / 24WKS (FALGUNI) ABDOMINAL PAIN ABDOMINAL PAIN ABDOMINAL PAIN Bacteriuria E-ORDER SYNCOPE AND COLLAPSE Reason for Visit ANCA-positive vascul itis Depression affecting Shawn-Danlos syndrome Needle stick injury Obesity affecting Supervision of high risk , antepartum Celiac disease GERD (gastroesophageal reflux disease) ANCA-positive vasculitis Celiac disease GERD (gastroesophageal reflux disease) 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 Hyperemesis affecting , antepartum Needle stick injury Obesity affecting Supervision of high risk , antepartum Celiac disease GERD (gastroesophageal reflux disease) 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 Hyperemesis affecting , antepartum Needle stick injury Obesity affecting Supervision of high risk , antepartum Celiac disease GERD (gastroesophageal reflux disease) 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 Heart palpitations Hyperemesis affecting , antepartum Needle stick injury Obesity affecting Supervision of high risk , antepartum Syncope Celiac disease GERD (gastroesophageal reflux disease) Syncope ANCA-positive vasculitis Bacteriuria Depression affecting Shawn-Danlos syndrome Heart palpitations Hydronephrosis Hyperemesis affecting , antepartum Kidney stone complicating Left ureteral stone Needle stick injury Obesity affecting Supervision of high risk , antepartum Syncope Celiac disease GERD (gastroesophageal reflux disease) Chief Complaint 12 WK OB 3 MO FU HYDRATION SORE THROAT 16 WK OB 20 WK OB E-ORDER 24 WK OB 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 PALP / SYNCOPE / 24WKS (FALGUNI) ABDOMINAL PAIN ABDOMINAL PAIN ABDOMINAL PAIN Bacteriuria E-ORDER SYNCOPE AND COLLAPSE Amb Documentation 28 WK OB/GLUCOSE Reason for Visit ANCA-positive vascul itis Depression affecting Shawn-Danlos syndrome Needle stick injury Obesity affecting Supervision of high risk , antepartum Celiac disease GERD (gastroesophageal reflux disease) ANCA-positive vasculitis Celiac disease GERD (gastroesophageal reflux disease) 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 Hyperemesis affecting , antepartum Needle stick injury Obesity affecting Supervision of high risk , antepartum Celiac disease GERD (gastroesophageal reflux disease) 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 Hyperemesis affecting , antepartum Needle stick injury Obesity affecting Supervision of high risk , antepartum Celiac disease GERD (gastroesophageal reflux disease) 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 Heart palpitations Hyperemesis affecting , antepartum Needle stick injury Obesity affecting Supervision of high risk , antepartum Syncope Celiac disease GERD (gastroesophageal reflux disease) Syncope ANCA-positive vasculitis Bacteriuria Depression affecting Shawn-Danlos syndrome Heart palpitations Hydronephrosis Hyperemesis affecting , antepartum Kidney stone complicating Left ureteral stone Needle stick injury Obesity affecting Supervision of high risk , antepartum Syncope Celiac disease GERD (gastroesophageal reflux disease) Abnormal glucose affecting Anemia affecting Depression affecting Heart palpitations Hydronephrosis Hyperemesis affecting , antepartum Kidney stone complicating Left ureteral stone Needle stick injury Obesity affecting Supervision of high risk , antepartum Syncope GERD (gastroesophageal reflux disease) Chief Complaint 3 MO FU HYDRATION SORE THROAT 16 WK OB 20 WK OB E-ORDER 24 WK OB 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 PALP / SYNCOPE / 24WKS (FALGUNI) ABDOMINAL PAIN ABDOMINAL PAIN ABDOMINAL PAIN Bacteriuria E-ORDER SYNCOPE AND COLLAPSE Amb Documentation 28 WK OB/GLUCOSE SCREENING FOR DIABETES 30 WK OB Reason for Visit ANCA-positive vascul itis Celiac disease GERD (gastroesophageal reflux disease) 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 Hyperemesis affecting , antepartum Needle stick injury Obesity affecting Supervision of high risk , antepartum Celiac disease GERD (gastroesophageal reflux disease) 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 Hyperemesis affecting , antepartum Needle stick injury Obesity affecting Supervision of high risk , antepartum Celiac disease GERD (gastroesophageal reflux disease) 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 Heart palpitations Hyperemesis affecting , antepartum Needle stick injury Obesity affecting Supervision of high risk , antepartum Syncope Celiac disease GERD (gastroesophageal reflux disease) Syncope ANCA-positive vasculitis Bacteriuria Depression affecting Shawn-Danlos syndrome Heart palpitations Hydronephrosis Hyperemesis affecting , antepartum Kidney stone complicating Left ureteral stone Needle stick injury Obesity affecting Supervision of high risk , antepartum Syncope Celiac disease GERD (gastroesophageal reflux disease) Abnormal glucose affecting Anemia affecting Depression affecting Heart palpitations Hydronephrosis Hyperemesis affecting , antepartum Kidney stone complicating Left ureteral stone Needle stick injury Obesity affecting Supervision of high risk , antepartum Syncope GERD (gastroesophageal reflux disease) Abnormal glucose affecting ANCA-positive vasculitis Anemia affecting Depression affecting Shawn-Danlos syndrome Heart palpitations Hyperemesis affecting , antepartum Kidney stone complicating Needle stick injury Obesity affecting Supervision of high risk , antepartum Syncope Celiac disease GERD (gastroesophageal reflux disease) Chief Complaint HYDRATION SORE THROAT 16 WK OB 20 WK OB E-ORDER 24 WK OB 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 PALP / SYNCOPE / 24WKS (FALGUNI) ABDOMINAL PAIN ABDOMINAL PAIN ABDOMINAL PAIN Bacteriuria E-ORDER SYNCOPE AND COLLAPSE Amb Documentation 28 WK OB/GLUCOSE SCREENING FOR DIABETES 30 WK OB 4 MO FU INT LABS 32 WK OB Reason for Visit ANCA-positive vascul itis Depression affecting Shawn-Danlos syndrome Hyperemesis affecting , antepartum Needle stick injury Obesity affecting Supervision of high risk , antepartum Celiac disease GERD (gastroesophageal reflux disease) 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 Hyperemesis affecting , antepartum Needle stick injury Obesity affecting Supervision of high risk , antepartum Celiac disease GERD (gastroesophageal reflux disease) 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 Heart palpitations Hyperemesis affecting , antepartum Needle stick injury Obesity affecting Supervision of high risk , antepartum Syncope Celiac disease GERD (gastroesophageal reflux disease) Syncope ANCA-positive vasculitis Bacteriuria Depression affecting Shawn-Danlos syndrome Heart palpitations Hydronephrosis Hyperemesis affecting , antepartum Kidney stone complicating Left ureteral stone Needle stick injury Obesity affecting Supervision of high risk , antepartum Syncope Celiac disease GERD (gastroesophageal reflux disease) Abnormal glucose affecting Anemia affecting Depression affecting Heart palpitations Hydronephrosis Hyperemesis affecting , antepartum Kidney stone complicating Left ureteral stone Needle stick injury Obesity affecting Supervision of high risk , antepartum Syncope GERD (gastroesophageal reflux disease) Abnormal glucose affecting ANCA-positive vasculitis Anemia affecting Depression affecting Shawn-Danlos syndrome Heart palpitations Hyperemesis affecting , antepartum Kidney stone complicating Needle stick injury Obesity affecting Supervision of high risk , antepartum Syncope Celiac disease GERD (gastroesophageal reflux disease) ANCA-positive vasculitis Depression affecting Celiac disease GERD (gastroesophageal reflux disease) Abnormal glucose affecting ANCA-positive vasculitis Anemia affecting Bacteriuria Depression affecting Shawn-Danlos syndrome Heart palpitations Hydronephrosis Hyperemesis affecting , antepartum Kidney stone complicating Left ureteral stone Obesity affecting Supervision of high risk , antepartum Syncope Celiac disease GERD (gastroesophageal reflux disease) Chief Complaint 20 WK OB E-ORDER 24 WK OB 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 PALP / SYNCOPE / 24WKS (FALGUNI) ABDOMINAL PAIN ABDOMINAL PAIN ABDOMINAL PAIN Bacteriuria E-ORDER SYNCOPE AND COLLAPSE Amb Documentation 28 WK OB/GLUCOSE SCREENING FOR DIABETES 30 WK OB 4 MO FU INT LABS 32 WK OB E ORDER 34 WK OB Reason for Visit ANCA-positive vascul itis Depression affecting Shawn-Danlos syndrome Hyperemesis affecting , antepartum Needle stick injury Obesity affecting Supervision of high risk , antepartum Celiac disease GERD (gastroesophageal reflux disease) 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 Heart palpitations Hyperemesis affecting , antepartum Needle stick injury Obesity affecting Supervision of high risk , antepartum Syncope Celiac disease GERD (gastroesophageal reflux disease) Syncope ANCA-positive vasculitis Bacteriuria Depression affecting Shawn-Danlos syndrome Heart palpitations Hydronephrosis Hyperemesis affecting , antepartum Kidney stone complicating Left ureteral stone Needle stick injury Obesity affecting Supervision of high risk , antepartum Syncope Celiac disease GERD (gastroesophageal reflux disease) Abnormal glucose affecting Anemia affecting Depression affecting Heart palpitations Hydronephrosis Hyperemesis affecting , antepartum Kidney stone complicating Left ureteral stone Needle stick injury Obesity affecting Supervision of high risk , antepartum Syncope GERD (gastroesophageal reflux disease) Abnormal glucose affecting ANCA-positive vasculitis Anemia affecting Depression affecting Shawn-Danlos syndrome Heart palpitations Hyperemesis affecting , antepartum Kidney stone complicating Needle stick injury Obesity affecting Supervision of high risk , antepartum Syncope Celiac disease GERD (gastroesophageal reflux disease) ANCA-positive vasculitis Depression affecting Celiac disease GERD (gastroesophageal reflux disease) Abnormal glucose affecting ANCA-positive vasculitis Anemia affecting Bacteriuria Depression affecting Shawn-Danlos syndrome Heart palpitations Hydronephrosis Hyperemesis affecting , antepartum Kidney stone complicating Left ureteral stone Obesity affecting Supervision of high risk , antepartum Syncope Celiac disease GERD (gastroesophageal reflux disease) Abnormal glucose affecting ANCA-positive vasculitis Anemia affecting Bacteriuria Depression affecting Shawn-Danlos syndrome Heart palpitations Hydronephrosis Hyperemesis affecting , antepartum Kidney stone complicating Left ureteral stone Needle stick injury Obesity affecting Supervision of high risk , antepartum Syncope Celiac disease GERD (gastroesophageal reflux disease) Chief Complaint 20 WK OB E-ORDER 24 WK OB 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 PALP / SYNCOPE / 24WKS (FALGUNI) ABDOMINAL PAIN ABDOMINAL PAIN ABDOMINAL PAIN Bacteriuria E-ORDER SYNCOPE AND COLLAPSE Amb Documentation 28 WK OB/GLUCOSE SCREENING FOR DIABETES 30 WK OB 4 MO FU INT LABS 32 WK OB E ORDER 34 WK OB 36 WK OB VENOFER Reason for Visit ANCA-positive vascul itis Depression affecting Shawn-Danlos syndrome Hyperemesis affecting , antepartum Needle stick injury Obesity affecting Supervision of high risk , antepartum Celiac disease GERD (gastroesophageal reflux disease) 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 Heart palpitations Hyperemesis affecting , antepartum Needle stick injury Obesity affecting Supervision of high risk , antepartum Syncope Celiac disease GERD (gastroesophageal reflux disease) Syncope ANCA-positive vasculitis Bacteriuria Depression affecting Shawn-Danlos syndrome Heart palpitations Hydronephrosis Hyperemesis affecting , antepartum Kidney stone complicating Left ureteral stone Needle stick injury Obesity affecting Supervision of high risk , antepartum Syncope Celiac disease GERD (gastroesophageal reflux disease) Abnormal glucose affecting Anemia affecting Depression affecting Heart palpitations Hydronephrosis Hyperemesis affecting , antepartum Kidney stone complicating Left ureteral stone Needle stick injury Obesity affecting Supervision of high risk , antepartum Syncope GERD (gastroesophageal reflux disease) Abnormal glucose affecting ANCA-positive vasculitis Anemia affecting Depression affecting Shawn-Danlos syndrome Heart palpitations Hyperemesis affecting , antepartum Kidney stone complicating Needle stick injury Obesity affecting Supervision of high risk , antepartum Syncope Celiac disease GERD (gastroesophageal reflux disease) ANCA-positive vasculitis Depression affecting Celiac disease GERD (gastroesophageal reflux disease) Abnormal glucose affecting ANCA-positive vasculitis Anemia affecting Bacteriuria Depression affecting Shawn-Danlos syndrome Heart palpitations Hydronephrosis Hyperemesis affecting , antepartum Kidney stone complicating Left ureteral stone Obesity affecting Supervision of high risk , antepartum Syncope Celiac disease GERD (gastroesophageal reflux disease) Abnormal glucose affecting ANCA-positive vasculitis Anemia affecting Bacteriuria Depression affecting Shawn-Danlos syndrome Heart palpitations Hydronephrosis Hyperemesis affecting , antepartum Kidney stone complicating Left ureteral stone Needle stick injury Obesity affecting Supervision of high risk , antepartum Syncope Celiac disease GERD (gastroesophageal reflux disease) Abnormal glucose affecting ANCA-positive vasculitis Anemia affecting Bacteriuria Depression affecting Shawn-Danlos syndrome Heart palpitations Hydronephrosis Hyperemesis affecting , antepartum Kidney stone complicating Left ureteral stone Needle stick injury Obesity affecting Supervision of high risk , antepartum Syncope Celiac disease GERD (gastroesophageal reflux disease) Chief Complaint 20 WK OB E-ORDER 24 WK OB 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 PALP / SYNCOPE / 24WKS (FLAGUNI) ABDOMINAL PAIN ABDOMINAL PAIN ABDOMINAL PAIN Bacteriuria E-ORDER SYNCOPE AND COLLAPSE Amb Documentation 28 WK OB/GLUCOSE SCREENING FOR DIABETES 30 WK OB 4 MO FU INT LABS 32 WK OB E ORDER 34 WK OB 36 WK OB VENOFER 37 WK OB EXTENDED 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 VENOFER Reason for Visit ANCA-positive vascul itis Depression affecting Shawn-Danlos syndrome Hyperemesis affecting , antepartum Needle stick injury Obesity affecting Supervision of high risk , antepartum Celiac disease GERD (gastroesophageal reflux disease) 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 Heart palpitations Hyperemesis affecting , antepartum Needle stick injury Obesity affecting Supervision of high risk , antepartum Syncope Celiac disease GERD (gastroesophageal reflux disease) Syncope ANCA-positive vasculitis Bacteriuria Depression affecting Shawn-Danlos syndrome Heart palpitations Hydronephrosis Hyperemesis affecting , antepartum Kidney stone complicating Left ureteral stone Needle stick injury Obesity affecting Supervision of high risk , antepartum Syncope Celiac disease GERD (gastroesophageal reflux disease) Abnormal glucose affecting Anemia affecting Depression affecting Heart palpitations Hydronephrosis Hyperemesis affecting , antepartum Kidney stone complicating Left ureteral stone Needle stick injury Obesity affecting Supervision of high risk , antepartum Syncope GERD (gastroesophageal reflux disease) Abnormal glucose affecting ANCA-positive vasculitis Anemia affecting Depression affecting Shawn-Danlos syndrome Heart palpitations Hyperemesis affecting , antepartum Kidney stone complicating Needle stick injury Obesity affecting Supervision of high risk , antepartum Syncope Celiac disease GERD (gastroesophageal reflux disease) ANCA-positive vasculitis Depression affecting Celiac disease GERD (gastroesophageal reflux disease) Abnormal glucose affecting ANCA-positive vasculitis Anemia affecting Bacteriuria Depression affecting Shawn-Danlos syndrome Heart palpitations Hydronephrosis Hyperemesis affecting , antepartum Kidney stone complicating Left ureteral stone Obesity affecting Supervision of high risk , antepartum Syncope Celiac disease GERD (gastroesophageal reflux disease) Abnormal glucose affecting ANCA-positive vasculitis Anemia affecting Bacteriuria Depression affecting Shawn-Danlos syndrome Heart palpitations Hydronephrosis Hyperemesis affecting , antepartum Kidney stone complicating Left ureteral stone Needle stick injury Obesity affecting Supervision of high risk , antepartum Syncope Celiac disease GERD (gastroesophageal reflux disease) Abnormal glucose affecting ANCA-positive vasculitis Anemia affecting Bacteriuria Depression affecting Shawn-Danlos syndrome Heart palpitations Hydronephrosis Hyperemesis affecting , antepartum Kidney stone complicating Left ureteral stone Needle stick injury Obesity affecting Supervision of high risk , antepartum Syncope Celiac disease GERD (gastroesophageal reflux disease) Abnormal glucose affecting ANCA-positive vasculitis Anemia affecting Bacteriuria Depression affecting Shawn-Danlos syndrome Heart palpitations Hydronephrosis Hyperemesis affecting , antepartum Kidney stone complicating Left ureteral stone Needle stick injury Obesity affecting Supervision of high risk , antepartum Syncope Celiac disease GERD (gastroesophageal reflux disease) Chief Complaint 24 WK OB 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 PALP / SYNCOPE / 24WKS (FALGUNI) ABDOMINAL PAIN ABDOMINAL PAIN ABDOMINAL PAIN Bacteriuria E-ORDER SYNCOPE AND COLLAPSE Amb Documentation 28 WK OB/GLUCOSE SCREENING FOR DIABETES 30 WK OB 4 MO FU INT LABS 32 WK OB E ORDER 34 WK OB 36 WK OB VENOFER 37 WK OB EXTENDED MONITORING VENOFER EXTENDED MONITORING 38 WK OB VENOFER Reason for Visit ANCA-positive vascul itis Depression affecting Shawn-Danlos syndrome Heart palpitations Hyperemesis affecting , antepartum Needle stick injury Obesity affecting Supervision of high risk , antepartum Syncope Celiac disease GERD (gastroesophageal reflux disease) Syncope ANCA-positive vasculitis Bacteriuria Depression affecting Shawn-Danlos syndrome Heart palpitations Hydronephrosis Hyperemesis affecting , antepartum Kidney stone complicating Left ureteral stone Needle stick injury Obesity affecting Supervision of high risk , antepartum Syncope Celiac disease GERD (gastroesophageal reflux disease) Abnormal glucose affecting Anemia affecting Depression affecting Heart palpitations Hydronephrosis Hyperemesis affecting , antepartum Kidney stone complicating Left ureteral stone Needle stick injury Obesity affecting Supervision of high risk , antepartum Syncope GERD (gastroesophageal reflux disease) Abnormal glucose affecting ANCA-positive vasculitis Anemia affecting Depression affecting Shawn-Danlos syndrome Heart palpitations Hyperemesis affecting , antepartum Kidney stone complicating Needle stick injury Obesity affecting Supervision of high risk , antepartum Syncope Celiac disease GERD (gastroesophageal reflux disease) ANCA-positive vasculitis Depression affecting Celiac disease GERD (gastroesophageal reflux disease) Abnormal glucose affecting ANCA-positive vasculitis Anemia affecting Bacteriuria Depression affecting Shawn-Danlos syndrome Heart palpitations Hydronephrosis Hyperemesis affecting , antepartum Kidney stone complicating Left ureteral stone Obesity affecting Supervision of high risk , antepartum Syncope Celiac disease GERD (gastroesophageal reflux disease) Abnormal glucose affecting ANCA-positive vasculitis Anemia affecting Bacteriuria Depression affecting Shawn-Danlos syndrome Heart palpitations Hydronephrosis Hyperemesis affecting , antepartum Kidney stone complicating Left ureteral stone Needle stick injury Obesity affecting Supervision of high risk , antepartum Syncope Celiac disease GERD (gastroesophageal reflux disease) Abnormal glucose affecting ANCA-positive vasculitis Anemia affecting Bacteriuria Depression affecting Shawn-Danlos syndrome Heart palpitations Hydronephrosis Hyperemesis affecting , antepartum Kidney stone complicating Left ureteral stone Needle stick injury Obesity affecting Supervision of high risk , antepartum Syncope Celiac disease GERD (gastroesophageal reflux disease) Abnormal glucose affecting ANCA-positive vasculitis Anemia affecting Bacteriuria Depression affecting Shawn-Danlos syndrome Heart palpitations Hydronephrosis Hyperemesis affecting , antepartum Kidney stone complicating Left ureteral stone Needle stick injury Obesity affecting Supervision of high risk , antepartum Syncope Celiac disease GERD (gastroesophageal reflux disease) Abnormal glucose affecting Anemia affecting Bacteriuria Depression affecting Shawn-Danlos syndrome Heart palpitations Hydronephrosis Hyperemesis affecting , antepartum Kidney stone complicating Left ureteral stone Obesity affecting Supervision of high risk , antepartum Syncope Chief Complaint visit (ob stetrics) 6 MO FU Reason for Visit Routine F ollow-Up Gastroparesis Lower GI bleeding Difficulty swallowing Non-celiac gluten sensitivity ANCA-positive vasculitis Celiac disease GERD (gastroesophageal reflux disease) Chief Complaint 6 MO FU Reason for Visit Gastroparesis Lower GI bleeding Difficulty swallowing Non-celiac gluten sensitivity ANCA-positive vasculitis Celiac disease GERD (gastroesophageal reflux disease) Chief Complaint Admit Date Dilation and Curettage, LEEP August [id number] 5:28pm Dilation and Curettage, LEEP August 122024 9:48am Dilation and Curettage, LEEP August 122024 12:32pm D&C FU September 05, 2024 8:5 2am SINUS INFECTION CONCERN November 10, 2024 1 0:21am Reason for Visit Admit Date Friable cervix August 12, 2024 9:48am Postcoital bleeding August 12, 2024 9:48am Friable cervix September 05, 2024 8:5 2am Additional Source Comments INFORMATION SOURCE (unrecogn ized section and content) DATE CREATED AUTHOR 01/18/2020 [employer] DATE CREATED AUTHOR AUTHOR'S ORGANIZ ATION 02/04/2020 [facility] DATE CREATED AUTHOR AUTHOR'S ORGANIZ ATION 03/11/2021 [facility] DATE CREATED AUTHOR AUTHOR'S ORGANIZ ATION 12/11/2022 [facility] DATE CREATED AUTHOR AUTHOR'S ORGANIZ ATION 11/10/2024 [facility] Goals (unrecognized section and content) Goals may be documented in a n alternate sectionGoals may be documented in an alternate sectionGoals may be documented in an alternate sectionGoals may be documented in an alternate sectionGoals may be documented in an alternate sectionGoals may be documented in an alternate sectionGoals may be documented in an alternate sectionGoals may be documented in an alternate sectionGoals may be documented in an alternate sectionGoals may be documented in an alternate sectionGoals may be documented in an alternate sectionGoals may be documented in an alternate sectionGoals may be documented in an alternate sectionGoals may be documented in an alternate sectionGoals may be documented in an alternate sectionGoals may be documented in an alternate sectionGoals may be documented in an alternate sectionGoals may be documented in an alternate sectionGoals may be documented in an alternate sectionGoals may be documented in an alternate sectionGoals may be documented in an alternate sectionGoals may be documented in an alternate section Care Teams (unrecognized sec tion and content) Team Status: Active Member Role Status Dates Dr. Eugenia Low , DO Family Provider Active Dr. Eugenia Low , DO Primary Care Provider Active Team Status: Inactive Member Role Status Dates Dr. Eugenia Low , DO Primary Care Provider, Referring P ree Active Dr. Tonio Hernandez , DO Attending Provider Active Team Status: Inactive Member Role Status Dates Dr. Eugenia Low , DO Primary Care Provider Active Dr. Tonio Hernandez , DO Attending Provider, Referring Provider Active Team Status: Inactive Member Role Status Dates Dr. Eugenia Low DO Primary Care Provider, Referring P rovider Active Dr. Annie Grady MD Attending Provider Active Team Status: Inactive Member Role Status Dates Dr. Eugenia Low DO Primary Care Provider Active Dr. Annie Grady MD Attending Provider, Referr ing Provider Active Team Status: Inactive Member Role Status Dates Dr. Eugenia Low DO Primary Care Provider Active Dr. Annie Grady MD Attending Provider Active Team Status: Inactive Member Role Status Dates Dr. Eugenia Low DO Primary Care Provider, Referring P rovider Active Dr. Suyapa Israel DO Attending Provider Activ e Team Status: Inactive Member Role Status Dates Dr. Eugenia Low DO Primary Care Provider, Referring P rovider Active Inna Thomas CNM Attending Provider Active Team Status: Inactive Member Role Status Dates Dr. Eugenia Low DO Primary Care Provider, Referring P rovider Active Flaquito Moya PA, PA Attending Provider Active Team Status: Inactive Member Role Status Dates Dr. Eugenia Low DO Primary Care Provider Active Daksha Manuel LAST IRONER, LAST IRONER-C Attending Provider, Referring Provider Active Team Status: Inactive Member Role Status Dates Dr. Eugenia Low DO Primary Care Provider Active Dr. Earl Somers , DO Emergency Provider Active Team Status: Active Member Role Status Dates Dr. Eugenia Low DO Primary Care Provider Active Dr. Mercedes Brown MD Attending Provider, Referring Pr ovider Active Team Status: Inactive Member Role Status Dates Dr. Eugenia Low DO Primary Care Provider Active Dr. Mercedes Brown MD Attending Provider, Referring Pr ovider Active Team Status: Inactive Member Role Status Dates Dr. Eugenia Low DO Primary Care Provider, Referring P rovider Active Dr. Kaleb Mcmahan MD Attending Provider Active Team Status: Active Member Role Status Dates Dr. Eugenia Low DO Primary Care Provider Active Dr. Suyapa Israel , DO Attending Provider, Referring Provider, Other Provider Active Team Status: Active Member Role Status Dates Dr. Eugenia Low DO Primary Care Provider Active Dr. Suyapa Israel DO Referring Provider, Othe r Provider Active Dr. Prerna Cárdenas MD Other Provider Active Inna Falguni , CNM Attending Provider Active Team Status: Inactive Member Role Status Dates Dr. Eugenia Low DO Primary Care Provider Active Dr. Earl Somers DO Attending Provider, Emergency P rovider Active Team Status: Inactive Member Role Status Dates Dr. Eugenia Low DO Primary Care Provider Active Dr. Suyapa Israel DO Attending Provider, Refe rring Provider Active Dr. Prerna Cárdenas MD Other Provider Active Team Status: Inactive Member Role Status Dates Dr. Eugenia Low DO Primary Care Provider Active Inna Thomas CNM Attending Provider, Referring Pro vider Active Team Status: Active Member Role Status Dates Dr. Eugenia Low DO Primary Care Provider Active Dr. Kaleb Mcmahan MD Attending Provider Active Team Status: Active Member Role Status Dates Dr. Eugenia Low DO Primary Care Provider Active Dr. Kaleb Mcmahan MD Attending Provider, Referring Pro vider Active Team Status: Inactive Member Role Status Dates Dr. Eugenia Low DO Primary Care Provider, Referring P rovider Active Daksha Manuel LAST IRONER, LAST IRONER-C Attending Provider Active Team Status: Active Member Role Status Dates Dr. Eugenia Low DO Primary Care Provider Active Inna Cruz LAST IRONER, LAST IRONER-C Attending Provider Active Team Status: Inactive Member Role Status Dates Dr. Eugenia Low DO Primary Care Provider Active Dr. Kaleb Mcmahan MD Attending Provider, Referring Pro vider Active Team Status: Active Member Role Status Dates Dr. Eugenia Low DO Primary Care Provider Active Dr. Suyapa Israel DO Attending Provider, Refe rring Provider Active Team Status: Inactive Member Role Status Dates Dr. Eugenia Low DO Primary Care Provider Active Dr. Suyapa Israel DO Attending Provider, Refe rring Provider Active Team Status: Inactive Member Role Status Dates Dr. Eugenia Low DO Primary Care Provider Active Dr. Annie Grady MD Attending Provider, Referr ing Provider Active Inna Thomas CNM Other Provider Active Team Status: Active Member Role Status Dates Dr. Eugenia Low DO Primary Care Provider Active Dr. Annie Grady MD Attending Pr ovider, Referring Provider, Other Provider Active Inna Thomas CNM Other Provider Active Team Status: Active Member Role Status Dates Dr. Eugenia Low DO Primary Care Provider, Referring P rovider Active Dr. Tonio Hernandez DO Attending Provider, Other Prov ider Active Team Status: Active Member Role Status Dates Dr. Eugenia Low DO Primary Care Provider Active Team Status: Active Member Role Status Dates Dr. Eugenia Low DO Primary Care Provider Active Start: August 11, 2024 Dr. Annie Grady MD Attending Provider Active Start: August 11, 2024 Dr. Annie Grady MD Referring Provider Active Start: August 11, 2024 Dr. Annie Grady MD Other Provider Active Start: August 11, 2024 Team Status: Inactive Member Role Status Dates Dr. Eugenia Low DO Primary Care Provider Active Start: August 12, 2024 End: August 12, 2024 Dr. Annie Grady MD Attending Provider Active Start: August 12, 2024 End: August 12, 2024 Dr. Annie Grady MD Referring Provider Active Start: August 12, 2024 End: August 12, 2024 Team Status: Active Member Role Status Dates Dr. Eugenia Low DO Primary Care Provider Active Start: August 12, 2024 Dr. Annie Grady MD Attending Provider Active Start: August 12, 2024 Dr. Annie Grady MD Referring Provider Active Start: August 12, 2024 Dr. Annie Grady MD Other Provider Active Start: August 12, 2024 Team Status: Inactive Member Role Status Dates Dr. Eugenia Low DO Primary Care Provider Active Start: September 05, 2024 End: September 05, 2024 Dr. Eugenia Low DO Referring Provider Active St art: September 05, 2024 End: September 05, 2024 Dr. Annie Grady MD Attending Provider Active Start: September 05, 2024 End: September 05, 2024 Team Status: Inactive Member Role Status Dates Dr. Eugenia Low DO Primary Care Provider Active Start: November 10, 2024 End: November 10, 2024 Dr. Eugenia Low DO Referring Provider Active St art: November 10, 2024 End: November 10, 2024 Flaquito Moya PA, PA Attending Provider Active Start: November 10, 2024 End: November 10, 2024 FOR RECORDS PERTAINING TO PATIENTS WHO ARE OR HAVE BEEN ENROLLED IN A CHEMICAL DEPENDENCY/SUBSTANCEABUSE PROGRAM, SOME INFORMATION MAY BE OMITTED. This clinical summary was aggregated from multiple sources. Caution should be exercised in using it in the provision of clinical care. This summary normalizes information from multiple sources, and as a consequence, information in this document may materially change the coding, format and clinical context of patient data. In addition, data may be omitted in some cases. CLINICAL DECISIONS SHOULD BE BASED ON THE PRIMARY CLINICAL RECORDS. [facility] provides no warranty or guarantee of the accuracy or completeness of information in this document.
[2025-05-21 04:07] LABS: PROGESTERONE 0.2 ng/mL (.)
[2025-05-22 18:08] LABS: Thyroglobulin, Serum Qt. 9.2 ng/mL (1.5-38.5); Thyroid Stim Immunoglob <0.10 IU/L (0.00-0.55)
== END | disposition home or self-care (01) ==
LOC: BFHLAB 14:36
PROVIDERS: PCP Family Medicine; Visit Provider Nurse Practitioner Family
DX: R63.5 Abnormal weight gain (principal); N92.6 Irregular menstruation, unspecified; R73.01 Impaired fasting glucose; Z83.49 Family history of other endocrine, nutritional and metabolic diseases
CPT/HCPCS: 36415; 82670; 83036; 83525; 84144; 84403; 84432; 84436; 84439; 84443; 84445; 84481; 84681; 86376; 86800